=== PATIENT | male | born 1985 | race Caucasian/White ===

== ENCOUNTER 2017-12-21 19:05 | Emergency (ER) | payer OTHER ==
[~2017-12-21] VITALS: Ht 180.3 cm; Wt 136.1 kg
[2017-12-21] MEDS ORDERED: HYDROCODONE/APAP 5MG-325MG TAB PO ONE (23:00)
[2017-12-22 00:22] VITALS: BP 140/96
[2017-12-22] MEDS ORDERED: ROBAXIN-750750 MG PO (00:26)
[2017-12-22] MEDS ORDERED: TYLENOL WITH C1 EAC1 PO (00:26)
== END 2017-12-22 00:35 | disposition home or self-care (01) ==
LOC: ER 19:05
DX: S86.111A Strain of other muscle(s) and tendon(s) of posterior muscle group at lower leg level, right leg, initial encounter (principal); W40.9XXA Explosion of unspecified explosive materials, initial encounter; Y92.69 Other specified industrial and construction area as the place of occurrence of the external cause; Y99.0 Civilian activity done for income or pay
CPT/HCPCS: 93971; 99283

== ENCOUNTER → 2018-03-17 | Day surgery (SDC) | payer OTHER ==
[~2018-03-17] MED LIST: CIPRO500 MG PO; CITALOPRAM HBR20 MG PO; FENTANYL CITRATE/PF 100MCG/2 ML INJ ONE; GLUCAGON FOR INJ 1 MG VIAL ONE; HYOSCYAMINE SULFATE 0.5 MG/ML AMP ONE; LIDOCAINE HCL 2% LOCAL INJ 5 ML SDV VIAL INJ ONE; METOCLOPRAMIDE HCL 10 MG/2ML VIAL ONE; MIDAZOLAM HCL 2 MG/2 ML VIAL ONE; NORCO 10-325 T1 EACH PO; ONDANSETRON HCL INJ 2 MG/ML VIAL ONE; PANTOPRAZOLE 40 MG 10ML VIAL ONE; PANTOPRAZOLE SO40 MG PO; PROPOFOL IV EMULSION 10 MG/ML 50 ML VIAL ONE; ROBAXIN-750750 MG PO; TYLENOL WITH C1 EAC1 PO; XIFAXAN550 MG PO
[2018-03-17 13:08] LABS: C DIFFICILE TOXIN A&B AMP PROB NEGATIVE (NEGATIVE); WBC,FECAL (FECAL LACTOFERRIN) POSITIVE (NEGATIVE)
--- NOTE | 2018-03-17 15:11 | Operative Report ---
DATE OF PROCEDURE: March 17, 2018 REFERRING PHYSICIAN: PROCEDURES PERFORMED 1. Esophagogastroduodenoscopy with biopsies. 2. Colonoscopy with biopsies. INDICATIONS FOR ESOPHAGOGASTRODUODENOSCOPY: Nausea and vomiting. INDICATIONS FOR COLONOSCOPY: Rectal bleeding, change of bowel habits. MEDICATION: Patient was done under MAC. Please see anesthesiologist's note. PROCEDURE: With patient in left lateral decubitus position, a flexible fiberoptic Olympus gastroscope was introduced into the esophagus under direct visualization without any difficulty. There was some patchy erythema noted in distal esophagus. The scope was then advanced with ease into the stomach. Mucosa overlying the antrum and the body revealed some patchy erythema and mild to moderate edema and biopsies were obtained, sent to stain for H. pylori. Several hyperplastic appearing polyps were noted in the body of the stomach and some were partially excised with cold biopsy forceps. Pylorus appeared to be of normal contour and shape, was intubated with ease and the scope was advanced all the way to the 2nd portion of the duodenum. One nodule was biopsied in the proximal 2nd portion and biopsies were obtained from mucosa to rule out sprue. The mucosa overlying the duodenal bulb appeared to be within normal limits. The scope was then withdrawn back into the stomach and retroflexed and mucosa overlying the fundus and cardia appeared to be within normal limits. The scope was then straightened out. The stomach was decompressed. Scope was subsequently withdrawn. Patient tolerated the procedure well. IMPRESSION 1. Distal esophagitis, mild. 2. Gastritis biopsied. Biopsies sent to stain for H. pylori. 3. Gastric polyps, hyperplastic appearing, body, some partially excised with cold biopsy forceps. 4. Rule out sprue. 5. Nodule, minute proximal 2nd portion biopsied. PLAN: Follow up histology. Initiate Protonix 40 mg 1 p.o. q.a.m. a.c. Patient was then turned around and after adequate lubrication of the anal canal, a flexible fiberoptic Olympus colonoscope was inserted into the rectum with ease and advanced all the way to the cecum. The mucosa overlying the cecum appeared to be within normal limits. The ileocecal valve was intubated and the scope was advanced into the terminal ileum which appeared ulcerated and inflamed. Biopsies were obtained. The scope was then withdrawn back into the colon. Mucosa overlying the ascending, transverse, descending, sigmoid and rectum revealed some patchy areas of erythema and low-grade edema with some intervening normal-appearing mucosa. Random biopsies were obtained. The scope was then retroflexed into the distal rectum and small internal hemorrhoids were noted, none of which was actively bleeding. The scope was then straightened out. It was subsequently withdrawn after securing an adequate stool specimen that was sent for the appropriate stool studies. Patient tolerated procedure well. IMPRESSION 1. Colitis, mild, patchy. Random biopsies obtained. 2. Proctitis, mild. Biopsies obtained. 3. Internal hemorrhoids none actively bleeding. PLAN: Follow up histology. Follow up stool studies. Check CRP, sed rate and IBD panel. Will proceed with small bowel series if not done. Will need to initiate biologic therapy with even possible immunologic therapy. Job#: [id number] DG cc:SHARLA MENJIVAR MD
== END | disposition home or self-care (01) ==
LOC: OR 08:51
PROVIDERS: ATTEND Internal Medicine Gastroenterology
DX: K29.50 Unspecified chronic gastritis without bleeding (principal); K31.7 Polyp of stomach and duodenum; K52.9 Noninfective gastroenteritis and colitis, unspecified; K20.9 Esophagitis, unspecified; K31.89 Other diseases of stomach and duodenum; K62.89 Other specified diseases of anus and rectum; K64.8 Other hemorrhoids; F43.10 Post-traumatic stress disorder, unspecified; F41.9 Anxiety disorder, unspecified
CPT/HCPCS: 36415; 43239; 45380; 82308; 82948; 83630; 85651; 86140; 86256; 86671; 87045; 87177; 87328; 87493; J1610; J1980; J2001; J2250; J2405; J2765; 45378

== ENCOUNTER → 2018-04-22 | Outpatient (CLI) | payer OTHER ==
[~2018-04-22] MED LIST changes: -FENTANYL CITRATE/PF 100MCG/2 ML INJ ONE; -GLUCAGON FOR INJ 1 MG VIAL ONE; -HYOSCYAMINE SULFATE 0.5 MG/ML AMP ONE; -LIDOCAINE HCL 2% LOCAL INJ 5 ML SDV VIAL INJ ONE; -METOCLOPRAMIDE HCL 10 MG/2ML VIAL ONE; -MIDAZOLAM HCL 2 MG/2 ML VIAL ONE; -ONDANSETRON HCL INJ 2 MG/ML VIAL ONE; -PANTOPRAZOLE 40 MG 10ML VIAL ONE; -PROPOFOL IV EMULSION 10 MG/ML 50 ML VIAL ONE
--- NOTE | 2018-04-22 11:51 | Diagnostic Imaging Report ---
EXAMINATION: CHEST 2 VIEWS INDICATION: \[id number] \S\[id number] \S\POSSIBLE TUBERCULOSIS COMPARISON: None FINDINGS: PA and lateral views TUBES and LINES: None. LUNGS: Lungs are moderately inflated. Lungs are clear. There is no evidence of pneumonia or pulmonary edema. PLEURA: No pleural effusion or pneumothorax. HEART AND MEDIASTINUM: The cardiomediastinal silhouette is unremarkable. BONES AND SOFT TISSUES: No acute osseous lesion. Soft tissues are unremarkable. UPPER ABDOMEN: No free air under the diaphragm. IMPRESSION: No acute thoracic abnormality. Signed by: DR. Richard Bah MD on 04/22/2018 11:48 AM
== END ==
LOC: RAD 10:45
PROVIDERS: ATTEND Internal Medicine Gastroenterology
DX: Z11.1 Encounter for screening for respiratory tuberculosis (principal)
CPT/HCPCS: 71046

== ENCOUNTER 2019-12-04 07:33 | Inpatient (IN) | payer OTHER ==
[~2019-12-04] VITALS: Ht 180.3 cm; Wt 99.3 kg
[2019-12-04 08:24] LABS: BASOPHILS % 0.3 % (0.0-1.0); EOSINOPHILS # (AUTO) 0.2 (0.0-0.4); EOSINOPHILS % 1.1 % (0.0-6.0); HEMATOCRIT 30.3 % (38.2-49.6); HEMOGLOBIN 8.4 g/dL (14.0-18.0); LYMPHOCYTES # (AUTO) 2.4 (1.0-3.2); LYMPHOCYTES % 15.8 % (18.0-39.1); MEAN CORPUSCULAR HEMOGLOBIN 20.6 pg (28-32); MEAN CORPUSCULAR HGB CONC 27.7 g/dL (31-35); MEAN CORPUSCULAR VOLUME 74.4 fL (81-99); MONOCYTES # (AUTO) 0.8 (0.2-0.8); MONOCYTES % 5.4 % (4.4-11.3); NEUTROPHILS # (AUTO) 11.9 (2.1-6.9); NEUTROPHILS % 76.4 % (38.7-80.0); PLATELET COUNT 773 x10e3/uL (140-360); RED BLOOD COUNT 4.07 x10e6/uL (4.3-5.7); RED CELL DISTRIBUTION WIDTH 17.9 % (11.7-14.4)
[2019-12-04] MEDS ORDERED: DIATRIZOATE MEGL/DIATRIZOA SOD 30 ML BTL PO ONE (08:27)
[2019-12-04 08:43] LABS: ALANINE AMINOTRANSFERASE 19 IU/L (0-55); ALBUMIN 1.7 g/dL (3.5-5.0); ALBUMIN/GLOBULIN RATIO 0.3 (0.8-2.0); ALKALINE PHOSPHATASE 162 IU/L (40-150); ANION GAP 12.6 mmol/L (8-16); BLOOD UREA NITROGEN 8 mg/dL (7-26); BUN/CREATININE RATIO 10 (6-25); CALCIUM 7.9 mg/dL (8.4-10.2); CARBON DIOXIDE 25 mmol/L (22-29); CHLORIDE 105 mmol/L (98-107); CREATININE, SERUM 0.78 mg/dL (0.72-1.25); EST GLOMERULAR FILTRATION RATE > 60 ML/MIN (60-); GLUCOSE 92 mg/dL (74-118); POTASSIUM 3.6 mmol/L (3.5-5.1); SODIUM 139 mmol/L (136-145)
[2019-12-04] MEDS ORDERED: BENTYL10 MG/1 ML PO (08:48)
[2019-12-04] MEDS ORDERED: LEVSIN0.125 MG PO (08:50)
[2019-12-04] MEDS ORDERED: HUMIRA40 MG/0.8 PO (08:51)
--- NOTE | 2019-12-04 10:47 | Diagnostic Imaging Report ---
EXAM: CT Abdomen and Pelvis WITH intravenous contrast INDICATION: Abdominal pain, rectal bleeding, Crohn disease COMPARISON: CT abdomen and pelvis of 02/26/2018 TECHNIQUE: Abdomen and pelvis were scanned utilizing a multidetector helical scanner from the lung base to the pubic symphysis after administration of IV contrast. Coronal and sagittal reformations were obtained. Routine protocol was performed. Scan was performed during portal venous phase. IV CONTRAST: 100mL of Isovue 370 ORAL CONTRAST: Gastrografin RADIATION DOSE: Total DLP: 512 mGy*cm Dose modulation, iterative reconstruction, and/or weight based adjustment of the mA/kV was utilized to reduce the radiation dose to as low as reasonably achievable. FINDINGS: LOWER THORAX: Normal. HEPATOBILIARY: Diffuse hepatic steatosis. No focal liver lesion. No biliary ductal dilation. Unremarkable gallbladder. SPLEEN: No splenomegaly. PANCREAS: No focal masses or ductal dilatation. ADRENALS: No adrenal nodules. KIDNEYS/URETERS: No hydronephrosis, stones, or solid mass lesions. PELVIC ORGANS/BLADDER: Unremarkable. PERITONEUM / RETROPERITONEUM: See GI tract LYMPH NODES: Mesenteric lymphadenopathy. VESSELS: Unremarkable. GI TRACT: In the mid anterior abdomen, there are several loops of small bowel which demonstrate wall thickening and enhancement. Posterior to these loops, there is a 4.1 x 1.5 cm peripherally enhancing fluid collection containing a small amount of air. Small amount of air adjacent to this collection appears extraluminal. Associated adjacent mesenteric adenopathy. BONES AND SOFT TISSUES: No acute osseous injury. No suspicious lytic or blastic lesions. IMPRESSION: Anterior abdominal distal jejunal/proximal ileal wall thickening/enhancement with associated mesenteric fat stranding and a 4.1 x 1.5 cm wall enhancing mesenteric fluid collection with a small amount of adjacent extraluminal air. Associated mesenteric lymphadenopathy. Findings consistent with acute Crohn disease flare with associated small mesenteric abscess. This abscess, based on size and location, is not amenable to percutaneous drainage. Signed by: Malou Amaro MD on 12/04/2019 10:43 AM
[2019-12-04] MEDS: LEVOFLOXACIN 500MG/D5W 100ML 100 ML IV SCH (11:17)
[2019-12-04] MEDS ORDERED: LEVOFLOXACIN 500MG/D5W 100ML IV SCH (11:30)
--- NOTE | 2019-12-04 11:30 | History and Physical ---
CHIEF COMPLAINT: "I have blood in my stool." HISTORY OF PRESENT ILLNESS: This is a 34-year-old white man, who has known history of inflammatory bowel disease (ulcerative colitis and Crohn disease). The patient states that over the last 6 months he has lost approximately 90 pounds unintentionally. The patient also states for the past few days he has had hematochezia. The patient saw his primary care physician, namely myself, Dr. Luevano over the last week and was found to have a hemoglobin 8.5 g/dL. The patient denies any melena, but states at times he does have a blood in his stool. The patient states he has pain in his lower abdominal quadrant area. Denies any fever or chills, but states he does not feel well. In the emergency room, the patient was found to have white blood cell count of 15,400 with 76% segmented neutrophils. Hemoglobin is 8.4 g/dL. MCV 74. RDW 17.9. The patient's chemistries are unremarkable except albumin is 1.7 g/dL. REVIEW OF SYSTEMS: GENERAL: The patient has lost 90 pounds in the last 6 months. No fever or chills, but states he does not feel well. He does complain of weakness. HEENT: No headaches. No visual changes. CARDIOVASCULAR/RESPIRATORY: No chest pain. No shortness of breath. No cough. GI: Complains of blood in his stools for the past couple weeks. It occurs intermittently. Denies any melena. Denies any nausea or vomiting. The patient states he does have abdominal discomfort mainly in the lower abdominal area which has been present for about a week. : No UTI symptoms. Denies any hematuria. NEUROMUSCULAR: No limb weakness or numbness. ALLERGIES: NO KNOWN DRUG ALLERGIES. HOME MEDICATIONS: 1. Humira 40 mg subcutaneous every two weeks. 2. Citalopram 20 mg. 3. Dicyclomine 20 mg daily. 4. Hyoscyamine 0.25 mg once daily as needed for abdominal cramping. 5. Pantoprazole 40 mg daily. PAST MEDICAL HISTORY: 1. Inflammatory bowel disease (Crohn disease/ulcerative colitis). 2. Anemia secondary to chronic disease. 3. GERD. 4. Mild obesity. FAMILY HISTORY: Father with prostate cancer. PAST SURGICAL HISTORY: None. SOCIAL HISTORY: This man is and lives with his . 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 The patient does not smoke. He does dip tobacco. The patient states he drinks alcohol rarely. The patient states that with the current COVID-19 crisis, he has not been working. PHYSICAL EXAMINATION: GENERAL: He is awake, alert, and fully oriented. He is very pleasant and cooperative with exam, did not appear to be any distress. VITAL SIGNS: Height 5 feet 11 inches, weight is 220 pounds. Weight was apparently 310 pounds in May 2019. His current BMI is 30. His blood pressure 120/80, pulse is 90, respiratory rate 18, oxygen saturation 100% on room air, and temperature 98.4. INTEGUMENT: Skin is warm and dry. The patient has obvious pallor. No jaundice or diaphoresis. HEENT: Anicteric sclerae with pale conjunctivae. He does have moist mucous membranes. NECK: Supple. CARDIOVASCULAR: Regular rate and rhythm. LUNGS: No rales. No rhonchi or wheezes. ABDOMEN: Mildly obese. He does have tenderness in the bilateral lower quadrant area, more pronounced on the left. EXTREMITIES: No edema or deformity. NEUROLOGIC: Intact. DIAGNOSES: 1. Acute on chronic anemia likely secondary to gastrointestinal bleeding. 2. Inflammatory bowel disease (ulcerative colitis and Crohn disease). 3. Colitis. 4. Drastic unintentional weight loss. PLAN: 1. Admit to the hospital. 2. Clear liquid diet. 3. N.p.o. after midnight. 4. Start intravenous antibiotics. 5. We will follow. 6. Order CT of abdomen and pelvis. 7. Consult Gastroenterology since the patient most likely will need upper and lower endoscopy. 8. Follow hemoglobin and hematocrit. 9. Hemoccult stool. I spent 40 minutes in care of this patient. MD LIAM Lim/JOHN /[id number] MTDAlana
--- NOTE | 2019-12-04 12:24 | NUR ---
Attempted to reach Dr. Frankel in order to modify patients diet order. Spoke with answering service waiting for a call back.
--- NOTE | 2019-12-04 12:54 | NUR ---
Spoke with Dr. Frankel regarding patients diet order, was told to call Dr. Conti to verify that patient would not be scoped today inorder to modify diet order.
--- NOTE | 2019-12-04 13:00 | NUR ---
Called Dr. Conti's office regarding diet order. Spoke with answering service. Will await for call back.
[2019-12-04] MEDS ORDERED: SODIUM CHLORIDE 0.9% 50ML 50 ML ONE (13:04)
[2019-12-04] MEDS ORDERED: IOPAMIDOL 370 MG/ML 200 ML INFUS..BTL INJ ONE (13:05)
--- NOTE | 2019-12-04 14:17 | NUR ---
Per Dr. Conti patient is to remain on clear liquids.
[2019-12-04] MEDS: METRONIDAZOLE 500MG/NS 100ML 100 ML IV SCH ×2 (14:30→21:30)
--- NOTE | 2019-12-04 15:00 | NUR ---
Patient arrived to the unit @ 1453 via stretcher from ER. Patient in stable condition, No s/s of distress noted. No pain voiced. Telemetry in place and working. bed in lowest position and locked. Call light within reach. All personal items within reach.
[2019-12-04 16:03] VITALS: BP 124/73
[2019-12-04 16:45] VITALS: BP 124/73
[2019-12-04] MEDS ORDERED: BISACODYL 5 MG TAB EC PO ONE ×4 (17:00→23:00)
[2019-12-04] MEDS ORDERED: CITRATE OF MAGNESIA 300ML BOTTLE PO ONE ×2 (19:00→23:00)
--- NOTE | 2019-12-04 19:00 | NUR ---
Bedside shift report given to oncoming nurse. patient in stable condition, no s/s of distress. No complaints of pain. Telemetry in place and working. Bed in lowest position and locked. Call light within reach. All personal items within reach.
--- NOTE | 2019-12-04 19:52 | NUR ---
CALL PLACED OUT TO DR. MENJIVAR FOR PAIN MEDICATION UPON PATIENT'S REQUEST- AWAITING CALLBACK. REINFORCING METAL WORKER NURSE INFORMED.
[2019-12-04 21:30] VITALS: BP 124/73
[2019-12-04] MEDS: HYDROMORPHONE 1MG/1ML INJ IV PRN (21:30)
[2019-12-04] MEDS: ONDANSETRON HCL INJ 2MG/ML 2ML 2 MG/ML VIAL IV PRN (21:30)
--- NOTE | 2019-12-04 21:30 | NUR ---
PATIENT RESTING IN BED AOX4, NO SIGNS OF DISTRESS NOTED. IV ANTIBIOTICS ARE RUNNING AT ORDERED RATE, AND PATIENT VOICES PAIN AT A LEVEL OF 8 AND WAS MEDICATED ORDERED. PATIENT VOICED UNDERSTANDING OF NPO AFTER MIDNIGHT FOR PROCEDURE TOMORROW. BED IS IN LOWEST POSITION, BOTH SIDE RAILS ARE UP, CALL LIGHT IS WITHIN EASY REACH, WILL CONTINUE TO MONITOR.
[2019-12-04] MEDS ORDERED: SODIUM CHLORIDE 0.9% 250ML 250 ML ONE (21:35)
[2019-12-04 21:42] VITALS: BP 131/85
[2019-12-05] VITALS (9 sets, daily range): BP systolic 110–122; BP diastolic 62–79
--- NOTE | 2019-12-05 00:30 | NUR ---
PER DR. JOHNSON, PATIENT INFORMED THAT HE WILL NOT BE DOING COLONOSCOPY AND EGD PROCEDURES SCHEDULED. HE WILL SPEAK WITH SURGEON THAT MORNING TO DISCUSS POSSIBLE SURGERY AND IS TO STAY NPO ORDERED.
[2019-12-05] MEDS: METRONIDAZOLE 500MG/NS 100ML 100 ML IV SCH ×4 (01:06→17:25)
[2019-12-05] MEDS: ONDANSETRON HCL INJ 2MG/ML 2ML 2 MG/ML VIAL IV PRN ×3 (01:48→20:35)
[2019-12-05] MEDS: HYDROMORPHONE 1MG/1ML INJ IV PRN ×6 (01:48→20:35)
[2019-12-05 05:45] LABS: BASOPHILS % 0.1 % (0.0-1.0); EOSINOPHILS # (AUTO) 0.2 (0.0-0.4); HEMATOCRIT 28.9 % (38.2-49.6); LYMPHOCYTES # (AUTO) 1.8 (1.0-3.2); LYMPHOCYTES % 12.3 % (18.0-39.1); MEAN CORPUSCULAR HEMOGLOBIN 20.7 pg (28-32); MEAN CORPUSCULAR HGB CONC 27.7 g/dL (31-35); MEAN CORPUSCULAR VOLUME 74.9 fL (81-99); MONOCYTES # (AUTO) 0.8 (0.2-0.8); MONOCYTES % 5.2 % (4.4-11.3); NEUTROPHILS # (AUTO) 11.7 (2.1-6.9); NEUTROPHILS % 80.4 % (38.7-80.0); PLATELET COUNT 698 x10e3/uL (140-360); RED BLOOD COUNT 3.86 x10e6/uL (4.3-5.7); RED CELL DISTRIBUTION WIDTH 17.7 % (11.7-14.4)
[2019-12-05] MEDS ORDERED: ALBUMIN 25% 12.5GM 0.25 GM/ML BTL IV SCH ×3 (06:00→12:00)
[2019-12-05 06:12] LABS: ALANINE AMINOTRANSFERASE 17 IU/L (0-55); ALBUMIN 1.7 g/dL (3.5-5.0); ALBUMIN/GLOBULIN RATIO 0.3 (0.8-2.0); ALKALINE PHOSPHATASE 172 IU/L (40-150); ANION GAP 9.7 mmol/L (8-16); BLOOD UREA NITROGEN 6 mg/dL (7-26); BUN/CREATININE RATIO 8 (6-25); CALCIUM 7.8 mg/dL (8.4-10.2); CARBON DIOXIDE 23 mmol/L (22-29); CHLORIDE 107 mmol/L (98-107); CREATININE, SERUM 0.73 mg/dL (0.72-1.25); EST GLOMERULAR FILTRATION RATE > 60 ML/MIN (60-); GLUCOSE 84 mg/dL (74-118); POTASSIUM 3.7 mmol/L (3.5-5.1); SODIUM 136 mmol/L (136-145)
[2019-12-05 06:44] LABS: FERRITIN 352.09 ng/mL (21.81-274.66)
--- NOTE | 2019-12-05 07:00 | NUR ---
BEDSIDE SHIFT REPORT RECEIVED FROM THE CONSULTING INTERN RN. CALL LIGHT WITH IN EASY REACH. INSTRUCTED PT TO USE CALL LIGHT FOR ALL THE NEEDS. EDUCATED PT ABOUT FALL PRECAUTIONS. PT VERBALIZED UNDERSTANDING. BED IS LOW AND LOCKED. SIDE RAILS X2. PT IS ON NPO. PT DENIES NEEDS AT THIS TIME.
--- NOTE | 2019-12-05 08:00 | NUR ---
PAGED DR. Rukhsana JOHNSON AND RECONFIRMED ALBUMIN DOSE.
[2019-12-05] MEDS: LEVOFLOXACIN 500MG/D5W 100ML 100 ML IV SCH (08:04)
--- NOTE | 2019-12-05 09:20 | Progress Note ---
DATE: 12/05/2019 CHIEF COMPLAINT/HISTORY OF PRESENT ILLNESS: This is a 34-year-old white man, whose primary treating diagnosis is Crohn disease/ulcerative colitis exacerbation. The patient underwent a CT of the abdomen and pelvis on admission, which revealed a 4.1 x 1.5 cm wall enhancing mesenteric fluid collection consistent with an abscess. This abscess-like lesion was located in the anterior abdominal distal jejunum/proximal ileal wall area. Today, the patient was found to have white blood cell count of 14,500 with 80% segmented neutrophils. Hemoglobin is 8 g/dL. The patient was found to have Hemoccult-positive stools. Today's BUN and creatinine are 6 and 0.7 respectively. The patient's serum iron is 18, TIBC 178, transferrin is 127, and ferritin is 352. REVIEW OF SYSTEMS: As per HPI. PHYSICAL EXAMINATION: GENERAL: He is awake. He is alert. He is fully oriented, in no distress. VITAL SIGNS: Height 5 feet 11 inches, weight is 220 pounds, BMI is 30. Blood pressure is 110/70, pulse is 80, respiratory rate is 18, temperature 97.0, oxygen saturation 96% on room air. INTEGUMENT: Skin is warm and dry. Slight pallor. No jaundice or diaphoresis. HEENT: Anicteric sclerae. Moist mucous membranes. NECK: Supple. CARDIOVASCULAR: Regular rate and rhythm. LUNGS: No rales. No rhonchi or wheezing. ABDOMEN: Soft. He does have tenderness in the left lower quadrant area. No rebound or guarding. EXTREMITIES: No edema or deformity. NEURO: Intact. DIAGNOSES: 1. Mesenteric abscess, likely. 2. Crohn disease/ulcerative colitis exacerbation. 3. Anemia secondary to chronic disease/iron deficiency. 4. Drastic weight loss. PLAN: 1. Intravenous antibiotics for the patient's mesenteric abscess and inflammatory bowel disease exacerbation. 2. Consult General Surgery for the patient's likely mesenteric abscess. 3. We will optimize the patient's nutritional status. 4. We will continue intravenous iron infusion. 5. Pain control. I spent 30 minutes in the care of this patient. MD LIAM Lim/JOHN /[id number] MTDD
[2019-12-05] MEDS: CYANOCOBALAMIN INJ 1,000 MCG/ML VIAL IM SCH (09:26)
[2019-12-05] MEDS: IRON SUCROSE 100 MG in SODIUM CHLORIDE 0.9% 100 ML 100 ML IV SCH (09:40)
[2019-12-05] MEDS: LACTATED RINGER'S 1,000 ML IV SCH ×2 (11:00→18:00)
--- NOTE | 2019-12-05 11:00 | NUR ---
Pt. expressed no spiritual or emotional concerns at this time. Data Operations Leader provided hospitality and information on how to reach center medical specialist, if needed. ILA ROBLEDO Data Operations Leader Spiritual Care Department O: [phone]
--- NOTE | 2019-12-05 19:09 | NUR ---
BEDSIDE SHIFT REPORT GIVEN TO THE CASTING FINISHER RN. PT DENIED FURTHER NEEDS.
[2019-12-05] MEDS ORDERED: ALBUMIN 25% 12.5GM 50ML 200 ML IV ONE (20:00)
--- NOTE | 2019-12-05 20:30 | NUR ---
PATIENT RESTING IN BED AOX4, NO SIGNS OF DISTRESS NOTED. IV ANTIBIOTICS ARE RUNNING AT ORDERED RATE, AND PATIENT VOICES PAIN AT A LEVEL OF 7 AND WAS MEDICATED ORDERED. PATIENT IS STILL NPO, AND VOICES NO SYMPTOMS OF NAUSEA AND VOMITING. BED IS IN LOWEST POSITION, BOTH SIDE RAILS ARE UP, CALL LIGHT IS WITHIN EASY REACH, WILL CONTINUE TO MONITOR.
[2019-12-06] VITALS (8 sets, daily range): BP systolic 111–141; BP diastolic 71–82
[2019-12-06] MEDS: METRONIDAZOLE 500MG/NS 100ML 100 ML IV SCH ×4 (00:21→18:19)
[2019-12-06] MEDS: ONDANSETRON HCL INJ 2MG/ML 2ML 2 MG/ML VIAL IV PRN ×2 (00:35→05:49)
[2019-12-06] MEDS: HYDROMORPHONE 1MG/1ML INJ IV PRN ×6 (00:35→22:30)
[2019-12-06] MEDS: LACTATED RINGER'S 1,000 ML IV SCH (03:06)
[2019-12-06 05:52] LABS: ALANINE AMINOTRANSFERASE 11 IU/L (0-55); ALBUMIN 3.3 g/dL (3.5-5.0); ALBUMIN/GLOBULIN RATIO 0.9 (0.8-2.0); ALKALINE PHOSPHATASE 119 IU/L (40-150); ANION GAP 11.3 mmol/L (8-16); BLOOD UREA NITROGEN 6 mg/dL (7-26); BUN/CREATININE RATIO 8 (6-25); CALCIUM 7.6 mg/dL (8.4-10.2); CARBON DIOXIDE 24 mmol/L (22-29); CHLORIDE 106 mmol/L (98-107); CREATININE, SERUM 0.78 mg/dL (0.72-1.25); EST GLOMERULAR FILTRATION RATE > 60 ML/MIN (60-); GLUCOSE 69 mg/dL (74-118); POTASSIUM 3.3 mmol/L (3.5-5.1); SODIUM 138 mmol/L (136-145)
[2019-12-06 06:39] LABS: BASOPHILS % 0.2 % (0.0-1.0); EOSINOPHILS # (AUTO) 0.2 (0.0-0.4); EOSINOPHILS % 1.7 % (0.0-6.0); HEMATOCRIT 25.8 % (38.2-49.6); HEMOGLOBIN 7.2 g/dL (14.0-18.0); LYMPHOCYTES # (AUTO) 1.4 (1.0-3.2); LYMPHOCYTES % 14.1 % (18.0-39.1); MEAN CORPUSCULAR HEMOGLOBIN 20.7 pg (28-32); MEAN CORPUSCULAR HGB CONC 27.9 g/dL (31-35); MEAN CORPUSCULAR VOLUME 74.4 fL (81-99); MONOCYTES # (AUTO) 0.5 (0.2-0.8); MONOCYTES % 5.1 % (4.4-11.3); NEUTROPHILS # (AUTO) 7.6 (2.1-6.9); NEUTROPHILS % 78.1 % (38.7-80.0); PLATELET COUNT 591 x10e3/uL (140-360); RED BLOOD COUNT 3.47 x10e6/uL (4.3-5.7); RED CELL DISTRIBUTION WIDTH 17.4 % (11.7-14.4)
--- NOTE | 2019-12-06 07:00 | NUR ---
BEDSIDE SHIFT REPORT RECEIVED FROM THE SURVEY ENGINEER RN. EDUCATED PT ABOUT FALL PRECAUTIONS. PT VERBALIZED UNDERSTANDING. CALL LIGHT WITH IN EASY REACH. INSTRUCTED PT TO USE CALL LIGHT FOR ALL THE NEEDS. BED IS LOW AND LOCKED. SIDE RAILS X2. PT DENIES NEEDS AT THIS TIME.
[2019-12-06] MEDS: LEVOFLOXACIN 500MG/D5W 100ML 100 ML IV SCH (08:24)
[2019-12-06] MEDS: IRON SUCROSE 100 MG in SODIUM CHLORIDE 0.9% 100 ML 100 ML IV SCH (09:41)
[2019-12-06] MEDS: CYANOCOBALAMIN INJ 1,000 MCG/ML VIAL IM SCH (09:41)
[2019-12-06 09:42] LABS: ANISOCYTOSIS SLIGHT; HYPOCHROMASIA SLIGHT
[2019-12-06 09:43] LABS: MICROCYTOSIS SLIGHT; PLATELET ESTIMATE MODERATELY INCREASED; PLATELET MORPHOLOGY COMMENT NORMAL; POLYCHROMASIA FEW; RBC MORPHOLOGY COMMENT ABNORMAL
[2019-12-06 09:44] LABS: OVALOCYTES FEW
--- NOTE | 2019-12-06 09:54 | NUR ---
PAGED DR. Rukhsana JOHNSON AND REPORTED PT BLOOD SUGAR, HGB 7.2 AND K 3.3. MONITOR HGB PER THE
[2019-12-06] MEDS: DEXTROSE 5%/LACTATED RINGERS 1,000 ML IV SCH (10:43)
--- NOTE | 2019-12-06 12:15 | NUR ---
DR. Darek JOHNSON AT BEDSIDE. INFORMED PT HGB VALUE 7.2. CONTINUE MONITOR PER THE
[2019-12-06] MEDS ORDERED: POTASSIUM CHLORIDE 20 MEQ TAB CR PO STA (12:19)
--- NOTE | 2019-12-06 12:40 | NUR ---
PAGED DR. Rukhsana JOHNSON REGARDING PO MEDS. OKAY TO ADMINISTER PO MEDS PER THE
--- NOTE | 2019-12-06 12:50 | NUR ---
GIVE 2 UNITS OF BLOOD PER DR. MENJIVAR.
--- NOTE | 2019-12-06 13:00 | NUR ---
PT SIGNED CONSENT FOR BLOOD TRANSFUSION
--- NOTE | 2019-12-06 13:50 | NUR ---
PAGED LAB REGARDING BLOOD TRANSFUSION. TYPE AND SCREEN ALREADY DONE AT ER AND VALID PER THE LAB. INFORMED THE SAME TO EMERGENCY MEDICAL TECHNICIAN.
[2019-12-06] MEDS ORDERED: SODIUM CHLORIDE 0.9% 250ML 250 ML IV ONE (13:55)
--- NOTE | 2019-12-06 14:45 | NUR ---
BLOOD TRANSFUSION STARTED. PT DENIES NEEDS AT THIS TIME.
--- NOTE | 2019-12-06 15:00 | NUR ---
BLOOD TRANSFUSION 15 MINS STAYED IN THE ROOM. NO DISTRESS NOTED. PT TOLERATED WELL. BLOOD TRANSFUSION RUNNING AT 100 ML/HR. PT DENIES NEEDS AT THIS TIME.
--- NOTE | 2019-12-06 15:31 | NUR ---
Nutrition Intervention Note RD Recommendation(s) for Physician: - When feasible, ADAT to goal of GI Soft - MVI with minerals once daily for adequacy Plan of Care: RD following, monitoring for tolerance and adequacy Nutrition reason for involvement: Nutrition risk trigger RD Assessment 12/05: 34 YOM admitted for GIB and UC, assessed today per MST screen. Pt reports good appetite and po intake with progressive wt loss over the past 6 months, pt reports UBW of 325# 6 mo ago- significant wt loss noted. Pt reports he had a Crohn's flare up in August when he was off of Humira 2/2 changes in insurance coverage when he lost most of the wt. Pt denies any recent N/V/C/D. Pt denies supplement intake. Pt with no questions or concerns at this time. Per chart pt with mesenteric fluid collection consistent with abscess to the distal jejunum and proximal ileal wall. Pt NPO at this time. Chart reviewed. Will continue to monitor. Principal Problems/Diagnoses: GIB, UC PMH: IBS, UC, Crohn's disease, GERD, anemia, obesity GI: LBM 12/05 x 3 Skin: intact Labs: 12/05: Na 138, K 3.3, BUN 6, Cr 0.7, Gluc 69 Meds: abx, dilaudid, IV Fe, zofran IV/Drips: LR at 125 ml/hr Ht: 71 in Wt: 220 lb BMI: 30.7 kg/m2 IBW: 172 lb Malnutrition Evaluation 12/06/19 Unable to complete assessment. No reported poor po, does not meet criteria Severe wt loss- >10% wt loss in 60 months Fat loss: LIAM Muscle loss: LIAM Nutrition Prescription (Diet Order): NPO Estimated Nutritional Needs: Calories: 0117-3709 (11-14kcal/kg/d) Weight used: CBW Protein: 117-156 (1.5-2g/kg/d) Weight used: IBW Diet Adequacy: Not meeting calorie needs, Not meeting protein needs Tolerance: tolerance pending Diet Education Needs Assessment: Diet education not indicated. Nutrition Care Level: Moderate Nutrition Diagnosis: Inadequate energy and protein intake related to UC and Crohn's disease as evidenced by significant wt loss in 6 months. Goal: Patient will meet 75-100% of estimated needs by follow up Progress: N/A Interventions: - Fiber modified diet, recommend modifications, vitamin/mineral supplement Monitoring/Evaluation: Total energy intake, Total protein intake, Formula/Solution, Weight change Signed: Guillermina Malhotra RD, TEJ, [facility]
--- NOTE | 2019-12-06 17:45 | NUR ---
BLOOD TRANSFUSION COMPLETED. PT TOLERATED WELL. PT DENIED FURTHER NEEDS.
--- NOTE | 2019-12-06 18:00 | NUR ---
PT BLOOD SUGAR CHECKED. 76 NOTED.
--- NOTE | 2019-12-06 19:10 | NUR ---
BEDSIDE SHIFT REPORT GIVEN TO THE PYTHON DEVELOPER RN. ONE MORE UNIT BLOOD PENDING. FLAGYL IV RUNNING NOW. PT DENIED FURTHER NEEDS.
--- NOTE | 2019-12-06 21:45 | NUR ---
BLOOD TRANSFUSION STARTED. VERIFIED WITH 2ND RN. NO S/S OF REACTION NOTED. VITAL SIGN STABLE AT THIS TIME. CONTINUE TO MONITOR CLOSELY
[2019-12-06] MEDS ORDERED: SODIUM CHLORIDE 0.9% 250ML 250 ML ONE (21:48)
[2019-12-07] VITALS (8 sets, daily range): BP systolic 115–139; BP diastolic 76–87
--- NOTE | 2019-12-07 00:45 | NUR ---
BLOOD TRANSFUSION COMPLETED. PT TOLERATED WELL. VITAL SIGN STABLE AT THIS TIME. CONTINUE TO MONITOR CLOSELY
[2019-12-07] MEDS: METRONIDAZOLE 500MG/NS 100ML 100 ML IV SCH ×4 (00:50→17:13)
[2019-12-07] MEDS: DEXTROSE 5%/LACTATED RINGERS 1,000 ML IV SCH (00:50)
[2019-12-07] MEDS: HYDROMORPHONE 1MG/1ML INJ IV PRN ×6 (02:30→21:50)
[2019-12-07 05:20] LABS: BASOPHILS % 0.3 % (0.0-1.0); EOSINOPHILS # (AUTO) 0.2 (0.0-0.4); EOSINOPHILS % 1.7 % (0.0-6.0); HEMATOCRIT 29.9 % (38.2-49.6); HEMOGLOBIN 8.6 g/dL (14.0-18.0); LYMPHOCYTES # (AUTO) 1.4 (1.0-3.2); LYMPHOCYTES % 14.7 % (18.0-39.1); MEAN CORPUSCULAR HGB CONC 28.8 g/dL (31-35); MEAN CORPUSCULAR VOLUME 76.5 fL (81-99); MONOCYTES # (AUTO) 0.6 (0.2-0.8); MONOCYTES % 5.9 % (4.4-11.3); NEUTROPHILS # (AUTO) 7.4 (2.1-6.9); NEUTROPHILS % 76.6 % (38.7-80.0); PLATELET COUNT 536 x10e3/uL (140-360); RED BLOOD COUNT 3.91 x10e6/uL (4.3-5.7)
[2019-12-07 05:46] LABS: ALANINE AMINOTRANSFERASE 8 IU/L (0-55); ALBUMIN 2.7 g/dL (3.5-5.0); ALBUMIN/GLOBULIN RATIO 0.7 (0.8-2.0); ALKALINE PHOSPHATASE 110 IU/L (40-150); ANION GAP 9.2 mmol/L (8-16); BLOOD UREA NITROGEN < 5 mg/dL (7-26); CALCIUM 8.3 mg/dL (8.4-10.2); CARBON DIOXIDE 27 mmol/L (22-29); CHLORIDE 106 mmol/L (98-107); CREATININE, SERUM 0.77 mg/dL (0.72-1.25); EST GLOMERULAR FILTRATION RATE > 60 ML/MIN (60-); GLUCOSE 92 mg/dL (74-118); POTASSIUM 3.2 mmol/L (3.5-5.1); SODIUM 139 mmol/L (136-145)
[2019-12-07 05:47] LABS: BUN/CREATININE RATIO 6 (6-25)
[2019-12-07] MEDS: LEVOFLOXACIN 500MG/D5W 100ML 100 ML IV SCH (08:22)
[2019-12-07] MEDS: CYANOCOBALAMIN INJ 1,000 MCG/ML VIAL IM SCH (09:19)
[2019-12-07] MEDS: IRON SUCROSE 100 MG in SODIUM CHLORIDE 0.9% 100 ML 100 ML IV SCH (09:20)
[2019-12-07] MEDS ORDERED: POTASSIUM CHLORIDE 10MEQ EA PO ONE ×2 (10:30→12:15)
[2019-12-07 10:37] LABS: ANISOCYTOSIS MODERATE; HYPOCHROMASIA SLIGHT; OVALOCYTES FEW
[2019-12-07 10:42] LABS: POLYCHROMASIA FEW
[2019-12-07 10:43] LABS: MICROCYTOSIS SLIGHT
[2019-12-07 10:54] LABS: PLATELET ESTIMATE MODERATELY INCREASED; RBC MORPHOLOGY COMMENT ABNORMAL
[2019-12-07 10:55] LABS: PLATELET MORPHOLOGY COMMENT FEW EDTA CLUMPING
[2019-12-07] MEDS ORDERED: SODIUM CHLORIDE 0.9% 500ML 500 ML ONE (17:42)
[2019-12-07] MEDS: ONDANSETRON HCL INJ 2MG/ML 2ML 2 MG/ML VIAL IV PRN ×2 (18:39→23:50)
--- NOTE | 2019-12-07 19:28 | NUR ---
BSSR RECEIVED FROM RUTHIE CONNOR, PATIENT AWAKE ALERT, NO DISTRESS NOTED, PER RUTHIE CONNOR IV HYDRATION ORDER CANCELLED, FLUIDS STOPPED, PT REMAIN NPO, MD MENJIVAR PAGED TO VERIFY DIET ORDER
--- NOTE | 2019-12-07 19:36 | NUR ---
MD MENJIVAR RETURN PAGED REGARDING IV FLUIDS FOR PATIENT SINCE REMAINS NPO, HE STATED HE CANCELLED IT BECAUSE HE THOUGHT HE WAS CLEAR LIQUIDS, "CONTACT MD Compa JOHNSON ABOUT DIET ORDER AND IF HE REMAINS NPO RESTART D5 FLUIDS", AWAITING CALLBACK FROM MD JOHNSON
--- NOTE | 2019-12-07 20:56 | NUR ---
MD Compa JOHNSON PAGED X 2 NO CALLBACK TO CLARIFY DIET ORDER, TO START OR STOP IV FLUIDS, PT REFUSING IV FLUIDS AT THIS TIME, STATING "md JOHNSON WILL BE HERE SOON HE COMES AT MIDNIGHT"
[2019-12-08] VITALS (8 sets, daily range): BP systolic 118–147; BP diastolic 67–94
[2019-12-08] MEDS: METRONIDAZOLE 500MG/NS 100ML 100 ML IV SCH ×4 (00:43→16:04)
--- NOTE | 2019-12-08 00:43 | NUR ---
PATIENT AWAKEN DURING ROUTINE HOURLY ROUNDING, IV ABT THERAPY CONTINUED SCHEDULED, PRN PAIN MEDICATION REQUESTED BY PATIENT, RAC IV PATIENT C/D/I, FLUSHES WELL , PT TOLERATED ACTIVITY WELL, VSS, AFEBRILE, REMAIN ON CLEAR LIQUID DIET PER MD Calero
[2019-12-08] MEDS: HYDROMORPHONE 1MG/1ML INJ IV PRN ×6 (00:50→20:13)
[2019-12-08] MEDS: ONDANSETRON HCL INJ 2MG/ML 2ML 2 MG/ML VIAL IV PRN ×4 (04:39→20:13)
[2019-12-08 04:52] LABS: BASOPHILS % 0.3 % (0.0-1.0); EOSINOPHILS # (AUTO) 0.2 (0.0-0.4); HEMATOCRIT 31.7 % (38.2-49.6); HEMOGLOBIN 9.3 g/dL (14.0-18.0); LYMPHOCYTES # (AUTO) 1.5 (1.0-3.2); LYMPHOCYTES % 16.1 % (18.0-39.1); MEAN CORPUSCULAR HEMOGLOBIN 22.4 pg (28-32); MEAN CORPUSCULAR HGB CONC 29.3 g/dL (31-35); MEAN CORPUSCULAR VOLUME 76.2 fL (81-99); MONOCYTES # (AUTO) 0.6 (0.2-0.8); MONOCYTES % 6.8 % (4.4-11.3); NEUTROPHILS # (AUTO) 6.9 (2.1-6.9); NEUTROPHILS % 74.1 % (38.7-80.0); PLATELET COUNT 535 x10e3/uL (140-360); RED BLOOD COUNT 4.16 x10e6/uL (4.3-5.7); RED CELL DISTRIBUTION WIDTH 18.3 % (11.7-14.4)
[2019-12-08 05:11] LABS: ALANINE AMINOTRANSFERASE 8 IU/L (0-55); ALBUMIN 2.6 g/dL (3.5-5.0); ALBUMIN/GLOBULIN RATIO 0.6 (0.8-2.0); ALKALINE PHOSPHATASE 106 IU/L (40-150); ANION GAP 11.6 mmol/L (8-16); BLOOD UREA NITROGEN < 5 mg/dL (7-26); CALCIUM 8.5 mg/dL (8.4-10.2); CARBON DIOXIDE 25 mmol/L (22-29); CHLORIDE 105 mmol/L (98-107); CREATININE, SERUM 0.76 mg/dL (0.72-1.25); EST GLOMERULAR FILTRATION RATE > 60 ML/MIN (60-); GLUCOSE 73 mg/dL (74-118); POTASSIUM 3.6 mmol/L (3.5-5.1); SODIUM 138 mmol/L (136-145)
[2019-12-08 05:18] LABS: BUN/CREATININE RATIO 7 (6-25)
[2019-12-08] MEDS: CYANOCOBALAMIN INJ 1,000 MCG/ML VIAL IM SCH (08:53)
[2019-12-08] MEDS: LEVOFLOXACIN 500MG/D5W 100ML 100 ML IV SCH (08:54)
--- NOTE | 2019-12-08 08:56 | Progress Note ---
DATE: 12/08/2019 CHIEF COMPLAINT/HISTORY OF PRESENT ILLNESS: This is a 34-year-old white man, whose primary treating diagnosis is Crohn disease/ulcerative colitis exacerbation. On admission, the patient underwent a CT of abdomen and pelvis that revealed a 4.1 x 1.5 cm wall-enhancing mesenteric fluid collection, consistent with an abscess. Also, on admission, the patient was found to have profound anemia. The patient's iron studies revealed findings consistent with anemia secondary to iron deficiency and chronic disease. The patient was transfused 2 units of packed red blood cells two nights ago and has received intravenous iron infusions. Today's hemoglobin is 9.3 g/dL. The patient's white blood cell count today is 9300 with 74% segmenters. The patient's TSH 3.6. The patient's BUN and creatinine are 5 and 0.76 respectively. During this hospitalization, the patient's Clostridium difficile toxin A and B antigens were negative; however, he was found to have Hemoccult-positive stool and his stool calprotectin was elevated at 189. REVIEW OF SYSTEMS: As per HPI. PHYSICAL EXAMINATION: GENERAL: He is awake, alert, fully oriented, in no distress, very pleasant. VITAL SIGNS: Blood pressure is 118/68, pulse 72, respiratory rate 18, temp 96.0, oxygen saturation is 99% on room air. BMI is 30. INTEGUMENT: Skin is warm and dry. He is less pale. No jaundice or diaphoresis. HEENT: Anterior sclerae with moist mucous membranes. NECK: Supple. CARDIOVASCULAR: Regular rate and rhythm. LUNGS: No rales. No rhonchi or wheezes. ABDOMEN: The patient has minimal tenderness just superior to his umbilicus. EXTREMITIES: No edema or deformity. NEUROLOGIC: Intact. DIAGNOSES: 1. Mesenteric abscess, likely. 2. Crohn disease/ulcerative colitis exacerbation. 3. Anemia secondary to chronic disease/iron deficiency. 4. Drastic weight loss. PLAN: 1. Continue intravenous antibiotics. 2. Appreciate General Surgery's input. 3. Optimize patient's nutritional status. 4. Follow hemoglobin and hematocrit. 5. Tentative surgery on Wednesday, December 11, 2019, which will likely consist of partial small-bowel resection. I spent 30 minutes in the care of this patient. MD LIAM Lim/JOHN /[id number] MTDAlana
[2019-12-08] MEDS: IRON SUCROSE 100 MG in SODIUM CHLORIDE 0.9% 100 ML 100 ML IV SCH (10:43)
--- NOTE | 2019-12-08 19:39 | NUR ---
patient s/p PICC line placement, CXR completedd to verify placement, result pending
--- NOTE | 2019-12-08 20:03 | Diagnostic Imaging Report ---
EXAMINATION: CHEST XRAY LINE PLACEMENT INDICATION: ^verify placement of PICC ^[id number] ^1900 COMPARISON: 04/22/2018 FINDINGS: TUBES and LINES: Right peripherally inserted central venous catheter with distal tip at the right atrial/superior vena cava junction. LUNGS: Lungs are well inflated. Lungs are clear. There is no evidence of pneumonia or pulmonary edema. PLEURA: No pleural effusion or pneumothorax. HEART AND MEDIASTINUM: The cardiomediastinal silhouette is unremarkable. BONES AND SOFT TISSUES: No acute osseous lesion. Soft tissues are unremarkable. UPPER ABDOMEN: No free air under the diaphragm. IMPRESSION: Right peripherally inserted central venous catheter with distal tip at the right atrial/superior vena cava junction. Signed by: Dr. Wong Rasheed M.D. on 12/08/2019 7:59 PM
[2019-12-09] VITALS (12 sets, daily range): BP systolic 102–155; BP diastolic 63–100
[2019-12-09] MEDS: ONDANSETRON HCL INJ 2MG/ML 2ML 2 MG/ML VIAL IV PRN ×5 (00:10→22:45)
[2019-12-09] MEDS: HYDROMORPHONE 1MG/1ML INJ IV PRN ×7 (00:10→22:45)
[2019-12-09 04:26] LABS: BASOPHILS % 0.2 % (0.0-1.0); EOSINOPHILS # (AUTO) 0.2 (0.0-0.4); HEMATOCRIT 31.8 % (38.2-49.6); HEMOGLOBIN 9.4 g/dL (14.0-18.0); LYMPHOCYTES # (AUTO) 1.4 (1.0-3.2); LYMPHOCYTES % 13.9 % (18.0-39.1); MEAN CORPUSCULAR HEMOGLOBIN 22.5 pg (28-32); MEAN CORPUSCULAR HGB CONC 29.6 g/dL (31-35); MEAN CORPUSCULAR VOLUME 76.1 fL (81-99); MONOCYTES # (AUTO) 0.7 (0.2-0.8); MONOCYTES % 6.3 % (4.4-11.3); NEUTROPHILS # (AUTO) 7.9 (2.1-6.9); NEUTROPHILS % 77.2 % (38.7-80.0); PLATELET COUNT 497 x10e3/uL (140-360); RED BLOOD COUNT 4.18 x10e6/uL (4.3-5.7); RED CELL DISTRIBUTION WIDTH 19.1 % (11.7-14.4)
[2019-12-09 04:50] LABS: ALANINE AMINOTRANSFERASE 7 IU/L (0-55); ALBUMIN 2.6 g/dL (3.5-5.0); ALBUMIN/GLOBULIN RATIO 0.6 (0.8-2.0); ALKALINE PHOSPHATASE 103 IU/L (40-150); ANION GAP 10.4 mmol/L (8-16); BLOOD UREA NITROGEN < 5 mg/dL (7-26); CALCIUM 8.8 mg/dL (8.4-10.2); CARBON DIOXIDE 28 mmol/L (22-29); CHLORIDE 102 mmol/L (98-107); CREATININE, SERUM 0.77 mg/dL (0.72-1.25); EST GLOMERULAR FILTRATION RATE > 60 ML/MIN (60-); GLUCOSE 81 mg/dL (74-118); POTASSIUM 3.4 mmol/L (3.5-5.1); SODIUM 137 mmol/L (136-145)
[2019-12-09 04:59] LABS: BUN/CREATININE RATIO 6 (6-25)
--- NOTE | 2019-12-09 07:35 | NUR ---
PATIENT IN BED RESTING WITH NO S/S OF DISTRESS. C/O PAIN AND WAS MEDICATED ORDERED. BED IN LOWER POSITION, CALL LIGHT AT REACH.
[2019-12-09] MEDS: CYANOCOBALAMIN INJ 1,000 MCG/ML VIAL IM SCH (09:17)
[2019-12-09] MEDS: LEVOFLOXACIN 500MG/D5W 100ML 100 ML IV SCH (09:17)
[2019-12-09] MEDS: IRON SUCROSE 100 MG in SODIUM CHLORIDE 0.9% 100 ML 100 ML IV SCH (10:15)
[2019-12-09] MEDS ORDERED: POTASSIUM CHLORIDE 20 MEQ TAB CR PO NR (10:30)
[2019-12-09] MEDS ORDERED: POTASSIUM CHLORIDE 10MEQ EA PO NR (11:15)
--- NOTE | 2019-12-09 11:20 | NUR ---
NOTIFIED OF ABNORMAL LAB RESULT, NEW ORDER RECEIVED.
--- NOTE | 2019-12-09 11:30 | Progress Note ---
DATE: CHIEF COMPLAINT/HISTORY OF PRESENT ILLNESS: This is a 34-year-old white man, whose primary treating diagnosis is Crohn disease/ulcerative colitis exacerbation. The patient was also recently diagnosed with a perforated small bowel and likely abscess formation. The patient will undergo tentative small bowel resection with abscess drainage on Wednesday, December 11, 2019. The patient voiced no complaints at this time. The patient had blood work done today and was found to have hemoglobin 9.4 g/dL. White blood cell count was 10,200 with 77% segmented neutrophils. The patient's potassium today is 3.4. REVIEW OF SYSTEMS: As per HPI. PHYSICAL EXAMINATION: GENERAL: He is awake, alert, fluent, in no distress, very pleasant. VITAL SIGNS: Blood pressure is 130/90, pulse 58, respiratory rate 18, temperature 97.2, and oxygen 95% room air. INTEGUMENT: Skin is warm and dry. His pallor has resolved. No jaundice or diaphoresis appreciated. HEENT: Anicteric sclerae. Moist mucous membranes. NECK: Supple CARDIOVASCULAR: Regular rhythm. LUNGS: No rales. No rhonchi or wheezes. ABDOMEN: Obese. Benign. EXTREMITIES: No edema or deformity. NEUROLOGIC: Intact. DIAGNOSES: 1. Mesenteric abscess, likely. 2. Crohn disease/ulcerative colitis exacerbation. 3. Small bowel perforation, likely. 4. Anemia, secondary to chronic disease/iron deficiency. 5. Drastic weight loss. PLAN: 1. Continue daily intravenous iron infusion. 2. Continue intravenous antibiotics. 3. Tentative surgery on Wednesday, December 11, 2019, which likely consist of partial small-bowel obstruction and abscess drainage. 4. Follow hemoglobin and hematocrit. 5. Optimize the patient nutritional status. 6. Replete potassium level. I spent 30 minutes in the care of this patient. MD LIAM Lim/JOHN /[id number] MTDAlana
[2019-12-09] MEDS: METRONIDAZOLE 500MG/NS 100ML 100 ML IV SCH ×3 (13:00→18:20)
--- NOTE | 2019-12-09 15:34 | NUR ---
PATIENT AMBULATED TO THE RESTROOM AND BACK TO BED. CALL LIGHT AT REACH.
[2019-12-10] VITALS (8 sets, daily range): BP systolic 129–161; BP diastolic 48–97
[2019-12-10] MEDS: METRONIDAZOLE 500MG/NS 100ML 100 ML IV SCH ×4 (00:05→18:30)
[2019-12-10] MEDS: HYDROMORPHONE 1MG/1ML INJ IV PRN ×7 (03:00→21:20)
[2019-12-10] MEDS: ONDANSETRON HCL INJ 2MG/ML 2ML 2 MG/ML VIAL IV PRN ×4 (03:00→18:20)
[2019-12-10 06:14] LABS: BASOPHILS % 0.2 % (0.0-1.0); EOSINOPHILS # (AUTO) 0.2 (0.0-0.4); EOSINOPHILS % 1.9 % (0.0-6.0); HEMATOCRIT 31.6 % (38.2-49.6); HEMOGLOBIN 9.3 g/dL (14.0-18.0); LYMPHOCYTES # (AUTO) 1.3 (1.0-3.2); LYMPHOCYTES % 13.5 % (18.0-39.1); MEAN CORPUSCULAR HEMOGLOBIN 22.5 pg (28-32); MEAN CORPUSCULAR HGB CONC 29.4 g/dL (31-35); MEAN CORPUSCULAR VOLUME 76.5 fL (81-99); MONOCYTES # (AUTO) 0.7 (0.2-0.8); MONOCYTES % 7.3 % (4.4-11.3); NEUTROPHILS # (AUTO) 7.3 (2.1-6.9); NEUTROPHILS % 76.5 % (38.7-80.0); PLATELET COUNT 457 x10e3/uL (140-360); RED BLOOD COUNT 4.13 x10e6/uL (4.3-5.7); RED CELL DISTRIBUTION WIDTH 19.5 % (11.7-14.4)
[2019-12-10 06:45] LABS: ALBUMIN 2.6 g/dL (3.5-5.0); ALBUMIN/GLOBULIN RATIO 0.6 (0.8-2.0); ALKALINE PHOSPHATASE 107 IU/L (40-150); ANION GAP 11.9 mmol/L (8-16); BLOOD UREA NITROGEN < 5 mg/dL (7-26); CALCIUM 8.4 mg/dL (8.4-10.2); CARBON DIOXIDE 26 mmol/L (22-29); CHLORIDE 103 mmol/L (98-107); CREATININE, SERUM 0.76 mg/dL (0.72-1.25); EST GLOMERULAR FILTRATION RATE > 60 ML/MIN (60-); GLUCOSE 88 mg/dL (74-118); POTASSIUM 3.9 mmol/L (3.5-5.1); SODIUM 137 mmol/L (136-145)
[2019-12-10 06:47] LABS: BUN/CREATININE RATIO 7 (6-25)
[2019-12-10 06:48] LABS: ALANINE AMINOTRANSFERASE < 6 IU/L (0-55)
--- NOTE | 2019-12-10 07:41 | NUR ---
ASSUMED CARE. PATIENT AAOX3. ACYANOTIC. RESTING IN BED. NO DISTRESS NOTED. CALL LIGHT IN REACH. BED LOW. SIDE RAILS UP X2.
[2019-12-10] MEDS: LEVOFLOXACIN 500MG/D5W 100ML 100 ML IV SCH (08:30)
[2019-12-10] MEDS: CYANOCOBALAMIN INJ 1,000 MCG/ML VIAL IM SCH (09:00)
[2019-12-10] MEDS: IRON SUCROSE 100 MG in SODIUM CHLORIDE 0.9% 100 ML 100 ML IV SCH (09:41)
[2019-12-10 11:18] LABS: INR 1.56; PROTHROMBIN TIME 19.8 seconds (11.9-14.5)
[2019-12-10 11:19] LABS: PARTIAL THROMBOPLASTIN TIME 50.5 seconds (23.8-35.5)
[2019-12-10] MEDS ORDERED: PHYTONADIONE 10 MG/ML AMP SQ NR (13:15)
[2019-12-10] MEDS ORDERED: SODIUM CHLORIDE 0.9% 500ML 500 ML ONE (14:32)
[2019-12-10 16:31] LABS: INR 1.39
[2019-12-10 16:32] LABS: PARTIAL THROMBOPLASTIN TIME 45.2 seconds (23.8-35.5)
--- NOTE | 2019-12-10 18:07 | NUR ---
REPORT RECEIVED FROM CUSTOMER CARE ASSISTANT REGARDING CHANGE IN HEART RATE AND RHYTHM. PATIENT'S HEART RHYTHM ELEVATED TO 160s (SVT). WHEN ARRIVED TO PATIENT'S ROOM, PATIENT WAS FOUND VOMITING. AFTER A FEW MOMENTS, PATIENT'S HEART RHYTHM AND RATE RETURNED TO SR 81. NO DISTRESS NOTED.
--- NOTE | 2019-12-10 18:13 | NUR ---
DR. MENJIVAR NOTIFIED OF CHANGE IN PATIENT'S HEART RATE AND RHYTHM. NO NEW ORDERS AT THIS TIME.
--- NOTE | 2019-12-10 18:15 | NUR ---
CALLED LABORATORY TO RETRIEVE FRESH FROZEN PLASMA. SALES AND MARKETING AGENT, KEKE, INFORMED ME THAT IT WAS NOT READY YET AND THAT HE WOULD GIVE ME A CALL WHEN IT IS TIME TO PICK IT UP.
--- NOTE | 2019-12-10 19:20 | NUR ---
KEKE FROM LAB CALLED AT 1855 TO CONFIRM THAT THE FFP IS READY. OFFERED TO PICK IT UP AND VERIFY AT BEDSIDE WITH WASHER OPERATOR NURSE. ONCOMING NURSE SAID, "NO. I GOT IT." REPORT RECEIVED BY ONCOMING NURSE.
[2019-12-10] MEDS ORDERED: SODIUM CHLORIDE 0.9% 250ML 250 ML ONE (20:09)
[2019-12-10 21:55] LABS: INR 1.31; PARTIAL THROMBOPLASTIN TIME 39.8 seconds (23.8-35.5); PROTHROMBIN TIME 17.2 seconds (11.9-14.5)
[2019-12-11] VITALS (7 sets, daily range): BP systolic 122–155; BP diastolic 72–92
[2019-12-11] MEDS: HYDROMORPHONE 1MG/1ML INJ IV PRN ×3 (00:20→06:22)
[2019-12-11] MEDS: ONDANSETRON HCL INJ 2MG/ML 2ML 2 MG/ML VIAL IV PRN ×2 (00:20→06:22)
[2019-12-11] MEDS: METRONIDAZOLE 500MG/NS 100ML 100 ML IV SCH ×5 (00:20→23:48)
[2019-12-11 05:44] LABS: BASOPHILS % 0.2 % (0.0-1.0); EOSINOPHILS # (AUTO) 0.2 (0.0-0.4); EOSINOPHILS % 2.5 % (0.0-6.0); HEMATOCRIT 30.5 % (38.2-49.6); HEMOGLOBIN 9.1 g/dL (14.0-18.0); LYMPHOCYTES # (AUTO) 1.5 (1.0-3.2); LYMPHOCYTES % 22.6 % (18.0-39.1); MEAN CORPUSCULAR HGB CONC 29.8 g/dL (31-35); MONOCYTES # (AUTO) 0.6 (0.2-0.8); MONOCYTES % 8.8 % (4.4-11.3); NEUTROPHILS # (AUTO) 4.2 (2.1-6.9); NEUTROPHILS % 65.4 % (38.7-80.0); PLATELET COUNT 424 x10e3/uL (140-360); RED BLOOD COUNT 3.96 x10e6/uL (4.3-5.7); RED CELL DISTRIBUTION WIDTH 19.7 % (11.7-14.4)
[2019-12-11 05:51] LABS: INR 1.33; PROTHROMBIN TIME 17.4 seconds (11.9-14.5)
[2019-12-11 05:52] LABS: PARTIAL THROMBOPLASTIN TIME 40.9 seconds (23.8-35.5)
[2019-12-11 05:58] LABS: ALANINE AMINOTRANSFERASE 8 IU/L (0-55); ALBUMIN 2.8 g/dL (3.5-5.0); ALBUMIN/GLOBULIN RATIO 0.7 (0.8-2.0); ALKALINE PHOSPHATASE 88 IU/L (40-150); ANION GAP 9.7 mmol/L (8-16); CALCIUM 8.8 mg/dL (8.4-10.2); CARBON DIOXIDE 31 mmol/L (22-29); CHLORIDE 103 mmol/L (98-107); CREATININE, SERUM 0.78 mg/dL (0.72-1.25); EST GLOMERULAR FILTRATION RATE > 60 ML/MIN (60-); GLUCOSE 90 mg/dL (74-118); POTASSIUM 3.7 mmol/L (3.5-5.1); SODIUM 140 mmol/L (136-145)
[2019-12-11 06:18] LABS: BLOOD UREA NITROGEN < 5 mg/dL (7-26); BUN/CREATININE RATIO 6 (6-25)
[2019-12-11] MEDS: LEVOFLOXACIN 500MG/D5W 100ML 100 ML IV SCH (07:54)
--- NOTE | 2019-12-11 08:35 | NUR ---
Patient left the floor to go to the OR
--- NOTE | 2019-12-11 12:02 | Progress Note ---
DATE: 12/10/2019 CHIEF COMPLAINT/HISTORY OF PRESENT ILLNESS: This is a 34-year-old white man, whose main treating diagnosis is Crohn's disease exacerbation and mesenteric abscess with extraluminal air, likely representing perforation. The patient is scheduled for tentative surgery on Wednesday, December 11, 2019. The patient is also being treated for acute on chronic anemia with hemoccult-positive stools. The patient was transfused 2 units packed red blood cells and is receiving daily intravenous iron infusions, which he has tolerated quite well. The patient states that he is no longer having abdominal pain. The patient denies any fever or chills. Blood work today revealed a hemoglobin of 9.3 g/dL. White blood cell count 9500 with 76% segmented neutrophils. The patient's potassium 3.9. His BUN and creatinine are 5 and 0.76 respectively. The patient's albumin is 2.6 g/dL. REVIEW OF SYSTEMS: As per HPI. PHYSICAL EXAMINATION: GENERAL: He is awake, alert, and fully oriented. No distress, very pleasant. VITAL SIGNS: Blood pressure is 160/88, pulse 72, respiratory rate 18, temperature 97.3, oxygen is 100% on room air. Height 5 feet 11 inches, weight 220 pounds, BMI 30. INTEGUMENT: Skin is warm and dry. His pallor has resolved. No jaundice or diaphoresis. HEENT: Anicteric sclerae. Moist mucous membranes. NECK: Supple. CARDIOVASCULAR: Regular rate and rhythm. LUNGS: No rales. No rhonchi or wheezes. ABDOMEN: Mildly obese. Benign. EXTREMITIES: No edema or deformity. NEUROLOGIC: Intact. DIAGNOSES: 1. Crohn's disease exacerbation. 2. Mesenteric abscess with extraluminal air likely representing perforation. 3. Anemia secondary to chronic disease/iron deficiency. 4. Drastic weight loss. PLAN: 1. Tentative surgery tomorrow on December 11, 2019. 2. Continue intravenous antibiotics. 3. Pain control. 4. Follow hemoglobin and hematocrit. I spent 25 minutes in the care of this patient. MD LIAM Lim/JOHN /[id number] [place]O
--- NOTE | 2019-12-11 12:02 | Progress Note ---
DATE: 12/11/2019 CHIEF COMPLAINT/HISTORY OF PRESENT ILLNESS: This is a 34-year-old white man, whose primary treating diagnosis is Crohn's disease and exacerbation. The patient also recently was diagnosed with a perforated small bowel with likely abscess formation. The patient will be taken to the OR today. Yesterday, the patient was found to have a prothrombin time. The prothrombin time and INR level are 19.8 and 1.56 respectively. The patient was transfused two jumbo packs of fresh frozen plasma. Today's, prothrombin time and INR 17.4 and 1.33, respectively. The patient's partial thromboplastin time is 40.9. Today's potassium 3.7, BUN and creatinine are 5 and 0.78 respectively. The patient's hemoglobin is 9.1 g/dL. White blood cell count today is 6400 with 65% segmented neutrophils. REVIEW OF SYSTEMS: As per HPI. PHYSICAL EXAMINATION: GENERAL: He is awake, alert, and fully oriented. No distress, very pleasant on exam. VITAL SIGNS: BMI is 30. Blood pressure is 155/83, pulse 68, respiratory rate is 16, temperature 97.6, and oxygen saturation 99% on room air. INTEGUMENT: Skin is warm and dry. His pallor has resolved. No jaundice or diaphoresis. HEENT: Anicteric sclerae. Moist mucous membranes. NECK: Supple. CARDIOVASCULAR: Regular rate and rhythm. LUNGS: No rales. No rhonchi. No wheezes. ABDOMEN: Benign. EXTREMITIES: No edema or deformity. NEUROLOGIC: Intact. DIAGNOSES: 1. Mesenteric abscess, likely. 2. Crohn's disease/ulcerative colitis exacerbation. 3. Small bowel perforation, likely. 4. Anemia secondary to chronic disease/iron deficiency. 5. Drastic weight loss. PLAN: 1. The patient be taken to the operating room today. 2. Continue intravenous antibiotics. 3. Follow electrolytes and renal function. 4. Follow hemoglobin and hematocrit. Monitor for postoperative bleeding since the patient has a prolonged prothrombin time and INR level. 5. Optimize the patient's nutritional status. I spent 25 minutes in the care of this patient. MD LIAM Lim/JOHN /[id number] MTDD
[2019-12-11] MEDS ORDERED: METRONIDAZOLE 500MG/NS 100ML 100 ML IV ONE (13:12)
[2019-12-11] MEDS ORDERED: NALOXONE HCL INJ 0.4 MG/ML AMP IV PRN (13:15)
[2019-12-11] MEDS ORDERED: ACETAMINOPHEN 1000 MG/100 ML IV PRN (13:15)
[2019-12-11] MEDS ORDERED: HYDROMORPHONE 1MG/1ML INJ ONE (13:35)
[2019-12-11] MEDS: HYDROMORPHONE 0.2MG/ML-SOD CHL 30ML PCA SYRINGE IV PRN (13:40)
--- NOTE | 2019-12-11 15:18 | NUR ---
Nutrition Intervention Note RD Recommendation(s) for Physician: - When feasible, ADAT to goal of GI Soft - If unable to advance diet soon, recommend standard TPN (D30W 500 ml/L, AA 10% 500 ml/L) with 25 gm Lipids/day, standard lytes, MVI, trace, thiamine, folic acid at 40 ml/hr. (To provide 932 kcal, 48 gm protein, and 144 gm dextrose per day). - Please check Phos and Mg with BMP daily - MVI with minerals once daily for adequacy Plan of Care: RD following, monitoring for tolerance and adequacy. Diet and TPN rec's. Nutrition reason for involvement: follow up RD Assessment 12/10: Follow up. Pt s/p surgery today, transferred to [facility]. Pt sleeping at time of visit, appears well nourished. Pt on NPO/CL diet x 7 days, pt NPO today for surgery- previously tolerating CL diet with 100% intake. Diet and TPN recommendations provided pending plan of care. Recommendations placed in pt chart for MD. Chart. reviewed. Will continue to monitor. 12/05: 34 YOM admitted for GIB and UC, assessed today per MST screen. Pt reports good appetite and po intake with progressive wt loss over the past 6 months, pt reports UBW of 325# 6 mo ago- significant wt loss noted. Pt reports he had a Crohn's flare up in August when he was off of Humira 2/2 changes in insurance coverage when he lost most of the wt. Pt denies any recent N/V/C/D. Pt denies supplement intake. Pt with no questions or concerns at this time. Per chart pt with mesenteric fluid collection consistent with abscess to the distal jejunum and proximal ileal wall. Pt NPO at this time. Chart reviewed. Will continue to monitor. Principal Problems/Diagnoses: GIB, UC PMH: IBS, UC, Crohn's disease, GERD, anemia, obesity GI: LBM 12/09 Skin: intact Labs: 12/10: Na 140, K 3.7, BUN <5, Cr 0.78, Gluc 90 Meds: abx, dilaudid, IV Fe, zofran Ht: 71 in Wt: 220 lb BMI: 30.7 kg/m2 IBW: 172 lb Malnutrition Evaluation 12/11/19 Pt does not meet criteria for malnutrition at this time. No reported poor po, does not meet criteria Severe wt loss- >10% wt loss in 60 months Fat loss: none Muscle loss: none Nutrition Prescription (Diet Order): NPO Estimated Nutritional Needs: Calories: 4790-7794 (11-14kcal/kg/d) Weight used: CBW Protein: 117-156 (1.5-2g/kg/d) Weight used: IBW Diet Adequacy: Not meeting calorie needs, Not meeting protein needs Tolerance: tolerance pending Diet Education Needs Assessment: Diet education not indicated. Nutrition Care Level: High- NPO/CL x 7 days Nutrition Diagnosis: Inadequate energy and protein intake related to UC and Crohn's disease as evidenced by significant wt loss in 6 months. Goal: Patient will meet 75-100% of estimated needs by follow up Progress: Not progressing Interventions: - Fiber modified diet, recommend modifications, vitamin/mineral supplement, composition, rate, route Monitoring/Evaluation: Total energy intake, Total protein intake, Formula/Solution, Weight change Signed: Guillermina Malhotra RD, LD, CNSC
[2019-12-11] MEDS: IRON SUCROSE 100 MG in SODIUM CHLORIDE 0.9% 100 ML 100 ML IV SCH (15:33)
[2019-12-11] MEDS: DEXTROSE 5%/LACTATED RINGERS 1,000 ML IV SCH ×2 (15:33→22:07)
[2019-12-11] MEDS: PANTOPRAZOLE 40 MG 10ML VIAL IV SCH (16:59)
--- NOTE | 2019-12-11 16:59 | NUR ---
Dr. Vincent Arreaga at the bedside. no new orders
[2019-12-11] MEDS: SODIUM CHLORIDE 0.9% 250ML IRRIG IR SCH ×2 (17:11→22:07)
[2019-12-11] MEDS ORDERED: ACETAMINOPHEN 1000 MG/100 ML IV ONE (18:50)
[2019-12-11] MEDS ORDERED: PROPOFOL IV EMULSION 10 MG/ML 20 ML VIAL ONE (18:50)
[2019-12-11] MEDS ORDERED: ONDANSETRON HCL INJ 2MG/ML 2ML 2 MG/ML VIAL ONE (18:50)
[2019-12-11] MEDS ORDERED: DEXAMETHASONE SOD PHOS INJ 4 MG/ML VIAL ONE (18:50)
[2019-12-11] MEDS ORDERED: KETOROLAC TROMETHAMINE 30 MG/ML VIAL ONE (18:50)
[2019-12-11] MEDS ORDERED: ROCURONIUM BROMIDE 10 MG/ML 5ML VIAL IV ONE (18:50)
[2019-12-11] MEDS ORDERED: SEVOFLURANE INHAL SOLN 250 ML PEN BTL ONE (18:50)
[2019-12-11] MEDS ORDERED: LIDOCAINE HCL 2% LOCAL INJ 5 ML SDV VIAL INJ ONE (18:50)
[2019-12-11] MEDS ORDERED: MIDAZOLAM HCL 2 MG/2 ML VIAL ONE (19:56)
[2019-12-11] MEDS ORDERED: FENTANYL CITRATE/PF 100MCG/2 ML INJ ONE (19:56)
--- NOTE | 2019-12-11 19:59 | Operative Report ---
DATE OF PROCEDURE: 12/11/2019 SURGEON: Gunner Arreaga MD PREOPERATIVE DIAGNOSES: Crohn disease with perforation and fistula and mesenteric abscess. POSTOPERATIVE DIAGNOSES: Crohn disease with perforation and fistula and mesenteric abscess. OPERATION PERFORMED: Exploratory laparotomy, right ileocolectomy, extensive lysis of intraabdominal adhesions, and drainage of mesenteric abscess. OPTICAL GLASS INSPECTOR: Dr. Nadir Arreaga ANESTHESIA: General endotracheal. COMPLICATIONS: None. ESTIMATED BLOOD LOSS: 400 mL. DESCRIPTION OF PROCEDURE: With the patient lying in bed in the supine position under good general endotracheal anesthesia, the abdomen was prepped with Betadine solution and draped in the usual manner. A midline incision was made, was carried down through the subcutaneous tissue and the midline fascia was opened. The peritoneum was opened and the abdomen was entered. Upon entering the abdominal cavity, immediately a large mass was encountered in the upper and right side of the abdomen, which involved multiple loops of small bowel. The mass was also stuck to the sigmoid colon with some loops of small bowel tightly adherent to the sigmoid colon. There was an obvious mass in the mesentery consistent with the known abscess that the patient had in the mesentery. The proximal bowel from the ligament of Treitz to the proximal terminal ileum appeared to be normal. However, there was some inflammatory changes of the bowel which were consistent with the abscess that was in the abdomen, although obviously this could also be an early manifestation of the Crohn disease. At this point, we slowly and carefully then mobilized the bowel from the sigmoid colon. In order to do so, we actually had to cut through some of the small bowel that was tightly adherent because we did not want to make a hole in the sigmoid colon, so some of the serosal surface of the small bowel that was tightly stuck to the sigmoid colon was left in place attached to the sigmoid colon. After this was done, some further lysis of adhesions of the proximal bowel was done. We finally got to a point where the small bowel which was totally plastered into a bowel which made it virtually impossible to identify the loops of bowel that went into the inflammatory mass. The right colon was then mobilized at this point all the way up to the hepatic flexure and it was then brought down so that we could actually exteriorize all of the inflammatory mass. It became evident at this point that the bowel that was involved in the inflammatory mass was all involved with severe advanced Crohn disease and we decided that the only thing that we could do was to go ahead and do a resection of this area. The area that had been stuck to the sigmoid colon was resected first with an application proximally and distally of the CLARY-75 stapler. The mesentery was divided then with the EnSeal and the specimen that had a couple of openings in it was sent as a separate specimen. After this was done, we went ahead then distally and as much to the bowel as we could to the point where the bowel looked to be reasonably viable and not involved with overt Crohn disease, so that it would be suitable for an anastomosis. The ileum was then divided at this point with an application of CLARY-75 stapler. The ascending colon was similarly divided with an application of the CLARY-75 stapler and the mesentery was then slowly and carefully divided using the EnSeal device. The larger blood vessels were all individually ligated with 0 silk tie. The mesentery was slowly and carefully divided and the abscess that was contained was resected as well and the specimen was sent for pathological examination. After this was done, the two anastomosis were done. The small bowel anastomosis was done first bringing one loop of the small bowel to the other and the anastomosis was performed with another application of CLARY-75 stapler with the remaining opening closed with a TA-60 stapler. The proximal ileum to the ascending colon anastomosis was then performed with another application of CLARY-75 stapler and the remaining opening was closed with a TA-60 stapler. Gloves and instruments were then changed. The anastomosis of both areas was then reinforced with 3-0 silk sutures and the mesenteric rent was closed with a running suture of 2-0 Vicryl. The abdomen was then copiously irrigated with many liters of saline solution until the fluid came back perfectly clear. The whole area was inspected for bleeding and there was none, and the abdomen was then closed in layers. The peritoneum was closed with a running suture of #1 Vicryl. The midline fascia was closed with a running suture of #1 PDS and the skin was closed with clips. A quarter-inch [place] drain was placed in the subcutaneous tissue and brought out through the lower part of the incision. Dressings were applied. The sponge, lap, and needle count was correct. The patient tolerated the procedure well and returned to the recovery room in stable condition. MD ONEL Hammonds/JOHN /[id number]
[2019-12-12] VITALS: BP 116/85
[2019-12-12] MEDS: SODIUM CHLORIDE 0.9% 250ML IRRIG IR SCH ×6 (02:11→22:17)
[2019-12-12] MEDS: HYDROMORPHONE 0.2MG/ML-SOD CHL 30ML PCA SYRINGE IV PRN ×3 (02:14→18:25)
[2019-12-12] MEDS: DEXTROSE 5%/LACTATED RINGERS 1,000 ML IV SCH ×5 (02:20→18:44)
[2019-12-12 04:00] VITALS: BP 130/89
[2019-12-12 05:24] LABS: BASOPHILS % 0.1 % (0.0-1.0); EOSINOPHILS % 0.3 % (0.0-6.0); HEMATOCRIT 28.3 % (38.2-49.6); HEMOGLOBIN 8.6 g/dL (14.0-18.0); LYMPHOCYTES # (AUTO) 1.3 (1.0-3.2); LYMPHOCYTES % 11.5 % (18.0-39.1); MEAN CORPUSCULAR HEMOGLOBIN 23.8 pg (28-32); MEAN CORPUSCULAR HGB CONC 30.4 g/dL (31-35); MEAN CORPUSCULAR VOLUME 78.2 fL (81-99); MONOCYTES # (AUTO) 0.9 (0.2-0.8); MONOCYTES % 7.7 % (4.4-11.3); NEUTROPHILS # (AUTO) 9.3 (2.1-6.9); NEUTROPHILS % 79.9 % (38.7-80.0); PLATELET COUNT 445 x10e3/uL (140-360); RED BLOOD COUNT 3.62 x10e6/uL (4.3-5.7); RED CELL DISTRIBUTION WIDTH 19.3 % (11.7-14.4)
[2019-12-12] MEDS: METRONIDAZOLE 500MG/NS 100ML 100 ML IV SCH ×3 (05:44→17:45)
[2019-12-12 05:49] LABS: ALANINE AMINOTRANSFERASE 7 IU/L (0-55); ALBUMIN 2.3 g/dL (3.5-5.0); ALBUMIN/GLOBULIN RATIO 0.7 (0.8-2.0); ALKALINE PHOSPHATASE 72 IU/L (40-150); ANION GAP 6.3 mmol/L (8-16); BLOOD UREA NITROGEN < 5 mg/dL (7-26); CALCIUM 8.3 mg/dL (8.4-10.2); CARBON DIOXIDE 31 mmol/L (22-29); CHLORIDE 105 mmol/L (98-107); CREATININE, SERUM 0.82 mg/dL (0.72-1.25); EST GLOMERULAR FILTRATION RATE > 60 ML/MIN (60-); GLUCOSE 174 mg/dL (74-118); POTASSIUM 4.3 mmol/L (3.5-5.1); SODIUM 138 mmol/L (136-145)
[2019-12-12 05:51] LABS: BUN/CREATININE RATIO 6 (6-25)
--- NOTE | 2019-12-12 07:30 | NUR ---
PATIENT IS IN STABLE CONDITION WITH NO S/S OF RESPIRATORY DISTRESS. PATIENT C/O ABD INCISION SITE PAIN 03/01- GRID MOLDER PUMP AVAILABLE. ACOSTA INTACT AND DRAINING URINE. NG TUBE INTACT TO RIGHT NARE- NO DRAINAGE NOTED AT THIS TIME. SCD'S APPLIED TO BILATERAL LOWER EXTREMITIES.. CALL LIGHT IS WITHIN REACH, PATIENT INSTRUCTED TO CALL FOR ASSISTANCE NEEDED.
[2019-12-12] MEDS: LEVOFLOXACIN 500MG/D5W 100ML 100 ML IV SCH (08:02)
[2019-12-12 08:34] VITALS: BP 130/84
--- NOTE | 2019-12-12 08:41 | Progress Note ---
DATE: 12/12/2019 CHIEF COMPLAINT/HISTORY OF PRESENT ILLNESS: This is a 34-year-old white man, whose primary treating diagnosis was Crohn disease exacerbation with bowel perforation and mesenteric abscess formation. Yesterday, the patient underwent successful exploratory laparotomy with right ileocolectomy and drainage of mesenteric abscess. The patient tolerated the procedure quite well. The patient states his pain is well controlled this time. White blood cell count is 11,600 with 80% segmented neutrophils. Hemoglobin is 8.6 g/dL. REVIEW OF SYSTEMS: As per HPI. PHYSICAL EXAMINATION: GENERAL: He is awake. He is alert. He is oriented, does not appear to be any obvious distress. VITAL SIGNS: Blood pressure is 130/88, pulse 94, respiratory rate 16, temperature 98.0, oxygen saturation 99% on room air. BMI 30. INTEGUMENT: Skin is warm and dry. No pallor, jaundice, or diaphoresis. HEENT: Clear moist mucous membranes. NECK: Supple. CARDIOVASCULAR: Tachycardic rate and rhythm. LUNGS: No rales. No rhonchi. No wheezes. ABDOMEN: Soft. No bowel sounds are auscultated. His surgical incisions are dressed. EXTREMITIES: No edema or deformity. NEUROLOGIC: Intact. DIAGNOSES: 1. Status post exploratory laparotomy with right ileocolectomy and mesenteric abscess drainage. 2. Crohn disease with perforation/fistula and mesenteric abscess formation. 3. Anemia secondary to chronic disease/iron deficiency. PLAN: 1. Pain control. 2. Intravenous antibiotics. 3. Nothing by mouth. 4. Recommend the patient use incentive spirometer every hour to prevent atelectasis. 5. Follow hemoglobin and hematocrit. I spent 20 minutes in the care of this patient. MD LIAM Lim/JOHN /[id number] CHAGO
[2019-12-12 08:42] VITALS: BP 130/84
[2019-12-12 13:21] VITALS: BP 127/90
[2019-12-12] MEDS: PANTOPRAZOLE 40 MG 10ML VIAL IV SCH (15:17)
[2019-12-12] MEDS: IRON SUCROSE 100 MG in SODIUM CHLORIDE 0.9% 100 ML 100 ML IV SCH (15:39)
--- NOTE | 2019-12-12 16:27 | NUR ---
RN AND PCT ATTEMPTED TO HAVE THE PATIENT SIT IN THE CHAIR BUT THE PATIENT REFUSED AND STATED " I CAN'T". UPON FURTHER ASSESSMENT THE PATIENT STATED HE IS HAVING TOO MUCH PAIN AT THE MOMENT AND WILL TRY MAYBE THIS EVENING. EDDY CURRENT INSPECTOR PUMP APPLIED. TEMP 98.0; EDDY CURRENT INSPECTOR TAKING VITALS.
--- NOTE | 2019-12-12 19:00 | NUR ---
RECEIVED REPORT FROM [facility] N[facility]. AAOX3. RESTING IN BED. R UA PICC WITH NO SIGNS OF INFILTRATION. INFUSING D5LR AT 150 ML/HR. ACOSTA DRAINING TO GRAVITY. NO ADVERSE SIGNS. CDI ABDOMEN DRESSING WITH ABDOMEN BINDER PRESENT. TYPING OFFICE WORKER PRESENT FOR PAIN MANAGEMENT, TYPING OFFICE WORKER BUTTON WITHIN REACH. NGT TO R NARES SET AT LCS. SR UPX2. BED LOCKED AND IN LOW POSITION. CALL LIGHT WITHIN REACH.
--- NOTE | 2019-12-12 19:13 | NUR ---
PATIENT IS IN STABLE CONDITION WITH NO S/S OF RESPIRATORY DISTRESS. NO PAIN VOICED. TELEMETRY APPLIED. IV FLUIDS INFUSING. NG TUBE CONNECTED TO SUCTION. ACOSTA INTACT AND DRAINING. SCD'S APPLIED. CALL LIGHT IS WITHIN REACH, PATIENT INSTRUCTED TO CALL FOR ASSISTANCE NEEDED. BEDSIDE SHIFT REPORT GIVEN TO ONCOMING NURSES.
[2019-12-12 20:00] VITALS: BP 137/91
[2019-12-12] MEDS: ACETAMINOPHEN 1000 MG/100 ML IV SCH (20:20)
--- NOTE | 2019-12-12 20:20 | NUR ---
REPLACED CANISTER. CONNECTED NEW CANISTER TO [facility]. NO ADVERSE SIGNS. DISPOSED OF OLD CANISTER IN BIOHAZARD RECEPTACLE.
[2019-12-13] VITALS (7 sets, daily range): BP systolic 136–149; BP diastolic 84–96
[2019-12-13] MEDS: METRONIDAZOLE 500MG/NS 100ML 100 ML IV SCH ×5 (00:09→23:54)
[2019-12-13] MEDS: ACETAMINOPHEN 1000 MG/100 ML IV SCH ×3 (01:55→14:30)
[2019-12-13] MEDS: DEXTROSE 5%/LACTATED RINGERS 1,000 ML IV SCH ×4 (02:20→21:07)
[2019-12-13] MEDS: SODIUM CHLORIDE 0.9% 250ML IRRIG IR SCH ×6 (02:20→21:07)
[2019-12-13] MEDS: HYDROMORPHONE 0.2MG/ML-SOD CHL 30ML PCA SYRINGE IV PRN (04:28)
--- NOTE | 2019-12-13 05:15 | NUR ---
ASSISTED PATIENT TO SIDE OF BED. DANGLING FEET. CALL LIGHT WITHIN REACH. MEDICAL RECORD ADMINISTRATOR BUTTON WITHIN REACH. INSTRUCTED TO NOTIFY FOR CHANGE OF POSITION.
[2019-12-13 05:37] LABS: BASOPHILS % 0.2 % (0.0-1.0); EOSINOPHILS # (AUTO) 0.2 (0.0-0.4); EOSINOPHILS % 1.7 % (0.0-6.0); HEMATOCRIT 25.5 % (38.2-49.6); HEMOGLOBIN 7.8 g/dL (14.0-18.0); LYMPHOCYTES # (AUTO) 1.4 (1.0-3.2); LYMPHOCYTES % 12.7 % (18.0-39.1); MEAN CORPUSCULAR HEMOGLOBIN 24.8 pg (28-32); MEAN CORPUSCULAR HGB CONC 30.6 g/dL (31-35); MONOCYTES # (AUTO) 0.8 (0.2-0.8); NEUTROPHILS # (AUTO) 8.3 (2.1-6.9); PLATELET COUNT 381 x10e3/uL (140-360); RED BLOOD COUNT 3.15 x10e6/uL (4.3-5.7); RED CELL DISTRIBUTION WIDTH 19.4 % (11.7-14.4)
[2019-12-13 06:07] LABS: ALBUMIN 2.1 g/dL (3.5-5.0); ALBUMIN/GLOBULIN RATIO 0.6 (0.8-2.0); ALKALINE PHOSPHATASE 67 IU/L (40-150); ANION GAP 6.7 mmol/L (8-16); BLOOD UREA NITROGEN < 5 mg/dL (7-26); CARBON DIOXIDE 34 mmol/L (22-29); CHLORIDE 103 mmol/L (98-107); CREATININE, SERUM 0.78 mg/dL (0.72-1.25); EST GLOMERULAR FILTRATION RATE > 60 ML/MIN (60-); GLUCOSE 116 mg/dL (74-118); POTASSIUM 3.7 mmol/L (3.5-5.1); SODIUM 140 mmol/L (136-145)
[2019-12-13 06:08] LABS: ALANINE AMINOTRANSFERASE < 6 IU/L (0-55); BUN/CREATININE RATIO 6 (6-25)
--- NOTE | 2019-12-13 06:15 | NUR ---
DISCONTINUED ACOSTA. CATHETER INTACT. NO ADVERSE SIGNS. TOLERATED WELL.
--- NOTE | 2019-12-13 07:00 | NUR ---
BEDSIDE REPORT GIVEN TO DAYSKYFT NURSE. RESTING IN BED. AAOX3. R UA PICC INFUSING D5LR AT 150ML/HR. NO SIGNS OF INFILTRATION. NGT CONNECTED TO LCS. CRAFT WORKER PUMP PRESENT FOR PAIN MANAGEMENT. CRAFT WORKER BUTTON WITHIN REACH. CALL LIGHT WITHIN REACH. SR UPX2. BED LOCKED AND IN LOW POSITION.
--- NOTE | 2019-12-13 07:20 | NUR ---
PATIENT IS AWAKE AND IN STABLE CONDITION WITH NO S/S OF RESPIRATORY DISTRESS. PATIENT CURRENTLY C/O ABD INCISION SITE PAIN 03/01. ACOSTA REMOVED- PATIENT IS DUE TO VOID. NG TUBE INTACT TO RIGHT NARE- MINIMUM DRAINAGE NOTED. SCD'S APPLIED TO BILATERAL LOWER EXTREMITIES. CALL LIGHT IS WITHIN REACH-PATIENT INSTRUCTED TO CALL FOR ASSISTANCE NEEDED.
[2019-12-13] MEDS: LEVOFLOXACIN 500MG/D5W 100ML 100 ML IV SCH (09:38)
--- NOTE | 2019-12-13 10:25 | NUR ---
PATIENT VOIDED POST ACOSTA CATH REMOVAL
[2019-12-13] MEDS: IRON SUCROSE 100 MG in SODIUM CHLORIDE 0.9% 100 ML 100 ML IV SCH (10:38)
--- NOTE | 2019-12-13 14:38 | NUR ---
2 RN'S CHANGED DILAUDID SYRINGE IN THE ORNAMENTAL METAL FABRICATOR APPRENTICE PUMP AT 1435- ORNAMENTAL METAL FABRICATOR APPRENTICE SHEET SIGNED.
[2019-12-13] MEDS ORDERED: HYDROMORPHONE 0.2MG/ML-SOD CHL 30ML PCA SYRINGE IV PRN (14:45)
[2019-12-13] MEDS: PANTOPRAZOLE 40 MG 10ML VIAL IV SCH (16:05)
--- NOTE | 2019-12-13 17:11 | Progress Note ---
DATE: CHIEF COMPLAINT/HISTORY OF PRESENT ILLNESS: This is a 34-year-old white man, whose primary treating diagnosis was Crohn's disease with small bowel perforation and mesenteric abscess formation. Two days ago. On December 12, 2019, the patient underwent successful exploratory laparotomy with right ileocolectomy and drainage of mesenteric abscess. Yesterday, the patient was started on MARKETING GRAPHICS SPECIALIST pump because his pain was not controlled. Currently, he rates his pain 7/10 in severity. Today's [place] [address] with 78% segmented neutrophils. The patient's BUN today is less than 5, and creatinine is 0.78. Potassium is 3.7. The patient's AST is 9, ALT is less than 6. It is felt that the patient's low BUN and low ALT are secondary to severe protein-calorie malnutrition. The patient denies any nausea or vomiting. He also denies any fever or chills. REVIEW OF SYSTEMS: As per HPI. PHYSICAL EXAMINATION: GENERAL: He is awake, alert. He is oriented. He does appear to be in mild pain. He is pleasant cooperative to exam. VITAL SIGNS: BMI is 30. Blood pressure is 140/90, pulse 86, respiratory rate 16, oxygen saturation 100% on room air, and temperature 98.2. INTEGUMENT: Skin is warm and dry. Slight pallor. No jaundice, diaphoresis. HEENT: Anicteric sclerae. The patient has a nasogastric tube in place. NECK: Supple. CARDIOVASCULAR: Tachycardic rate, regular rhythm. LUNGS: Clear bilaterally. ABDOMEN: No bowel sounds appreciated and the surgical incisions are dressed. EXTREMITIES: No edema legs in his legs. He is wearing sequential compression devices. NEUROLOGIC: No focal deficits appreciated. DIAGNOSES: 1. Status post exploratory laparotomy with right ileocolectomy and mesenteric abscess drainage. 2. Crohn's disease with perforation/fistula and mesenteric abscess formation. 3. Anemia secondary to chronic disease/iron deficiency. PLAN: 1. Pain control. 2. Intravenous antibiotics. 3. Nothing by mouth. 4. Keep nasogastric tube in place. 5. Once again recommend the patient that he use incentive spirometer every hour to prevent atelectasis. 6. Follow hemoglobin, hematocrit. I spent 25 minutes in the care of this patient. Bassem E Orahood, MD MEO/JOHN /[id number] [place]O
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
[2019-12-13] MEDS: BISACODYL 10 MG SUPP PR SCH (21:07)
[2019-12-14] VITALS (7 sets, daily range): BP systolic 139–146; BP diastolic 83–97
[2019-12-14] MEDS: SODIUM CHLORIDE 0.9% 250ML IRRIG IR SCH ×6 (02:30→22:22)
[2019-12-14] MEDS: DEXTROSE 5%/LACTATED RINGERS 1,000 ML IV SCH ×5 (03:11→22:33)
[2019-12-14] MEDS: METRONIDAZOLE 500MG/NS 100ML 100 ML IV SCH ×3 (05:41→17:19)
[2019-12-14 06:22] LABS: BASOPHILS % 0.2 % (0.0-1.0); EOSINOPHILS # (AUTO) 0.1 (0.0-0.4); EOSINOPHILS % 0.9 % (0.0-6.0); HEMOGLOBIN 7.8 g/dL (14.0-18.0); LYMPHOCYTES % 8.2 % (18.0-39.1); MEAN CORPUSCULAR HEMOGLOBIN 25.2 pg (28-32); MEAN CORPUSCULAR HGB CONC 31.2 g/dL (31-35); MEAN CORPUSCULAR VOLUME 80.6 fL (81-99); MONOCYTES # (AUTO) 0.6 (0.2-0.8); MONOCYTES % 5.4 % (4.4-11.3); NEUTROPHILS % 84.6 % (38.7-80.0); PLATELET COUNT 360 x10e3/uL (140-360); RED CELL DISTRIBUTION WIDTH 19.6 % (11.7-14.4)
[2019-12-14 06:41] LABS: ALANINE AMINOTRANSFERASE 6 IU/L (0-55); ALBUMIN/GLOBULIN RATIO 0.6 (0.8-2.0); ALKALINE PHOSPHATASE 70 IU/L (40-150); ANION GAP 6.5 mmol/L (8-16); BLOOD UREA NITROGEN < 5 mg/dL (7-26); BUN/CREATININE RATIO 7 (6-25); CALCIUM 8.2 mg/dL (8.4-10.2); CARBON DIOXIDE 33 mmol/L (22-29); CHLORIDE 102 mmol/L (98-107); CREATININE, SERUM 0.72 mg/dL (0.72-1.25); EST GLOMERULAR FILTRATION RATE > 60 ML/MIN (60-); GLUCOSE 117 mg/dL (74-118); POTASSIUM 3.5 mmol/L (3.5-5.1); SODIUM 138 mmol/L (136-145)
--- NOTE | 2019-12-14 07:15 | NUR ---
PATIENT IS IN STABLE CONDITION WITH NO S/S OF RESPIRATORY DISTRESS. PATIENT STATES ABD PAIN 6/10- ANTISQUEAK WORKER PUMP APPLIED. TELEMETRY APPLIED. NG TUBE CONNECTED TO SUCTION. DRESSING TO ABD IS C/D/I AND ABD BINDER APPLIED. SCD'S APPLIED. CALL LIGHT IS WITHIN REACH, PATIENT INSTRUCTED TO CALL FOR ASSISTANCE NEEDED.
[2019-12-14] MEDS: BISACODYL 10 MG SUPP PR SCH ×2 (08:32→19:59)
[2019-12-14] MEDS: LEVOFLOXACIN 500MG/D5W 100ML 100 ML IV SCH (08:32)
--- NOTE | 2019-12-14 10:24 | Progress Note ---
DATE: 12/14/2019 CHIEF COMPLAINT/HISTORY OF PRESENT ILLNESS: This is a 34-year-old white man. His primary diagnosis was Crohn disease with complications including small-bowel perforation and mesenteric abscess formation. Three days ago on December 11, 2019, the patient underwent successful exploratory laparotomy, right ileocolectomy and drainage of mesenteric abscess. The patient states his pain is better controlled. He is no longer on the ANALYSIS CONSULTANT pump. The patient states his main issue is that he misses his and two young children. The patient states he has not had any belching nor flatus. Blood work today revealed white blood cell count of 11,800 with 84% segmented neutrophils. The patient's hemoglobin is 7.8 g/dL. The patient is still receiving daily iron infusions. The patient's BUN and creatinine today is less than 5 and 0.72 respectively. The patient's AST and ALT are 9 and 6 respectively. Potassium 3.5, albumin is 2.0. REVIEW OF SYSTEMS: As per HPI. PHYSICAL EXAMINATION: GENERAL: He is awake, alert and fully oriented. He is very pleasant on exam. VITAL SIGNS: BMI is 30. Blood pressure is 142/98, pulse 88, respiratory rate 18, temperature 97.6, and oxygen saturation 95% on room air. INTEGUMENT: Skin is warm and dry. He has slight pallor. No jaundice, diaphoresis. HEENT: Anicteric sclerae. Nasogastric tube in place. He has dry mucous membranes. NECK: Supple. CARDIOVASCULAR: Tachycardic rate, regular rhythm. LUNGS: No rales. No rhonchi or wheezes. ABDOMEN: He has an abdominal binder in place. He seems to have slight hypoactive bowel sounds in the upper and lower quadrants. EXTREMITIES: No edema or deformity. He is wearing sequential compression devices. NEUROLOGIC: Intact. No deficits appreciated. DIAGNOSES: 1. Status post exploratory laparotomy with right ileocolectomy and mesenteric abscess drainage. 2. Crohn disease complication with perforation/fistula and mesenteric abscess formation, resolved. 3. Anemia secondary to chronic disease/iron deficiency. 4. Drastic weight loss. PLAN: 1. Continue intravenous antibiotics. 2. Nothing by mouth. 3. Keep nasogastric tube in place. 4. Once again, I recommend the patient use incentive spirometer every hour to prevent atelectasis. 5. Follow hemoglobin and hematocrit. 6. Pain control. 7. Mobilize with physical therapy. I spent 30 minutes in care of this patient. MD LIAM Lim/JOHN /[id number] MTDD
--- NOTE | 2019-12-14 11:05 | NUR ---
Nutrition Intervention Note RD Recommendation(s) for Physician: The patient meets criteria for unspecified SEVERE protein-calorie malnutrition. - If unable to advance diet within 24hr, recommend standard TPN (D30W 500 ml/L, AA 10% 500 ml/L) with 25 gm Lipids/day, standard lytes, MVI, trace, thiamine, folic acid at 45 ml/hr. (To provide 992 kcal, 54 gm protein, and 162 gm dextrose per day). - When feasible, ADAT to goal of GI Soft - Please check Phos and Mg with BMP daily; TG weekly Plan of Care: RD following, monitoring for tolerance and adequacy, TPN rec's Nutrition reason for involvement: follow up RD Assessment 12/13: POD 3. NPO/ clear liquid x 10 days. Pt has yet to start on PO diet. No flatus or BM since surgery. Suppository is last given today. PT has been consulted to walk pt. Communicated TPN rec with RUTHIE Kidd; MD does not want to start TPN yet. TPN rec was placed on chart. Will continue to monitor and follow. 12/10: Follow up. Pt s/p surgery today, transferred to [facility]. Pt sleeping at time of visit, appears well nourished. Pt on NPO/CL diet x 7 days, pt NPO today for surgery- previously tolerating CL diet with 100% intake. Diet and TPN recommendations provided pending plan of care. Recommendations placed in pt chart for MD. Chart. reviewed. Will continue to monitor. 12/05: 34 YOM admitted for GIB and UC, assessed today per MST screen. Pt reports good appetite and po intake with progressive wt loss over the past 6 months, pt reports UBW of 325# 6 mo ago- significant wt loss noted. Pt reports he had a Crohn's flare up in August when he was off of Humira 2/2 changes in insurance coverage when he lost most of the wt. Pt denies any recent N/V/C/D. Pt denies supplement intake. Pt with no questions or concerns at this time. Per chart pt with mesenteric fluid collection consistent with abscess to the distal jejunum and proximal ileal wall. Pt NPO at this time. Chart reviewed. Will continue to monitor. Principal Problems/Diagnoses: GIB, UC PMH: IBS, UC, Crohn's disease, GERD, anemia, obesity GI: LBM 12/09 Skin: intact Labs: 12/13: CO2 33 H, BUN <5 L, Ca 8.2 L Meds: NaCl, Dextrose/ lactated ringer, protonix Ht: 71 in Wt: 220 lb BMI: 30.7 kg/m2 IBW: 172 lb Malnutrition Evaluation (12/14/2019) The patient meets criteria for unspecified SEVERE protein-calorie malnutrition. Energy intake: <50% of estimated energy requirements for >5 days Weight loss: >10% in 6 months (Chronic) Fat loss: Mild Muscle loss: Mild Supporting Evidence: Fluid accumulation: unable to evaluate Functional Status: measurably reduced - PT was consulted Nutrition Prescription (Diet Order): NPO Estimated Nutritional Needs: Calories: 0105-2507 (11-14kcal/kg/d) Weight used: CBW Protein: 117-156 (1.5-2g/kg/d) Weight used: IBW Diet Adequacy: Not meeting calorie needs, Not meeting protein needs Tolerance: tolerance pending Diet Education Needs Assessment: Diet education not indicated. Nutrition Care Level: High- NPO/CL x 10 days Nutrition Diagnosis: Inadequate energy and protein intake related to UC and Crohn's disease as evidenced by NPO/ clear liquid x 10 days. Goal: Patient will meet 75-100% of estimated needs by follow up Progress: Not progressing Interventions: Composition, rate, route Monitoring/Evaluation: Total energy intake, Total protein intake, Formula/Solution, Weight change Signed: Leslie Coats MS, RD, LD
--- NOTE | 2019-12-14 13:10 | NUR ---
PATIENT WORKED WITH PHYSICAL THERAPY AND WALKED DOWN THE HALLWAY. PATIENT IS CURRENTLY SITTING IN THE RECLINER. PATIENT IS IN STABLE CONDITION WITH NO S/S OF RESPIRATORY DISTRESS. CALL LIGHT IS WITHIN REACH, PATIENT INSTRUCTED TO CALL FOR ASSISTANCE NEEDED.
[2019-12-14] MEDS: PANTOPRAZOLE 40 MG 10ML VIAL IV SCH (16:24)
--- NOTE | 2019-12-14 16:41 | NUR ---
RECEIVED PATIENT FROM [facility] IN STABLE CONDITION. NO S/S OF DISTRESS. ORIENTED PATIENT TO ROOM AND CALL LIGHT. WILL CONTINUE TO MONITOR PATIENT AND RESUME CARE.
--- NOTE | 2019-12-14 16:45 | NUR ---
TRANSFER REPORT GIVEN TO [place] [address] NURSE- PATIENT TRANSFERRED TO ROOM 108 PER WHEELCHAIR BY RN. PATIENT IS IN STABLE CONDITION WITH NO S/S OF RESPIRATORY DISTRESS. TELEMETRY APPLIED.
[2019-12-14] MEDS: METOCLOPRAMIDE HCL 10 MG/2ML VIAL IV SCH (17:59)
[2019-12-14] MEDS: IRON SUCROSE 100 MG in SODIUM CHLORIDE 0.9% 100 ML 100 ML IV SCH (18:07)
[2019-12-14] MEDS: HYDROMORPHONE 1MG/1ML INJ IV PRN ×2 (19:37→23:04)
[2019-12-15] VITALS (8 sets, daily range): BP systolic 139–165; BP diastolic 75–86
[2019-12-15] MEDS: METOCLOPRAMIDE HCL 10 MG/2ML VIAL IV SCH ×5 (01:27→23:30)
[2019-12-15] MEDS: METRONIDAZOLE 500MG/NS 100ML 100 ML IV SCH ×3 (01:27→06:30)
[2019-12-15] MEDS: SODIUM CHLORIDE 0.9% 250ML IRRIG IR SCH ×3 (01:41→10:00)
[2019-12-15] MEDS: DEXTROSE 5%/LACTATED RINGERS 1,000 ML IV SCH ×3 (01:42→18:51)
[2019-12-15] MEDS: HYDROMORPHONE 1MG/1ML INJ IV PRN ×7 (02:12→22:05)
[2019-12-15 05:33] LABS: BASOPHILS % 0.2 % (0.0-1.0); EOSINOPHILS # (AUTO) 0.1 (0.0-0.4); EOSINOPHILS % 0.7 % (0.0-6.0); HEMATOCRIT 22.5 % (38.2-49.6); HEMOGLOBIN 7.1 g/dL (14.0-18.0); LYMPHOCYTES # (AUTO) 1.2 (1.0-3.2); LYMPHOCYTES % 12.4 % (18.0-39.1); MEAN CORPUSCULAR HEMOGLOBIN 25.4 pg (28-32); MEAN CORPUSCULAR HGB CONC 31.6 g/dL (31-35); MEAN CORPUSCULAR VOLUME 80.6 fL (81-99); MONOCYTES # (AUTO) 0.7 (0.2-0.8); MONOCYTES % 6.9 % (4.4-11.3); NEUTROPHILS # (AUTO) 7.5 (2.1-6.9); NEUTROPHILS % 79.4 % (38.7-80.0); PLATELET COUNT 366 x10e3/uL (140-360); RED BLOOD COUNT 2.79 x10e6/uL (4.3-5.7); RED CELL DISTRIBUTION WIDTH 19.9 % (11.7-14.4)
--- NOTE | 2019-12-15 07:00 | NUR ---
BEDSIDE SHIFT REPORT RECEIVED PT IN STABLE CONDITION, DENIES PAIN AT THIS TIME, UPDATED ON POC VOCIED UNDERSTANDING, RUE PICC WITH IVF INFUSING, DSG TO ABDOMEN C/D/I, NO OTHER CO VOCIED CALL LIGHT IN REACH WILL CONTINUE TO MONITOR
[2019-12-15] MEDS: IRON SUCROSE 100 MG in SODIUM CHLORIDE 0.9% 100 ML 100 ML IV SCH (08:23)
[2019-12-15] MEDS: BISACODYL 10 MG SUPP PR SCH ×2 (08:45→21:33)
--- NOTE | 2019-12-15 09:50 | NUR ---
Visit made by Yin Weaver. Materials Tech provided pastoral presence, hospitality, and supportive listening. Materials Tech informed pt/family of the scope of [employer] and availability. [facility] O: [phone]
--- NOTE | 2019-12-15 10:57 | NUR ---
NG REMOVED PER ORDERED, PT TOLERATED WELL, INSTRUCTED PT ON NPO STATUS VOICED UNDERSTANDING,
[2019-12-15] MEDS: PANTOPRAZOLE 40 MG 10ML VIAL IV SCH (15:50)
[2019-12-15] MEDS: HYDROCODONE/APAP 7.5MG-325MG 1 EA TAB PO PRN ×2 (18:04→23:30)
--- NOTE | 2019-12-15 19:00 | NUR ---
RECEIVED REPORT FROM [facility] NURSE. AAOX3. RESTING IN BED. SR UPX2. R UA PICC INFUSING D5LR AT 150ML/HR. NO SIGNS OF INFILTRATION. BED LOCKED AND IN LOW POSITION. CALL LIGHT WITHIN REACH.
[2019-12-16] VITALS (8 sets, daily range): BP systolic 141–159; BP diastolic 74–94
[2019-12-16] MEDS: DEXTROSE 5%/LACTATED RINGERS 1,000 ML IV SCH ×2 (01:15→08:26)
[2019-12-16] MEDS: HYDROMORPHONE 1MG/1ML INJ IV PRN ×7 (02:36→23:22)
[2019-12-16] MEDS: METOCLOPRAMIDE HCL 10 MG/2ML VIAL IV SCH ×4 (05:30→23:09)
--- NOTE | 2019-12-16 05:45 | NUR ---
APPLIED ALLEVYN TO SACRUM. NO ADVERSE SIGNS.
[2019-12-16 06:13] LABS: BASOPHILS % 0.2 % (0.0-1.0); EOSINOPHILS # (AUTO) 0.2 (0.0-0.4); EOSINOPHILS % 1.9 % (0.0-6.0); HEMATOCRIT 24.3 % (38.2-49.6); HEMOGLOBIN 7.7 g/dL (14.0-18.0); LYMPHOCYTES # (AUTO) 1.5 (1.0-3.2); LYMPHOCYTES % 13.9 % (18.0-39.1); MEAN CORPUSCULAR HEMOGLOBIN 25.2 pg (28-32); MEAN CORPUSCULAR HGB CONC 31.7 g/dL (31-35); MEAN CORPUSCULAR VOLUME 79.7 fL (81-99); MONOCYTES # (AUTO) 0.9 (0.2-0.8); MONOCYTES % 8.6 % (4.4-11.3); NEUTROPHILS # (AUTO) 8.2 (2.1-6.9); PLATELET COUNT 348 x10e3/uL (140-360); RED BLOOD COUNT 3.05 x10e6/uL (4.3-5.7); RED CELL DISTRIBUTION WIDTH 20.4 % (11.7-14.4)
--- NOTE | 2019-12-16 06:32 | NUR ---
ALTERNATING PRESSURE MACHINE APPLIED TO BED.
[2019-12-16 06:36] LABS: ALBUMIN 2.1 g/dL (3.5-5.0); ALBUMIN/GLOBULIN RATIO 0.6 (0.8-2.0); ALKALINE PHOSPHATASE 73 IU/L (40-150); ANION GAP 10.3 mmol/L (8-16); BLOOD UREA NITROGEN < 5 mg/dL (7-26); CALCIUM 7.9 mg/dL (8.4-10.2); CARBON DIOXIDE 28 mmol/L (22-29); CHLORIDE 103 mmol/L (98-107); CREATININE, SERUM 0.73 mg/dL (0.72-1.25); EST GLOMERULAR FILTRATION RATE > 60 ML/MIN (60-); GLUCOSE 91 mg/dL (74-118); POTASSIUM 3.3 mmol/L (3.5-5.1); SODIUM 138 mmol/L (136-145)
[2019-12-16 06:37] LABS: ALANINE AMINOTRANSFERASE < 6 IU/L (0-55); BUN/CREATININE RATIO 7 (6-25)
--- NOTE | 2019-12-16 07:24 | NUR ---
bedside shift report received from PM nurse. pt in stable condition.
--- NOTE | 2019-12-16 07:24 | NUR ---
REPORT GIVEN TO [facility] NURSE. RESTING IN BED. AAOX3. SR UPX2. BED LOCKED AND IN LOW POSITION. R UA PICC INFUSING D5LR AT 150ML/HR. NO SIGNS OF INFILTRATION.
--- NOTE | 2019-12-16 07:58 | NUR ---
pt's Hgb 7.7, potassium noted to be 3.3; paging Dr. Frankel for orders.
[2019-12-16] MEDS: BISACODYL 10 MG SUPP PR SCH (08:00)
[2019-12-16] MEDS: HYDROCODONE/APAP 7.5MG-325MG 1 EA TAB PO PRN ×2 (08:26→18:18)
[2019-12-16] MEDS ORDERED: POTASSIUM CHLORIDE 20 MEQ TAB CR PO ONE (08:30)
[2019-12-16] MEDS ORDERED: POTASSIUM CHLORIDE 10MEQ EA PO ONE (08:45)
--- NOTE | 2019-12-16 08:45 | NUR ---
spoke with Dr. Frankel who states can cancel 2nd order of PO potassium that was entered in error.
[2019-12-16] MEDS ORDERED: POTASSIUM CHLORIDE 20 MEQ TAB CR PO STA (10:33)
--- NOTE | 2019-12-16 10:42 | NUR ---
spoke with Dr. Thomas at bedside who states order for Potassium and Magnesium was duplicate. orders adjusted accordingly.
[2019-12-16] MEDS ORDERED: HYDRALAZINE HCL 20 MG/ML VIAL IV PRN (10:45)
[2019-12-16] MEDS ORDERED: CLONIDINE HCL 0.3MG/24 HR PATCH TOP SCH (11:00)
--- NOTE | 2019-12-16 12:36 | Progress Note ---
DATE: Internal Medicine Progress Note SUBJECTIVE: The patient is doing well. No significant abdominal pain. PHYSICAL EXAMINATION: HEART: Showed regular rhythm. Normal S1, S2 sound. LUNGS: Clear bilaterally. ABDOMEN: Soft. Minimal tenderness in the abdomen. VITAL SIGNS: We have blood pressure 156/74, temperature 97.3, heart rate 95 per minute, respiratory rate 18 per minute, and oxygen saturation 98%. LABORATORY DATA: On the blood work, we have CBC with a white blood count 10.90, hemoglobin 7.7, hematocrit 24.3, platelet count 348,000. On the BMP; sodium 138, potassium 3.3, chloride 103, CO2 28, BUN 5, creatinine 0.73, glucose 191, calcium 7.9, total bilirubin 0.4, AST 7, ALT 6, alkaline phosphatase 73, total protein 5.7, albumin 2.1, globulin 3.6. Clostridium difficile came back negative. Abdomen and pelvis CT was done before, which showed anterior abdominal distal jejunum and proximal ileal wall thickening enhancement with associated mesenteric fat stranding, and 4.1 x 1.5 cm wall-enhancing mesenteric fluid collection with a small amount of adjacent extraluminal air. Associated mesenteric lymphadenopathy, findings consistent with acute Crohn disease flare with associated small mesenteric abscess. There is also rise in size and location, is not amenable to percutaneous drainage. FINAL IMPRESSION: 1. Crohn disease exacerbation. 2. Intraabdominal abscess. 3. Acute anemia. 4. Ileus. 5. Hypertension. PLAN OF TREATMENT: 1. Continue follow up with Gastroenterology, of course Dr. Boston Conti. 2. Continue ferric gluconate 125 mg IV once a day. 3. Clonidine patch 0.3 mg once a week. 4. Hydralazine 10 mg IV q.4 hours as needed for hypertension. 5. [place] 7.5/325 q.4 hours as needed for ivoescht-uw-bgoyai pain. 6. Dilaudid 0.5 mg IV every 3 hours as needed for severe pain. 7. Metoclopramide 10 mg IV q.6 hours. 8. Naloxone 0.4 mg IV as needed for excessive sedation. 9. Zofran 4 mg IV q.4 hours as needed for nausea and vomiting. 10. Protonix 40 mg daily. 11. Potassium has been given one time because of low potassium. We are going to recheck potassium, BMP, CBC and magnesium level tomorrow. MD MALIK Samayoa/JOHN /[id number]
[2019-12-16] MEDS: SODIUM FERRIC GLUCONATE COMPLX 125 MG in SODIUM CHLORIDE 0.9% 100 ML 100 ML IV SCH (13:14)
--- NOTE | 2019-12-16 16:51 | NUR ---
Patient has access to a RW per his . Addendum: 12/16/19 at 1652 by Albino Villarreal PT Amended: Links added.
[2019-12-16 17:48] LABS: MAGNESIUM 1.5 MG/DL (1.3-2.1); POTASSIUM 3.5 mmol/L (3.5-5.1)
--- NOTE | 2019-12-16 19:02 | NUR ---
RECEIVED REPORT FROM [facility] NURSE. AAOX3. RESTING IN BED. R UA PICC SALINE LOCK. NO SIGNS OF INFILTRATION. SR UPX2. BED LOCKED AND IN LOW POSITION. HELIO LIGHT WITHIN REACH.
[2019-12-17] MEDS: HYDROMORPHONE 1MG/1ML INJ IV PRN ×4 (02:26→14:29)
[2019-12-17 03:45] VITALS: BP 140/66
[2019-12-17] MEDS: HYDROCODONE/APAP 7.5MG-325MG 1 EA TAB PO PRN ×2 (04:20→08:01)
[2019-12-17] MEDS: METOCLOPRAMIDE HCL 10 MG/2ML VIAL IV SCH ×2 (05:45→13:12)
[2019-12-17 06:00] LABS: BASOPHILS % 0.2 % (0.0-1.0); EOSINOPHILS # (AUTO) 0.3 (0.0-0.4); HEMATOCRIT 25.4 % (38.2-49.6); HEMOGLOBIN 7.9 g/dL (14.0-18.0); LYMPHOCYTES # (AUTO) 1.2 (1.0-3.2); MEAN CORPUSCULAR HEMOGLOBIN 24.8 pg (28-32); MEAN CORPUSCULAR HGB CONC 31.1 g/dL (31-35); MEAN CORPUSCULAR VOLUME 79.9 fL (81-99); MONOCYTES % 7.8 % (4.4-11.3); NEUTROPHILS # (AUTO) 9.8 (2.1-6.9); NEUTROPHILS % 79.5 % (38.7-80.0); PLATELET COUNT 304 x10e3/uL (140-360); RED BLOOD COUNT 3.18 x10e6/uL (4.3-5.7)
[2019-12-17 06:21] LABS: ANION GAP 10.6 mmol/L (8-16); BLOOD UREA NITROGEN < 5 mg/dL (7-26); CALCIUM 8.1 mg/dL (8.4-10.2); CARBON DIOXIDE 28 mmol/L (22-29); CHLORIDE 101 mmol/L (98-107); CREATININE, SERUM 0.73 mg/dL (0.72-1.25); EST GLOMERULAR FILTRATION RATE > 60 ML/MIN (60-); GLUCOSE 86 mg/dL (74-118); POTASSIUM 3.6 mmol/L (3.5-5.1); SODIUM 136 mmol/L (136-145)
[2019-12-17 06:23] LABS: BUN/CREATININE RATIO 7 (6-25)
--- NOTE | 2019-12-17 07:13 | NUR ---
BEDSIDE SHIFT REPORT RECEIVED FROM PM NURSE. PT IN STABLE CONDITION. WILL CONTINUE TO ASSESS.
--- NOTE | 2019-12-17 07:29 | NUR ---
REPORT GIVEN TO [facility]. RESTING IN BED. AAOX3. R UA PICC SALINE LOCK. NO SIGNS OF INFILTRATION. SR UPX2. BED LOCKED AND IN LOW POSITION. SR UPX2. CALL LIGHT WITHIN REACH.
[2019-12-17] MEDS ORDERED: PANTOPRAZOLE SOD 40 MG TABEC PO SCH (07:30)
[2019-12-17 07:45] VITALS: BP 140/66
[2019-12-17 08:30] VITALS: BP 146/95
[2019-12-17] MEDS: SODIUM FERRIC GLUCONATE COMPLX 125 MG in SODIUM CHLORIDE 0.9% 100 ML 100 ML IV SCH (11:18)
--- NOTE | 2019-12-17 12:39 | Progress Note ---
DATE: Internal Medicine Progress Note SUBJECTIVE: The patient is feeling better. PHYSICAL EXAMINATION: VITAL SIGNS: Blood pressure is 146/95, temperature 97.2, heart rate 91 per minute, respiratory rate 18 per minute, O2 saturation 99%. HEART: Showed regular rhythm. Normal S1, S2 sound. LUNGS: Clear bilaterally. ABDOMEN: Soft. LABORATORY DATA: On the CBC; white blood count is higher than yesterday at 12.36, hemoglobin 7.9, hematocrit 25.4, platelet count 304,000. On the BMP; sodium 133, potassium 3.6, chloride 101, CO2 28, BUN 5, creatinine 0.73, glucose 86, calcium 8.1, magnesium 1.5, total protein 5.7, albumin 2.1, globin 3.6, albumin globin ratio 0.6, vitamin B12 is 381. Serologies; C difficile toxin negative. FINAL IMPRESSION: 1. Crohn disease exacerbation. 2. Intraabdominal abscess. 3. Acute anemia. 4. Ileus. 5. Hypertension. PLAN OF TREATMENT: Continue serum ferric gluconate complex 125 mg IV once a day, clonidine patch 0.3 mg once a week, hydralazine 10 mg IV q.4 hours as needed hypertension, [place] 7.5/325 q.4 hours as needed for ogxrnapo-uf-[id number] pain, Dilaudid 0.5 mg IV q.3 hours as needed for severe pain, metoclopramide 10 mg IV q.6 hours, naloxone 0.4 mg IV as needed for sedation, Zofran 4 mg IV q.4 hours as needed for nausea and vomiting, Protonix 40 mg daily. I ordered another CBC for tomorrow due to the elevated white blood count. MD MALIK Samayoa/JOHN /[id number]
[2019-12-17 13:37] VITALS: BP 129/84
--- NOTE | 2019-12-17 15:15 | NUR ---
DR. IGNACIO LEE CAME TO PT'S BEDSIDE, REMOVED DIANA DRAIN; STATES PT IS CLEAR TO BE DISCHARGED.
--- NOTE | 2019-12-17 16:08 | NUR ---
DISCONTINUED PT'S PICC LINE, TIP INTACT, 36 MM IN LENGTH, NO ADVERSE EFFECTS, DRESSING APPLIED AND PRESSURE HELD FOR 10 MINUTES. BLEEDING CONTROLLED, DRESSING C/D/I. Addendum: 12/17/19 at 1610 by Franklin Covington RN TIP INTACT.
--- NOTE | 2019-12-19 08:50 | Progress Note ---
DATE: 12/15/2019 CHIEF COMPLAINT/HISTORY OF PRESENT ILLNESS: This is a 34-year-old white man, whose primary treating diagnosis was Crohn's disease with complications including small-bowel perforation, mesenteric abscess formation. Four days ago on December 11, 2019, the patient underwent successful exploratory laparotomy, right ileocolectomy and drainage of mesenteric abscess. The patient states his pain is controlled. The patient is still receiving intravenous daily iron infusions, but his hemoglobin is still dropping. Today's hemoglobin 7.1 g/dL. White blood cell count 9300 with 79% segmented neutrophils. Platelet count 366,000. Today's potassium 3.5, BUN and creatinine is 5 and 0.72 respectively. Previously, he was found to be hemoccult positive, this was on December 04, 2019. REVIEW OF SYSTEMS: The patient states he did have a bowel movement yesterday. Review of systems as per HPI. PHYSICAL EXAMINATION: GENERAL: He is awake, alert, and fully oriented. No distress, very pleasant on exam. VITAL SIGNS: Blood pressure 146/84, pulse 80, respiratory rate 18, temperature 97.3, and oxygen saturation 97% on room air. BMI is 30. INTEGUMENT: Skin is warm and dry. The patient has obvious pallor. No jaundice or diaphoresis. HEENT: Anicteric sclerae. Moist mucous membranes. The patient has a nasogastric tube in place. NECK: Supple. CARDIOVASCULAR: Regular rate and rhythm. LUNGS: No rales. No rhonchi or wheezes. ABDOMEN: Soft. He has abdominal binder in place. He does have bowel sounds. EXTREMITIES: No edema or deformity. NEUROLOGIC: Intact. DIAGNOSES: 1. Status post exploratory laparotomy with right ileocolectomy and mesenteric abscess drainage. 2. Crohn's disease complication with perforation/fistula and mesenteric abscess formation, corrected. 3. Anemia secondary to chronic disease/iron deficiency. 4. Drastic weight loss. PLAN: 1. We will stop daily intravenous iron. 2. Follow hemoglobin and hematocrit. 3. Nasogastric tube may come out today since the patient has bowel sounds and had bowel movement. 4. If hemoglobin is 7 g/dL or lower tomorrow, he will be transfused 2 units of packed red cells. 5. Continued hourly incentive spirometer usage to prevent atelectasis. 6. Pain control. 7. Mobilize physical therapy. I spent 30 minutes in the care of this patient. MD LIAM Lim/JOHN /[id number] MTDAlana
--- NOTE | 2019-12-21 08:16 | NUR ---
Dictated DC summary: [id number]
--- NOTE | 2019-12-21 09:34 | Discharge Summary ---
ADMIT DIAGNOSES: 1. Ylxmf-vq-uzziyim anemia, likely secondary to gastrointestinal bleeding. 2. Inflammatory bowel disease (ulcerative colitis and Crohn disease) exacerbation. 3. Colitis. 4. Drastic unintentional weight loss. 5. Sepsis secondary to Crohn disease exacerbation with complications namely small-bowel perforation/fistula and mesenteric abscess formation (present on admission). DISCHARGE DIAGNOSES: 1. Sepsis secondary to Crohn disease exacerbation with complications namely small-bowel perforation/fistula and mesenteric abscess formation, resolved. 2. Status post exploratory laparotomy with right ileocolectomy and mesenteric abscess drainage. 3. Crohn disease complication with perforation/fistula and mesenteric abscess formation, corrected. 4. Anemia secondary to chronic disease/iron deficiency. 5. Drastic weight loss. HOSPITAL COURSE: This is a 34-year-old white man, who was initially admitted to [facility] with diagnosis of acute on chronic anemia as well as inflammatory bowel disease exacerbation. On admission, the patient is also diagnosed as sepsis secondary to Crohn disease exacerbation/complication with perforation/fistula and mesenteric abscess formation. The patient was treated for intravenous antibiotics for approximately one week and then was taken to the operating room. Dr. Gunner Arreaag, performed successful exploratory laparotomy with right ileocolectomy and mesenteric abscess drainage. The patient tolerated surgery quite well. During this hospitalization, he was transfused a total of 4 units packed red cells because of acute on chronic anemia secondary to gastrointestinal losses and his chronic disease. He also received at least 10 days intravenous iron infusion during this hospitalization because of iron deficiency anemia. The patient's hospitalization was unremarkable. On discharge, he was tolerating a regular diet. His pain was also controlled on discharge. DISCHARGE MEDICATIONS: 1. Pantoprazole 40 mg daily. 2. Humira injection every Wednesday. 3. The patient was told to stop dicyclomine and hyoscyamine. FOLLOWUP INSTRUCTIONS: The patient was instructed to use soft diet. Follow up with his general surgeon, namely Dr. Gunner Arreaga within 1 week. He is also instructed to follow up with his primary care physician namely myself, Dr. Bassem Frankel within 2 weeks. MD LIAM Lim/JOHN /[id number] cc: Gunner Arreaga MD MTDD
== END 2019-12-17 16:46 | disposition home or self-care (01) | DRG 853 ==
LOC: ER 07:33 → ERHOLD 10:25 → MED/SURG2 14:54 → IMCU 12-11 13:39 → MED/SURG3 12-13 17:48 → MED/SURG 12-14 16:40
PROVIDERS: ADMIT Internal Medicine; ATTEND Internal Medicine
PROC: 30233N1 Transfusion of Nonautologous Red Blood Cells into Peripheral Vein, Percutaneous Approach (ICD-10-PCS; 2019-12-06)
PROC: 02HV33Z Insertion of Infusion Device into Superior Vena Cava, Percutaneous Approach (ICD-10-PCS; 2019-12-08)
PROC: B548ZZA Ultrasonography of Superior Vena Cava, Guidance (ICD-10-PCS; 2019-12-08)
PROC: 30233L1 Transfusion of Nonautologous Fresh Plasma into Peripheral Vein, Percutaneous Approach (ICD-10-PCS; 2019-12-10)
PROC: 30233K1 Transfusion of Nonautologous Frozen Plasma into Peripheral Vein, Percutaneous Approach (ICD-10-PCS; 2019-12-10)
PROC: 0DBV0ZZ Excision of Mesentery, Open Approach (ICD-10-PCS; 2019-12-11)
PROC: 0DNK0ZZ Release Ascending Colon, Open Approach (ICD-10-PCS; 2019-12-11)
PROC: 0DNL0ZZ Release Transverse Colon, Open Approach (ICD-10-PCS; 2019-12-11)
PROC: 0DNH0ZZ Release Cecum, Open Approach (ICD-10-PCS; 2019-12-11)
PROC: 0DB80ZZ Excision of Small Intestine, Open Approach (ICD-10-PCS; 2019-12-11)
PROC: 0DTF0ZZ Resection of Right Large Intestine, Open Approach (ICD-10-PCS; principal; 2019-12-11 09:33)
DX: A41.9 Sepsis, unspecified organism (principal); E43 Unspecified severe protein-calorie malnutrition; K50.014 Crohn's disease of small intestine with abscess; D62 Acute posthemorrhagic anemia; K56.7 Ileus, unspecified; K50.013 Crohn's disease of small intestine with fistula; K50.018 Crohn's disease of small intestine with other complication; K50.012 Crohn's disease of small intestine with intestinal obstruction; K50.011 Crohn's disease of small intestine with rectal bleeding; D50.0 Iron deficiency anemia secondary to blood loss (chronic); K21.9 Gastro-esophageal reflux disease without esophagitis; E66.9 Obesity, unspecified; Z80.42 Family history of malignant neoplasm of prostate; Z72.0 Tobacco use; R63.4 Abnormal weight loss; Z68.30 Body mass index [BMI] 30.0-30.9, adult; D63.8 Anemia in other chronic diseases classified elsewhere; I10 Essential (primary) hypertension; F32.9 Major depressive disorder, single episode, unspecified
CPT/HCPCS: 36415; 36569; 74177; 80048; 80053; 82270; 82607; 82728; 82746; 83540; 83690; 83735; 83993; 84132; 84466; 85025; 85045; 85610; 85730; 86140; 86850; 86900; 86920; 87045; 87493; 88307; 96361; 97139; 99284; J1100; J1170; J1756; J1885; J1956; J2001; J2250; J2405; J2765; J2916; J3010; J3420; J3430; J7040; J7050; J7121; P9016; P9017; Q9967

== ENCOUNTER 2019-12-31 17:07 | Inpatient (IN) | payer OTHER ==
[~2019-12-31] VITALS: Ht 185.4 cm; Wt 100.7 kg
[~2019-12-31 17:07] MED LIST changes: +BENTYL10 MG/1 ML PO; +HUMIRA40 MG/0.8 PO; +LEVSIN0.125 MG PO
[2019-12-31] MEDS ORDERED: ONDANSETRON HCL INJ 2MG/ML 2ML 2 MG/ML VIAL IV STA ×2 (17:09→17:38)
[2019-12-31] MEDS ORDERED: SODIUM CHLORIDE 0.9% 1000ML 1,000 ML IV STA ×2 (17:09→17:38)
[2019-12-31] MEDS ORDERED: ACETAMINOPHEN 325 MG TAB PO ONE (17:15)
[2019-12-31] MEDS ORDERED: PANTOPRAZOLE 40 MG 10ML VIAL IV STA (17:38)
[2019-12-31] MEDS ORDERED: MORPHINE SULFATE INJ 4 MG/ML INJ 1ML IV STA (17:44)
[2019-12-31 17:50] LABS: BASOPHILS # (AUTO) 0.1 (0.0-0.1); BASOPHILS % 0.2 % (0.0-1.0); EOSINOPHILS % 0.1 % (0.0-6.0); HEMATOCRIT 32.2 % (38.2-49.6); HEMOGLOBIN 9.9 g/dL (14.0-18.0); LYMPHOCYTES # (AUTO) 1.7 (1.0-3.2); LYMPHOCYTES % 5.9 % (18.0-39.1); MEAN CORPUSCULAR HGB CONC 30.7 g/dL (31-35); MEAN CORPUSCULAR VOLUME 78.2 fL (81-99); MONOCYTES # (AUTO) 1.9 (0.2-0.8); MONOCYTES % 6.5 % (4.4-11.3); NEUTROPHILS # (AUTO) 24.8 (2.1-6.9); NEUTROPHILS % 86.7 % (38.7-80.0); PLATELET COUNT 619 x10e3/uL (140-360); RED BLOOD COUNT 4.12 x10e6/uL (4.3-5.7); RED CELL DISTRIBUTION WIDTH 18.2 % (11.7-14.4)
[2019-12-31] MEDS ORDERED: PIPER-TAZ 3.375 GM 50 ML IV ONE (18:00)
[2019-12-31 18:04] LABS: BILIRUBIN,URINE SMALL (NEGATIVE); CLARITY,URINE HAZY (CLEAR); COLOR,URINE AMBER (YELLOW); KETONES,URINE TRACE (NEGATIVE); LEUKOCYTE ESTERASE ,URINE NEGATIVE (NEGATIVE); NITRITE,URINE POSITIVE (NEGATIVE); PROTEIN,URINE DIPSTICK 1+ (NEGATIVE); URINE UROBILINOGEN 0.2 mg/dL (0.2 - 1)
[2019-12-31 18:05] LABS: BACTERIA,URINE FEW /HPF; EPITHELIAL CELLS,URINE FEW /LPF; RBC,URINE 0-5 /HPF (0-5)
[2019-12-31 18:06] LABS: AMORPHOUS SEDIMENT,URINE FEW (FEW); HYALINE CASTS 0-1 (0-1)
[2019-12-31 18:10] LABS: ALANINE AMINOTRANSFERASE 25 IU/L (0-55); ALBUMIN 2.3 g/dL (3.5-5.0); ALBUMIN/GLOBULIN RATIO 0.4 (0.8-2.0); ALKALINE PHOSPHATASE 256 IU/L (40-150); BLOOD UREA NITROGEN 10 mg/dL (7-26); BUN/CREATININE RATIO 14 (6-25); CALCIUM 8.8 mg/dL (8.4-10.2); CARBON DIOXIDE 22 mmol/L (22-29); CHLORIDE 98 mmol/L (98-107); CREATININE, SERUM 0.74 mg/dL (0.72-1.25); EST GLOMERULAR FILTRATION RATE > 60 ML/MIN (60-); GLUCOSE 114 mg/dL (74-118); SODIUM 133 mmol/L (136-145)
[2019-12-31] MEDS ORDERED: HYDROMORPHONE 1MG/1ML INJ IV PRN (18:15)
[2019-12-31] MEDS ORDERED: SODIUM CHLORIDE 0.9% 500ML 500 ML IV ONE (18:15)
[2019-12-31 18:27] LABS: ANISOCYTOSIS SLIGHT; BAND NEUTROPHILS % (MANUAL) 1 %; LYMPHOCYTES % (MANUAL) 16 % (19-48); MICROCYTOSIS SLIGHT; MONOCYTES % (MANUAL) 6 % (3.4-9.0); MYELOCYTES % (MANUAL) 1 % (0-0); NEUTROPHILS % (MANUAL) 76 % (40-74); PLATELET ESTIMATE ADEQUATE; PLATELET MORPHOLOGY COMMENT NORMAL; RBC MORPHOLOGY COMMENT NORMAL
[2019-12-31] MEDS ORDERED: SODIUM CHLORIDE 0.9% 50ML 50 ML ONE (18:33)
[2019-12-31] MEDS ORDERED: IOPAMIDOL 370 MG/ML 200 ML INFUS..BTL INJ ONE (18:33)
[2019-12-31] MEDS: METRONIDAZOLE 500MG/NS 100ML 100 ML IV SCH ×2 (18:51→23:28)
--- NOTE | 2019-12-31 19:00 | Diagnostic Imaging Report ---
EXAMINATION: CT of the abdomen and pelvis with contrast. TECHNIQUE: Helical CT images of the abdomen and pelvis were performed from the lung bases to the lesser trochanters after the intravenous administration of 100 cc of Isovue 300 and the oral administration of none. Coronal and sagittal reformatted images were obtained. Dose modulation, iterative reconstruction, and/or weight based adjustment of the mA/kV was utilized to reduce the radiation dose to as low as reasonably achievable. COMPARISON: None. CLINICAL HISTORY:Fever, stomach pain DISCUSSION: ABDOMEN/PELVIS: LOWER THORAX:Unremarkable. HEPATOBILIARY: No focal hepatic lesions. No intra-or extrahepatic biliary ductal dilation. The gallbladder is normal. SPLEEN: No splenomegaly. PANCREAS: No focal masses or ductal dilatation. ADRENALS: No adrenal nodules. KIDNEYS/URETERS: No hydronephrosis, stones, or solid mass lesions. PELVIC ORGANS/BLADDER: The bladder is normal. PERITONEUM/RETROPERITONEUM: Well-defined abscess in the right upper quadrant measuring up to 3.2 cm on axial image 52. Superiorly, ill-defined phlegmon on axial image 44. Anteriorly ill-defined air-containing collection measuring 3.3 cm axial image 72 located in the left of midline abdomen.. LYMPH NODES: Reactive right upper quadrant lymph nodes. VESSELS: The celiac trunk,superior and inferior mesenteric and bilateral renal arteries are patent The portal, superior mesenteric and splenic veins are patent. GI TRACT: Partial bowel resection involving the ascending colon/cecum and distal ileum. Reactive thickening of the proximal transverse colon BONES AND SOFT TISSUE: No bony destructive lesions. No soft tissue abnormalities. IMPRESSION: Partial ileocolectomy with right upper quadrant 3.2 cm abscess and additional ill-defined phlegmon superiorly and left midline abdomen inferiorly. Reactive change in the proximal transverse colon and right upper quadrant lymphadenopathy. Signed by: Dr. Gaetano Stanton M.D. on 12/31/2019 6:56 PM
--- NOTE | 2019-12-31 20:16 | NUR ---
DR. IGNACIO LEE AT BEDSIDE FOR PT EVAL AT THIS TIME.
[2019-12-31 20:45] VITALS: BP 117/90
[2019-12-31] MEDS: SODIUM CHLORIDE 0.9% 1000ML 1,000 ML IV SCH (20:45)
[2019-12-31 21:23] VITALS: BP 117/90
[2019-12-31] MEDS ORDERED: FERROUS SULFAT325 MG PO (21:30)
[2019-12-31] MEDS ORDERED: NORCO 5-325 TA1 EACH PO (21:31)
[2019-12-31] MEDS: HYDROMORPHONE 1MG/1ML INJ IV PRN (23:20)
[2020-01-01] VITALS (7 sets, daily range): BP systolic 112–129; BP diastolic 63–85
[2020-01-01] MEDS: PIPER-TAZ 3.375 GM 50 ML IV SCH ×5 (00:04→23:55)
[2020-01-01] MEDS: SODIUM CHLORIDE 0.9% 1000ML 1,000 ML IV SCH ×4 (01:48→21:37)
[2020-01-01] MEDS: ACETAMINOPHEN 325 MG TAB PO PRN ×2 (01:49→16:49)
--- NOTE | 2020-01-01 01:49 | NUR ---
PATIENT NOTED TO BE INCREASINGLY TACHYCARDIC IN THE 130S, TEMP 103.2 AXILLARY, MEDICATED WITH TYLENOL AT THIS TIME.
[2020-01-01] MEDS: HYDROMORPHONE 1MG/1ML INJ IV PRN ×7 (02:19→23:55)
--- NOTE | 2020-01-01 03:01 | NUR ---
ABDOMINAL INCISION FROM PREVIOUS SURGERY ON 12/10 WITH A SMALL OPEN AREA ON LOWER SIDE NOTED WITH THICK YELLOW TO ROLLINS DRAINAGE, SITE CLEANSED WITH NS AND WOUND CULTURE OBTAINED, ABD PAD APPLIED DUE TO DRAINAGE FROM SITE, PATIENT STATES HE WAS SEEN IN DR LEE OFFICE EARLIER THIS WEEK AND WAS TOLD THE DRAINAGE WAS NORMAL BUT STATES THE COLOR HAS CHANGED SINCE THEN. SLIGHT REDNESS NOTED TO SITE.
[2020-01-01 05:07] LABS: BASOPHILS # (AUTO) 0.1 (0.0-0.1); BASOPHILS % 0.2 % (0.0-1.0); EOSINOPHILS % 0.1 % (0.0-6.0); HEMATOCRIT 28.5 % (38.2-49.6); HEMOGLOBIN 8.4 g/dL (14.0-18.0); LYMPHOCYTES # (AUTO) 1.2 (1.0-3.2); LYMPHOCYTES % 4.4 % (18.0-39.1); MEAN CORPUSCULAR HEMOGLOBIN 24.1 pg (28-32); MEAN CORPUSCULAR HGB CONC 29.5 g/dL (31-35); MONOCYTES # (AUTO) 1.9 (0.2-0.8); MONOCYTES % 6.8 % (4.4-11.3); NEUTROPHILS # (AUTO) 24.4 (2.1-6.9); NEUTROPHILS % 87.4 % (38.7-80.0); PLATELET COUNT 446 x10e3/uL (140-360); RED BLOOD COUNT 3.49 x10e6/uL (4.3-5.7); RED CELL DISTRIBUTION WIDTH 18.1 % (11.7-14.4)
[2020-01-01 05:33] LABS: MEAN CORPUSCULAR VOLUME 81.7 fL (81-99)
[2020-01-01 05:36] LABS: ALANINE AMINOTRANSFERASE 20 IU/L (0-55); ALBUMIN/GLOBULIN RATIO 0.5 (0.8-2.0); ALKALINE PHOSPHATASE 211 IU/L (40-150); ANION GAP 13.1 mmol/L (8-16); BLOOD UREA NITROGEN 7 mg/dL (7-26); BUN/CREATININE RATIO 9 (6-25); CALCIUM 8.3 mg/dL (8.4-10.2); CARBON DIOXIDE 23 mmol/L (22-29); CHLORIDE 102 mmol/L (98-107); CREATININE, SERUM 0.78 mg/dL (0.72-1.25); EST GLOMERULAR FILTRATION RATE > 60 ML/MIN (60-); GLUCOSE 91 mg/dL (74-118); POTASSIUM 4.1 mmol/L (3.5-5.1); SODIUM 134 mmol/L (136-145)
[2020-01-01] MEDS: METRONIDAZOLE 500MG/NS 100ML 100 ML IV SCH ×3 (05:55→18:20)
[2020-01-01 08:45] LABS: BAND NEUTROPHILS % (MANUAL) 1 %; LYMPHOCYTES % (MANUAL) 5 % (19-48); MONOCYTES % (MANUAL) 2 % (3.4-9.0); NEUTROPHILS % (MANUAL) 92 % (40-74); PLATELET ESTIMATE SLIGHTLY INCREASED; PLATELET MORPHOLOGY COMMENT NORMAL; RBC MORPHOLOGY COMMENT NORMAL
[2020-01-01] MEDS: ONDANSETRON HCL INJ 2MG/ML 2ML 2 MG/ML VIAL IV PRN ×4 (08:46→23:55)
[2020-01-01 11:15] LABS: INR 1.46; PROTHROMBIN TIME 18.7 seconds (11.9-14.5)
[2020-01-01 11:16] LABS: PARTIAL THROMBOPLASTIN TIME 52.2 seconds (23.8-35.5)
--- NOTE | 2020-01-01 12:29 | History and Physical ---
CHIEF COMPLAINT: Abdominal pain. HISTORY OF PRESENT ILLNESS: This is a 34-year-old white man, who presents to [facility] with a 2-day history of worsening right upper quadrant pain and fever. The patient also complains of shaking chills. The patient denies any nausea, vomiting, or diarrhea. He denies any melena or hematochezia. The patient was just discharged less than two weeks ago from [facility]. During his previous admission, he was found to have Crohn's disease exacerbation with complication, specifically small-bowel perforation/fistula and mesenteric abscess formation. During the hospitalization, he underwent exploratory laparotomy with right ileocolectomy and mesenteric abscess drainage. The patient states that five days ago he saw his general surgeon, namely Dr. Arreaga and the remaining tho were removed. The patient states he was doing well until two days prior to admission. In the emergency room on this admission, the patient was found to have white blood cell count of 28,500 with 76% segmented neutrophils and 1% bands. The patient's blood chemistries were unremarkable except his albumin was 2.3 g/dL. In the emergency room, the patient underwent a CT of the abdomen and pelvis with intravenous contrast, which revealed a well-defined abscess in the right upper quadrant measuring 3.2 cm and an ill- defined air containing collection measuring 3.3 cm in just to the left of the midline abdomen. The patient was also found reactive right upper quadrant lymph nodes. The patient was admitted for further evaluation and treatment. On this admission, the patient's hemoglobin was 9.9 g/dL. REVIEW OF SYSTEMS: GENERAL: The patient states he has lost at least 90 pounds since May of 2019. He complained of fever and chills over the last couple of days. HEENT: No headaches. No vision changes. CARDIOVASCULAR/RESPIRATORY: No chest pain. No short of breath or cough. GI: Complains of right upper quadrant pain for the past couple of days. No nausea, vomiting, diarrhea, or constipation. No melena or hematochezia. : Denies any UTI symptoms. NEUROMUSCULAR: Denies any limb weakness or numbness. ALLERGIES: NO KNOWN DRUG ALLERGIES. HOME MEDICATIONS: 1. Humira 40 mg injection weekly. 2. Iron sulfate 325 mg b.i.d. 3. Sunburst 5/325 one every 4 hours p.r.n. pain. 4. Pantoprazole 40 mg daily. PAST SURGICAL HISTORY: Exploratory laparotomy with right ileocolectomy and mesenteric abscess drainage in November of 2019. FAMILY HISTORY: Father with prostate cancer. PAST MEDICAL HISTORY: 1. Crohn's disease. 2. Anemia secondary to chronic disease/iron deficiency. 3. GERD. SOCIAL HISTORY: He is and he lives with his . He works at a [employer]. The patient does not smoke. He does dip tobacco. The patient states he drinks alcohol rarely. PHYSICAL EXAMINATION: GENERAL: He is awake, alert, and fully oriented. He has no distress, very pleasant and cooperative with exam. VITAL SIGNS: Height is 5 feet 11 inches, weight is 208 pounds, BMI 28. Temperature was 102 degrees Fahrenheit when he arrived in the emergency room, it is currently 98.3. Blood pressure currently is 110/68, pulse 96, respiratory rate 14, oxygen saturation is 100% on room air. INTEGUMENT: Skin is warm and dry. Slight pallor. No jaundice or diaphoresis. HEENT: Anterior sclerae moist mucous membranes. NECK: Supple. CARDIOVASCULAR: Tachycardic rate with regular rhythm. LUNGS: No rales. No rhonchi or wheezes. ABDOMEN: Soft, the exploratory laparotomy surgical incision is well healed. It is clean, dry, and intact. There is minimal serous drainage at the inferior aspect of the exploratory laparotomy incision, it does not appear to be infected. He does have tenderness when palpating the right upper quadrant, but he does have normal bowel sounds. EXTREMITIES: No edema or deformity. NEUROLOGIC: Intact. DIAGNOSES: 1. Sepsis secondary to right upper quadrant abscess (likely small bowel). 2. Crohn's disease. 3. Anemia secondary to chronic disease/iron deficiency. PLAN: 1. Intravenous antibiotics. 2. Intravenous fluids. 3. Consult General surgery. 4. We will likely ask Interventional Radiology to drain this right upper quadrant abscess. I spent 40 minutes in the care of this patient. MD LIAM Lim/JOHN /[id number] [place]
[2020-01-01] MEDS ORDERED: FENTANYL CITRATE/PF 100MCG/2 ML INJ ONE (13:06)
[2020-01-01] MEDS ORDERED: MIDAZOLAM HCL 2 MG/2 ML VIAL ONE (13:06)
--- NOTE | 2020-01-01 14:12 | Diagnostic Imaging Report ---
CT-guided abdominal fluid collection aspiration. History: Right upper quadrant fluid collection. Modality: CT RADIATION DOSE: Total DLP: 1278.44 mGy*cm Dose modulation, iterative reconstruction, and/or weight based adjustment of the mA/kV was utilized to reduce the radiation dose to as low as reasonably achievable. Sedation: Versed 2 mg and fentanyl 100 mcg was given intravenously for conscious sedation. Vital signs were monitored throughout the procedure by a nurse, and remained stable. Physician intra-service time was 20. Approach: Right upper quadrant, percutaneous Estimated blood loss: < 5 cc. Specimen: 12 cc of grossly purulent appearing fluid, sent for microbiology. mangle operator garments: Brandon Brand MD. Technique: Informed written consent was obtained. Discussion of risks, benefits, and alternatives were made with the patient. The patient expressed understanding and agreed to proceed. A universal timeout was performed prior to starting the procedure. All elements maximal sterile barrier technique was utilized for this procedure, including utilization of sterile scrub solution for skin prep, a large sterile sheet to cover the areas of the patient that were not prepped, and hand hygiene, mask, head covering, and sterile gown for performing radiologist and scrub technologist. The patient was placed supine within the CT gantry. Initial CT images were obtained demonstrating ill-defined phlegmon and probably on organized fluid/stranding. The small, more organized collection noted on prior CT examination of the right upper quadrant was targeted for aspiration. The right upper quadrant was prepped and draped in a sterile fashion. 1% lidocaine was used for local anesthesia. Using CT guidance, a 18-gauge x 9 cm needle was advanced into the fluid collection from an anterior approach. The collection was too small for wire/drain placement. Subsequent, a total of 12 cc of grossly purulent appearing fluid was aspirated, near completely evacuating the collection. The needle was removed and hemostasis achieved with manual compression. The patient told the procedure without immediate consultation. Impression: Successful CT-guided aspiration of right upper quadrant fluid collection yielding 12 cc of grossly purulent appearing fluid which was sent for microbiology. Signed by: Dr. Brandon Brand MD on 01/01/2020 2:08 PM
[2020-01-02] VITALS (9 sets, daily range): BP systolic 127–145; BP diastolic 73–82
[2020-01-02] MEDS: METRONIDAZOLE 500MG/NS 100ML 100 ML IV SCH ×4 (00:55→16:59)
[2020-01-02] MEDS: HYDROMORPHONE 1MG/1ML INJ IV PRN ×7 (03:05→21:40)
[2020-01-02] MEDS: SODIUM CHLORIDE 0.9% 1000ML 1,000 ML IV SCH ×3 (03:23→16:59)
[2020-01-02] MEDS: PIPER-TAZ 3.375 GM 50 ML IV SCH ×3 (05:30→16:59)
[2020-01-02] MEDS: ONDANSETRON HCL INJ 2MG/ML 2ML 2 MG/ML VIAL IV PRN ×3 (06:15→18:20)
[2020-01-02 06:36] LABS: BASOPHILS % 0.2 % (0.0-1.0); EOSINOPHILS # (AUTO) 0.1 (0.0-0.4); EOSINOPHILS % 1.1 % (0.0-6.0); HEMATOCRIT 24.4 % (38.2-49.6); HEMOGLOBIN 7.3 g/dL (14.0-18.0); LYMPHOCYTES # (AUTO) 1.1 (1.0-3.2); LYMPHOCYTES % 8.8 % (18.0-39.1); MEAN CORPUSCULAR HEMOGLOBIN 23.7 pg (28-32); MEAN CORPUSCULAR HGB CONC 29.9 g/dL (31-35); MEAN CORPUSCULAR VOLUME 79.2 fL (81-99); MONOCYTES % 7.5 % (4.4-11.3); NEUTROPHILS # (AUTO) 10.4 (2.1-6.9); NEUTROPHILS % 81.9 % (38.7-80.0); PLATELET COUNT 441 x10e3/uL (140-360); RED BLOOD COUNT 3.08 x10e6/uL (4.3-5.7); RED CELL DISTRIBUTION WIDTH 17.8 % (11.7-14.4)
--- NOTE | 2020-01-02 07:00 | NUR ---
BEDSIDE SHIFT REPORT RECEIVED FROM RUTHIE MA. PT DENIES NEEDS AT THIS TIME.
--- NOTE | 2020-01-02 07:00 | NUR ---
Bedside report and walking rounds completed with on coming nurse. Patient in bed with call light within reach. No issues or concerns noted.
[2020-01-02 07:11] LABS: ALANINE AMINOTRANSFERASE 14 IU/L (0-55); ALBUMIN 1.7 g/dL (3.5-5.0); ALBUMIN/GLOBULIN RATIO 0.4 (0.8-2.0); ALKALINE PHOSPHATASE 161 IU/L (40-150); ANION GAP 10.4 mmol/L (8-16); BLOOD UREA NITROGEN 7 mg/dL (7-26); BUN/CREATININE RATIO 9 (6-25); CALCIUM 7.8 mg/dL (8.4-10.2); CARBON DIOXIDE 23 mmol/L (22-29); CHLORIDE 104 mmol/L (98-107); CREATININE, SERUM 0.74 mg/dL (0.72-1.25); EST GLOMERULAR FILTRATION RATE > 60 ML/MIN (60-); GLUCOSE 100 mg/dL (74-118); POTASSIUM 3.4 mmol/L (3.5-5.1); SODIUM 134 mmol/L (136-145)
[2020-01-02 11:01] LABS: HYPOCHROMASIA MODERATE; RBC MORPHOLOGY COMMENT ABNORMAL
--- NOTE | 2020-01-02 19:55 | NUR ---
REPORT RECIEVED FROM RUTHIE CHAPPELL ON PT. PT SET TO BE TRANSFERRED TO MED SURG, CALLED REPORT TO RUTHIE MA AND COMPLETED PT MOVE. PT IS STABLE AND HAS NO C/O PAIN OR DISCOMFORT AT THIS TIME.
--- NOTE | 2020-01-02 20:00 | NUR ---
Patient transferred to room 288 via bed from [facility]. Patient A&O. Call light placed within reach. Oriented to room and environment. Bed locked and in lowest position. No issues or concerns noted. Will continue to monitor/
[2020-01-03] VITALS (8 sets, daily range): BP systolic 124–143; BP diastolic 72–90
[2020-01-03] MEDS: PIPER-TAZ 3.375 GM 50 ML IV SCH ×4 (00:30→17:59)
[2020-01-03] MEDS: HYDROMORPHONE 1MG/1ML INJ IV PRN ×7 (00:40→21:10)
[2020-01-03] MEDS: METRONIDAZOLE 500MG/NS 100ML 100 ML IV SCH ×4 (01:00→18:51)
[2020-01-03] MEDS: SODIUM CHLORIDE 0.9% 1000ML 1,000 ML IV SCH (03:09)
--- NOTE | 2020-01-03 07:09 | NUR ---
Bedside report and walking rounds completed with on coming nurse. Patient in bed with call light within reach. No issues or concerns noted.
[2020-01-03] MEDS ORDERED: POTASSIUM CHLORIDE 10MEQ EA PO ONE (08:55)
[2020-01-03 09:17] LABS: BASOPHILS % 0.3 % (0.0-1.0); EOSINOPHILS # (AUTO) 0.1 (0.0-0.4); EOSINOPHILS % 1.4 % (0.0-6.0); HEMATOCRIT 28.7 % (38.2-49.6); HEMOGLOBIN 8.3 g/dL (14.0-18.0); LYMPHOCYTES % 10.6 % (18.0-39.1); MEAN CORPUSCULAR HEMOGLOBIN 23.4 pg (28-32); MEAN CORPUSCULAR HGB CONC 28.9 g/dL (31-35); MEAN CORPUSCULAR VOLUME 81.1 fL (81-99); MONOCYTES # (AUTO) 0.5 (0.2-0.8); MONOCYTES % 5.5 % (4.4-11.3); NEUTROPHILS % 81.7 % (38.7-80.0); PLATELET COUNT 420 x10e3/uL (140-360); RED BLOOD COUNT 3.54 x10e6/uL (4.3-5.7); RED CELL DISTRIBUTION WIDTH 17.7 % (11.7-14.4)
[2020-01-03 09:46] LABS: ANION GAP 12.2 mmol/L (8-16); ANISOCYTOSIS SLIGHT; BLOOD UREA NITROGEN < 5 mg/dL (7-26); CALCIUM 7.9 mg/dL (8.4-10.2); CARBON DIOXIDE 23 mmol/L (22-29); CHLORIDE 104 mmol/L (98-107); CREATININE, SERUM 0.65 mg/dL (0.72-1.25); EST GLOMERULAR FILTRATION RATE > 60 ML/MIN (60-); GLUCOSE 103 mg/dL (74-118); HYPOCHROMASIA SLIGHT; PLATELET ESTIMATE SLIGHTLY INCREASED; POTASSIUM 3.2 mmol/L (3.5-5.1); SODIUM 136 mmol/L (136-145)
[2020-01-03 09:47] LABS: BUN/CREATININE RATIO 8 (6-25); RBC MORPHOLOGY COMMENT NORMAL
[2020-01-03 09:48] LABS: PLATELET MORPHOLOGY COMMENT FEW EDTA CLUMPING
--- NOTE | 2020-01-03 13:36 | NUR ---
CALL RECEIVED FROM [facility] DC SUPERVISOR CHEMICAL, RORO @ [phone], TO ASSIST W DC PLANNING IF NEEDED. NO NEEDS AT THIS TIME.
--- NOTE | 2020-01-03 18:37 | NUR ---
patient resting in bed, no distress noted
[2020-01-03] MEDS ORDERED: HYDROCODONE/APAP 7.5MG-325MG 1 EA TAB PO PRN (19:00)
--- NOTE | 2020-01-03 19:47 | NUR ---
Received bedside report from day nurse. Patient awake and sitting up in bed, no s/s of distress. Patient made aware that Dr. Aram Arreaga changed pain medication from Dilaudid to Center. Per patient, Center does not work for him and his doctors know that. Per Dr. Arreaga, cannot send patient home on Dilaudid. Patient made aware of his decision and rationale behind weaning off pain medication. Patient states that he understands that he cannot go home with Dilaudid, but if he's going to be at the hospital then he may as well just take it and be comfortable. States that he does not want the Center at this time and he will "just suffer through the pain." Patient currently sitting up in bed and eating dinner. Vital signs stable, no s/s of distress at this time. Will continue to monitor.
--- NOTE | 2020-01-03 20:11 | NUR ---
Patient stating that he if he can't have Dilaudid then he would like to be discharged home. Paged Dr. Aram Arreaga to inform him of situation. Received orders for Dilaudid 0.5 mg Q3H PRN, and to encourage patient to take [place].
[2020-01-03] MEDS: ONDANSETRON HCL INJ 2MG/ML 2ML 2 MG/ML VIAL IV PRN (21:10)
--- NOTE | 2020-01-03 23:52 | NUR ---
Report given to oncoming nurse. Patient in stable condition, no s/s of distress at this time.
[2020-01-04] VITALS (7 sets, daily range): BP systolic 132–146; BP diastolic 71–94
--- NOTE | 2020-01-04 | NUR ---
pt received. no ss of distress note. pt co pain to lower abd. discussed pain mngt poc. verbalized understanding. call ruano within reach.
[2020-01-04] MEDS: PIPER-TAZ 3.375 GM 50 ML IV SCH ×4 (00:19→18:00)
[2020-01-04] MEDS: HYDROMORPHONE 1MG/1ML INJ IV PRN ×8 (00:33→22:35)
[2020-01-04] MEDS: METRONIDAZOLE 500MG/NS 100ML 100 ML IV SCH ×5 (01:00→23:34)
--- NOTE | 2020-01-04 05:29 | NUR ---
no distress noted. call ruano within reach.
[2020-01-04 06:56] LABS: BASOPHILS % 0.3 % (0.0-1.0); EOSINOPHILS # (AUTO) 0.1 (0.0-0.4); EOSINOPHILS % 1.6 % (0.0-6.0); HEMATOCRIT 27.5 % (38.2-49.6); HEMOGLOBIN 8.1 g/dL (14.0-18.0); LYMPHOCYTES % 11.8 % (18.0-39.1); MEAN CORPUSCULAR HGB CONC 29.5 g/dL (31-35); MEAN CORPUSCULAR VOLUME 81.6 fL (81-99); MONOCYTES # (AUTO) 0.6 (0.2-0.8); MONOCYTES % 6.4 % (4.4-11.3); NEUTROPHILS # (AUTO) 6.9 (2.1-6.9); NEUTROPHILS % 79.6 % (38.7-80.0); PLATELET COUNT 443 x10e3/uL (140-360); RED BLOOD COUNT 3.37 x10e6/uL (4.3-5.7); RED CELL DISTRIBUTION WIDTH 17.7 % (11.7-14.4)
[2020-01-04 07:09] LABS: CARBON DIOXIDE 25 mmol/L (22-29); CHLORIDE 106 mmol/L (98-107); POTASSIUM 3.7 mmol/L (3.5-5.1); SODIUM 138 mmol/L (136-145)
[2020-01-04 07:10] LABS: ALANINE AMINOTRANSFERASE 11 IU/L (0-55); ALBUMIN 1.9 g/dL (3.5-5.0); ALBUMIN/GLOBULIN RATIO 0.4 (0.8-2.0); ALKALINE PHOSPHATASE 150 IU/L (40-150); ANION GAP 10.7 mmol/L (8-16); BLOOD UREA NITROGEN < 5 mg/dL (7-26); CALCIUM 8.5 mg/dL (8.4-10.2); CREATININE, SERUM 0.68 mg/dL (0.72-1.25); EST GLOMERULAR FILTRATION RATE > 60 ML/MIN (60-); GLUCOSE 103 mg/dL (74-118)
[2020-01-04 07:11] LABS: BUN/CREATININE RATIO 7 (6-25)
[2020-01-04 11:11] LABS: EOSINOPHILS % (MANUAL) 3 % (0-7); LYMPHOCYTES % (MANUAL) 12 % (19-48); MONOCYTES % (MANUAL) 8 % (3.4-9.0); NEUTROPHILS % (MANUAL) 77 % (40-74)
[2020-01-04 11:12] LABS: ANISOCYTOSIS SLIGHT; HYPOCHROMASIA SLIGHT; PLATELET ESTIMATE SLIGHTLY INCREASED; PLATELET MORPHOLOGY COMMENT NORMAL; RBC MORPHOLOGY COMMENT NORMAL
--- NOTE | 2020-01-04 18:04 | NUR ---
Patient resting in bed, alert with no distress
--- NOTE | 2020-01-04 18:59 | NUR ---
Received change of shift report from AM nurse. Walking rounds completed. Patient in bed requesting pain meds will f/u.
--- NOTE | 2020-01-04 21:00 | NUR ---
Dr Aguila to see patient. Rx left on front of chart. OK to d/c from Ayla standpoint.
[2020-01-05] VITALS: BP 127/74
[2020-01-05 04:00] VITALS: BP 144/94
[2020-01-05] MEDS: HYDROMORPHONE 1MG/1ML INJ IV PRN ×2 (04:45→08:05)
[2020-01-05] MEDS: PIPER-TAZ 3.375 GM 50 ML IV SCH ×2 (05:35)
[2020-01-05] MEDS: METRONIDAZOLE 500MG/NS 100ML 100 ML IV SCH (05:35)
[2020-01-05 06:07] LABS: BASOPHILS % 0.5 % (0.0-1.0); EOSINOPHILS # (AUTO) 0.2 (0.0-0.4); EOSINOPHILS % 2.6 % (0.0-6.0); HEMATOCRIT 28.9 % (38.2-49.6); HEMOGLOBIN 8.5 g/dL (14.0-18.0); LYMPHOCYTES # (AUTO) 1.3 (1.0-3.2); LYMPHOCYTES % 14.9 % (18.0-39.1); MEAN CORPUSCULAR HEMOGLOBIN 23.8 pg (28-32); MEAN CORPUSCULAR HGB CONC 29.4 g/dL (31-35); MONOCYTES # (AUTO) 0.7 (0.2-0.8); MONOCYTES % 7.8 % (4.4-11.3); NEUTROPHILS # (AUTO) 6.5 (2.1-6.9); NEUTROPHILS % 73.7 % (38.7-80.0); PLATELET COUNT 492 x10e3/uL (140-360); RED BLOOD COUNT 3.57 x10e6/uL (4.3-5.7); RED CELL DISTRIBUTION WIDTH 17.5 % (11.7-14.4)
--- NOTE | 2020-01-05 06:20 | NUR ---
Patient requiring pain meds q 3-4 hours for pain 6 and above. Continue monitor.
[2020-01-05 06:23] LABS: ANION GAP 12.6 mmol/L (8-16); BLOOD UREA NITROGEN 5 mg/dL (7-26); BUN/CREATININE RATIO 8 (6-25); CALCIUM 8.4 mg/dL (8.4-10.2); CARBON DIOXIDE 25 mmol/L (22-29); CHLORIDE 107 mmol/L (98-107); CREATININE, SERUM 0.63 mg/dL (0.72-1.25); EST GLOMERULAR FILTRATION RATE > 60 ML/MIN (60-); GLUCOSE 83 mg/dL (74-118); POTASSIUM 3.6 mmol/L (3.5-5.1); SODIUM 141 mmol/L (136-145)
[2020-01-05 07:25] LABS: ANISOCYTOSIS SLIGHT; HYPOCHROMASIA SLIGHT; PLATELET ESTIMATE SLIGHTLY INCREASED; POLYCHROMASIA FEW
[2020-01-05 07:26] VITALS: BP 146/92
[2020-01-05 07:26] LABS: PLATELET MORPHOLOGY COMMENT RARE EDTA CLUMPING; RBC MORPHOLOGY COMMENT NORMAL
[2020-01-05 08:10] VITALS: BP 146/92
--- NOTE | 2020-01-05 10:25 | NUR ---
Patient discharged home, Dr Mayo Conti had rounds and discharge order recvd, prescription given, no drainage from incision site, IV canula removed with tip intact, no ss of infiltration. his mom here to pick him, not in any distress
[2020-01-05] MEDS ORDERED: AUGMENTIN 500-1 EACH PO (10:32)
[2020-01-05] MEDS ORDERED: CLINDAMYCIN HC150 MG PO (10:33)
== END 2020-01-05 10:49 | disposition home or self-care (01) | DRG 872 ==
LOC: ER 17:07 → ERHOLD 18:02 → IMCU 20:27 → MED/SURG3 01-02 19:49
PROVIDERS: ADMIT Internal Medicine; ATTEND Internal Medicine
DX: A41.9 Sepsis, unspecified organism (principal); K63.0 Abscess of intestine; K50.90 Crohn's disease, unspecified, without complications; D50.9 Iron deficiency anemia, unspecified; D63.8 Anemia in other chronic diseases classified elsewhere
CPT/HCPCS: 36415; 49406; 74177; 74470; 80048; 80053; 81001; 82948; 83605; 83690; 85025; 85610; 85730; 86850; 86900; 87040; 87070; 87071; 87086; 87205; 87635; 93005; 96361; 96367; 96376; 99285; J1170; J2250; J2270; J2405; J2543; J3010; J7030; Q9967

== ENCOUNTER → 2020-02-13 | Outpatient (CLI) | payer OTHER ==
[~2020-02-13] MED LIST changes: +AUGMENTIN 500-1 EACH PO; +CLINDAMYCIN HC150 MG PO; +FERROUS SULFAT325 MG PO; +NORCO 5-325 TA1 EACH PO
--- NOTE | 2020-02-13 11:39 | Diagnostic Imaging Report ---
SMALL BOWEL SERIES COATING MANAGER(S): Malou Amaro MD Indication: Crohn Disease Comparison: CT abdomen/pelvis 12/31/2019 Procedure: Small bowel follow through exam was performed using oral barium. Preliminary image was obtained before administration of contrast and serial overhead images were obtained after administration of oral barium. DISCUSSION: FRAMING MECHANIC: The bowel gas pattern is non-obstructive. No acute bony abnormality. Surgical sutures in the right abdomen. STOMACH: Unremarkable mucosal pattern. SMALL BOWEL: Bulb and sweep are normal. Duodenal-jejunal junction is in the normal expected position. Small bowel loops are normal in caliber and distribution. There is no evidence of fistula, mucosal changes, stricture or dilation. The transit time was within normal limits. COLON: Status post right hemicolectomy. IMPRESSION: No radiographic evidence of bowel obstruction, stricture, or fistula. Status post right hemicolectomy. Signed by: Malou Amaro MD on 02/13/2020 11:36 AM
== END ==
LOC: DX 09:49
PROVIDERS: ATTEND Internal Medicine Gastroenterology
DX: K50.90 Crohn's disease, unspecified, without complications (principal); Z11.59 Encounter for screening for other viral diseases
CPT/HCPCS: 74250; 87635

== ENCOUNTER 2020-02-17 19:30 | Emergency (ER) | payer OTHER | END 2020-02-17 20:36 | disposition short-term general hospital (02) | LOC: ER 19:30 | DX: M54.9 Dorsalgia, unspecified (principal) ==

== ENCOUNTER 2020-02-24 00:56 | Emergency (ER) | payer OTHER | END 2020-02-24 01:25 | disposition left against medical advice (07) | LOC: ER 01:25 | DX: R10.9 Unspecified abdominal pain (principal) ==

== ENCOUNTER 2020-02-24 10:17 | Inpatient (IN) | payer OTHER ==
[~2020-02-24] VITALS: Ht 180.3 cm; Wt 97.1 kg
[2020-02-24] MEDS ORDERED: ONDANSETRON HCL INJ 2MG/ML 2ML 2 MG/ML VIAL IV STA (10:30)
[2020-02-24] MEDS ORDERED: MORPHINE SULFATE INJ 4 MG/ML INJ 1ML IV STA ×2 (10:38→12:15)
--- NOTE | 2020-02-24 10:38 | Emergency Department Note ---
History of Present Illnes History of Present Illness Chief Complaint: Abdominal Complaints History of Present Illness This is a 34 year old male . Arrival Mode: Car Onset (how long ago): day(s) (2) Location: right upper quadrant Quality: sharp Radiation: Reports non-radiation Severity: moderate Onset quality: gradual Duration (how long): day(s) (2) Timing of current episode: constant Progression: worsening Relieving factors: none Exacerbating factors: none Treatments prior to arrival: none Risk factors: crohn's disease for 2 years currently not being treated Past Medical/Family History Physician Review I have reviewed the patient's past medical and family history. Any updates have been documented here. Past Medical History Recent Fever: No Clinical Suspicion of Infectio: No New/Unexplained Change in Ment: No Past Medical History: GERD Other Medical History: CROHNS, Past Surgical History: Colon Resection Other Surgery: SEVERAL BOWEL/COLON RESECTIONS, MOST RECENTLY 12/11/19 Social History Smoking Cessation: Current every day smoker Counseling Performed: Yes Alcohol Use: None Any Illegal Drug Use: No TB Exposure/Symptoms: No Physically hurt or threatened: No Family History Family history of heart diseas: No Other Last Tetanus: UNK Any Pre-Existing Lines (PICC,: No Is patient up to date on immun: Yes Review of Systems Review of Systems Constitutional: Reports no symptoms EENTM: Reports no symptoms Cardiovascular: Reports no symptoms Respiratory: Reports no symptoms Gastrointestinal: Reports as per HPI (loose stools which are normal for patient denies any blood or mucous in stools) Genitourinary: Reports no symptoms Musculoskeletal: Reports no symptoms Integumentary: Reports no symptoms Neurological: Reports no symptoms Endocrine: Reports no symptoms Hematological/Lymphatic: Reports no symptoms Physical Exam Related Data Allergies: Coded Allergies: adalimumab (Verified Allergy, Unknown, 02/24/20) Triage Vital Signs reviewed Physical Exam CONSTITUTIONAL Constitutional: Present well-developed, Present well-nourished HENT HENT: Present normocephalic, Present atraumatic EYES Eyes: Reports PERRL, Reports conjunctivae normal, Reports EOM normal, Reports lids normal NECK Neck: Present ROM normal, Present supple PULMONARY Pulmonary: Present effort normal, Present breath sounds normal CARDIOVASCULAR Cardiovascular: Present regular rhythm, Present heart sounds normal, Present intact distal pulses, Present capillary refill normal, Present normal rate GASTROINTESTINAL Abdominal: Present soft, Present bowel sounds normal, Present tender (ruq area no guarding or rebound) GENITOURINARY Genitourinary: Present exam deferred SKIN Skin: Present warm, Present dry MUSCULOSKELETAL Musculoskeletal: Present ROM normal NEUROLOGICAL Neurological: Present alert, Present oriented x 3, Present DTRs normal, Present no gross motor or sensory deficits PSYCHOLOGICAL Psychological: Present mood/affect normal, Present behavior normal, Present thought content normal, Present judgement normal Results Laboratory Laboratory cbc wbc 14.2 high 85 % segs mild anemia h/h at 11.7/36. Elect k 3.2 mildly decreased , elevated LFT UA sig for small bili trace blood and 30 mg protein Lab results reviewed: Yes Laboratory comments lactic aid 1.83 wnl Diagnostics Tests Diagnostic test(s) reviewed: Yes Diagnostic comments near resolution of the abcess ruq worsening wall thickening and surrounding inflammatory changed of a loop of bowel in the right upper quadrant Assessment & Plan Medical Decision Making MDM new inflammation on CT scan c/w exacerbation of crohn's disease will admit to [facility] covering case discussed in ndetail . Call placed to [place] [facility] Assessment & Plan Final Impression: (1) Exacerbation of Crohn's disease Depart Disposition: ADMITTED Home Meds Reported Medications Clindamycin Hcl (CLINDAMYCIN HCL) 150 Mg Capsule, 300 PO TID, #21 01/05/20 Amoxicillin/Potassium Clav (AUGMENTIN 500-125 TABLET) 1 Each Tablet, 500 MG PO TID, #60 TAB 01/05/20 Hydrocodone Bit/Acetaminophen (NORCO 5-325 TABLET) 1 Each Tablet, 1 TAB PO Q4H PRN for MODERATE PAIN (4-6), TAB 12/31/19 Ferrous Sulfate (FERROUS SULFATE) 325 Mg Tablet, 325 MG PO BID 12/31/19 Adalimumab (HUMIRA) 40 Mg/0.8 Ml Kit, 40 MG PO every Wednesday12/04/19 Pantoprazole Sodium* (PROTONIX) 40 Mg Tablet.dr, 40 MG PO DAILY, TAB 02/28/18 Medications in the ED Morphine Sulfate 4 mg NOW STAT IV ; Start 02/24/20 at 10:30; Stop 02/24/20 at 10:31; Status UNV Ondansetron HCl 4 mg NOW STAT IV ; Start 02/24/20 at 10:30; Stop 02/24/20 at 10:31; Status UNV Sodium Chloride 1,000 ml @ 250 mls/hr Q4H IV ; Start 02/24/20 at 10:30; Stop 03/25/20 at 10:29; Status UNV MARY SMALL MD Feb 24, 2020 10:38
[2020-02-24] MEDS: SODIUM CHLORIDE 0.9% 1000ML 1,000 ML IV SCH ×2 (10:55→16:06)
[2020-02-24] MEDS ORDERED: MORPHINE SULFATE INJ 4 MG/ML INJ 1ML ONE ×3 (10:56→12:44)
[2020-02-24] MEDS ORDERED: ONDANSETRON HCL INJ 2MG/ML 2ML 2 MG/ML VIAL ONE ×2 (10:56→12:27)
[2020-02-24] MEDS ORDERED: SODIUM CHLORIDE 0.9% 1000ML 1,000 ML ONE ×2 (10:57→12:28)
[2020-02-24] MEDS ORDERED: SODIUM CHLORIDE 0.9% 50ML 50 ML ONE (11:59)
[2020-02-24] MEDS ORDERED: IOPAMIDOL 370 MG/ML 200 ML INFUS..BTL INJ ONE (11:59)
--- NOTE | 2020-02-24 12:02 | Diagnostic Imaging Report ---
EXAM: CT Abdomen and Pelvis WITH contrast INDICATION: ^chron's exacerbation ^[id number] ^1105 ^N COMPARISON: CT abdomen and pelvis 12/31/2019, CT for abscess drainage 01/01/2020 TECHNIQUE: Abdomen and pelvis were scanned utilizing a multidetector helical scanner from the lung base to the pubic symphysis after administration of IV contrast. Coronal and sagittal reformations were obtained. Routine protocol was performed. Scan was performed when during portal venous phase. IV CONTRAST: 100 mL of Isovue-370 ORAL CONTRAST: None RADIATION DOSE: Total DLP: 829.4 mGy*cm Estimated effective dose: (DLP x 0.015 x size factor) mSv COMPLICATIONS: None FINDINGS: LINES and TUBES: Interval removal of the anterior abdominal drainage catheter. LOWER THORAX: Unremarkable HEPATOBILIARY: No focal hepatic lesions. No biliary ductal dilation. GALLBLADDER: No radio-opaque stones or sludge. No wall thickening. SPLEEN: No splenomegaly. PANCREAS: No focal masses or ductal dilatation. ADRENALS: No adrenal nodules KIDNEYS/URETERS: Kidneys enhance symmetrically. No hydronephrosis. No cystic or solid mass lesions. No stones. GI TRACT: Near resolution of the anterior abdominal large abscess with a residual pocket measuring 3.7 x 2.2 cm in the right upper quadrant underneath the abdominal wall on series 2, image 46. Partial bowel resection involving the ascending colon/cecum and distal ileum with worsening wall thickening at the anastomotic site when compared to 01/03/2020 (series 2, image 38). Near resolution of the inflammatory changes noted in the distal transverse colon. The remaining bowel is decompressed without wall thickening or significant inflammatory changes. Mild focal narrowing of the distal sigmoid on axial series 2, image 85, unchanged and likely related to chronic inflammation. No bowel obstruction. PELVIC ORGANS/BLADDER: Unremarkable. LYMPH NODES: No lymphadenopathy. VESSELS: Unremarkable. PERITONEUM / RETROPERITONEUM: No free air or fluid. BONES: Unremarkable. SOFT TISSUES: Unremarkable. IMPRESSION: 1. Near resolution of the multifocal abscesses in the right upper quadrant with a residual pocket underneath the abdominal wall, measuring 3.7 x 2.2 cm. 2. Resolving inflammatory changes of the distal ascending/transverse colon. However, there has been worsening wall thickening and surrounding inflammatory changes of a loop of bowel in the right upper quadrant at the level of the surgical changes. 3. No free air or free fluid in the abdomen and pelvis to suggest bowel perforation. Signed by: Dr. Alise Jaime M.D. on 02/24/2020 11:59 AM
[2020-02-24] MEDS ORDERED: LEVOFLOXACIN 750MG/D5W 150ML 150 ML IV ONE (12:28)
[2020-02-24] MEDS ORDERED: MORPHINE SULFATE 2 MG/ML SYR 1ML IV PRN (12:30)
[2020-02-24] MEDS: D5.45%NS/KCL 20MEQ 1,000 ML IV SCH ×3 (12:30→19:15)
--- NOTE | 2020-02-24 13:45 | NUR ---
[facility] NOTIFIED OF TRANSFER, ETA 30 MINUTES
--- NOTE | 2020-02-24 13:59 | NUR ---
received report from RUTHIE Melgar at [facility]. awaiting pt's arrival to [facility].
--- NOTE | 2020-02-24 14:34 | NUR ---
PT ARRIVED TO [facility], TAKEN TO ROOM 110. PT AWAKE, ALERT, ORIENTED X4, NO SIGNS OF DISTRESS. ABLE TO AMBULATE TRANSFER FROM STRETCHER TO BED INDEPENDENTLY. AMBULATES WITHOUT DIFFICULTY. IV TO LEFT AC PATENT. ALL SAFETY MEASURES IN PLACE. WILL CONTINUE TO MONITOR.
[2020-02-24] MEDS: HYDROMORPHONE 1MG/1ML INJ IV PRN ×3 (16:06→22:25)
[2020-02-24 16:14] VITALS: BP 136/92
[2020-02-24 16:20] VITALS: BP 136/92
[2020-02-24] MEDS ORDERED: HYDROCODONE/APAP 5MG-325MG TAB PO PRN (17:15)
--- NOTE | 2020-02-24 18:24 | NUR ---
CALLED [facility] TO CLARIFY ORDER FOR IV FLUIDS. WILL D/C NS @250CC/HR PER MD.
--- NOTE | 2020-02-24 19:54 | NUR ---
Received change of shift report from AM nurse. Walking rounds completed.
[2020-02-24 20:00] VITALS: BP 130/85
[2020-02-24] MEDS ORDERED: METRONIDAZOLE 500MG/NS 100ML 100 ML IV STA (20:47)
[2020-02-24] MEDS ORDERED: PANTOPRAZOLE 40 MG 10ML VIAL IV STA (20:54)
[2020-02-24] MEDS: ONDANSETRON HCL INJ 2MG/ML 2ML 2 MG/ML VIAL IV PRN (22:29)
[2020-02-25] VITALS (8 sets, daily range): BP systolic 119–133; BP diastolic 69–88
[2020-02-25] MEDS: D5.45%NS/KCL 20MEQ 1,000 ML IV SCH ×4 (00:30→20:23)
--- NOTE | 2020-02-25 00:43 | NUR ---
Blood cultures x2 and lab drawn, sent to lab.
[2020-02-25 00:58] LABS: RETICULOCYTE % 0.7 % (0.8-2.2)
[2020-02-25 03:12] LABS: FERRITIN 476.65 ng/mL (21.81-274.66)
[2020-02-25] MEDS: ONDANSETRON HCL INJ 2MG/ML 2ML 2 MG/ML VIAL IV PRN ×3 (04:40→20:20)
[2020-02-25] MEDS: HYDROMORPHONE 1MG/1ML INJ IV PRN ×7 (04:45→23:20)
[2020-02-25] MEDS: METRONIDAZOLE 500MG/NS 100ML 100 ML IV SCH ×5 (05:11→23:22)
[2020-02-25 05:43] LABS: BASOPHILS % 0.3 % (0.0-1.0); EOSINOPHILS # (AUTO) 0.5 (0.0-0.4); EOSINOPHILS % 4.1 % (0.0-6.0); HEMOGLOBIN 9.5 g/dL (14.0-18.0); LYMPHOCYTES # (AUTO) 1.3 (1.0-3.2); LYMPHOCYTES % 10.9 % (18.0-39.1); MEAN CORPUSCULAR HEMOGLOBIN 23.3 pg (28-32); MEAN CORPUSCULAR HGB CONC 29.7 g/dL (31-35); MEAN CORPUSCULAR VOLUME 78.6 fL (81-99); MONOCYTES # (AUTO) 0.8 (0.2-0.8); MONOCYTES % 6.4 % (4.4-11.3); NEUTROPHILS # (AUTO) 9.3 (2.1-6.9); PLATELET COUNT 356 x10e3/uL (140-360); RED BLOOD COUNT 4.07 x10e6/uL (4.3-5.7); RED CELL DISTRIBUTION WIDTH 14.2 % (11.7-14.4)
[2020-02-25 06:19] LABS: ALANINE AMINOTRANSFERASE 25 IU/L (0-55); ALBUMIN 2.2 g/dL (3.5-5.0); ALBUMIN/GLOBULIN RATIO 0.5 (0.8-2.0); ALKALINE PHOSPHATASE 151 IU/L (40-150); ANION GAP 9.7 mmol/L (8-16); BILIRUBIN,DIRECT 0.3 mg/dL (0.0-0.5); BLOOD UREA NITROGEN 5 mg/dL (7-26); BUN/CREATININE RATIO 7 (6-25); CALCIUM 8.1 mg/dL (8.4-10.2); CARBON DIOXIDE 26 mmol/L (22-29); CHLORIDE 105 mmol/L (98-107); CREATININE, SERUM 0.73 mg/dL (0.72-1.25); EST GLOMERULAR FILTRATION RATE > 60 ML/MIN (60-); GLUCOSE 114 mg/dL (74-118); POTASSIUM 3.7 mmol/L (3.5-5.1); SODIUM 137 mmol/L (136-145)
--- NOTE | 2020-02-25 07:03 | NUR ---
RECEIVED CHANGE OF SHIFT REPORT FROM PM NURSE. PT RESTING COMFORTABLY, NO SIGNS OF DISTRESS.
[2020-02-25] MEDS: FERROUS SULFATE 325 MG TAB PO SCH ×2 (08:20→17:21)
[2020-02-25] MEDS: PANTOPRAZOLE 40 MG 10ML VIAL IV SCH ×2 (08:22→20:23)
--- NOTE | 2020-02-25 19:01 | NUR ---
WALKING ROUNDS PERFORMED, RECEIVED PT LAYING SEMI FOWLERS IN BED, AAOX3, RR EVEN AND NON-LABORED, ON ROOM AIR. PT REPORTS ABDOMINAL PAIN AT THIS TIME. LEFT PT LAYING SEMI FOWLERS IN BED, BED IN LOW LOCKED POSITION, SIDE RAILS UPX2, CALL LIGHT AND PHONE WITHIN REACH.
[2020-02-25] MEDS ORDERED: CYANOCOBALAMIN INJ 1,000 MCG/ML VIAL IM STA (20:50)
[2020-02-25] MEDS ORDERED: IRON SUCROSE 100 MG in SODIUM CHLORIDE 0.9% 100 ML 100 ML IV SCH (21:00)
[2020-02-25] MEDS: ALBUMIN 25% 12.5GM 0.25 GM/ML BTL IV SCH (21:41)
[2020-02-26] VITALS: BP 136/83
[2020-02-26] MEDS ORDERED: ALBUMIN 25% 25GM 100ML 0.25 GM/ML BTL IV SCH
[2020-02-26] MEDS: ONDANSETRON HCL INJ 2MG/ML 2ML 2 MG/ML VIAL IV PRN (02:20)
[2020-02-26] MEDS: HYDROMORPHONE 1MG/1ML INJ IV PRN ×3 (02:20→08:38)
[2020-02-26] MEDS: D5.45%NS/KCL 20MEQ 1,000 ML IV SCH (03:24)
[2020-02-26 04:00] VITALS: BP 134/77
[2020-02-26] MEDS: ALBUMIN 25% 12.5GM 0.25 GM/ML BTL IV SCH (04:17)
[2020-02-26 05:31] LABS: BASOPHILS % 0.3 % (0.0-1.0); EOSINOPHILS # (AUTO) 0.5 (0.0-0.4); EOSINOPHILS % 3.9 % (0.0-6.0); HEMATOCRIT 32.3 % (38.2-49.6); HEMOGLOBIN 9.7 g/dL (14.0-18.0); LYMPHOCYTES % 8.8 % (18.0-39.1); MEAN CORPUSCULAR HEMOGLOBIN 22.9 pg (28-32); MEAN CORPUSCULAR VOLUME 76.2 fL (81-99); MONOCYTES # (AUTO) 0.7 (0.2-0.8); MONOCYTES % 5.9 % (4.4-11.3); NEUTROPHILS # (AUTO) 9.5 (2.1-6.9); NEUTROPHILS % 80.7 % (38.7-80.0); PLATELET COUNT 417 x10e3/uL (140-360); RED BLOOD COUNT 4.24 x10e6/uL (4.3-5.7); RED CELL DISTRIBUTION WIDTH 14.2 % (11.7-14.4)
[2020-02-26 05:55] LABS: ALANINE AMINOTRANSFERASE 19 IU/L (0-55); ALBUMIN 2.7 g/dL (3.5-5.0); ALBUMIN/GLOBULIN RATIO 0.6 (0.8-2.0); ALKALINE PHOSPHATASE 136 IU/L (40-150); ANION GAP 11.6 mmol/L (8-16); BLOOD UREA NITROGEN < 5 mg/dL (7-26); CALCIUM 8.5 mg/dL (8.4-10.2); CARBON DIOXIDE 25 mmol/L (22-29); CHLORIDE 102 mmol/L (98-107); CREATININE, SERUM 0.79 mg/dL (0.72-1.25); EST GLOMERULAR FILTRATION RATE > 60 ML/MIN (60-); GLUCOSE 95 mg/dL (74-118); POTASSIUM 3.6 mmol/L (3.5-5.1); SODIUM 135 mmol/L (136-145)
[2020-02-26 05:56] LABS: BUN/CREATININE RATIO 6 (6-25)
[2020-02-26] MEDS: METRONIDAZOLE 500MG/NS 100ML 100 ML IV SCH (06:26)
--- NOTE | 2020-02-26 06:27 | NUR ---
STOOL SAMPLE COLLECTED AND DELIVERED TO LAB.
[2020-02-26 08:23] VITALS: BP 135/85
[2020-02-26] MEDS: FERROUS SULFATE 325 MG TAB PO SCH (08:30)
[2020-02-26] MEDS: PANTOPRAZOLE 40 MG 10ML VIAL IV SCH (08:39)
[2020-02-26 08:49] VITALS: BP 135/85
[2020-02-26] MEDS ORDERED: IRON SUCROSE 100 MG in SODIUM CHLORIDE 0.9% 100 ML 100 ML IV SCH (09:00)
[2020-02-26] MEDS ORDERED: CYANOCOBALAMIN INJ 1,000 MCG/ML VIAL IM SCH (09:00)
--- NOTE | 2020-02-26 09:12 | NUR ---
Dictated DC summary: [id number]
[2020-02-26] MEDS ORDERED: TYLENOL WITH C1 EACH PO (09:30)
[2020-02-26] MEDS ORDERED: FLAGYL250 MG (09:31)
[2020-02-26] MEDS ORDERED: PREDNISONE5 MG PO (09:32)
[2020-02-26] MEDS ORDERED: PREDNISONE20 MG PO (09:32)
[2020-02-26] MEDS ORDERED: PREDNISONE10 MG PO (09:32)
--- NOTE | 2020-02-26 09:50 | Discharge Summary ---
ADMITTING DIAGNOSES: 1. Crohn disease exacerbation. 2. Anemia secondary to chronic disease/iron deficiency. DISCHARGE DIAGNOSES: 1. Crohn disease exacerbation, resolving. 2. Colitis. 3. Anemia secondary to chronic disease/iron deficiency. HOSPITAL COURSE: This is a 34-year-old white man, who was initially admitted to [facility] with diagnosis of a colitis/Crohn disease exacerbation. The patient improved clinically with intravenous antibiotics, namely metronidazole. The patient was also started on daily intravenous iron infusion because of the iron deficiency. On admission, hemoglobin was 9.5 g/dL. On discharge, hemoglobin is 9.7 g/dL. The patient's white blood cell count on February 25, 2020, was 11,900 with 78% neutrophils. On day of discharge, hemoglobin was 11,700 with 80% neutrophils. Hemoccult stool was ordered in this hospitalization, but the results were still pending. Stool lactoferrin and stool calprotectin were also ordered, but were also pending on discharge. The patient's stool was tested for Clostridium difficile toxin, but the results are also pending on discharge. The patient's comprehensive metabolic profile was unremarkable on discharge, except his albumin was 2.7 g/dL. His brief hospitalization was unremarkable. The patient is currently in the process of obtaining another biologic agent for his Crohn disease because he was no longer responding acute to Humira infusions. CONDITION ON DISCHARGE: Stable. DIET: He was tolerating a full liquid diet on discharge. DISCHARGE MEDICATIONS: 1. Tylenol No. 3 one pill 3 times daily as needed for pain, 30 prescribed one refill. 2. Metronidazole 5 mg t.i.d. for 10 days. 3. Ferrous sulfate 325 mg b.i.d. 4. Prednisone taper over 3 weeks (40 mg daily for 7 days, 30 mg daily for 7 days and 20 mg daily for 7 days). FOLLOWUP INSTRUCTIONS: The patient instructed to follow up with his primary care physician, myself, Dr. Bassem Frankel within [address] [place] Conti also within 2 weeks. Once again, another biologic agent is currently being arranged by Dr. [place] Conti's office. The patient was told not to start prednisone at home until we obtain confirmation that his Clostridium difficile toxin stool test is negative. MD LIAM Lim/EDWINAL /[id number] cc: [place] Conti MD MTDD
== END 2020-02-26 09:30 | disposition home or self-care (01) | DRG 387 ==
LOC: FSED 10:26 → ERHOLD 12:29 → MED/SURG 14:36
PROVIDERS: ADMIT Internal Medicine; ATTEND Internal Medicine
DX: K50.90 Crohn's disease, unspecified, without complications (principal); D63.8 Anemia in other chronic diseases classified elsewhere; D50.9 Iron deficiency anemia, unspecified; K52.9 Noninfective gastroenteritis and colitis, unspecified; Z11.59 Encounter for screening for other viral diseases
CPT/HCPCS: 36415; 74177; 80048; 80053; 80076; 81003; 82270; 82607; 82728; 82746; 82948; 83540; 83630; 83993; 84466; 85025; 85045; 85651; 86140; 87040; 87045; 87177; 87493; 87635; 96374; 96375; 96376; 99284; J1170; J1756; J2270; J2405; J3420; J7030; P9047; Q9967

== ENCOUNTER → 2020-03-15 | Outpatient (CLI) | payer OTHER ==
[~2020-03-15] MED LIST changes: +FLAGYL250 MG; +PREDNISONE10 MG PO; +PREDNISONE20 MG PO; +PREDNISONE5 MG PO; +TYLENOL WITH C1 EACH PO
--- NOTE | 2020-03-15 09:22 | Diagnostic Imaging Report ---
EXAM: Right upper quadrant abdominal ultrasound INDICATION: Crohn's disease COMPARISON: CT abdomen and pelvis of 02/24/2020 TECHNIQUE: Transverse and longitudinal images of the right upper quadrant abdomen were obtained FINDINGS: Liver: Size: 18.2 cm in the right midclavicular line, normal Appearance: Normal echogenicity, smooth contour Mass: No focal masses Gallbladder: Small amount of sludge in the gallbladder. No gallbladder distension, pericholecystic fluid, wall thickening, stone, or reported sonographic Truong's sign. Gallbladder wall measures 2 mm. Bile Ducts: Intrahepatic Ducts: No dilatation Extrahepatic Ducts: Common bile duct measures 8 mm Pancreas: Visualized portions of the pancreatic head, neck and proximal body are normal. Kidney: The right kidney measures 14.0 cm without evidence of hydronephrosis or stone. Vessels: Aorta: Visualized portions are normal Inferior Vena Cava: Visualized portions are normal Main Portal Vein: 1.2 cm, normal size with hepatopetal flow. Free Fluid: No ascites or pleural effusion IMPRESSION: Sludge in the gallbladder. No sonographic evidence of acute cholecystitis. Signed by: Malou Amaro MD on 03/15/2020 9:19 AM
== END ==
LOC: US 07:41
PROVIDERS: ATTEND Internal Medicine Gastroenterology
DX: K50.90 Crohn's disease, unspecified, without complications (principal)
CPT/HCPCS: 76705

== ENCOUNTER → 2020-04-17 | Outpatient (CLI) | payer OTHER ==
--- NOTE | 2020-04-17 13:06 | Diagnostic Imaging Report ---
EXAM: CT Abdomen and Pelvis WITHOUT intravenous contrast INDICATION: Renal calculus COMPARISON: CT abdomen and pelvis of 02/24/2020 TECHNIQUE: Abdomen and pelvis were scanned utilizing a multidetector helical scanner from the lung base to the pubic symphysis without administration of IV contrast. Coronal and sagittal reformations were obtained. IV CONTRAST: None ORAL CONTRAST: Water COMPLICATIONS: None RADIATION DOSE: Total DLP: 683 mGy*cm Dose modulation, iterative reconstruction, and/or weight based adjustment of the mA/kV was utilized to reduce the radiation dose to as low as reasonably achievable. FINDINGS: LOWER THORAX: Normal. HEPATOBILIARY: No focal liver lesions. Cholelithiasis without CT evidence of cholecystitis. SPLEEN: Splenomegaly to 15.1 cm. PANCREAS: No focal masses or ductal dilatation. ADRENALS: No adrenal nodules. KIDNEYS/URETERS: 2 mm punctate left upper pole nonobstructive renal calculus. No right renal calculi. No hydronephrosis or hydroureter. No solid renal mass lesion or PELVIC ORGANS/BLADDER: Unremarkable. PERITONEUM / RETROPERITONEUM: Interval reaccumulation and increase in size of right anterior abdominal wall abscess which now measures up to 11.3 x 5.0 x 8.0 cm. The collection contains small foci of antidependent air superiorly and now involves the right rectus muscle sheath. Intra-abdominal in location of the collection extends along a tract which terminates in the area of the right upper quadrant surgical anastomosis, suggesting likely fistulization. LYMPH NODES: Prominent mesenteric lymph nodes centered about the right upper quadrant. VESSELS: Unremarkable. GI TRACT: Right upper quadrant anastomosis with adjacent areas of colonic wall thickening. A loop of small bowel which abuts the posterior aspect of the abscess also has a thickened wall. Findings are likely reactive secondary to adjacent abscess. BONES AND SOFT TISSUES: No acute osseous injury. Right anterior abdominal wall and intra-abdominal abscess as detailed above. IMPRESSION: Interval worsening of right upper quadrant abscess with largest component in the right anterior abdominal wall measuring up to 11.3 x 5.0 x 8.0 cm. Intra-abdominal extension of the collection with a tract that leads to the area of the right upper quadrant surgical anastomosis, suggesting likely fistulization. 2mm punctate left upper pole nonobstructive renal calculus. Cholelithiasis without CT evidence of cholecystitis. The above findings were discussed with Dr. Frankel on 04/17/2020 12:45 PM, who responded indicating that the communication was understood. Signed by: Malou Amaro MD on 04/17/2020 1:02 PM
== END ==
LOC: CT 12:07
PROVIDERS: ATTEND Internal Medicine
DX: N20.0 Calculus of kidney (principal)
CPT/HCPCS: 74176

== ENCOUNTER 2020-04-19 11:55 | Inpatient (IN) | payer OTHER ==
[~2020-04-19] VITALS: Ht 180.3 cm; Wt 101.2 kg
--- OUTSIDE RECORDS SUMMARY | 2020-04-19 14:21 | XMS REPORT | Continuity of Care Document ---
Author Author [facility] t Organization [facility] Address [address] [place] [address] Phone Unavailable Care Team Providers Care Radio Operator Name Role Phone OTTO WHITTEN, MD MAGDALENO PCP Marli FRANKEL Attphys Unavailable JESSICA JOHNSON Attphys Unavailable MARY SMALL Attphys Unavailable Gisele HERNÁNDEZ Attphys Unavailable Marli FRANKEL Admphyfausto Unavailable Payers Payer Name Policy Type Policy Number Effective Date Expiration Date Fausto combs Cigcherelle o [id number] 2019 00:00:00 [facility] Cdc Review Covid19 [id number] [facility] Cigna o [id number] [facility] Problems Condition Name Condition Details Condition Category Status Onset Date Resolution Date Last Treatment Date Treating Clinician Comments Source Abdominal pain Abdominal pain Problem Active [facility] Inflammatory bowel disease Inflammatory bowel disease Problem Active [facility] Leukocytosis Leukocytosis Problem Active [facility] Acute ulcerative colitis Problem Active [facility] Lower gastrointestinal hemorrhage Problem Active [facility] Sepsis Problem Active [facility] Exacerbation of Crohn's disease Problem Active [facility] Allergies, Adverse Reactions, Alerts Allergy Name Allergy Type Status Severity Reaction(s) Onset Date Inacti ve Date Treating Clinician Comments Source Adalimumab Allergy to substance Active 2020-02-24 00:00:00 [facility] Social History Social Habit Start Date Stop Date Quantity Comments Source Sex Assigned At 1985 00:00:00 1985 00:00:00 Male [facility] Medications Ordered Medication Name Filled Medication Name Start Date Stop Da te Current Medication? Ordering Clinician Indication Dosage Frequency Signature (SIG) Comments Components Source Acetaminophen With Codeine (Tylenol With Codeine #3 Ta blet) 1 Each TABLET Acetaminophen With Codeine (Tylenol With Codeine #3 Tablet) 1 Each TABLET Yes 300 [facility] Ferrous Sulfate Ferrous Sulfate Yes 325 Twice A Day [facility] Hydrocodone Bit/Acetaminophen ([place] 5-325 Tablet) 1 E ach TABLET Hydrocodone Bit/Acetaminophen ([place] 5-325 Tablet) 1 Each TABLET Yes 1 Every 4 Hours as needed for Moderate Pain (4-6) [facility] Metronidazole (Flagyl) 250 Mg TABLET Metronidazole (Flagyl) 250 Mg TABLET Yes [facility] Prednisone Prednisone Yes 5 Daily [facility] Prednisone Prednisone Yes 10 Daily [facility] Prednisone Prednisone Yes 20 Daily [facility] Adalimumab (Humira) 40 Mg/0.8 Ml KIT Adalimumab (Humira) 40 Mg/0 .8 Ml KIT 2020-02-24 00:00:00 No 40 Every Wednesday [facility] Amoxicillin/Potassium Clav (Augmentin 500-125 Tablet) 1 Each TABLET Amoxicillin/Potassium Clav (Augmentin 500-125 Tablet) 1 Each TABLET 2020-02-24 00:00:00 No 500 Three Times A Day [facility] Clindamycin Hcl Clindamycin Hcl 2020-02-24 00:00:00 No 300 Three Times A Day [facility] Pantoprazole Sodium (Protonix) 40 Mg TABLET. Pantopr azole Sodium (Protonix) 40 Mg TABLET. 2020-02-24 00:00:00 No 40 Daily [facility] Dicyclomine Hcl (Bentyl) 10 Mg/1 Ml AMPUL Dicyclomine Hcl (Bentyl) 10 Mg/1 Ml AMPUL 2019-12-17 00:00:00 No 20 Three Times A Day [facility] Hyoscyamine Sulfate (Levsin) 0.125 Mg TABLET Hyoscyami ne Sulfate (Levsin) 0.125 Mg TABLET 2019-12-17 00:00:00 No .125 Ev shira 6 Hours as needed for Gi Upset [facility] Citalopram Hydrobromide (Citalopram Hbr) 20 Mg TABLET Citalopram Hydrobromide (Citalopram Hbr) 20 Mg TABLET 2019-12-04 00:00:00 No 20 Daily [facility] Ciprofloxacin Hcl (Cipro) 500 Mg TABLET Ciprofloxacin Hcl (C ipro) 500 Mg TABLET 2018-03-14 00:00:00 No 500 Every 12 Hours [facility] Hydrocodone Bit/Acetaminophen ([place] 10-325 Tablet) 1 Each TABLET Hydrocodone Bit/Acetaminophen ([place] 10-325 Tablet) 1 Each TABLET 2018-03-14 00:00:00 No 10 Every 6 Hours as needed for Pain [facility] Rifaximin (Xifaxan) 550 Mg TABLET Rifaximin (Xifaxan) 550 Mg TAB LET 2018-03-14 00:00:00 No 550 Three Times A Day [facility] Acetaminophen With Codeine (Tylenol With Codeine #4 Ta blet) 1 Each TABLET Acetaminophen With Codeine (Tylenol With Codeine #4 Tablet) 1 Each TABLET 2018-02-28 00:00:00 No 1 Every 6 Hours as nee ded for Pain [facility] Methocarbamol (Robaxin-750) 750 Mg TABLET Methocarbamo l (Robaxin-750) 750 Mg TABLET 2018-02-28 00:00:00 No 750 Ever y 6 Hours as needed for Muscle Spasms [facility] Vital Signs Vital Name Observation Time Observation Value Comments Source Body Temperature 2020-02-26 08:49:00 98.5 [degF] [facility] BMI (Body Mass Index) 2020-02-24 16:11:00 29.8 kg/m2 [facility] Weight 2020-02-24 10:37:00 214 [lb_av] [facility] Body Temperature 2020-01-05 08:10:00 97.9 [degF] [facility] Weight 2020-01-05 00:14:00 222 [lb_av] [facility] BMI (Body Mass Index) 2020-01-05 00:14:00 29.3 kg/m2 [facility] Procedures Procedure Date / Time Performed Performing Clinician [facility] e Computed tomography of abdomen and pelvis with contrast 00:00:00 [facility] RESECTION OF RIGHT LARGE INTESTINE, OPEN APPROACH 2019-12-11 00: 00:00 [facility] EXCISION OF MESENTERY, OPEN APPROACH 2019-12-11 00:00:00 [facility] RELEASE ASCENDING COLON, OPEN APPROACH 2019-12-11 00:00:00 [facility] RELEASE TRANSVERSE COLON, OPEN APPROACH 2019-12-11 00:00:00 [facility] RELEASE CECUM, OPEN APPROACH 2019-12-11 00:00:00 [facility] EXCISION OF SMALL INTESTINE, OPEN APPROACH 2019-12-11 00:00:00 [facility] TRANSFUSE NONAUT FRESH PLASMA IN PERIPH VEIN, PERC 2019-12-10 00 :00:00 [facility] TRANSFUSE NONAUT FROZEN PLASMA IN PERIPH VEIN, PERC 2019-12-10 0 0:00:00 [facility] INSERTION OF INFUSION DEV INTO SUP VENA CAVA, PERC APPROACH 2019-12-08 00:00:00 [facility] ULTRASONOGRAPHY OF SUPERIOR VENA CAVA, GUIDANCE 2019-12-08 00:00 :00 [facility] TRANSFUSE NONAUT RED BLOOD CELLS IN PERIPH VEIN, PERC 2019-12-06 00:00:00 [facility] Computed tomography of abdomen and pelvis with contrast 00:00:00 [facility] Plan of Care Planned Activity Planned Date Details Comments Source Instructions Infection Control [facility] Encounters Start Date/Time End Date/Time Encounter Type Admission Type [facility] Care Department Encounter ID Source 2020-02-24 12:29:00 2020-02-26 09:30:00 Discharged Inpatient [address] [facility] [id number] [facility] 2020-02-24 01:25:00 2020-02-24 01:25:00 Departed Emergency Room [facility] [place] [id number] [facility] 2020-02-17 19:30:00 2020-02-17 20:36:00 Departed Emergency Room [facility] [id number] [facility] 2020-02-13 09:49:00 2020-02-13 09:49:00 Registered Clinic 3 JESSICA JOHNSON [facility] [id number] [facility] 2019-12-31 18:02:00 2020-01-05 10:49:00 Discharged Inpatient [address] [facility] [id number] [facility] 2019-12-04 10:25:00 2019-12-17 16:46:00 Discharged Inpatient [address] [facility] [id number] [facility] 2018-02-26 18:08:00 2018-02-28 11:31:00 Discharged Inpatient 1 MARY HERNÁNDEZ [facility] [id number] [facility] 2017-12-21 19:05:00 2017-12-22 00:35:00 Departed Emergency Room [facility] [id number] [facility] Results Test Description Test Time Test Comments Results Result Comments Source CT ABDOMEN/PELVIS WO 2020-04-17 12:45:00 [place] [address] Patient Name: DORA MATIAS MR #: [id number] : 1985 Age/Sex: 34/M Req #: [id number] [facility] Physician: Ordered by: SHARLA FRANKEL MD Report #: [id number] Location: CT Room/Bed: Procedure: [id number] CT/CT ABDOMEN/PELVIS WO Exam Date: 04/17/20 Exam Time: 1230 REPORT STATUS: Signed EXAM: CT Abdomen and Pelvis WITHOUT intravenous contrast INDICATION: Renal calculus COMPARISON: CT abdomen and pelvis of 02/24/2020 TECHNIQUE: Abdomen and pelvis were scanned utilizing a multidetector helical scanner from the lung base to the pubic symphysis without administration of IV contrast. Coronal and sagittal reformations were obtained. IV CONTRAST: None ORAL CONTRAST: Water COMPLICATIONS: None RADIATION DOSE: Total DLP: 683 mGy*cm Dose modulation, iterative reconstruction, and/or weight based adjustment of the mA/kV was utilized to reduce the radiation dose to as low as reasonably achievable. FINDINGS: LOWER THORAX: Normal. HEPATOBILIARY: No focal liver lesions. Cholelithiasis without CT evidence of cholecystitis. SPLEEN: Splenomegaly to 15.1 cm. PANCREAS: No focal masses or ductal dilatation. ADRENALS: No adrenal nodules. KIDNEYS/URETERS: 2 mm punctate left upper pole nonobstructive renal calculus. No right renal calculi. No hydronephrosis or hydroureter. No solid renal mass lesion or PELVIC ORGANS/BLADDER: Unremarkable. PERITONEUM / RETROPERITONEUM: Interval reaccumulation and increase in size of right anterior abdominal wall abscess which now measures up to 11.3 x 5.0 x 8.0 cm. The collection contains small foci of antidependent air superiorly and now involves the right rectus muscle sheath. Intra-abdominal in location of the c ollection extends along a tract which terminates in the area of the right upper quadrant surgical anastomosis, suggesting likely fistulization. LYMPH NODES: Prominent mesenteric lymph nodes centered about the right upper quadrant. VESSELS: Unremarkable. GI TRACT: Right upper quadrant anastomosis with adjacent areas of colonic wall thickening. A loop of small bowel which abuts the posterior aspect of the abscess also has a thickened wall. Findings are likely reactive secondary to adjacent abscess. BONES AND SOFT TISSUES: No acute osseous injury. Right anterior abdominal wall and intra-abdominal abscess as detailed above. IMPRESSION: Interval worsening of right upper quadrant abscess with largest component in the right anterior abdominal wall measuring up to 11.3 x 5.0 x 8.0 cm. Intra-abdominal extension of the collection with a tract that leads to the area of the right upper quadrant surgical anastomosis, suggesting likely fistulization. 2mm punctate left upper pole nonobstructive renal calculus. Cholelithiasis without CT evidence of cholecystitis. The above findings were discussed with Dr. Frankel on 04/17/2020 12:45 PM, who responded indicating that the communication was understood. Signed by: Marcelle Chapa MD on 04/17/2020 1:02 PM Dictated By: MARCELLE CHAPA MD 1302 Transcribed By: KATHRIN on 04/17/20 1302 COPY TO: SHARLA FRANKEL MD ABDOMEN LIMITED 2020-03-15 09:15:00 [place] [address] 5 Patient Name: DORA MATIAS MR #: [id number] : 1985 Age/Sex: 34/M Req #: [id number] Adm Physician: Ordered by: JESSICA JOHNSON MD Report #: [id number] Location: US Room/Bed: Procedure: [id number] US/US ABDOMEN LIMITED Exam Date: 03/15/20 Exam Time: 0809 REPORT STATUS: Signed EXAM: Right upper quadrant abdominal ultrasound INDICATION: Crohn's disease COMPARISON: CT abdomen and pelvis of 02/24/2020 TECHNIQUE: Transverse and longitudinal images of the right upper quadrant abdomen were obtained FINDINGS: Liver: Size: 18.2 cm in the right midclavicular line, normal Appearance: Normal echogenicity, smooth contour Mass: No focal masses Gallbladder: Small amount of sludge in the gallbladder. No gallbladder distension, pericholecystic fluid, wall thickening, stone, or reported sonographic Truong's sign. Gallbladder wall measures 2 mm. Bile Ducts: Intrahepatic Ducts: No dilatation Extrahepatic Ducts: Common bile duct measures 8 mm Pancreas: Visualized portions of the pancreatic head, neck and proximal body are normal. Kidney: The right kidney measures 14.0 cm without evidence of hydronephrosis or stone. Vessels: Aorta: Visualized portions are normal Inferior Vena Cava: Visualized portions are normal Main Portal Vein: 1.2 cm, normal size with hepatopetal flow. Free Fluid: No ascites or pleural effusion IMPRESSION: Sludge in the gallbladder. No sonographic evidence of acute cholecystitis. Signed by: Marcelle Chapa MD on 03/15/2020 9:19 AM Dictated By: MARCELLE CHAPA MD 8 Transcribed By: KATHRIN on 03/15/20918 COPY TO: JESSICA JOHNSON MD Blood leukocytes automated count (number/volume) 2020-02-26 05:10:00 Test Item White Blood Count (test code = 6690-2) 11.73 4.8-10.8 [facility] count (number/volume)2020-02-26 05:10:00* Test Item Value Reference Range Interpretation Comments Red Blood Count (test code = 789-8) 4.24 4.3-5.7 [facility] measurement (moles/volume)2020-02-26 05:10:00* Test Item Value Reference Range Interpretation Comments Hemoglobin (test code = 16604-3) 9.7 14.0-18.0 [facility] blood hematocrit (volume fraction)2020-02-26 05:10:00* Test Item Value Reference Range Interpretation Comments Hematocrit (test code = 4544-3) 32.3 38.2-49.6 [facility]ated erythrocyte mean corpuscular thzaxc8327-11-84 05:10:00* Test Item Value Reference Range Interpretation Comments Mean Corpuscular Volume (test code = 787-2) 76.2 81-99 [facility] eryth[facility] mean corpuscular hemoglobin (mass per erythrocyte)2020-02-26 05:10:00* Test Item Value Reference Range Interpretation Comments Mean Corpuscular Hemoglobin (test code = 785-6) 22.9 28-32 [facility] erythrocyte mean corpuscular hemoglobin concentration measurement (mass/volume)2020-02-26 05:10:00* Test Item Value Reference Range Interpretation Comments Mean Corpuscular Hemoglobin Concent (test code = 786-4) 30.0 31-35 [facility] HospitalRDW RovLi-Wuo0970-62-06 05:10:00* Test Item Value Reference Range Interpretation Comments Red Cell Distribution Width (test code = 96989-1) 14.2 11.7 -14.4 [facility] HospitalAutomated blood platelet count (count/volume)2020-02-26 05:10:00* Test Item Value Reference Range Interpretation Comments Platelet Count (test code = 777-3) 417 140-360 [facility] HospitalAutomated blood segmented neutrophil count as percentage of total odenxcgfer2988-71-91 05:10:00* Test Item Value Reference Range Interpretation Comments Neutrophils (%) (Auto) (test code = 00435-7) 80.7 38.7-80.0 [facility] HospitalAutomated blood lymphocyte count as percentage ot total nkcscdezki1289-45-97 05:10:00* Test Item Value Reference Range Interpretation Comments Lymphocytes (%) (Auto) (test code = 736-9) 8.8 18.0-39.1 [facility] HospitalAutom[facility] blood monocyte count as percentage of total izcqbzyjhx0355-71-42 05:10:00* Test Item Value Reference Range Interpretation Comments Monocytes (%) (Auto) (test code = 5905-5) 5.9 4.4-11.3 [facility] HospitalAutomated blood eosinophil count as percentage of total xftsrmzejg5422-87-39 05:10:00* Test Item Value Reference Range Interpretation Comments Eosinophils (%) (Auto) (test code = 713-8) 3.9 0.0-6.0 [facility] HospitalAutomated blood basophil count as percentage of total afdivhxont9015-07-77 05:10:00* Test Item Value Reference Range Interpretation Comments Basophils (%) (Auto) (test code = 706-2) 0.3 0.0-1.0 [facility] HospitalFluoroscopic procedure less than one hour jnpjtfgm3271-32-16 05:10:00* Test Item Value Reference Range Interpretation Comments IM GRANULOCYTES % (test code = IM GRANULOCYTES %) 0.4 0.0- 1.0 [facility] HospitalAutomated blood neutrophil count 2020-02-26 05:10:00* Test Item Value Reference Range Interpretation Comments Neutrophils # (Auto) (test code = 751-8) 9.5 2.1-6.9 [facility] lymphocytes count (number/volume) 2020-02-26 05:10:00* Test Item Value Reference Range Interpretation Comments Lymphocytes # (Auto) (test code = 64001-7) 1.0 1.0-3.2 [facility] HospitalBlood monocytes automated count (number/volume)2020-02-26 05:10:00* Test Item Value Reference Range Interpretation Comments Monocytes # (Auto) (test code = 742-7) 0.7 0.2-0.8 [facility] HospitalAutomated blood eosinophil count 2020-02-26 05:10:00* Test Item Value Reference Range Interpretation Comments Eosinophils # (Auto) (test code = 711-2) 0.5 0.0-0.4 [facility] HospitalAutomated blood basophil count (count/volume)2020-02-26 05:10:00* Test Item Value Reference Range Interpretation Comments Basophils # (Auto) (test code = 704-7) 0.0 0.0-0.1 [facility] HospitalFluoroscopic procedure less than one hour ziqncgpj5847-23-91 05:10:00* Test Item Value Reference Range Interpretation Comments Absolute Immature Granulocyte (auto (dominic t code = Absolute Immature Granulocyte (auto) 0.05 0-0.1 [facility] plasma sodium measurement (moles/volume)2020-02-26 05:10:00* Test Item Value Reference Range Interpretation Comments Sodium Level (test code = 2951-2) 135 136-145 [facility] plasma potassium measurement (moles/volume)2020-02-26 05:10:00* Test Item Value Reference Range Interpretation Comments Potassium Level (test code = 2823-3) 3.6 3.5-5.1 [facility] plasma chloride measurement (moles/volume)2020-02-26 05:10:00* Test Item Value Reference Range Interpretation Comments Chloride Level (test code = 2075-0) 102 98-107 [facility] or plasma carbon dioxide, total measurement (moles/volume)2020-02-26 05:10:00* Test Item Value Reference Range Interpretation Comments Carbon Dioxide Level (test code = 2028-9) 25 22-29 [facility] or plasma anion rfe9939-20-31 05:10:00* Test Item Value Reference Range Interpretation Comments Anion Gap (test code = 39366-9) 11.6 8-16 [facility] plasma urea nitrogen measurement (mass/volume)2020-02-26 05:10:00* Test Item Value Reference Range Interpretation Comments Blood Urea Nitrogen (test code = 3094-0) < 5 7-26 [facility] or plasma creatinine measurement (mass/volume)2020-02-26 05:10:00* Test Item Value Reference Range Interpretation Comments Creatinine (test code = 2160-0) 0.79 0.72-1.25 [facility] or plasma urea nitrogen/creatinine mass tgtxz5055-90-84 05:10:00* Test Item Value Reference Range Interpretation Comments BUN/Creatinine Ratio (test code = 3097-3) 6 6-25 [facility] HospitalEstimated glomerular filtration rate (GFR) zpxevrxozggyx5238-62-92 05:10:00* Test Item Value Reference Range Interpretation Comments Estimat Glomerular Filtration Rate (test code = 576974213) > 60 >60 Ranges were taken from the National Kidney Disease Education Program and the [facility] literature.Reference ranges:60 or greater: [place]um[place]84-63 ( for 3 consecutive months): Chronic kidney disease 15 or less: Kidney failureMedical Arts HospitalGlucose mrzscexczly2642-08-51 05:10:00* Test Item Value Reference Range Interpretation Comments Glucose Level (test code = TLE4408) 95 74-118 [facility] or plasma calcium measurement (mass/volume)2020-02-26 05:10:00* Test Item Value Reference Range Interpretation Comments Calcium Level (test code = 29926-3) 8.5 8.4-10.2 [facility] plasma total bilirubin measurement (mass/volume)2020-02-26 05:10:00* Test Item Value Reference Range Interpretation Comments Total Bilirubin (test code = 1975-2) 0.5 0.2-1.2 [facility] HospitalFluoroscopic procedure less than one hour kgsuwgwn0008-29-43 05:10:00* Test Item Value Reference Range Interpretation Comments Aspartate Amino Transf (AST/SGOT) (test code = Aspartate Amino Transf (AST/SGOT)) 13 5-34 [facility] or plasma alanine aminotransferase measurement (enzymatic activity/volume)2020-02-26 05:10:00* Test Item Value Reference Range Interpretation Comments Alanine Aminotransferase (ALT/SGPT) (test code = 1742-6) 19 0-55 [facility] or plasma protein measurement (mass/volume)2020-02-26 05:10:00* Test Item Value Reference Range Interpretation Comments Total Protein (test code = 2885-2) 6.9 6.5-8.1 [facility] or plasma albumin measurement (mass/volume)2020-02-26 05:10:00* Test Item Value Reference Range Interpretation Comments Albumin (test code = 1751-7) 2.7 3.5-5.0 [facility] HospitalPlasma globulin measurement (mass/volume) 2020-02-26 05:10:00* Test Item Value Reference Range Interpretation Comments Globulin (test code = 15462-7) 4.2 2.3-3.5 [facility] or plasma albumin/globulin mass hqcmn1428-19-25 05:10:00* Test Item Value Reference Range Interpretation Comments Albumin/Globulin Ratio (test code = 1759-0) 0.6 0.8-2.0 [facility] or plasma alkaline phosphatase measurement (enzymatic activity/volume)2020-02-26 05:10:00* Test Item Value Reference Range Interpretation Comments Alkaline Phosphatase (test code = 6768-6) 136 40-150 [facility] HospitalCapillary blood glucose measurement by glucometer (mass/volume)2020-02-25 19:53:00* Test Item Value Reference Range Interpretation Comments Bedside Glucose (test code = 52878-3) 120 70-120 Meter ID: [id number] Regional Healthcare Systemerum or plasma conjugated bilirubin measurement (mass/volume)2020-02-25 05:15:00* Test Item Value Reference Range Interpretation Comments Direct Bilirubin (test code = 47897-2) 0.3 0.0-0.5 [facility] HospitalBlood cobalamin (vitamin B12) measurement (mass/volume)2020-02-25 00:30:00* Test Item Value Reference Range Interpretation Comments Vitamin B12 Level (test code = 28928-6) 417 213816 [facility] or plasma folate measurement (mass/volume)2020-02-25 00:30:00* Test Item Value Reference Range Interpretation Comments Folate (test code = 2284-8) See Comment 7.0-15.4 [facility] HospitalCT A[facility]/PEL WITH CADDZXOU-UWSA3625-51-04 11:30:00 [place] [address] Patient Name: DORA MATIAS MR #: [id number] : 1985 Age/Sex: 34/M Req #: [id number] Adm Physician: Ordered by: MARY SMALL MD Report #: [id number] Location: [facility] Room/Bed: Procedure: HOPD/CT AB D/PEL WITH CONTRAST-HOPD Exam Date: 02/24/20 Exam Ti me: 1105 REPORT STATUS: Signed E XAM: CT Abdomen and Pelvis WITH contrast INDICATION: chron's exacer bation [id number] N COMPARISON: CT abdomen and pelvis 2019, CT for abscess drainage 01/01/2020 TECHNIQUE: Abdomen and pelvis we re scanned utilizing a multidetector helical scanner from the lung base to the pubic symphysis after administration of IV contrast. Coronal and sagittal ref ormations were obtained. Routine protocol was performed. Scan was performed wh en during portal venous phase. IV CONTRAST: 100 mL of Isovue-370 ORAL CONTRAST: None RADIATION DOSE: Total DLP: 829.4 mGy*cm Estimated effective dose: (DLP x 0.015 x size factor) mSv COMPLICATIONS: None FINDINGS: LINES and TUBES: Interval removal of the anterior abdominal drainage catheter. LOWER THORAX: Unremar kable HEPATOBILIARY: No focal hepatic lesions. No biliary ductal dilat ion. GALLBLADDER: No radio-opaque stones or sludge. No wall thickening. SPLEEN: No splenomegaly. PANCREAS: No focal masses or ductal dilatatio n. ADRENALS: No adrenal nodules KIDNEYS/URETERS: Kidneys enhance symmetrically. No hydronephrosis. No cystic or solid mass lesions. No stone s. GI TRACT: Near resolution of the anterior abdominal large abscess with a residual pocket measuring 3.7 x 2.2 cm in the right upper quadrant underneath the abdominal wall on series 2, image 46. Partial bowel resection involving t he ascending colon/cecum and distal ileum with worsening wall thickening at th e anastomotic site when compared to 01/03/2020 (series 2, image 38). Near res olution of the inflammatory changes noted in the distal transverse colon. The remaining bowel is decompressed without wall thickening or significant inflamm atory changes. Mild focal narrowing of the distal sigmoid on axial series 2, image 85, unchanged and likely related to chronic inflammation. No bowel obstr uction. PELVIC ORGANS/BLADDER: Unremarkable. LYMPH NODES: No lymp hadenopathy. VESSELS: Unremarkable. PERITONEUM / RETROPERITONEUM: No f ree air or fluid. BONES: Unremarkable. SOFT TISSUES: Unremarkable. IMPRESSION: 1. Near resolution of the multifocal abscesses in the right upper quadrant with a residual pocket underneath the abdominal wall, measuring 3.7 x 2.2 cm. 2. Resolving inflammatory changes of the distal a scending/transverse colon. However, there has been worsening wall thickening a nd surrounding inflammatory changes of a loop of bowel in the right upper quad rant at the level of the surgical changes. 3. No free air or free fluid in the abdomen and pelvis to suggest bowel perforation. Signed by: Dr. Neema Jaime M.D. on 02/24/2020 11:59 AM Dictated By: CHEPE JAIME MD 1159 COPY TO: MELI SMALL MD Blood [id number] 00:35:00* Test Item Value Reference Range Interpretation Comments Blood Culture (test code = 51973189) NO GROWTH AFTER 24 HOURS [facility] HospitalErythrocyte sedimentation rate by Westergren [id number] 00:30:00* Test Item Value Reference Range Interpretation Comments Erythrocyte Sedimentation Rate (test code = 4537-7) 72 0- 13 [facility] HospitalAutomated reticulocyte count as percentage of total cwvgiprnjbso8331-69-19 00:30:00* Test Item Value Reference Range Interpretation Comments Percent Reticulocyte Count (test code = 63681-7) 0.7 0.8-2 .2 [facility] iron measurement (mass/volume)2020-02-24 00:30:00* Test Item Value Reference Range Interpretation Comments Iron Level (test code = 2498-4) 16 65-175 [facility] plasma iron binding capacity measurement (mass/volume)2020-02-24 00:30:00* Test Item Value Reference Range Interpretation Comments Total Iron Binding Capacity (test code = 2500-7) 211 261-4 78 [facility]uda[facility] or plasma iron saturation measurement (mass fraction)2020-02-24 00:30:00* Test Item Value Reference Range Interpretation Comments Percent Iron Saturation (test code = 2502-3) 8 15-50 [facility] plasma transferrin measurement (mass/volume)2020-02-24 00:30:00* Test Item Value Reference Range Interpretation Comments Transferrin (test code = 3034-6) 151 174-364 [facility] or plasma ferritin measurement (mass/volume)2020-02-24 00:30:00* Test Item Value Reference Range Interpretation Comments Ferritin (test code = 2276-4) 476.65 21.81-274.66 [facility]udaMALL [facility] [id number] 11:33:00 [facility] [address] [place] [address] Patient Name: DORA MATIAS MR #: [id number] : 1985 Age/Sex: 34/M Req #: [id number] Adm Physician: Ordered by: JESSICA JOHNSON MD Report #: [id number] Location: DX Room/Bed: Procedure: [id number] DX/SMALL BOWEL SE ANGEL Exam Date: 02/13/20 Exam Time: 1104 REPORT STATUS: 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 Preliminary image was obtained before adminis tration of contrast and serial overhead images were obtained after administrat ion of oral barium. 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 No acute bony abnormality. Surgical sutures in the right abdomen. STOMACH: Unremarkable mucosal pattern. SMALL BOWEL: Bulb and sweep are normal. Duodenal-jejunal junction is in the normal expected position. Small bowel loops are normal in caliber and distribution. There is no pranav dence of fistula, mucosal changes, stricture or dilation. The transit time was within normal limits. COLON: Status post right hemicolectomy. IMPRE SSION: No radiographic evidence of bowel obstruction, stricture, or fistula. Status post right hemicolectomy. Signed by: Marcelle Chapa MD on 02/13/2020 1 1:36 AM Dictated By: MARCELLE CHAPA MD 1136 Transcribed By: KATHRIN on 02/13/20 1136 COPY TO: JESSICA LUNA MD Fluoroscopic procedure less than one hour duration 2020-02-09 09:50:00* Test Item Value Reference Range Interpretation Comments Coronavirus (PCR) (test code = Coronavirus (PCR)) NOT DETECTED NOTD ETECTED SARS-COV-2 (COVID19), HIGHRISK, RT-PCRNegative results do not preclude SARS-CoV- 2 infection and should not be used as the sole basis for patient management deci sions. Negative results must be combined with clinical observations, patient his tory, and epidemiological information. Optimum specimen types and timing for pea k viral levels during infections caused by SARS-CoV-2 have not been determined. Collection of multiple specimens ot types of specimens may be necessary to detec t virus. Improper specimen collection and handling, sequence variability under p rimers/probes, or organism present below the limit of detection may lead to fals e negative results. Positive and negative predictive values of testing are highl y dependent on prevalance. False negative test results are more likely when prev alence is high.The expected result is negative (not detected).The SARS-CoV-2 dominic t is intended for the qualitative detection of nucleic acid from SARS-CoV-2 in n asopharyngeal and oropharyngeal swab samples from patients who meet COVID-19 cli nical and or epidemiological criteria. For lower respiratory tract specimens, th e assay is submitted for authoriztion by FDA under an Emergency Use Authorizatio n (EUA). Testing methodology is real time RT-PCR. If received as separate collec tion devices, nasopharygeal and oropharyngeal specimens are combined for analysi s. Additional specimens may be split to a separate accession for analysi and rep orting as this test includes a single unit of service.Test results must be corre lated with clinical presentation and evaluated in the context of other laborator y and epidemiologic data. Test performance can be affected because the epidemiol ogy and clinical spectrum of infection caused by SARS-CoV-2 is not fully known. For example, the optimum types of specimens to collect and when during the cours e of infection these specimens are most likely to contain detectable viral RNA m ay not be known.This test has not been Food and Drug Administration (FDA) cleare d or approved and has been authorized by FDA under an Emergency Use Authorizatio n (EUA). The test is only authorized for the duration of the declaration that ci rcumstances exist justifying the authorization of emergency use of in vitro diag nostic tests for detection and/or diagnosis of SARS-CoV-2 under section 564(b) o f the Act, 21 U.S.C. section 360bbb-3(b)(1), unless the authorization is termina jose or revoked sooner. [facility] are certified under the C linical Laboratory Improvement Amendments of 1988 (CLIA), 42 U.S.C. section 263a , to perform high complexity tests.Testing performed by [facility] [id number] [phone] Director: Miles Evans M.D.CLIA # [id number] [facility] Fluoroscopic procedure less than one hour xtwxwpbe7091-80-77 09:50:00* Test Item Value Reference Range Interpretation Comments Coronavirus (PCR) (test code = Coronavirus (PCR)) NOT DETECTED NOTD ETECTED SARS-COV-2 (COVID19), HIGHRISK, RT-PCRNegative results do not preclude SARS-CoV- 2 infection and should not be used as the sole basis for patient management deci sions. Negative results must be combined with clinical observations, patient his tory, and epidemiological information. Optimum specimen types and timing for pea k viral levels during infections caused by SARS-CoV-2 have not been determined. Collection of multiple specimens ot types of specimens may be necessary to detec t virus. Improper specimen collection and handling, sequence variability under p rimers/probes, or organism present below the limit of detection may lead to fals e negative results. Positive and negative predictive values of testing are highl y dependent on prevalance. False negative test results are more likely when prev alence is high.The expected result is negative (not detected).The SARS-CoV-2 dominic t is intended for the qualitative detection of nucleic acid from SARS-CoV-2 in n asopharyngeal and oropharyngeal swab samples from patients who meet COVID-19 cli nical and or epidemiological criteria. For lower respiratory tract specimens, th e assay is submitted for authoriztion by FDA under an Emergency Use Authorizatio n (EUA). Testing methodology is real time RT-PCR. If received as separate collec tion devices, nasopharygeal and oropharyngeal specimens are combined for analysi s. Additional specimens may be split to a separate accession for analysi and rep orting as this test includes a single unit of service.Test results must be corre lated with clinical presentation and evaluated in the context of other laborator y and epidemiologic data. Test performance can be affected because the epidemiol ogy and clinical spectrum of infection caused by SARS-CoV-2 is not fully known. For example, the optimum types of specimens to collect and when during the cours e of infection these specimens are most likely to contain detectable viral RNA m ay not be known.This test has not been Food and Drug Administration (FDA) cleare d or approved and has been authorized by FDA under an Emergency Use Authorizatio n (EUA). The test is only authorized for the duration of the declaration that ci rcumstances exist justifying the authorization of emergency use of in vitro diag nostic tests for detection and/or diagnosis of SARS-CoV-2 under section 564(b) o f the Act, 21 U.S.C. section 360bbb-3(b)(1), unless the authorization is termina jose or revoked sooner. [facility] are certified under the C linical Laboratory Improvement Amendments of 1988 (CLIA), 42 U.S.C. section 263a , to perform high complexity tests.Testing performed by [facility] [id number] [place], [place] [phone] Director: Miles Evans M.D.CLIA # [id number] [facility] Fluoroscopic procedure less than one hour jnxiaozn0485-28-48 09:50:00* Test Item Value Reference Range Interpretation Comments Coronavirus (PCR) (test code = Coronavirus (PCR)) NOT DETECTED NOTD ETECTED SARS-COV-2 (COVID19), HIGHRISK, RT-PCRNegative results do not preclude SARS-CoV- 2 infection and should not be used as the sole basis for patient management deci sions. Negative results must be combined with clinical observations, patient his tory, and epidemiological information. Optimum specimen types and timing for pea k viral levels during infections caused by SARS-CoV-2 have not been determined. Collection of multiple specimens ot types of specimens may be necessary to detec t virus. Improper specimen collection and handling, sequence variability under p rimers/probes, or organism present below the limit of detection may lead to fals e negative results. Positive and negative predictive values of testing are highl y dependent on prevalance. False negative test results are more likely when prev alence is high.The expected result is negative (not detected).The SARS-CoV-2 dominic t is intended for the qualitative detection of nucleic acid from SARS-CoV-2 in n asopharyngeal and oropharyngeal swab samples from patients who meet COVID-19 cli nical and or epidemiological criteria. For lower respiratory tract specimens, th e assay is submitted for authoriztion by FDA under an Emergency Use Authorizatio n (EUA). Testing methodology is real time RT-PCR. If received as separate collec tion devices, nasopharygeal and oropharyngeal specimens are combined for analysi s. Additional specimens may be split to a separate accession for analysi and rep orting as this test includes a single unit of service.Test results must be corre lated with clinical presentation and evaluated in the context of other laborator y and epidemiologic data. Test performance can be affected because the epidemiol ogy and clinical spectrum of infection caused by SARS-CoV-2 is not fully known. For example, the optimum types of specimens to collect and when during the cours e of infection these specimens are most likely to contain detectable viral RNA m ay not be known.This test has not been Food and Drug Administration (FDA) cleare d or approved and has been authorized by FDA under an Emergency Use Authorizatio n (EUA). The test is only authorized for the duration of the declaration that ci rcumstances exist justifying the authorization of emergency use of in vitro diag nostic tests for detection and/or diagnosis of SARS-CoV-2 under section 564(b) o f the Act, 21 U.S.C. section 360bbb-3(b)(1), unless the authorization is termina jose or revoked sooner. [facility] are certified under the C linical Laboratory Improvement Amendments of 1988 (CLIA), 42 U.S.C. section 263a , to perform high complexity tests.Testing performed by [facility] [id number] [place] [address] [phone] Director: Miles Evans M.D.CLIA # [id number] Arts HospitalBlperham health hospital leukocytes automated count (number/volume)2020-01-05 05:20:00* Test Item Value Reference Range Interpretation Comments White Blood Count (test code = 6690-2) 8.85 4.8-10.8 [facility]Blood erythrocytes automated count (number/volume)2020-01-05 05:20:00* Test Item Value Reference Range Interpretation Comments Red Blood Count (test code = 789-8) 3.57 4.3-5.7 [facility] HospitalBlood hemoglobin measurement (moles/volume)2020-01-05 05:20:00* Test Item Value Reference Range Interpretation Comments Hemoglobin (test code = 60923-0) 8.5 14.0-18.0 [facility] HospitalAutomated blood hematocrit (volume fraction)2020-01-05 05:20:00* Test Item Value Reference Range Interpretation Comments Hematocrit (test code = 4544-3) 28.9 38.2-49.6 [facility]Automated erythrocyte mean corpuscular nucqcf2457-12-50 05:20:00* Test Item Value Reference Range Interpretation Comments Mean Corpuscular Volume (test code = 787-2) 81.0 81-99 [facility]Automated erythrocyte mean corpuscular hemoglobin (mass per erythrocyte)2020-01-05 05:20:00* Test Item Value Reference Range Interpretation Comments Mean Corpuscular Hemoglobin (test code = 785-6) 23.8 28-32 [facility]Automated erythrocyte mean corpuscular hemoglobin concentration measurement (mass/volume)2020-01-05 05:20:00* Test Item Value Reference Range Interpretation Comments Mean Corpuscular Hemoglobin Concent (test code = 786-4) 29.4 31-35 [facility] HospitalRDW PphWo-Lpe7310-62-15 05:20:00* Test Item Value Reference Range Interpretation Comments Red Cell Distribution Width (test code = 24207-0) 17.5 11.7 -14.4 [facility] HospitalAutomated blood platelet count (count/volume)2020-01-05 05:20:00* Test Item Value Reference Range Interpretation Comments Platelet Count (test code = 777-3) 492 140-360 [facility] HospitalAutomated blood segmented neutrophil count as percentage of total mgprcnjeex4699-73-72 05:20:00* Test Item Value Reference Range Interpretation Comments Neutrophils (%) (Auto) (test code = 43210-3) 73.7 38.7-80.0 [facility] HospitalAutomated blood lymphocyte count as percentage ot total fnpsttqqdr0150-62-99 05:20:00* Test Item Value Reference Range Interpretation Comments Lymphocytes (%) (Auto) (test code = 736-9) 14.9 18.0-39.1 [facility] HospitalAut[facility] blood monocyte count as percentage of total xtlbozmslk8891-86-88 05:20:00* Test Item Value Reference Range Interpretation Comments Monocytes (%) (Auto) (test code = 5905-5) 7.8 4.4-11.3 [facility] HospitalAutomated blood eosinophil count as percentage of total lwsgntnblw2401-80-65 05:20:00* Test Item Value Reference Range Interpretation Comments Eosinophils (%) (Auto) (test code = 713-8) 2.6 0.0-6.0 [facility] HospitalAutomated blood basophil count as percentage of total rwncrduvel3646-18-60 05:20:00* Test Item Value Reference Range Interpretation Comments Basophils (%) (Auto) (test code = 706-2) 0.5 0.0-1.0 [facility] HospitalFluoroscopic procedure less than one hour iigaksut9597-63-37 05:20:00* Test Item Value Reference Range Interpretation Comments IM GRANULOCYTES % (test code = IM GRANULOCYTES %) 0.5 0.0- 1.0 [facility] HospitalAutomated blood neutrophil count 2020-01-05 05:20:00* Test Item Value Reference Range Interpretation Comments Neutrophils # (Auto) (test code = 751-8) 6.5 2.1-6.9 [facility] HospitalBlood lymphocytes count (number/volume) 2020-01-05 05:20:00* Test Item Value Reference Range Interpretation Comments Lymphocytes # (Auto) (test code = 98941-4) 1.3 1.0-3.2 [facility] HospitalBlood monocytes automated count (number/volume)2020-01-05 05:20:00* Test Item Value Reference Range Interpretation Comments Monocytes # (Auto) (test code = 742-7) 0.7 0.2-0.8 [facility] HospitalAutomated blood eosinophil count 2020-01-05 05:20:00* Test Item Value Reference Range Interpretation Comments Eosinophils # (Auto) (test code = 711-2) 0.2 0.0-0.4 [facility] HospitalAutomated blood basophil count (count/volume)2020-01-05 05:20:00* Test Item Value Reference Range Interpretation Comments Basophils # (Auto) (test code = 704-7) 0.0 0.0-0.1 [facility] HospitalFluoroscopic procedure less than one hour jqqltwvn0352-19-60 05:20:00* Test Item Value Reference Range Interpretation Comments Absolute Immature Granulocyte (auto (dominic t code = Absolute Immature Granulocyte (auto) 0.04 0-0.1 [facility] HospitalBlood platelets count by estimate (number/volume)2020-01-05 05:20:00* Test Item Value Reference Range Interpretation Comments Platelet Estimate (test code = 49284-0) SLIGHTLY INCREASED [facility] HospitalPlatelet vtbjnewbkh8719-36-74 05:20:00* Test Item Value Reference Range Interpretation Comments Platelet Morphology Comment (test code = 97555-7) RARE EDTA CLUMPIN G [facility] HospitalBl[facility] hospital polychromasia detection by light pzcbfduezv8202-65-42 05:20:00* Test Item Value Reference Range Interpretation Comments Polychromasia (test code = 68986-6) FEW [facility] HospitalBl[facility] hospital hypochromia detection by light snqiwgzwxw7356-30-22 05:20:00* Test Item Value Reference Range Interpretation Comments Hypochromasia (test code = 728-6) SLIGHT [facility] HospitalBl[facility] hospital anisocytosis detection by light wvcyndsdoc7969-81-62 05:20:00* Test Item Value Reference Range Interpretation Comments Anisocytosis (test code = 702-1) SLIGHT [facility] HospitalRBC lrbmvovfnh9055-32-43 05:20:00* Test Item Value Reference Range Interpretation Comments Red Cell Morphology Comment (test code = 6742-1) NORMAL [facility] plasma sodium measurement (moles/volume)2020-01-05 05:20:00* Test Item Value Reference Range Interpretation Comments Sodium Level (test code = 2951-2) 141 136-145 [facility]uda[facility] or plasma potassium measurement (moles/volume)2020-01-05 05:20:00* Test Item Value Reference Range Interpretation Comments Potassium Level (test code = 2823-3) 3.6 3.5-5.1 [facility]uda[facility] or plasma chloride measurement (moles/volume)2020-01-05 05:20:00* Test Item Value Reference Range Interpretation Comments Chloride Level (test code = 2075-0) 107 98-107 [facility]uda[facility] or plasma carbon dioxide, total measurement (moles/volume)2020-01-05 05:20:00* Test Item Value Reference Range Interpretation Comments Carbon Dioxide Level (test code = 2028-9) 25 22-29 [facility]uda[facility] or plasma anion znr2475-96-28 05:20:00* Test Item Value Reference Range Interpretation Comments Anion Gap (test code = 52292-7) 12.6 8-16 [facility] or plasma urea nitrogen measurement (mass/volume)2020-01-05 05:20:00* Test Item Value Reference Range Interpretation Comments Blood Urea Nitrogen (test code = 3094-0) 5 7-26 [facility] or plasma creatinine measurement (mass/volume)2020-01-05 05:20:00* Test Item Value Reference Range Interpretation Comments Creatinine (test code = 2160-0) 0.63 0.72-1.25 [facility]uda[facility] or plasma urea nitrogen/creatinine mass qmxnm7861-24-60 05:20:00* Test Item Value Reference Range Interpretation Comments BUN/Creatinine Ratio (test code = 3097-3) 8 6-25 [facility] HospitalEstimated glomerular filtration rate (GFR) agxerlgkzvtzr8470-91-87 05:20:00* Test Item Value Reference Range Interpretation Comments Estimat Glomerular Filtration Rate (test code = 332922908) > 60 >60 Ranges were taken from the National Kidney Disease Education Program and the [facility] Kidney Foundation literature.Reference ranges:60 or greater: Jofcdk54-09 ( for 3 consecutive months): Chronic kidney disease 15 or less: Kidney failureMedical Arts HospitalGlucose wmqrcojqmgi3409-94-81 05:20:00* Test Item Value Reference Range Interpretation Comments Glucose Level (test code = ODT0884) 83 74-118 [facility]uda[facility] or plasma calcium measurement (mass/volume)2020-01-05 05:20:00* Test Item Value Reference Range Interpretation Comments Calcium Level (test code = 85297-1) 8.4 8.4-10.2 [facility] HospitalBlood leukocytes automated count (number/volume)2020-01-05 05:20:00* Test Item Value Reference Range Interpretation Comments White Blood Count (test code = 6690-2) 8.85 4.8-10.8 [facility] HospitalBlood erythrocytes automated count (number/volume)2020-01-05 05:20:00* Test Item Value Reference Range Interpretation Comments Red Blood Count (test code = 789-8) 3.57 4.3-5.7 [facility] HospitalBlood hemoglobin measurement (moles/volume)2020-01-05 05:20:00* Test Item Value Reference Range Interpretation Comments Hemoglobin (test code = 86045-2) 8.5 14.0-18.0 [facility] HospitalAutomated blood hematocrit (volume fraction)2020-01-05 05:20:00* Test Item Value Reference Range Interpretation Comments Hematocrit (test code = 4544-3) 28.9 38.2-49.6 [facility] HospitalAutomated erythrocyte mean corpuscular qyzowe8695-85-67 05:20:00* Test Item Value Reference Range Interpretation Comments Mean Corpuscular Volume (test code = 787-2) 81.0 81-99 [facility] HospitalAutomated erythrocyte mean corpuscular hemoglobin (mass per erythrocyte)2020-01-05 05:20:00* Test Item Value Reference Range Interpretation Comments Mean Corpuscular Hemoglobin (test code = 785-6) 23.8 28-32 [facility] HospitalAutomated erythrocyte mean corpuscular hemoglobin concentration measurement (mass/volume)2020-01-05 05:20:00* Test Item Value Reference Range Interpretation Comments Mean Corpuscular Hemoglobin Concent (test code = 786-4) 29.4 31-35 [facility] HospitalRDW TbkPa-Bwr8982-48-15 05:20:00* Test Item Value Reference Range Interpretation Comments Red Cell Distribution Width (test code = 76080-3) 17.5 11.7 -14.4 [facility] HospitalAutomated blood platelet count (count/volume)2020-01-05 05:20:00* Test Item Value Reference Range Interpretation Comments Platelet Count (test code = 777-3) 492 140-360 [facility] HospitalAutomated blood segmented neutrophil count as percentage of total krvjlijgxo7210-13-71 05:20:00* Test Item Value Reference Range Interpretation Comments Neutrophils (%) (Auto) (test code = 66012-8) 73.7 38.7-80.0 [facility] HospitalAutomated blood lymphocyte count as percentage ot total iznynqjhoj0202-66-42 05:20:00* Test Item Value Reference Range Interpretation Comments Lymphocytes (%) (Auto) (test code = 736-9) 14.9 18.0-39.1 [facility] HospitalAutomated blood monocyte count as percentage of total mxmsipyqit0564-92-58 05:20:00* Test Item Value Reference Range Interpretation Comments Monocytes (%) (Auto) (test code = 5905-5) 7.8 4.4-11.3 [facility] HospitalAutomated blood eosinophil count as percentage of total xrgbuaitbo8903-28-55 05:20:00* Test Item Value Reference Range Interpretation Comments Eosinophils (%) (Auto) (test code = 713-8) 2.6 0.0-6.0 [facility] HospitalAutomated blood basophil count as percentage of total dlcwvnmiip7380-00-57 05:20:00* Test Item Value Reference Range Interpretation Comments Basophils (%) (Auto) (test code = 706-2) 0.5 0.0-1.0 [facility] HospitalFluoroscopic procedure less than one hour pnurepnw8996-81-30 05:20:00* Test Item Value Reference Range Interpretation Comments IM GRANULOCYTES % (test code = IM GRANULOCYTES %) 0.5 0.0- 1.0 [facility] HospitalAutomated blood neutrophil count 2020-01-05 05:20:00* Test Item Value Reference Range Interpretation Comments Neutrophils # (Auto) (test code = 751-8) 6.5 2.1-6.9 [facility] HospitalBlood lymphocytes count (number/volume) 2020-01-05 05:20:00* Test Item Value Reference Range Interpretation Comments Lymphocytes # (Auto) (test code = 75960-7) 1.3 1.0-3.2 [facility] monocytes automated count (number/volume)2020-01-05 05:20:00* Test Item Value Reference Range Interpretation Comments Monocytes # (Auto) (test code = 742-7) 0.7 0.2-0.8 [facility] HospitalAutomated blood eosinophil count 2020-01-05 05:20:00* Test Item Value Reference Range Interpretation Comments Eosinophils # (Auto) (test code = 711-2) 0.2 0.0-0.4 [facility] HospitalAutomated blood basophil count (count/volume)2020-01-05 05:20:00* Test Item Value Reference Range Interpretation Comments Basophils # (Auto) (test code = 704-7) 0.0 0.0-0.1 [facility] HospitalFluoroscopic procedure less than one hour xfhguude7021-61-67 05:20:00* Test Item Value Reference Range Interpretation Comments Absolute Immature Granulocyte (auto (dominic t code = Absolute Immature Granulocyte (auto) 0.04 0-0.1 [facility] platelets count by estimate (number/volume)2020-01-05 05:20:00* Test Item Value Reference Range Interpretation Comments Platelet Estimate (test code = 00314-2) SLIGHTLY INCREASED [facility] HospitalPlatelet agqpwtatsa2540-33-38 05:20:00* Test Item Value Reference Range Interpretation Comments Platelet Morphology Comment (test code = 07658-5) RARE EDTA CLUMPIN G [facility] HospitalBlood polychromasia detection by light lwtqyejqhb6997-00-59 05:20:00* Test Item Value Reference Range Interpretation Comments Polychromasia (test code = 54672-6) FEW [facility] hypochromia detection by light cunelynsml0093-20-67 05:20:00* Test Item Value Reference Range Interpretation Comments Hypochromasia (test code = 728-6) SLIGHT [facility] anisocytosis detection by light cdfgxeckiq3044-60-05 05:20:00* Test Item Value Reference Range Interpretation Comments Anisocytosis (test code = 702-1) SLIGHT [facility] HospitalRBC ssxncwgpkh0344-87-53 05:20:00* Test Item Value Reference Range Interpretation Comments Red Cell Morphology Comment (test code = 6742-1) [facility]ORMAL [facility] sodium measurement (moles/volume)2020-01-05 05:20:00* Test Item Value Reference Range Interpretation Comments Sodium Level (test code = 2951-2) 141 136-145 [facility] potassium measurement (moles/volume)2020-01-05 05:20:00* Test Item Value Reference Range Interpretation Comments Potassium Level (test code = 2823-3) 3.6 3.5-5.1 [facility] chloride measurement (moles/volume)2020-01-05 05:20:00* Test Item Value Reference Range Interpretation Comments Chloride Level (test code = 2075-0) 107 98-107 [facility] carbon dioxide, total measurement (moles/volume)2020-01-05 05:20:00* Test Item Value Reference Range Interpretation Comments Carbon Dioxide Level (test code = 2028-9) 25 22-29 [facility] anion shq7001-51-59 05:20:00* Test Item Value Reference Range Interpretation Comments Anion Gap (test code = 98591-2) 12.6 8-16 [facility] urea nitrogen measurement (mass/volume)2020-01-05 05:20:00* Test Item Value Reference Range Interpretation Comments Blood Urea Nitrogen (test code = 3094-0) 5 7-26 [facility] creatinine measurement (mass/volume)2020-01-05 05:20:00* Test Item Value Reference Range Interpretation Comments Creatinine (test code = 2160-0) 0.63 0.72-1.25 [facility] plasma urea nitrogen/creatinine mass saawi5258-22-19 05:20:00* Test Item Value Reference Range Interpretation Comments BUN/Creatinine Ratio (test code = 3097-3) 8 6-25 [facility] HospitalEstimated glomerular filtration rate (GFR) apxyrlqrqwcti2815-54-88 05:20:00* Test Item Value Reference Range Interpretation Comments Estimat Glomerular Filtration Rate (test code = 414910789) > 60 >60 Ranges were taken from the National Kidney Disease Education Program and the [facility] literature.Reference ranges:60 or greater: Mpszgd40-46 ( for 3 consecutive months): Chronic kidney disease 15 or less: Kidney failureMedical Arts HospitalGlucose bczyumdxhtm9036-74-79 05:20:00* Test Item Value Reference Range Interpretation Comments Glucose Level (test code = AQL3053) 83 74-118 [facility] plasma calcium measurement (mass/volume)2020-01-05 05:20:00* Test Item Value Reference Range Interpretation Comments Calcium Level (test code = 21933-5) 8.4 8.4-10.2 [facility] HospitalBlood leukocytes automated count (number/volume)2020-01-05 05:20:00* Test Item Value Reference Range Interpretation Comments White Blood Count (test code = 6690-2) 8.85 4.8-10.8 [facility] HospitalBlood erythrocytes automated count (number/volume)2020-01-05 05:20:00* Test Item Value Reference Range Interpretation Comments Red Blood Count (test code = 789-8) 3.57 4.3-5.7 [facility] HospitalBlood hemoglobin measurement (moles/volume)2020-01-05 05:20:00* Test Item Value Reference Range Interpretation Comments Hemoglobin (test code = 44454-6) 8.5 14.0-18.0 [facility] HospitalAutomated blood hematocrit (volume fraction)2020-01-05 05:20:00* Test Item Value Reference Range Interpretation Comments Hematocrit (test code = 4544-3) 28.9 38.2-49.6 [facility] HospitalAutomated erythrocyte mean corpuscular qkmics7891-69-74 05:20:00* Test Item Value Reference Range Interpretation Comments Mean Corpuscular Volume (test code = 787-2) 81.0 81-99 [facility] HospitalAutomated erythrocyte mean corpuscular hemoglobin (mass per erythrocyte)2020-01-05 05:20:00* Test Item Value Reference Range Interpretation Comments Mean Corpuscular Hemoglobin (test code = 785-6) 23.8 28-32 [facility] HospitalAutomated erythrocyte mean corpuscular hemoglobin concentration measurement (mass/volume)2020-01-05 05:20:00* Test Item Value Reference Range Interpretation Comments Mean Corpuscular Hemoglobin Concent (test code = 786-4) 29.4 31-35 [facility] HospitalRDW VufSe-Uqq1906-80-15 05:20:00* Test Item Value Reference Range Interpretation Comments Red Cell Distribution Width (test code = 18009-7) 17.5 11.7 -14.4 [facility]Aut[facility] platelet count (count/volume)2020-01-05 05:20:00* Test Item Value Reference Range Interpretation Comments Platelet Count (test code = 777-3) 492 140-360 [facility] HospitalAut[facility] blood segmented neutrophil count as percentage of total cungpncpze1874-34-51 05:20:00* Test Item Value Reference Range Interpretation Comments Neutrophils (%) (Auto) (test code = 94213-1) 73.7 38.7-80.0 [facility] lymphocyte count as percentage ot total nbquqfbfwd8994-45-32 05:20:00* Test Item Value Reference Range Interpretation Comments Lymphocytes (%) (Auto) (test code = 736-9) 14.9 18.0-39.1 [facility]Aut[facility] blood monocyte count as percentage of total fuhpxvqlvl9877-43-43 05:20:00* Test Item Value Reference Range Interpretation Comments Monocytes (%) (Auto) (test code = 5905-5) 7.8 4.4-11.3 [facility]Aut[facility] blood eosinophil count as percentage of total cuzkqtatfe3402-62-00 05:20:00* Test Item Value Reference Range Interpretation Comments Eosinophils (%) (Auto) (test code = 713-8) 2.6 0.0-6.[address] [facility] basophil count as percentage of total scytcoqqgg1826-56-70 05:20:00* Test Item Value Reference Range Interpretation Comments Basophils (%) (Auto) (test code = 706-2) 0.5 0.0-1.0 [facility] HospitalFluoroscopic procedure less than one hour munbgqhb9869-01-79 05:20:00* Test Item Value Reference Range Interpretation Comments IM GRANULOCYTES % (test code = IM GRANULOCYTES %) 0.5 0.0- 1.0 [facility] HospitalAutomated blood neutrophil count 2020-01-05 05:20:00* Test Item Value Reference Range Interpretation Comments Neutrophils # (Auto) (test code = 751-8) 6.5 2.1-6.9 [facility] lymphocytes count (number/volume) 2020-01-05 05:20:00* Test Item Value Reference Range Interpretation Comments Lymphocytes # (Auto) (test code = 75530-0) 1.3 1.0-3.2 [facility] monocytes automated count (number/volume)2020-01-05 05:20:00* Test Item Value Reference Range Interpretation Comments Monocytes # (Auto) (test code = 742-7) 0.7 0.2-0.8 [facility] Hospitaled blood eosinophil count 2020-01-05 05:20:00* Test Item Value Reference Range Interpretation Comments Eosinophils # (Auto) (test code = 711-2) 0.2 0.0-0.4 [facility]Autnov[facility] blood basophil count (count/volume)2020-01-05 05:20:00* Test Item Value Reference Range Interpretation Comments Basophils # (Auto) (test code = 704-7) 0.0 0.0-0.1 [facility] HospitalFluoroscopic procedure less than one hour lgvdqxic3004-67-30 05:20:00* Test Item Value Reference Range Interpretation Comments Absolute Immature Granulocyte (auto (dominic t code = Absolute Immature Granulocyte (auto) 0.04 0-0.1 [facility] platelets count by estimate (number/volume)2020-01-05 05:20:00* Test Item Value Reference Range Interpretation Comments Platelet Estimate (test code = 25559-9) SLIGHTLY INCREASED [facility] HospitalPlatelet wuhuzenvay6481-81-11 05:20:00* Test Item Value Reference Range Interpretation Comments Platelet Morphology Comment (test code = 32873-9) RARE EDTA CLUMPIN G [facility]Bl[facility] polychromasia detection by light jdeiglcuzo0956-02-25 05:20:00* Test Item Value Reference Range Interpretation Comments Polychromasia (test code = 15665-3) FEW [facility] HospitalBlper[facility] hospital hypochromia detection by light wolfngavyq1939-24-38 05:20:00* Test Item Value Reference Range Interpretation Comments Hypochromasia (test code = 728-6) SLIGHT [facility] anisocytosis detection by light kywvpsgfhv0443-40-94 05:20:00* Test Item Value Reference Range Interpretation Comments Anisocytosis (test code = 702-1) SLIGHT [facility] HospitalRB obmqbpembr3984-40-09 05:20:00* Test Item Value Reference Range Interpretation Comments Red Cell Morphology Comment (test code = 6742-1) NORMAL [facility] plasma sodium measurement (moles/volume)2020-01-05 05:20:00* Test Item Value Reference Range Interpretation Comments Sodium Level (test code = 2951-2) 141 136-145 [facility] or plasma potassium measurement (moles/volume)2020-01-05 05:20:00* Test Item Value Reference Range Interpretation Comments Potassium Level (test code = 2823-3) 3.6 3.5-5.1 [facility] or plasma chloride measurement (moles/volume)2020-01-05 05:20:00* Test Item Value Reference Range Interpretation Comments Chloride Level (test code = 2075-0) 107 98-107 [facility] or plasma carbon dioxide, total measurement (moles/volume)2020-01-05 05:20:00* Test Item Value Reference Range Interpretation Comments Carbon Dioxide Level (test code = 2028-9) 25 22-29 [facility]uda[facility] or plasma anion ego0306-68-21 05:20:00* Test Item Value Reference Range Interpretation Comments Anion Gap (test code = 10389-5) 12.6 8-16 [facility] or plasma urea nitrogen measurement (mass/volume)2020-01-05 05:20:00* Test Item Value Reference Range Interpretation Comments Blood Urea Nitrogen (test code = 3094-0) 5 7-26 [facility] or plasma creatinine measurement (mass/volume)2020-01-05 05:20:00* Test Item Value Reference Range Interpretation Comments Creatinine (test code = 2160-0) 0.63 0.72-1.25 [facility] or plasma urea nitrogen/creatinine mass cpfkg8579-83-22 05:20:00* Test Item Value Reference Range Interpretation Comments BUN/Creatinine Ratio (test code = 3097-3) 8 6-25 [facility] HospitalEstimated glomerular filtration rate (GFR) iknjzenfvqidg5671-91-94 05:20:00* Test Item Value Reference Range Interpretation Comments Estimat Glomerular Filtration Rate (test code = 009519486) > 60 >60 Ranges were taken from the National Kidney Disease Education Program and the [facility] literature.Reference ranges:60 or greater: Ijabvh46-59 ( for 3 consecutive months): Chronic kidney disease 15 or less: Kidney failureMedical Arts HospitalGlucose oessajccapx9887-56-77 05:20:00* Test Item Value Reference Range Interpretation Comments Glucose Level (test code = YPC0065) 83 74-118 [facility] or plasma calcium measurement (mass/volume)2020-01-05 05:20:00* Test Item Value Reference Range Interpretation Comments Calcium Level (test code = 70965-1) 8.4 8.4-10.2 [facility] HospitalBlood platelets count by estimate (number/volume)2020-01-05 05:20:00* Test Item Value Reference Range Interpretation Comments Platelet Estimate (test code = 64287-0) SLIGHTLY INCREASED [facility] HospitalPlatelet hqvvovgxfs4757-34-53 05:20:00* Test Item Value Reference Range Interpretation Comments Platelet Morphology Comment (test code = 21736-1) RARE EDTA CLUMPIN G [facility] HospitalBlood polychromasia detection by light utgyifghap1012-68-11 05:20:00* Test Item Value Reference Range Interpretation Comments Polychromasia (test code = 08655-0) FEW [facility]Bl[facility] hypochromia detection by light xidqqlxtup5136-82-91 05:20:00* Test Item Value Reference Range Interpretation Comments Hypochromasia (test code = 728-6) SLIGHT [facility] anisocytosis detection by light qgxntvzjqb7771-86-97 05:20:00* Test Item Value Reference Range Interpretation Comments Anisocytosis (test code = 702-1) SLIGHT [facility] HospitalRBC vgjihgftxc5907-25-59 05:20:00* Test Item Value Reference Range Interpretation Comments Red Cell Morphology Comment (test code = 6742-1) NORMAL [facility] HospitalFluoroscopic procedure less than one hour afohqixx4150-89-00 06:43:00* Test Item Value Reference Range Interpretation Comments Differential Total Cells Counted (test code = Differmauricio tial Total Cells Counted) 100 [facility] leukocytes 2020-01-04 06:43:00* Test Item Value Reference Range Interpretation Comments Neutrophils % (Manual) (test code = 08322-2) 77 40-74 [facility] blood lymphocytes/100 leukocytes 2020-01-04 06:43:00* Test Item Value Reference Range Interpretation Comments Lymphocytes % (Manual) (test code = 737-7) 12 19-48 [facility] blood monocytes/100 leukocytes 2020-01-04 06:43:00* Test Item Value Reference Range Interpretation Comments Monocytes % (Manual) (test code = 744-3) 8 3.4-9.0 [facility] blood eosinophil count as percentage of total kskxzvauti0341-75-74 06:43:00* Test Item Value Reference Range Interpretation Comments Eosinophils % (Manual) (test code = 714-6) 3 0-7 [facility] plasma total bilirubin measurement (mass/volume)2020-01-04 06:43:00* Test Item Value Reference Range Interpretation Comments Total Bilirubin (test code = 1975-2) 0.2 0.2-1.2 [facility] HospitalFluoroscopic procedure less than one hour njqqmaqe5045-02-64 06:43:00* Test Item Value Reference Range Interpretation Comments Aspartate Amino Transf (AST/SGOT) (test code = Aspartate Amino Transf (AST/SGOT)) 10 5-34 [facility] plasma alanine aminotransferase measurement (enzymatic activity/volume)2020-01-04 06:43:00* Test Item Value Reference Range Interpretation Comments Alanine Aminotransferase (ALT/SGPT) (test code = 1742-6) 11 0-55 [facility] or plasma protein measurement (mass/volume)2020-01-04 06:43:00* Test Item Value Reference Range Interpretation Comments Total Protein (test code = 2885-2) 6.5 6.5-8.1 [facility] plasma albumin measurement (mass/volume)2020-01-04 06:43:00* Test Item Value Reference Range Interpretation Comments Albumin (test code = 1751-7) 1.9 3.5-5.0 [facility] HospitalPlasma globulin measurement (mass/volume) 2020-01-04 06:43:00* Test Item Value Reference Range Interpretation Comments Globulin (test code = 77406-1) 4.6 2.3-3.5 [facility] or plasma albumin/globulin mass jpiod6729-15-44 06:43:00* Test Item Value Reference Range Interpretation Comments Albumin/Globulin Ratio (test code = 1759-0) 0.4 0.8-2.0 [facility] or plasma alkaline phosphatase measurement (enzymatic activity/volume)2020-01-04 06:43:00* Test Item Value Reference Range Interpretation Comments Alkaline Phosphatase (test code = 6768-6) 150 40-150 [facility] HospitalFluoroscopic procedure less than one hour slvzaphq3473-62-53 06:43:00* Test Item Value Reference Range Interpretation Comments Differential Total Cells Counted (test code = Differmauricio tial Total Cells Counted) 100 [facility] HospitalManual blood neutrophils/100 leukocytes 2020-01-04 06:43:00* Test Item Value Reference Range Interpretation Comments Neutrophils % (Manual) (test code = 46595-1) 77 40-74 [facility] blood lymphocytes/100 leukocytes 2020-01-04 06:43:00* Test Item Value Reference Range Interpretation Comments Lymphocytes % (Manual) (test code = 737-7) 12 19-48 [facility] monocytes/100 leukocytes 2020-01-04 06:43:00* Test Item Value Reference Range Interpretation Comments Monocytes % (Manual) (test code = 744-3) 8 3.4-9.0 [facility] blood eosinophil count as percentage of total okflqdnxev6566-42-82 06:43:00* Test Item Value Reference Range Interpretation Comments Eosinophils % (Manual) (test code = 714-6) 3 0-7 [facility] plasma total bilirubin measurement (mass/volume)2020-01-04 06:43:00* Test Item Value Reference Range Interpretation Comments Total Bilirubin (test code = 1975-2) 0.2 0.2-1.2 [facility] HospitalFluoroscopic procedure less than one hour sgxjkdzd5124-49-53 06:43:00* Test Item Value Reference Range Interpretation Comments Aspartate Amino Transf (AST/SGOT) (test code = Aspartate Amino Transf (AST/SGOT)) 10 5-34 [facility] plasma alanine aminotransferase measurement (enzymatic activity/volume)2020-01-04 06:43:00* Test Item Value Reference Range Interpretation Comments Alanine Aminotransferase (ALT/SGPT) (test code = 1742-6) 11 0-55 [facility] or plasma protein measurement (mass/volume)2020-01-04 06:43:00* Test Item Value Reference Range Interpretation Comments Total Protein (test code = 2885-2) 6.5 6.5-8.1 [facility] plasma albumin measurement (mass/volume)2020-01-04 06:43:00* Test Item Value Reference Range Interpretation Comments Albumin (test code = 1751-7) 1.9 3.5-5.0 [facility] HospitalPlasma globulin measurement (mass/volume) 2020-01-04 06:43:00* Test Item Value Reference Range Interpretation Comments Globulin (test code = 77279-3) 4.6 2.3-3.5 [facility] plasma albumin/globulin mass sjpde0355-33-00 06:43:00* Test Item Value Reference Range Interpretation Comments Albumin/Globulin Ratio (test code = 1759-0) 0.4 0.8-2.0 [facility] plasma alkaline phosphatase measurement (enzymatic activity/volume)2020-01-04 06:43:00* Test Item Value Reference Range Interpretation Comments Alkaline Phosphatase (test code = 6768-6) 150 40-150 [facility] HospitalFluoroscopic procedure less than one hour aofzgsmd8742-64-33 06:43:00* Test Item Value Reference Range Interpretation Comments Differential Total Cells Counted (test code = Differmauricio tial Total Cells Counted) 100 [facility]ual [facility]/100 leukocytes 2020-01-04 06:43:00* Test Item Value Reference Range Interpretation Comments Neutrophils % (Manual) (test code = 53326-5) 77 40-74 [facility]ual [facility] lymphocytes/100 leukocytes 2020-01-04 06:43:00* Test Item Value Reference Range Interpretation Comments Lymphocytes % (Manual) (test code = 737-7) 12 19-48 [facility] blood monocytes/100 leukocytes 2020-01-04 06:43:00* Test Item Value Reference Range Interpretation Comments Monocytes % (Manual) (test code = 744-3) 8 3.4-9.0 [facility] eosinophil count as percentage of total rvvwbkwkfk1893-56-40 06:43:00* Test Item Value Reference Range Interpretation Comments Eosinophils % (Manual) (test code = 714-6) 3 0-7 [facility] total bilirubin measurement (mass/volume)2020-01-04 06:43:00* Test Item Value Reference Range Interpretation Comments Total Bilirubin (test code = 1975-2) 0.2 0.2-1.2 [facility] HospitalFluoroscopic procedure less than one hour iiqxvwof8214-01-88 06:43:00* Test Item Value Reference Range Interpretation Comments Aspartate Amino Transf (AST/SGOT) (test code = Aspartate Amino Transf (AST/SGOT)) 10 5-34 [facility] or plasma alanine aminotransferase measurement (enzymatic activity/volume)2020-01-04 06:43:00* Test Item Value Reference Range Interpretation Comments Alanine Aminotransferase (ALT/SGPT) (test code = 1742-6) 11 0-55 [facility] plasma protein measurement (mass/volume)2020-01-04 06:43:00* Test Item Value Reference Range Interpretation Comments Total Protein (test code = 2885-2) 6.5 6.5-8.1 [facility] plasma albumin measurement (mass/volume)2020-01-04 06:43:00* Test Item Value Reference Range Interpretation Comments Albumin (test code = 1751-7) 1.9 3.5-5.0 [facility] HospitalPlasma globulin measurement (mass/volume) 2020-01-04 06:43:00* Test Item Value Reference Range Interpretation Comments Globulin (test code = 88833-3) 4.6 2.3-3.5 [facility] plasma albumin/globulin mass sazou4866-28-69 06:43:00* Test Item Value Reference Range Interpretation Comments Albumin/Globulin Ratio (test code = 1759-0) 0.4 0.8-2.0 [facility] [facility] plasma alkaline phosphatase measurement (enzymatic activity/volume)2020-01-04 06:43:00* Test Item Value Reference Range Interpretation Comments Alkaline Phosphatase (test code = 6768-6) 150 40-150 [facility] HospitalFluoroscopic procedure less than one hour qtzxsvbw7037-06-03 06:43:00* Test Item Value Reference Range Interpretation Comments Differential Total Cells Counted (test code = Soren tial Total Cells Counted) 100 [facility] HospitalManual blood neutrophils/100 leukocytes 2020-01-04 06:43:00* Test Item Value Reference Range Interpretation Comments Neutrophils % (Manual) (test code = 28808-8) 77 40-74 [facility] blood lymphocytes/100 leukocytes 2020-01-04 06:43:00* Test Item Value Reference Range Interpretation Comments Lymphocytes % (Manual) (test code = 737-7) 12 19-48 [facility] blood monocytes/100 leukocytes 2020-01-04 06:43:00* Test Item Value Reference Range Interpretation Comments Monocytes % (Manual) (test code = 744-3) 8 3.4-9.0 [facility] blood eosinophil count as percentage of total fptxdvhvbp3025-38-50 06:43:00* Test Item Value Reference Range Interpretation Comments Eosinophils % (Manual) (test code = 714-6) 3 0-7 [facility] HospitalDRN ABD FLUID/ABSC W [id number] 14:04:00 [place] [address] Patient Name: DORA MATIAS MR #: [id number] : 1985 Age/Sex: 34/M Req #: [id number] Adm Physician: SHARLA FRANKEL MD Ordered by: IGNACIO LEE MD Report #: [id number] Location: [facility] Room/Bed: [place] [address] Procedure: RON/DAKOTA ABD FLU ID/ABSC W CATH Exam Date: 01/01/20 Exam Time: 1315 REPORT STATUS: Signed CT-guided a bdominal fluid collection aspiration. History: Right upper quadrant fluid collection. Modality: CT RADIATION DOSE: Total DLP: 1278.44 mGy*c m Dose modulation, iterative reconstruction, and/or weight based adjustme nt of the mA/kV was utilized to reduce the radiation dose to as low as reasona jose maria achievable. Sedation: Versed 2 mg and fentanyl 100 mcg was given intra venously for conscious sedation. Vital signs were monitored throughout the pr ocedure by a nurse, and remained stable. Physician intra-service time was 20. Approach: Right upper quadrant, per cutaneous Estimated blood loss: < 5 cc. Specimen: 12 cc of grossly purulent appearing fluid, sent for microbiology. compressor station operator: Brandon Brand MD. Technique: Informed written consent was obtained. Discussion of risks, benefits, and alternatives were made with the patient. The patient expressed understanding and agreed to proceed. A universal timeout was performed prior to starting the procedure. All elements maximal sterile barrier technique was utilized for this procedure, including utilization of sterile scrub solution for skin prep, a large sterile sheet to cover the areas of the patient that were not prepped, and hand hygiene, mask, head covering, and sterile gown for performing radiologist and scrub technologist. The patient was placed supine within the CT gantry. Initial CT images were obtained demonstrating ill-defined phlegmon and probably on or ganized fluid/stranding. The small, more organized collection noted on prior C T examination of the right upper quadrant was targeted for aspiration. The rig ht upper quadrant was prepped and draped in a sterile fashion. 1% lidocaine wa s used for local anesthesia. Using CT guidance, a 18-gauge x 9 cm needle was advanced into the fluid collection from an anterior approach. The collecti on was too small for wire/drain placement. Subsequent, a total of 12 cc of gr ossly purulent appearing fluid was aspirated, near completely evacuating the c ollection. The needle was removed and hemostasis achieved with manual compress ion. The patient told the procedure without immediate consultation. Impressi on: Successful CT-guided aspiratio n of right upper quadrant fluid collection yielding 12 cc of grossly purulent appearing fluid which was sent for microbiology. Signed by: Alana Brand MD on 01/01/2020 2:08 PM Dictated By: BRANDON BRAND MD El ectronically Signed By: BRANDON BRAND MD on 01/01/201407 Transcribed By: KULDEEP Bah on 01/01/201407 COPY TO: IGNACIO LEE MD Bacterial body fluid xvmqxrz5025-74-66 13:35:00* Test Item Value Reference Range Interpretation Comments Body Fluid Culture (test code = 611-4) STREPTOCOCCUS VIRIDANS [facility] HospitalBacterial body fluid kuqefej6672-29-51 13:35:00* Test Item Value Reference Range Interpretation Comments Body Fluid Culture (test code = 611-4) STREPTOCOCCUS VIRIDANS [facility] HospitalBacteria body fluid sgcyswr3879-71-14 13:35:00* Test Item Value Reference Range Interpretation Comments Body Fluid Culture (test code = 611-4) STREPTOCOCCUS VIRIDANS [facility] HospitalBacteria body fluid sjyqmxw4612-89-15 13:35:00* Test Item Value Reference Range Interpretation Comments Body Fluid Culture (test code = 611-4) STREPTOCOCCUS VIRIDANS [facility] HospitalProthrombin time (PT) in platelet poor plasma by coagulation mjxmq7830-95-64 10:50:00* Test Item Value Reference Range Interpretation Comments Prothrombin Time (test code = 5902-2) 18.7 11.9-14.5 [facility] HospitalINR in Platelet poor plasma by Coagulation lnfnb0490-40-00 10:50:00* Test Item Value Reference Range Interpretation Comments Prothromb Time International Ratio (test code = 6301-6) 1.46 Oral Anticoagulant Therapy INR Values:1. Low Intensity Therapy 1.5 - 2.02 . Moderate Intensity Therapy 2.0 - 3.03. High Intensity Therapy(1) 2.5 - 3. 54. High Intensity Therapy(2) 3.0 - 4.05. Panic Value INR > 5.0 [facility] HospitalActivated partial thromboplastin time (aPTT) in platelet poor plasma by coagulation jwnfu1882-77-45 10:50:00* Test Item Value Reference Range Interpretation Comments Activated Partial Thromboplast Time (test code = 41778-8) 52.2 23.8-35.5 [facility] HospitalProthrombin time (PT) in platelet poor plasma by coagulation qikyj6863-04-89 10:50:00* Test Item Value Reference Range Interpretation Comments Prothrombin Time (test code = 5902-2) 18.7 11.9-14.5 [facility] HospitalINR in Platelet poor plasma by Coagulation cspkj7732-99-82 10:50:00* Test Item Value Reference Range Interpretation Comments Prothromb Time International Ratio (test code = 6301-6) 1.46 Oral Anticoagulant Therapy INR Values:1. Low Intensity Therapy 1.5 - 2.02 . Moderate Intensity Therapy 2.0 - 3.03. High Intensity Therapy(1) 2.5 - 3. 54. High Intensity Therapy(2) 3.0 - 4.05. Panic Value INR > 5.0 [facility] HospitalActivated partial thromboplastin time (aPTT) in platelet poor plasma by coagulation awsyg3563-07-91 10:50:00* Test Item Value Reference Range Interpretation Comments Activated Partial Thromboplast Time (test code = 90045-7) 52.2 23.8-35.5 [facility] HospitalProthrombin time (PT) in platelet poor plasma by coagulation mljtm5560-33-53 10:50:00* Test Item Value Reference Range Interpretation Comments Prothrombin Time (test code = 5902-2) 18.7 11.9-14.5 [facility] HospitalINR in Platelet poor plasma by Coagulation hzgyc0595-79-82 10:50:00* Test Item Value Reference Range Interpretation Comments Prothromb Time International Ratio (test code = 6301-6) 1.46 Oral Anticoagulant Therapy INR Values:1. Low Intensity Therapy 1.5 - 2.02 . Moderate Intensity Therapy 2.0 - 3.03. High Intensity Therapy(1) 2.5 - 3. 54. High Intensity Therapy(2) 3.0 - 4.05. Panic Value INR > 5.0 [facility] HospitalActivated partial thromboplastin time (aPTT) in platelet poor plasma by coagulation nvoyq1562-74-93 10:50:00* Test Item Value Reference Range Interpretation Comments Activated Partial Thromboplast Time (test code = 97424-0) 52.2 23.8-35.5 [facility] HospitalProthrombin time (PT) in platelet poor plasma by coagulation jxniv7625-86-38 10:50:00* Test Item Value Reference Range Interpretation Comments Prothrombin Time (test code = 5902-2) 18.7 11.9-14.5 [facility] HospitalINR in Platelet poor plasma by Coagulation prsoe6258-10-65 10:50:00* Test Item Value Reference Range Interpretation Comments Prothromb Time International Ratio (test code = 6301-6) 1.46 Oral Anticoagulant Therapy INR Values:1. Low Intensity Therapy 1.5 - 2.02 . Moderate Intensity Therapy 2.0 - 3.03. High Intensity Therapy(1) 2.5 - 3. 54. High Intensity Therapy(2) 3.0 - 4.05. Panic Value INR > 5.0 [facility] HospitalActivated partial thromboplastin time (aPTT) in platelet poor plasma by coagulation dsyyl1786-96-77 10:50:00* Test Item Value Reference Range Interpretation Comments Activated Partial Thromboplast Time (test code = 07459-2) 52.2 23.8-35.5 [facility] by glucometer (mass/volume)2020-01-01 07:32:00* Test Item Value Reference Range Interpretation Comments Bedside Glucose (test code = 27754-1) 176 70-120 Meter ID: [id number] Saint [facility] Atlantaillary blood glucose measurement by glucometer (mass/volume)2020-01-01 07:32:00* Test Item Value Reference Range Interpretation Comments Bedside Glucose (test code = 87648-5) 176 70-120 Meter ID: [id number] Saint [facility] Atlantaillary blood glucose measurement by glucometer (mass/volume)2020-01-01 07:32:00* Test Item Value Reference Range Interpretation Comments Bedside Glucose (test code = 91887-7) 176 70-120 Meter ID: [id number] Arts HospitalManual blood band neutrophils form/100 mprkfsmysk2394-34-93 04:30:00* Test Item Value Reference Range Interpretation Comments Band Neutrophils % (test code = 764-1) 1 [facility] HospitalManual blood band neutrophils form/100 dpmripcfbj2511-61-12 04:30:00* Test Item Value Reference Range Interpretation Comments Band Neutrophils % (test code = 764-1) [address] [facility] neutrophils form/100 kqzrjtgmbb0627-09-49 04:30:00* Test Item Value Reference Range Interpretation Comments Band Neutrophils % (test code = 764-1) 1 [facility] neutrophils form/100 ocebdyxowz1644-27-80 04:30:00* Test Item Value Reference Range Interpretation Comments Band Neutrophils % (test code = 764-1) 1 [facility] HospitalCT ABDOMEN/PELVIS [id number] 18:48:00 [facility] [address] [place] [address] Patient Name: DORA MATIAS MR #: [id number] : 1985 Age/Sex: 34/M Req #: [id number] Adm Physician: SHARLA FRANKEL MD Ordered by: DESITN DALTON INCIDENT ENGINEER Repor t #: [id number] Location: [facility] Room/Bed : [place] [address] Procedure: [id number] CT/CT ABDOMEN/PE LVIS W Exam Date: 12/31/19 Exam Time: 1830 REPORT STATUS: Signed EXAMINATION: CT of the abdomen and pelvis with contrast. TECHNIQUE: Helical CT images of e abdomen and pelvis were performed from the lung bases to the lesser trochant ers after the intravenous administration of 100 cc of Isovue 300 and the oral administration of none. Coronal and sagittal reformatted images were obtained . Dose modulation, iterative reconstruction, and/or weight based adjustment of the mA/kV was utilized to reduce the radiation dose to as low as reasonably a chievable. COMPARISON: None. CLINICAL HISTORY:Fever, stomach pain DISCUSSION: ABDOMEN/PELVIS: LOWER THORAX:Unremarkable. HE PATOBILIARY: No focal hepatic lesions. No intra-or extrahepatic biliary ducta l dilation. The gallbladder is normal. SPLEEN: No splenomegaly. PA NCREAS: No focal masses or ductal dilatation. ADRENALS: No adrenal nodules . KIDNEYS/URETERS: No hydronephrosis, stones, or solid mass lesions. P ELVIC ORGANS/BLADDER: The bladder is normal. PERITONEUM/RETROPERITONEUM: Well-defined abscess in the right upper quadrant measuring up to 3.2 cm on axi al image 52. Superiorly, ill-defined phlegmon on axial image 44. Anteriorly il l-defined air-containing collection measuring 3.3 cm axial image 72 located in the left of midline abdomen.. LYMPH NODES: Reactive right upper quadrant l ymph nodes. VESSELS: The celiac trunk,superior and inferior mesenteric and bilateral renal arteries are patent The portal, superior mesenteric and sple eugenia veins are patent. GI TRACT: Partial bowel resection involving the asc ending colon/cecum and distal ileum. Reactive thickening of the proximal trans verse colon BONES AND SOFT TISSUE: No bony destructive lesions. No soft tissue abnormalities. IMPRESSION: Partial ileocolectomy with righ t upper quadrant 3.2 cm abscess and additional ill-defined phlegmon superiorly and left midline abdomen inferiorly. Reactive change in the proximal trans verse colon and right upper quadrant lymphadenopathy. Signed by: Dr. Teo Quan M.D. on 12/31/2019 6:56 PM Dictated By: FELICIA QUAN MD E lectronically Signed By: FELICIA QUAN MD on 12/31/191855 Transcribed By: Gideon CAMACHO on 12/31/191855 COPY TO: DESTIN DALTON NP Fluoroscopic procedure less than one hour fnhxavzq4866-69-13 17:55:00* Test Item Value Reference Range Interpretation Comments Coronavirus (PCR) (test code = Coronavirus (PCR)) NOT DETECTED NOTD ETECTED SARS-COV-2 (COVID19), HIGHRISK, RT-PCRNegative results do not preclude SARS-CoV- 2 infection and should not be used as the sole basis for patient management deci sions. Negative results must be combined with clinical observations, patient his tory, and epidemiological information. Optimum specimen types and timing for pea k viral levels during infections caused by SARS-CoV-2 have not been determined. Collection of multiple specimens ot types of specimens may be necessary to detec t virus. Improper specimen collection and handling, sequence variability under p rimers/probes, or organism present below the limit of detection may lead to fals e negative results. Positive and negative predictive values of testing are highl y dependent on prevalance. False negative test results are more likely when prev alence is high.The expected result is negative (not detected).The SARS-CoV-2 dominic t is intended for the qualitative detection of nucleic acid from SARS-CoV-2 in n asopharyngeal and oropharyngeal swab samples from patients who meet COVID-19 cli nical and or epidemiological criteria. For lower respiratory tract specimens, th e assay is submitted for authoriztion by FDA under an Emergency Use Authorizatio n (EUA). Testing methodology is real time RT-PCR. If received as separate collec tion devices, nasopharygeal and oropharyngeal specimens are combined for analysi s. Additional specimens may be split to a separate accession for analysi and rep orting as this test includes a single unit of service.Test results must be corre lated with clinical presentation and evaluated in the context of other laborator y and epidemiologic data. Test performance can be affected because the epidemiol ogy and clinical spectrum of infection caused by SARS-CoV-2 is not fully known. For example, the optimum types of specimens to collect and when during the cours e of infection these specimens are most likely to contain detectable viral RNA m ay not be known.This test has not been Food and Drug Administration (FDA) cleare d or approved and has been authorized by FDA under an Emergency Use Authorizatio n (EUA). The test is only authorized for the duration of the declaration that ci rcumstances exist justifying the authorization of emergency use of in vitro diag nostic tests for detection and/or diagnosis of SARS-CoV-2 under section 564(b) o f the Act, 21 U.S.C. section 360bbb-3(b)(1), unless the authorization is termina jose or revoked sooner. [facility] are certified under the C linical Laboratory Improvement Amendments of 1988 (CLIA), 42 U.S.C. section 263a , to perform high complexity tests.Testing performed by [facility] [address] [id number] Director: Miles Evans M.D.CLIA # [id number] Arts HospitalManual blood myelocytes/100 pkonxmlksq3365-52-95 17:45:00* Test Item Value Reference Range Interpretation Comments Myelocytes % (test code = 749-2) 1 0-0 [facility] HospitalBlood microcytes detection by light snadyjldae2636-46-32 17:45:00* Test Item Value Reference Range Interpretation Comments Microcytosis (test code = 741-9) SLIGHT [facility] HospitalFluoroscopic procedure less than one hour ajrffoyi6356-54-04 17:45:00* Test Item Value Reference Range Interpretation Comments Lactic Acid Level (test code = Lactic Acid Level) 1.6 0.5- 2.0 [facility] plasma lipase measurement (enzymatic activity/volume)2019-12-31 17:45:00* Test Item Value Reference Range Interpretation Comments Lipase (test code = 3040-3) [facility] blood myelocytes/100 leukocytes 2019-12-31 17:45:00* Test Item Value Reference Range Interpretation Comments Myelocytes % (test code = 749-2) 1 0-0 [facility] HospitalBl[facility] microcytes detection by light alwqudimsc0866-19-15 17:45:00* Test Item Value Reference Range Interpretation Comments Microcytosis (test code = 741-9) SLIGHT [facility] HospitalFluoroscopic procedure less than one hour lwkzgjhb8070-58-07 17:45:00* Test Item Value Reference Range Interpretation Comments Lactic Acid Level (test code = Lactic Acid Level) 1.6 0.5- 2.0 [facility] plasma lipase measurement (enzymatic activity/volume)2019-12-31 17:45:00* Test Item Value Reference Range Interpretation Comments Lipase (test code = 3040-3) [facility] myel[facility]100 leukocytes 2019-12-31 17:45:00* Test Item Value Reference Range Interpretation Comments Myelocytes % (test code = 749-2) 1 0-0 [facility] HospitalBlood microcytes detection by light qhiyyckiwd6505-47-69 17:45:00* Test Item Value Reference Range Interpretation Comments Microcytosis (test code = 741-9) SLIGHT [facility] HospitalFluoroscopic procedure less than one hour jacoazny6514-15-95 17:45:00* Test Item Value Reference Range Interpretation Comments Lactic Acid Level (test code = Lactic Acid Level) 1.6 0.5- 2.0 [facility] plasma lipase measurement (enzymatic activity/volume)2019-12-31 17:45:00* Test Item Value Reference Range Interpretation Comments Lipase (test code = 3040-3) [facility] HospitalManual blood myelocytes/100 leukocytes 2019-12-31 17:45:00* Test Item Value Reference Range Interpretation Comments Myelocytes % (test code = 749-2) 1 0-0 [facility] HospitalBlper[facility] microcytes detection by light yoybnrkxtz1184-53-35 17:45:00* Test Item Value Reference Range Interpretation Comments Microcytosis (test code = 741-9) SLIGHT [facility] HospitalFluoroscopic procedure less than one hour rbzwbpgt0073-26-26 17:45:00* Test Item Value Reference Range Interpretation Comments Lactic Acid Level (test code = Lactic Acid Level) 1.6 0.5- 2.0 [facility] plasma lipase measurement (enzymatic activity/volume)2019-12-31 17:45:00* Test Item Value Reference Range Interpretation Comments Lipase (test code = 3040-3) [facility] HospitalBlood usknztf9201-52-24 17:15:00* Test Item Value Reference Range Interpretation Comments Blood Culture (test code = 27784758) NO GROWTH AFTER 72 HOURS [facility] HospitalBlood pqdepgd9329-74-82 17:15:00* Test Item Value Reference Range Interpretation Comments Blood Culture (test code = 26973090) NO GROWTH AFTER 5 DAYS, FINAL REPORT [facility] HospitalBlood djwvznb8467-78-25 17:15:00* Test Item Value Reference Range Interpretation Comments Blood Culture (test code = 39589560) NO GROWTH AFTER 5 DAYS, FINAL REPORT [facility] HospitalUrine color scaovbouxvtvc6393-99-75 17:09:00* Test Item Value Reference Range Interpretation Comments Urine Color (test code = 5778-6) CATRACHO YELLOW [facility] HospitalUrine eumeiks5226-93-69 17:09:00* Test Item Value Reference Range Interpretation Comments Urine Clarity (test code = 89975-0) HAZY CLEAR [facility] gravity of Urine by Test strip 2019-12-31 17:09:00* Test Item Value Reference Range Interpretation Comments Urine Specific [place] (test code = 5811-5) 1.030 1.010-1.02 5 [facility] HospitalUrine pH measurement by automated test twsxt2241-54-44 17:09:00* Test Item Value Reference Range Interpretation Comments Urine pH (test code = 61784-6) 6 5-7 [facility] HospitalUrine leukocyte esterase detection by erniaqjg9953-68-83 17:09:00* Test Item Value Reference Range Interpretation Comments Urine Leukocyte Esterase (test code = 5799-2) NEGATIVE NEGATIVE [facility] HospitalUrine nitrite yxgmucrwj3804-39-44 17:09:00* Test Item Value Reference Range Interpretation Comments Urine Nitrite (test code = 32197-3) POSITIVE NEGATIVE [facility] HospitalUrine protein measurement by test strip (mass/volume)2019-12-31 17:09:00* Test Item Value Reference Range Interpretation Comments Urine Protein (test code = 5804-0) 1+ NEGATIVE [facility] HospitalUrine glucose ywyhqxihp3982-14-06 17:09:00* Test Item Value Reference Range Interpretation Comments Urine Glucose (UA) (test code = 2349-9) NEGATIVE NEGATIVE [facility] HospitalUrine ketones detection by automated test nqlfc5631-92-02 17:09:00* Test Item Value Reference Range Interpretation Comments Urine Ketones (test code = 02325-3) TRACE NEGATIVE [facility] HospitalUrine urobilinogen measurement by test strip (mass/volume)2019-12-31 17:09:00* Test Item Value Reference Range Interpretation Comments Urine Urobilinogen (test code = 32667-8) 0.2 0.2-1 [facility] HospitalUrine total bilirubin measurement (mass/volume)2019-12-31 17:09:00* Test Item Value Reference Range Interpretation Comments Urine Bilirubin (test code = 1978-6) SMALL NEGATIVE [facility] HospitalUrine erythrocytes dtdaeqesw7145-71-16 17:09:00* Test Item Value Reference Range Interpretation Comments Urine Blood (test code = 93785-5) TRACE NEGATIVE [facility] HospitalAutomated urine sediment leukocyte count by microscopy (number/high power field)2019-12-31 17:09:00* Test Item Value Reference Range Interpretation Comments Urine WBC (test code = 5821-4) 6-10 0-5 [facility] HospitalErythrocytes detection in urine sediment by light btyoshbqey2514-91-86 17:09:00* Test Item Value Reference Range Interpretation Comments Urine RBC (test code = 29244-3) 0-5 0-5 [facility] HospitalBacteria detection in urine sediment by light hhndrsguny3304-26-35 17:09:00* Test Item Value Reference Range Interpretation Comments Urine Bacteria (test code = 90932-8) FEW NONE [facility] HospitalEpithelial cells detection in urine sediment by light bhkrepianc0299-48-67 17:09:00* Test Item Value Reference Range Interpretation Comments Urine Epithelial Cells (test code = 29649-3) FEW NONE [facility] HospitalAmorphous sediment detection in urine sediment by light poxngnzyle5661-41-94 17:09:00* Test Item Value Reference Range Interpretation Comments Urine Amorphous Sediment (test code = 8246-1) FEW FEW [facility] HospitalHyaline casts detection in urine sediment by light ejipqcvekg4754-85-38 17:09:00* Test Item Value Reference Range Interpretation Comments Urine Hyaline Casts (test code = 91716-5) 0-1 0-1 [facility] HospitalUrine color kvbjdvmtcmyrj0257-70-78 17:09:00* Test Item Value Reference Range Interpretation Comments Urine Color (test code = 5778-6) [place] YELLOW [facility] HospitalUrine bwfaxrq8168-03-56 17:09:00* Test Item Value Reference Range Interpretation Comments Urine Clarity (test code = 01589-5) HAZY CLEAR [facility] gravity of Urine by Test strip 2019-12-31 17:09:00* Test Item Value Reference Range Interpretation Comments Urine Specific [place] (test code = 5811-5) 1.030 1.010-1.02 5 [facility] HospitalUrine pH measurement by automated test zzbnj9707-36-01 17:09:00* Test Item Value Reference Range Interpretation Comments Urine pH (test code = 30711-2) 6 5-7 [facility] HospitalUrine leukocyte esterase detection by fbqibbii2813-71-21 17:09:00* Test Item Value Reference Range Interpretation Comments Urine Leukocyte Esterase (test code = 5799-2) NEGATIVE NEGATIVE [facility] HospitalUrine nitrite csbcmoyzc8044-34-02 17:09:00* Test Item Value Reference Range Interpretation Comments Urine Nitrite (test code = 86808-7) POSITIVE NEGATIVE [facility] [facility] protein measurement by test strip (mass/volume)2019-12-31 17:09:00* Test Item Value Reference Range Interpretation Comments Urine Protein (test code = 5804-0) 1+ NEGATIVE [facility] glucose vauffqiko9687-23-63 17:09:00* Test Item Value Reference Range Interpretation Comments Urine Glucose (UA) (test code = 2349-9) NEGATIVE NEGATIVE [facility]Urine ketones detection by automated test awdzs0496-34-60 17:09:00* Test Item Value Reference Range Interpretation Comments Urine Ketones (test code = 84495-0) TRACE NEGATIVE [facility] HospitalUrine urobilinogen measurement by test strip (mass/volume)2019-12-31 17:09:00* Test Item Value Reference Range Interpretation Comments Urine Urobilinogen (test code = 47235-1) 0.2 0.2-1 [facility] total bilirubin measurement (mass/volume)2019-12-31 17:09:00* Test Item Value Reference Range Interpretation Comments Urine Bilirubin (test code = 1978-6) SMALL NEGATIVE [facility] HospitalU[facility] erythrocytes kujljsuic0300-50-47 17:09:00* Test Item Value Reference Range Interpretation Comments Urine Blood (test code = 73140-0) TRACE NEGATIVE [facility] HospitalAutomated urine sediment leukocyte count by microscopy (number/high power field)2019-12-31 17:09:00* Test Item Value Reference Range Interpretation Comments Urine WBC (test code = 5821-4) 6-10 0-5 [facility] HospitalErythrocytes detection in urine sediment by light vpiuvdxqbu5910-79-95 17:09:00* Test Item Value Reference Range Interpretation Comments Urine RBC (test code = 92802-7) 0-5 0-5 [facility] HospitalBacteria detection in urine sediment by light cpszyswmer8916-44-88 17:09:00* Test Item Value Reference Range Interpretation Comments Urine Bacteria (test code = 13335-9) FEW NONE [facility] HospitalEpithelial cells detection in urine sediment by light nigzpstczm6220-12-99 17:09:00* Test Item Value Reference Range Interpretation Comments Urine Epithelial Cells (test code = 98537-8) FEW NONE [facility] HospitalAmorphous sediment detection in urine sediment by light cpmvkljrgi2745-24-74 17:09:00* Test Item Value Reference Range Interpretation Comments Urine Amorphous Sediment (test code = 8246-1) FEW FEW [facility] HospitalHyaline casts detection in urine sediment by light mxjjgcpxmn0391-22-32 17:09:00* Test Item Value Reference Range Interpretation Comments Urine Hyaline Casts (test code = 94426-9) 0-1 0-1 [facility] HospitalUrine color axzkpeshnxajb9947-79-11 17:09:00* Test Item Value Reference Range Interpretation Comments Urine Color (test code = 5778-6) CATRACHO YELLOW [facility] HospitalUrine ejcmvrc6348-99-63 17:09:00* Test Item Value Reference Range Interpretation Comments Urine Clarity (test code = 93804-5) HAZY CLEAR [facility]udapecific gravity of Urine by Test strip 2019-12-31 17:09:00* Test Item Value Reference Range Interpretation Comments Urine Specific [place] (test code = 5811-5) 1.030 1.010-1.02 5 [facility] HospitalU[facility] pH measurement by automated test yecfj0340-54-83 17:09:00* Test Item Value Reference Range Interpretation Comments Urine pH (test code = 80788-3) 6 5-7 [facility] HospitalUrine leukocyte esterase detection by kiektihz1192-72-40 17:09:00* Test Item Value Reference Range Interpretation Comments Urine Leukocyte Esterase (test code = 5799-2) NEGATIVE NEGATIVE [facility] HospitalUrine nitrite rekpfaevy3863-54-69 17:09:00* Test Item Value Reference Range Interpretation Comments Urine Nitrite (test code = 23594-0) POSITIVE NEGATIVE [facility] HospitalUrine protein measurement by test strip (mass/volume)2019-12-31 17:09:00* Test Item Value Reference Range Interpretation Comments Urine Protein (test code = 5804-0) 1+ NEGATIVE [facility] HospitalU[facility] glucose qkikleojj5982-32-53 17:09:00* Test Item Value Reference Range Interpretation Comments Urine Glucose (UA) (test code = 2349-9) NEGATIVE NEGATIVE [facility] HospitalUrine ketones detection by automated test drofx1195-66-08 17:09:00* Test Item Value Reference Range Interpretation Comments Urine Ketones (test code = 26037-3) TRACE NEGATIVE [facility] HospitalUrine urobilinogen measurement by test strip (mass/volume)2019-12-31 17:09:00* Test Item Value Reference Range Interpretation Comments Urine Urobilinogen (test code = 52210-4) 0.2 0.2-1 [facility] HospitalU[facility] total bilirubin measurement (mass/volume)2019-12-31 17:09:00* Test Item Value Reference Range Interpretation Comments Urine Bilirubin (test code = 1978-6) SMALL NEGATIVE [facility] HospitalUrine erythrocytes kkjutlufp8191-74-97 17:09:00* Test Item Value Reference Range Interpretation Comments Urine Blood (test code = 78606-7) TRACE NEGATIVE [facility] HospitalAutomated urine sediment leukocyte count by microscopy (number/high power field)2019-12-31 17:09:00* Test Item Value Reference Range Interpretation Comments Urine WBC (test code = 5821-4) 6-10 0-5 [facility] HospitalErythrocytes detection in urine sediment by light ikznzgbtif3434-96-98 17:09:00* Test Item Value Reference Range Interpretation Comments Urine RBC (test code = 19112-7) 0-5 0-5 [facility] HospitalBacteria detection in urine sediment by light sayqauyrix8127-04-39 17:09:00* Test Item Value Reference Range Interpretation Comments Urine Bacteria (test code = 48542-5) FEW NONE [facility] HospitalEpithelial cells detection in urine sediment by light hzxnunfrel2259-97-10 17:09:00* Test Item Value Reference Range Interpretation Comments Urine Epithelial Cells (test code = 78634-2) FEW NONE [facility] HospitalAmorphous sediment detection in urine sediment by light yigjwflnse2325-46-02 17:09:00* Test Item Value Reference Range Interpretation Comments Urine Amorphous Sediment (test code = 8246-1) FEW FEW [facility] HospitalHyaline casts detection in urine sediment by light gnmbgecgvs1031-49-04 17:09:00* Test Item Value Reference Range Interpretation Comments Urine Hyaline Casts (test code = 69894-2) 0-1 0-1 [facility] HospitalUrine color qiralstunjrld5074-78-14 17:09:00* Test Item Value Reference Range Interpretation Comments Urine Color (test code = 5778-6) CATRACHO YELLOW [facility] HospitalUrine yyxoozw8616-84-99 17:09:00* Test Item Value Reference Range Interpretation Comments Urine Clarity (test code = 83603-7) HAZY CLEAR [facility]udapecific gravity of Urine by Test strip 2019-12-31 17:09:00* Test Item Value Reference Range Interpretation Comments Urine Specific [place] (test code = 5811-5) 1.030 1.010-1.02 5 [facility] HospitalU[facility] pH measurement by automated test jqvhp9560-26-73 17:09:00* Test Item Value Reference Range Interpretation Comments Urine pH (test code = 35504-7) 6 5-7 [facility] HospitalUrine leukocyte esterase detection by axrzvvsc3071-73-24 17:09:00* Test Item Value Reference Range Interpretation Comments Urine Leukocyte Esterase (test code = 5799-2) NEGATIVE NEGATIVE [facility] HospitalUrine nitrite xphctcqqd4698-59-89 17:09:00* Test Item Value Reference Range Interpretation Comments Urine Nitrite (test code = 96996-7) POSITIVE NEGATIVE [facility] HospitalUrine protein measurement by test strip (mass/volume)2019-12-31 17:09:00* Test Item Value Reference Range Interpretation Comments Urine Protein (test code = 5804-0) 1+ NEGATIVE [facility] HospitalUrine glucose reiyysypm5333-28-73 17:09:00* Test Item Value Reference Range Interpretation Comments Urine Glucose (UA) (test code = 2349-9) NEGATIVE NEGATIVE [facility] HospitalUrine ketones detection by automated test pbiwb8253-77-05 17:09:00* Test Item Value Reference Range Interpretation Comments Urine Ketones (test code = 39222-5) TRACE NEGATIVE [facility] HospitalUrine urobilinogen measurement by test strip (mass/volume)2019-12-31 17:09:00* Test Item Value Reference Range Interpretation Comments Urine Urobilinogen (test code = 00283-3) 0.2 0.2-1 [facility] HospitalUrine total bilirubin measurement (mass/volume)2019-12-31 17:09:00* Test Item Value Reference Range Interpretation Comments Urine Bilirubin (test code = 1978-6) SMALL NEGATIVE [facility] HospitalUrine erythrocytes ofeftnmmj0106-00-47 17:09:00* Test Item Value Reference Range Interpretation Comments Urine Blood (test code = 72535-4) TRACE NEGATIVE [facility] HospitalAutomated urine sediment leukocyte count by microscopy (number/high power field)2019-12-31 17:09:00* Test Item Value Reference Range Interpretation Comments Urine WBC (test code = 5821-4) 6-10 0-5 [facility] HospitalErythrocytes detection in urine sediment by light kxiudvwtar0275-51-70 17:09:00* Test Item Value Reference Range Interpretation Comments Urine RBC (test code = 95176-0) 0-5 0-5 [facility] HospitalBacteria detection in urine sediment by light lrtmnuoahz6635-81-71 17:09:00* Test Item Value Reference Range Interpretation Comments Urine Bacteria (test code = 08675-2) FEW NONE [facility] HospitalEpithelial cells detection in urine sediment by light xxbeilaijf8338-01-74 17:09:00* Test Item Value Reference Range Interpretation Comments Urine Epithelial Cells (test code = 26603-9) FEW NONE [facility] HospitalAmorphous sediment detection in urine sediment by light xfgblfpqnu8587-57-09 17:09:00* Test Item Value Reference Range Interpretation Comments Urine Amorphous Sediment (test code = 8246-1) FEW FEW [facility] HospitalHyaline casts detection in urine sediment by light gfgxwcbpub9772-64-45 17:09:00* Test Item Value Reference Range Interpretation Comments Urine Hyaline Casts (test code = 35664-5) 0-1 0-1 [facility]uda[facility]um [facility] plasma magnesium measurement (mass/volume)2019-12-16 17:10:00* Test Item Value Reference Range Interpretation Comments Magnesium Level (test code = 91845-7) 1.5 1.3-2.1 [facility]udaerum or plasma magnesium measurement (mass/volume)2019-12-16 17:10:00* Test Item Value Reference Range Interpretation Comments Magnesium Level (test code = 87625-1) 1.5 1.3-2.1 [facility]udaerum or plasma magnesium measurement (mass/volume)2019-12-16 17:10:00* Test Item Value Reference Range Interpretation Comments Magnesium Level (test code = 69905-9) 1.5 1.3-2.1 [facility]udaerum or plasma magnesium measurement (mass/volume)2019-12-16 17:10:00* Test Item Value Reference Range Interpretation Comments Magnesium Level (test code = 66190-9) 1.5 1.3-2.1 [facility] HospitalCHEST XRAY LINE KGBTNWPMF6315-81-31 19:58:00 [place] [address] Patient Name: DORA MATIAS MR #: [id number] : 1985 Age/Sex: 34/M Req #: [id number] Adm Physician: SHARLA FRANKEL MD Ordered by: IGNACIO LEE MD Report #: [id number] Location: MED/SURG2 Room/Bed: 210 Procedure: [id number] DX /CHEST XRAY LINE PLACEMENT Exam Date: 12/08/19 Exam Time: 1899 REPORT STATUS: Signed EXAMINATION: CHEST XRAY LINE PLACEMENT INDICATION: veri fy placement of PICC [id number] COMPARISON: 04/22/2018 FINDINGS: TUBES and LINES: Right peripherally inserted central venous cathete r with distal tip at the right atrial/superior vena cava junction. LUNGS: Lungs are well inflated. Lungs are clear. There is no evidence of pneumon ia or pulmonary edema. PLEURA: No pleural effusion or pneumothorax. H EART AND MEDIASTINUM: The cardiomediastinal silhouette is unremarkable. BONES AND SOFT TISSUES: No acute osseous lesion. Soft tissues are unremark able. UPPER ABDOMEN: No free air under the diaphragm. IMPRESSION: Right peripherally inserted central venous catheter with distal tip at the right atrial/superior vena cava junction. Signed by: Compa Dubose on 12/08/2019 7:59 PM Dictated By: SANDY SAMSON MD, MD 58 Transcribed By: KATHRIN on 11/21 COPY TO: IGNACIO LEE MD Blood macrocytes detection by light nadeblaasd8746-20-57 05:00:00* Test Item Value Reference Range Interpretation Comments Macrocytosis (test code = 738-5) SLIGHT [facility] HospitalBlood ovalocytes detection by light cxqcviusio5996-54-39 05:00:00* Test Item Value Reference Range Interpretation Comments Ovalocytes (test code = 774-0) FEW [facility] macrocytes detection by light yaiiolxblv0292-88-31 05:00:00* Test Item Value Reference Range Interpretation Comments Macrocytosis (test code = 738-5) SLIGHT [facility]Bl[facility] ovalocytes detection by light hjyptijmce4998-70-28 05:00:00* Test Item Value Reference Range Interpretation Comments Ovalocytes (test code = 774-0) FEW [facility]Bl[facility] macrocytes detection by light wapntefapv7292-07-12 05:00:00* Test Item Value Reference Range Interpretation Comments Macrocytosis (test code = 738-5) SLIGHT [facility] ovalocytes detection by light zlxykexmtt0202-66-07 05:00:00* Test Item Value Reference Range Interpretation Comments Ovalocytes (test code = 774-0) FEW [facility]Bl[facility] macrocytes detection by light ipzqxqszka8393-92-12 05:00:00* Test Item Value Reference Range Interpretation Comments Macrocytosis (test code = 738-5) SLIGHT [facility] ovalocytes detection by light ivyuggrabd3112-37-88 05:00:00* Test Item Value Reference Range Interpretation Comments Ovalocytes (test code = 774-0) FEW [facility] HospitalClostridium difficile A and B toxin assay 2019-12-05 10:00:00* Test Item Value Reference Range Interpretation Comments Clostridium Difficile Toxin A & B (test code = 744970108) NEGATIVE NEGATIVE Testing on stool aspirate specimens is outside sole stapler welt claims since specime n type not validated on this assay.[facility] Clostridium difficile A and B toxin vvgvk6508-47-79 10:00:00* Test Item Value Reference Range Interpretation Comments Clostridium Difficile Toxin A & B (test code = 498548845) NEGATIVE NEGATIVE Testing on stool aspirate specimens is outside sole stapler welt claims since specime n type not validated on this assay.[facility] Clostridium difficile A and B toxin yvpic3782-84-45 10:00:00* Test Item Value Reference Range Interpretation Comments Clostridium Difficile Toxin A & B (test code = 055652835) NEGATIVE NEGATIVE Testing on stool aspirate specimens is outside sole stapler welt claims since specime n type not validated on this assay.[facility] Clostridium difficile A and B toxin ckvuf0794-60-13 10:00:00* Test Item Value Reference Range Interpretation Comments Clostridium Difficile Toxin A & B (test code = 725998294) NEGATIVE NEGATIVE Testing on stool aspirate specimens is outside sole stapler welt claims since specime n type not validated on this assay.[facility] Automated reticulocyte count as percentage of total esjwoyibyhqx0113-18-74 05:15:00* Test Item Value Reference Range Interpretation Comments Percent Reticulocyte Count (test code = 55153-2) 2.4 0.8-2 .2 [facility]uda[facility] or plasma iron measurement (mass/volume)2019-12-05 05:15:00* Test Item Value Reference Range Interpretation Comments Iron Level (test code = 2498-4) 18 65-175 [facility]udaerum or plasma iron binding capacity measurement (mass/volume)2019-12-05 05:15:00* Test Item Value Reference Range Interpretation Comments Total Iron Binding Capacity (test code = 2500-7) 178 261-4 78 [facility] Budaerum or plasma iron saturation measurement (mass fraction)2019-12-05 05:15:00* Test Item Value Reference Range Interpretation Comments Percent Iron Saturation (test code = 2502-3) 10 15-50 [facility]udaerum or plasma transferrin measurement (mass/volume)2019-12-05 05:15:00* Test Item Value Reference Range Interpretation Comments Transferrin (test code = 3034-6) 127 174-364 [facility]udaerum or plasma ferritin measurement (mass/volume)2019-12-05 05:15:00* Test Item Value Reference Range Interpretation Comments Ferritin (test code = 2276-4) 352.09 21.81-274.66 [facility] HospitalBlood cobalamin (vitamin B12) measurement (mass/volume)2019-12-05 05:15:00* Test Item Value Reference Range Interpretation Comments Vitamin B12 Level (test code = 89384-8) 381 213-816 [facility] Budatool calprotectin measurement (mass/mass)2019-12-05 05:15:00* Test Item Value Reference Range Interpretation Comments Stool Calprotectin (test code = 36274-4) 189 0-120 Concentration Interpretation Follow-Up<16 - 50 ug/g Normal None>50 -120 ug/g Borderline Re-evaluate in 4-6 weeks >120 ug/g Abnormal Repeat as clinically indicatedPerformed at: [facility] [employer] [id number] Director: Rick Pike MD, Phone: [phone] Scott & White [facility] – Budaerum or plasma folate measurement (mass/volume) 2019-12-05 05:15:00* Test Item Value Reference Range Interpretation Comments Folate (test code = 2284-8) 14.0 >3.0 A serum folate concentration of less than 3.1 ng/mL isconsidered to represent cl inical deficiency.Performed at: [facility] [id number] Director: Joselo Frank MD, Phone: [phone] Scott & White Medical Center – Budaerum or plasma C reactive protein measurement (mass/volume)2019-12-05 05:15:00* Test Item Value Reference Range Interpretation Comments C-Reactive Protein (test code = 1988-5) 54 0-10 Performed at: [facility] [id number] Director: Joselo Frank MD, Phone: [phone] [facility] HospitalAutomated reticulocyte count as percentage of total basjvifqlzxj2874-11-70 05:15:00* Test Item Value Reference Range Interpretation Comments Percent Reticulocyte Count (test code = 55401-7) 2.4 0.8-2 .2 [facility]udaerum or plasma iron measurement (mass/volume)2019-12-05 05:15:00* Test Item Value Reference Range Interpretation Comments Iron Level (test code = 2498-4) 18 65-175 [facility]udaerum or plasma iron binding capacity measurement (mass/volume)2019-12-05 05:15:00* Test Item Value Reference Range Interpretation Comments Total Iron Binding Capacity (test code = 2500-7) 178 261-4 78 [facility]udaerum or plasma iron saturation measurement (mass fraction)2019-12-05 05:15:00* Test Item Value Reference Range Interpretation Comments Percent Iron Saturation (test code = 2502-3) 10 15-50 [facility]udaerum or plasma transferrin measurement (mass/volume)2019-12-05 05:15:00* Test Item Value Reference Range Interpretation Comments Transferrin (test code = 3034-6) 127 174-364 [facility]udaerum or plasma ferritin measurement (mass/volume)2019-12-05 05:15:00* Test Item Value Reference Range Interpretation Comments Ferritin (test code = 2276-4) 352.09 21.81-274.66 [facility]Blood cobalamin (vitamin B12) measurement (mass/volume)2019-12-05 05:15:00* Test Item Value Reference Range Interpretation Comments Vitamin B12 Level (test code = 12194-7) 381 213-816 [facility] Budatool calprotectin measurement (mass/mass)2019-12-05 05:15:00* Test Item Value Reference Range Interpretation Comments Stool Calprotectin (test code = 66334-9) 189 0-120 Concentration Interpretation Follow-Up<16 - 50 ug/g Normal None>50 -120 ug/g Borderline Re-evaluate in 4-6 weeks >120 ug/g Abnormal Repeat as clinically indicatedPerformed at: - [facility] [address] [id number] Director: Rick Pike MD, Phone: [phone] Scott & White Medical Center – Budaerum or plasma folate measurement (mass/volume) 2019-12-05 05:15:00* Test Item Value Reference Range Interpretation Comments Folate (test code = 2284-8) 14.0 >3.0 A serum folate concentration of less than 3.1 ng/mL isconsidered to represent cl inical deficiency.Performed at: [facility] [facility] [address] [id number] Director: Joselo Frank MD, Phone: [phone] Scott & White Medical Center – Budaerum or plasma C reactive protein measurement (mass/volume)2019-12-05 05:15:00* Test Item Value Reference Range Interpretation Comments C-Reactive Protein (test code = 1988-5) 54 0-10 Performed at: [facility] [address] [place], [place] [id number] Director: Joselo Frank MD, Phone: [phone] [facility] HospitalAutomated reticulocyte count as percentage of total ttidukzpheee6730-80-78 05:15:00* Test Item Value Reference Range Interpretation Comments Percent Reticulocyte Count (test code = 41430-5) 2.4 0.8-2 .2 [facility]udaerum or plasma iron measurement (mass/volume)2019-12-05 05:15:00* Test Item Value Reference Range Interpretation Comments Iron Level (test code = 2498-4) 18 65-175 [facility]udaerum or plasma iron binding capacity measurement (mass/volume)2019-12-05 05:15:00* Test Item Value Reference Range Interpretation Comments Total Iron Binding Capacity (test code = 2500-7) 178 261-4 78 [facility] Budaerum or plasma iron saturation measurement (mass fraction)2019-12-05 05:15:00* Test Item Value Reference Range Interpretation Comments Percent Iron Saturation (test code = 2502-3) 10 15-50 [facility]udaerum or plasma transferrin measurement (mass/volume)2019-12-05 05:15:00* Test Item Value Reference Range Interpretation Comments Transferrin (test code = 3034-6) 127 174-364 [facility]udaerum or plasma ferritin measurement (mass/volume)2019-12-05 05:15:00* Test Item Value Reference Range Interpretation Comments Ferritin (test code = 2276-4) 352.09 21.81-274.66 [facility] HospitalBlood cobalamin (vitamin B12) measurement (mass/volume)2019-12-05 05:15:00* Test Item Value Reference Range Interpretation Comments Vitamin B12 Level (test code = 69624-3) 381 213-816 [facility]ool calprotectin measurement (mass/mass)2019-12-05 05:15:00* Test Item Value Reference Range Interpretation Comments Stool Calprotectin (test code = 27718-2) 189 0-120 Concentration Interpretation Follow-Up<16 - 50 ug/g Normal None>50 -120 ug/g Borderline Re-evaluate in 4-6 weeks >120 ug/g Abnormal Repeat as clinically indicatedPerformed at: [employer] [id number] Director: Rick Pike MD, Phone: [phone] Scott & White Medical Center – Budaerum or plasma folate measurement (mass/volume) 2019-12-05 05:15:00* Test Item Value Reference Range Interpretation Comments Folate (test code = 2284-8) 14.0 >3.0 A serum folate concentration of less than 3.1 ng/mL isconsidered to represent cl inical deficiency.Performed at: [facility] [id number] Director: Joselo Frank MD, Phone: [phone] Scott & White Medical Center – Budaerum or plasma C reactive protein measurement (mass/volume)2019-12-05 05:15:00* Test Item Value Reference Range Interpretation Comments C-Reactive Protein (test code = 1988-5) 54 0-10 Performed at: [facility] [id number] Director: Joselo Frank MD, Phone: [phone] Scott & [facility] Budatool calprotectin measurement (mass/mass)2019-12-05 05:15:00* Test Item Value Reference Range Interpretation Comments Stool Calprotectin (test code = 79573-1) 189 0-120 Concentration Interpretation Follow-Up<16 - 50 ug/g Normal None>50 -120 ug/g Borderline Re-evaluate in 4-6 weeks >120 ug/g Abnormal Repeat as clinically indicatedPerformed at: [facility] [id number] Director: Rick Pike MD, Phone: [phone] Scott & White Medical Center – Budaerum or plasma folate measurement (mass/volume) 2019-12-05 05:15:00* Test Item Value Reference Range Interpretation Comments Folate (test code = 2284-8) 14.0 >3.0 A serum folate concentration of less than 3.1 ng/mL isconsidered to represent cl inical deficiency.Performed at: [facility] [address] [id number] Director: Joselo Frank MD, Phone: [phone] Scott & White Medical Center – Budaerum or plasma C reactive protein measurement (mass/volume)2019-12-05 05:15:00* Test Item Value Reference Range Interpretation Comments C-Reactive Protein (test code = 1988-5) 54 0-10 Performed at: - [facility] [address] [id number] Director: Joselo Frank MD, Phone: [phone] [facility] Budatool gastrointestinal hemoglobin nndhtaehi9198-15-02 19:05:00* Test Item Value Reference Range Interpretation Comments Stool Occult Blood (test code = 2335-8) POSITIVE NEGATIVE [facility] gastrointestinal hemoglobin rmbdjnibd7035-19-98 19:05:00* Test Item Value Reference Range Interpretation Comments Stool Occult Blood (test code = 2335-8) POSITIVE NEGATIVE [facility] gastrointestinal hemoglobin hlpfqvhoq3089-67-69 19:05:00* Test Item Value Reference Range Interpretation Comments Stool Occult Blood (test code = 2335-8) POSITIVE NEGATIVE [facility] gastrointestinal hemoglobin mpbghhjpj4847-49-89 19:05:00* Test Item Value Reference Range Interpretation Comments Stool Occult Blood (test code = 2335-8) POSITIVE NEGATIVE [facility] [id number] 10:34:00 [facility] [address] [place] [address] Patient Name: DORA MATIAS MR #: [id number] : 1985 Age/Sex: 34/M Req #: [id number] Adm Physician: Ordered by: DARYL BUNN DO Report #: [id number] Location: ER Room/Bed: Procedure: [id number] CT/C T ABDOMEN/PELVIS W Exam Date: 12/04/19 Exam Time: 09 00 REPORT STATUS: Signed EXAM: C T Abdomen and Pelvis WITH intravenous contrast INDICATION: Abdominal pain , rectal bleeding, Crohn disease COMPARISON: CT abdomen and pelvis of 018 TECHNIQUE: Abdomen and pelvis were scanned utilizing a [facility]ector [facility] from the lung base to the pubic symphysis after administration o f IV contrast. Coronal and sagittal reformations were obtained. Routine protoc ol was performed. Scan was performed during portal venous phase. IV CONTRAST: 100mL of Isovue 370 ORAL CONTRAST: Gastrografin RADIATION DOSE: Total DLP: 512 mGy*cm Dose modulation, iterative reconstruction, and/or weight based adjustment of the mA/kV was utilized to reduce the radiation dos e to as low as reasonably achievable. FINDINGS: LOWER THORAX: Normal. HEPATOBILIARY: Diffuse hepatic steatosis. No focal liver lesion. No biliary ductal dilation. Unremarkable gallbladder. SPLEEN: No splenomegaly. PANCREAS: No focal masses or ductal dilatation. ADRENALS: No adrenal nodul es. KIDNEYS/URETERS: No hydronephrosis, stones, or solid mass lesions. PELVI C ORGANS/BLADDER: Unremarkable. PERITONEUM / RETROPERITONEUM: See GI tract LYMPH NODES: Mesenteric lymphadenopathy. VESSELS: Unremarkable. GI TRAC T: In the mid anterior abdomen, there are several loops of small bowel which d emonstrate wall thickening and enhancement. Posterior to these loops, there is a 4.1 x 1.5 cm peripherally enhancing fluid collection containing a small vikki unt of air. Small amount of air adjacent to this collection appears extralumin al. Associated adjacent mesenteric adenopathy. BONES AND SOFT TISSUES: No a cute osseous injury. No suspicious lytic or blastic lesions. IMPRESSION: Anterior abdominal distal jejunal/proximal ileal wall thickening/enhancement with associated mesenteric fat stranding and a 4.1 x 1.5 cm wall enhancing m esenteric fluid collection with a small amount of adjacent extraluminal air. A ssociated mesenteric lymphadenopathy. Findings consistent with acute Crohn dis ease flare with associated small mesenteric abscess. This abscess, based on si ze and location, is not amenable to percutaneous drainage. Signed by: Padilla Chapa MD on 12/04/2019 10:43 AM Dictated By: MARCELLE CHAPA MD Electronicall y Signed By: MARCELLE CHAPA MD on 12/04/191042 Transcribed By: KATHRIN on 12/04/191042 COPY TO: DARYL BUNNDO - XR SMALL INTESTINE 2019-02-02 10:37:00 FAX: Sharla Torres MD [phone] [place]: St: PRE FAX: Ashlee Gutierrez RN [phone] Name: DORA MATIAS [facility] : 1985 Age/S: 33/M [address] [facility] Unit #: [id number] Loc: [place] [address] Phys: Ashlee Felton RN Acct: [id number] Dis Date: Status: PRE CLI PHONE #: [phone] Exam Date: 01/30/2019 1141 FAX #: [phone] Reason: CROHN SISEASE EXAMS: CPT CODE: [id number] XR SMALL INTESTINE 80940 EXAM: Small bowel follow-through barium study; INFORMATION: Crohn's disease; FINDINGS: Unimpaired passage of contrast material through the esophagus, stomach and duodenum. Duodenum and proximal jejunal loops are unremarkable. Distal jejunal loops and ileal l oops show intermittent high-grade strictures, alternating with dilated bow el segments. Opacification of the colon was noticed after 30 minutes but n o obvious internal fistula was identified with fluoroscopic evaluation. There was mucosal atrophy; no evidence of active ulcerations. IMPRESSION: 1. Chronic Crohn's disease involving the ileum and distal jejunum with high-grade strictures, alternating with dilated ileal loops (skip lesions). 2. Early opacification of the colon but no defi nite evidence of internal fistulous. Fluoroscopy Time: 162 sec CAK : 438.109 mGy Electronicall y Signed by Galo Moore on 02/02/2019 at 10 37 Reported and signed by: Yonny Moore M.D. CC: Sharla Frankel MD; Ashlee Felton RN T echnologist: ALEJANDRO ALVAREZ RT(R); Nehal Ballard RT(R); ... Trnscrd Date /Time/By: 02/02/2019 (1037) : By: LucyGRW Orig Print D/T: S: 019 (1040) PAGE 1 Signed Report CHEST 2 [id number] 11:47:00 [place] [address] Patient Name: DORA MATIAS MR #: [id number] : 1985 Age/Sex: 32/M Req #: [id number] Adm Physician: Ordered by: JESSICA JOHNSON MD Report #: [id number] Location: [facility] Room/Bed: Procedure: [id number] DX/CHEST 2 VIEWS Exam Date: Exam Time: 1120 REPORT STATUS: Signed EXAMINATION: CHEST 2 VIEWS INDICATION: COMPARISON: None FINDINGS: PA and lateral views TUBES and LINES: None. LUNGS: Lungs are moderately inflated. Lungs are clear. There is no eviden ce of pneumonia or pulmonary edema. PLEURA: No pleural effusion or pneum othorax. HEART AND MEDIASTINUM: The cardiomediastinal silhouette is unrema rkable. BONES AND SOFT TISSUES: No acute osseous lesion. Soft tissues are unremarkable. UPPER ABDOMEN: No free air under the diaphragm. IMPRESSION: No acute thoracic abnormality. Signed by: DR. Richard Victoria MD on 04/22/2018 11:48 AM Dictated By: RICHARD VICTORIA MD Electronic ally Signed By: RICHARD VICTORIA MD on 04/22/181147 Transcribed By: KATHRIN on 1147 COPY TO: JESSICA JOHNSON MD Stool Lactoferrin (LAB) 2018-02-28 10:31:00* Test Item Value Reference Range Interpretation Comments Stool Lactoferrin (LAB) (test code = 40600-9) POSITIVE NEGATIVE H Testing on stool aspirate specimens is outside sole stapler welt claims since specime n type not validated on this assay.[facility] Occult Akyuj5407-70-24 10:31:00* Test Item Value Reference Range Interpretation Comments Stool Occult Blood (test code = 2335-8) POSITIVE NEGATIVE H [facility] Hospital[facility] Blood Suqav4476-14-48 06:35:00* Test Item Value Reference Range Interpretation Comments White Blood Count (test code = 6690-2) 8.65 4.8-10.8 [facility] Blood Irogl5938-77-60 06:35:00* Test Item Value Reference Range Interpretation Comments Red Blood Count (test code = 789-8) 4.52 4.3-5.7 [facility] HospitalHemoglobin2018-07-09 06:35:00* Test Item Value Reference Range Interpretation Comments Hemoglobin (test code = 73000-4) 11.0 14.0-18.0 L [facility] HospitalHematocrit2018-07-09 06:35:00* Test Item Value Reference Range Interpretation Comments Hematocrit (test code = 4544-3) 35.7 38.2-49.6 L [facility] HospitalMean Corpuscular Ncnfdp1805-74-74 06:35:00* Test Item Value Reference Range Interpretation Comments Mean Corpuscular Volume (test code = 787-2) 79.0 81-99 L [facility] HospitalMean Corpuscular Uzvmvzsbnu7074-91-19 06:35:00* Test Item Value Reference Range Interpretation Comments Mean Corpuscular Hemoglobin (test code = 785-6) 24.3 28-32 L [facility] HospitalMean Corpuscular Hemoglobin Concent 2018-02-28 06:35:00* Test Item Value Reference Range Interpretation Comments Mean Corpuscular Hemoglobin Concent (test code = 786-4) 30.8 31-35 L [facility] HospitalRed Cell Distribution Hypru3932-25-10 06:35:00* Test Item Value Reference Range Interpretation Comments Red Cell Distribution Width (test code = 95085-5) 13.4 11.7 -14.4 [facility] HospitalPlatelet Cejvj3003-73-84 06:35:00* Test Item Value Reference Range Interpretation Comments Platelet Count (test code = 777-3) 345 140-360 [facility] HospitalNeutrophils (%) (Auto)2018-02-28 06:35:00 * Test Item Value Reference Range Interpretation Comments Neutrophils (%) (Auto) (test code = 97239-7) 72.5 38.7-80.0 [facility] HospitalLymphocytes (%) (Auto)2018-02-28 06:35:00 * Test Item Value Reference Range Interpretation Comments Lymphocytes (%) (Auto) (test code = 736-9) 17.1 18.0-39.1 L [facility] HospitalMonocytes (%) (Auto)2018-02-28 06:35:00* Test Item Value Reference Range Interpretation Comments Monocytes (%) (Auto) (test code = 5905-5) 6.7 4.4-11.3 [facility] HospitalEosinophils (%) (Auto)2018-02-28 06:35:00 * Test Item Value Reference Range Interpretation Comments Eosinophils (%) (Auto) (test code = 713-8) 2.7 0.0-6.0 [facility] HospitalBasophils (%) (Auto)2018-02-28 06:35:00* Test Item Value Reference Range Interpretation Comments Basophils (%) (Auto) (test code = 706-2) 0.3 0.0-1.0 [facility] HospitalIM GRANULOCYTES %2018-02-28 06:35:00* Test Item Value Reference Range Interpretation Comments IM GRANULOCYTES % (test code = IM GRANULOCYTES %) 0.7 0.0- 1.0 [facility] HospitalNeutrophils # (Auto)2018-02-28 06:35:00* Test Item Value Reference Range Interpretation Comments Neutrophils # (Auto) (test code = 751-8) 6.3 2.1-6.9 [facility] HospitalLymphocytes # (Auto)2018-02-28 06:35:00* Test Item Value Reference Range Interpretation Comments Lymphocytes # (Auto) (test code = 24729-5) 1.5 1.0-3.2 [facility] HospitalMonocytes # (Auto)2018-02-28 06:35:00* Test Item Value Reference Range Interpretation Comments Monocytes # (Auto) (test code = 742-7) 0.6 0.2-0.8 [facility] HospitalEosinophils # (Auto)2018-02-28 06:35:00* Test Item Value Reference Range Interpretation Comments Eosinophils # (Auto) (test code = 711-2) 0.2 0.0-0.4 [facility] HospitalBasophils # (Auto)2018-02-28 06:35:00* Test Item Value Reference Range Interpretation Comments Basophils # (Auto) (test code = 704-7) 0.0 0.0-0.1 [facility] HospitalAbsolute Immature Granulocyte (auto 2018-02-28 06:35:00* Test Item Value Reference Range Interpretation Comments Absolute Immature Granulocyte (auto (dominic t code = Absolute Immature Granulocyte (auto) 0.06 0-0.1 [facility]udaodium Pkkbg5838-77-61 06:35:00* Test Item Value Reference Range Interpretation Comments Sodium Level (test code = 2951-2) 138 136-145 [facility] HospitalPotassium Kfogc7520-94-55 06:35:00* Test Item Value Reference Range Interpretation Comments Potassium Level (test code = 2823-3) 4.0 3.5-5.1 [facility] HospitalChloride Brdnk5416-83-18 06:35:00* Test Item Value Reference Range Interpretation Comments Chloride Level (test code = 2075-0) 101 98-107 [facility] HospitalCarbon Dioxide Mcyef1710-17-22 06:35:00* Test Item Value Reference Range Interpretation Comments Carbon Dioxide Level (test code = 2028-9) 28 22-29 [facility] HospitalAnion Zfe2363-98-16 06:35:00* Test Item Value Reference Range Interpretation Comments Anion Gap (test code = 35056-8) 13.0 8-16 [facility] HospitalBlood Urea Lsijlkml8084-88-66 06:35:00* Test Item Value Reference Range Interpretation Comments Blood Urea Nitrogen (test code = 3094-0) 9 7-26 [facility] HospitalCreatinine2018-07-09 06:35:00* Test Item Value Reference Range Interpretation Comments Creatinine (test code = 2160-0) 1.04 0.72-1.25 [facility] HospitalBUN/Creatinine Kgebo6484-23-38 06:35:00* Test Item Value Reference Range Interpretation Comments BUN/Creatinine Ratio (test code = 3097-3) 9 6-25 [facility] HospitalEstimat Glomerular Filtration Rate 2018-02-28 06:35:00* Test Item Value Reference Range Interpretation Comments Estimat Glomerular Filtration Rate (test code = 96014-3) 60- >60 Ranges were taken from the National Kidney Disease Education Program and the [facility] literature.Reference ranges:60 or greater: Lykrpv87-10 ( for 3 consecutive months): Chronic kidney disease 15 or less: Kidney failureMedical Arts HospitalGlucose Iyuan1069-69-47 06:35:00* Test Item Value Reference Range Interpretation Comments Glucose Level (test code = XYD9521) 104 74-118 [facility] HospitalCalcium Acrfo0859-10-84 06:35:00* Test Item Value Reference Range Interpretation Comments Calcium Level (test code = 78581-9) 9.1 8.4-10.2 [facility] HospitalTotal Jpkxdnllu9190-89-32 06:35:00* Test Item Value Reference Range Interpretation Comments Total Bilirubin (test code = 1975-2) 0.9 0.2-1.2 [facility] HospitalAspartate Amino Transf (AST/SGOT) 2018-02-28 06:35:00* Test Item Value Reference Range Interpretation Comments Aspartate Amino Transf (AST/SGOT) (test code = Aspartate Amino Transf (AST/SGOT)) 19 5-34 [facility] HospitalAlanine Aminotransferase (ALT/SGPT) 2018-02-28 06:35:00* Test Item Value Reference Range Interpretation Comments Alanine Aminotransferase (ALT/SGPT) (test code = 1742-6) 27 0-55 [facility] HospitalTotal Iyrwgmi9335-74-42 06:35:00* Test Item Value Reference Range Interpretation Comments Total Protein (test code = 2885-2) 7.6 6.5-8.1 [facility] HospitalAlbumin2018-07-09 06:35:00* Test Item Value Reference Range Interpretation Comments Albumin (test code = 1751-7) 2.8 3.5-5.0 L [facility] HospitalGlobulin2018-07-09 06:35:00* Test Item Value Reference Range Interpretation Comments Globulin (test code = 01161-5) 4.8 2.3-3.5 H [facility] HospitalAlbumin/Globulin Fwxvj5846-71-20 06:35:00 * Test Item Value Reference Range Interpretation Comments Albumin/Globulin Ratio (test code = 1759-0) 0.6 0.8-2.0 L [facility] HospitalAlkaline Ikybrgowitr4331-70-41 06:35:00* Test Item Value Reference Range Interpretation Comments Alkaline Phosphatase (test code = 6768-6) 88 40-150 [facility] HospitalCT ABDOMEN/PELVIS F0408-70-73 16:32:00 [facility] [address] [place] [address] Patient Name: DORA MATIAS MR #: [id number] : [birth year] Age/Sex: 32/M Req #: [id number] Adm Physician: Ordered by: KELECHI PALMA NP Report #: [id number] Location: ER Room/Bed: Procedure: [id number] CT/CT ABDOMEN/PELVIS W Exam Da te: 02/26/18 Exam Time: 1500 REPORT STATUS: Sig amrita EXAM: CT Abdomen and Pelvis WITH contrast INDICATION: Lower abdominal pain. Nausea. COMPARISON: None. TECHNIQUE: Abdomen and pelvis were scanned utilizing a multidetector helical scanner from the lung base to the pubic symp hysis after administration of IV contrast. Coronal and sagittal reformations w ere obtained. Routine protocol was performed. Scan was performed when during p ortal venous phase. IV CONTRAST: 150 mL of Omnipaque 300 ORAL CONTRAST: Water RADIATION DOSE: Total DLP: 900.86 mGy*cm Estimated effective dose: (DLP x 0.015 x size factor) mSv COMPLICATIONS: None FINDINGS: Examination limited due to the lack o f oral contrast. LINES and TUBES: None. LOWER THORAX: Unremarkable HEPATOBILIARY: Diffuse low attenuation of the hepatic parenchyma consistent with steatosis. No focal hepatic lesions. No biliary ductal dilation. GA LLBLADDER: No radio-opaque stones or sludge. No wall thickening. SPLEEN: N o splenomegaly. PANCREAS: No focal masses or ductal dilatation. ADR ENALS: No adrenal nodules KIDNEYS/URETERS: Left cortical renal scarring . No hydronephrosis. No cystic or solid mass lesions. No stones. GI TRA CT: No bowel dilatation to suggest obstruction. Abnormal appearing small bowel bowel loops in the right lower quadrant which is thick-walled and abnormally enhancing, with luminal narrowing and associated with extensive stranding of t he surrounding fat best seen on coronal images. Surrounding phlegmonous change s, however, no abscess formation this time. There is dilatation of the small b owel loop proximal to it, with fecalization of its contents as seen on coronal image 37. More proximal to this dilated small bowel loop, there is a second a bnormal small bowel loop in the right mid abdomen laterally as seen on image 3 1. PELVIC ORGANS/BLADDER: There is asymmetric wall thickening of the anteri or aspect of the urinary bladder, which is nonspecific, however, may reflect f ocal cystitis secondary to adjacent inflammatory change. LYMPH NODES: Mul tiple mildly enlarged mesenteric lymph nodes, likely reactive. VESSELS: Unr emarkable. PERITONEUM / RETROPERITONEUM: No free air or fluid. BONES: Osteitis condensans ilii. Bilateral L5 spondylosis without spondylolisthesis. SOFT TISSUES: Bilateral fat-containing inguinal hernias. IMPRESSION: 1. Findings consistent with inflammatory bowel disease involving small bowel loops in the right middle and lower abdomen, with extensive surrounding inf lammatory/phlegmonous changes without abscess formation at this time. There is concern for developing small bowel obstruction in this examination limited du e to the lack of oral contrast. This may represent acute inflammatory bowel di sease, or acute inflammatory changes superimposed on some degree of previously present in stricture, however, there are no priors available for comparison. Recommend follow-up after treatment to document resolution and exclude strictu res. 2. Reactive enteric lymphadenopathy. 3. Asymmetric wall thickeni ng of the anterior wall of the urinary bladder is nonspecific, possibly inflam matory or infectious process less likely neoplasm. Signed by: Dr. Yue Serrato M.D. on 02/26/2018 4:49 PM Dictated By: PANCHO SERRATO MD, MD 48 Transcribed By: KATHRIN on 02/26/18 1649 COPY TO: KELECHI PALMA INCIDENT ENGINEER Urine WBC 2018-02-26 15:39:00* Test Item Value Reference Range Interpretation Comments Urine WBC (test code = 5821-4) 0-5 0-5 [facility] HospitalUrine [id number] 15:39:00* Test Item Value Reference Range Interpretation Comments Urine RBC (test code = 69587-2) 0-5 0-5 [facility] HospitalUrine Ctwcuzhj8975-39-84 15:39:00* Test Item Value Reference Range Interpretation Comments Urine Bacteria (test code = 68045-8) NONE NONE [facility] HospitalUrine Epithelial Uuwvf5823-53-78 15:39:00 * Test Item Value Reference Range Interpretation Comments Urine Epithelial Cells (test code = 14730-0) RARE NONE [facility] HospitalUrine Iaxmw5425-51-56 15:27:00* Test Item Value Reference Range Interpretation Comments Urine Color (test code = 5778-6) YELLOW YELLOW [facility] HospitalUrine Wlefbrq9169-79-02 15:27:00* Test Item Value Reference Range Interpretation Comments Urine Clarity (test code = 49838-8) CLEAR CLEAR [facility] HospitalUrine Specific Eiaossd1551-01-49 15:27:00 * Test Item Value Reference Range Interpretation Comments Urine Specific [place] (test code = 5811-5) 1.020 1.010-1.02 5 [facility] HospitalUrine uP8738-06-30 15:27:00* Test Item Value Reference Range Interpretation Comments Urine pH (test code = 16999-9) 6 5-7 [facility] HospitalUrine Leukocyte Hqrfdows0432-97-06 15:27:00* Test Item Value Reference Range Interpretation Comments Urine Leukocyte Esterase (test code = 5799-2) NEGATIVE NEGATIVE [facility] HospitalUrine Btoajzx7260-72-21 15:27:00* Test Item Value Reference Range Interpretation Comments Urine Nitrite (test code = 70139-9) NEGATIVE NEGATIVE [facility] HospitalUrine Xoyqdsj0198-65-43 15:27:00* Test Item Value Reference Range Interpretation Comments Urine Protein (test code = 5804-0) NEGATIVE NEGATIVE [facility] HospitalUrine Glucose (UA)2018-02-26 15:27:00* Test Item Value Reference Range Interpretation Comments Urine Glucose (UA) (test code = 2349-9) NEGATIVE NEGATIVE [facility] HospitalUrine Qvimbxv1607-42-09 15:27:00* Test Item Value Reference Range Interpretation Comments Urine Ketones (test code = 09361-9) NEGATIVE NEGATIVE [facility] HospitalUrine Klkbjfqwgset4636-50-66 15:27:00* Test Item Value Reference Range Interpretation Comments Urine Urobilinogen (test code = 35414-0) 0.2 0.2-1 [facility] HospitalUrine Mdcsdebfr3030-54-77 15:27:00* Test Item Value Reference Range Interpretation Comments Urine Bilirubin (test code = 1978-6) NEGATIVE NEGATIVE [facility] HospitalUrine Mmzss3927-42-08 15:27:00* Test Item Value Reference Range Interpretation Comments Urine Blood (test code = 94934-0) NEGATIVE NEGATIVE [facility] HospitalMagnesium Qmrhs1769-46-02 14:06:00* Test Item Value Reference Range Interpretation Comments Magnesium Level (test code = 07025-1) 2.0 1.3-2.1 [facility] HospitalAmylase Rotry8389-90-13 14:06:00* Test Item Value Reference Range Interpretation Comments Amylase Level (test code = 1798-8) 29 25-125 [facility] HospitalLipase2018-07-07 14:06:00* Test Item Value Reference Range Interpretation Comments Lipase (test code = 3040-3) 27 8-78 [facility]
[2020-04-19] MEDS ORDERED: ACETAMINOPHEN 325 MG TAB PO PRN (14:45)
[2020-04-19] MEDS ORDERED: METRONIDAZOLE 500MG/NS 100ML 100 ML IV SCH (15:00)
--- NOTE | 2020-04-19 15:05 | Diagnostic Imaging Report ---
Ultrasound-guided right lower quadrant abdominal wall fluid collection drainage. History: Right lower quadrant abdominal wall fluid collection. Sedation: None Approach: Right lower quadrant, percutaneous Estimated blood loss: < 5 cc. Specimen: 160 cc of grossly purulent appearing fluid, samples sent for microbiology. power shovel operator: Brandon Brand MD. Technique: Informed written consent was obtained. Discussion of risks, benefits, and alternatives were made with the patient. The patient expressed understanding and agreed to proceed. A universal timeout was performed prior to starting the procedure. All elements maximal sterile barrier technique was utilized for this procedure, including utilization of sterile scrub solution for skin prep, a large sterile sheet to cover the areas of the patient that were not prepped, and hand hygiene, mask, head covering, and sterile gown for performing radiologist and scrub technologist. Additional ultrasound images demonstrate large right lower quadrant abdominal wall fluid collection. The right lower quadrant was prepped and draped in sterile fashion. 2% lidocaine was used for local anesthesia. Using ultrasound gens, following acquisition of coronal images, a 8 Slovenian pigtail drainage catheter was advanced into the collection. The pigtail was formed within the dependent portion of the collection. The catheter was fixed to the skin with silk suture. A sterile dressing was applied. There was drainage of 160 cc of grossly purulent fluid. Samples were sent for microbiology. The catheter was then attached to bulb suction. The patient called the procedure without immediate location. Impression: Successful ultrasound-guided right lower quadrant abdominal wall fluid collection drainage with placement of 8 Slovenian drainage catheter and aspiration of 160 cc of grossly purulent appearing fluid. Signed by: Dr. Brandon Brand MD on 04/19/2020 3:02 PM
[2020-04-19 15:09] VITALS: BP 144/75
--- NOTE | 2020-04-19 15:10 | History and Physical ---
CHIEF COMPLAINT: Right-sided abdominal pain. HISTORY OF PRESENT ILLNESS: This is a 34-year-old white man, who presents to [facility] with complaints of right-sided abdominal pain for the last few days. The patient underwent a CT of the abdomen and pelvis on April 17, 2020, which revealed a 11.3 x 5 x 8 cm worsening right upper quadrant abscess. The patient was brought back today and Interventional Radiology drained 120 mL of purulent sanguineous fluid from this abscess. The patient has a drain in place connected to a Lance-Cardozo bulb. The patient states he does not feel well. Denies any fever or chills. The patient states he started intravenous Entyvio (vedolizumab) infusions last week for his Crohn's disease. REVIEW OF SYSTEMS: GENERAL: The patient has a general weight decline over the last few months, but has been stable last month. No fever or chills. Just feels weak. HEENT: No headaches. No vision changes. CARDIOVASCULAR/RESPIRATORY: No chest pain. No shortness of breath or cough. GI: No nausea, vomiting, diarrhea, or constipation. Does complain of right- sided abdominal pain for the past couple weeks. : No UTI symptoms or hematuria. NEUROMUSCULAR: No limb weakness or numbness. ALLERGIES: ADALIMUMAB. PAST MEDICAL HISTORY: 1. Crohn's disease. 2. Anemia secondary to chronic disease/iron deficiency. HOME MEDICATIONS: 1. Intravenous weekly Entyvio (vedolizumab) infusions, started last week. 2. Tylenol No. 3, one pill up to 3 times a day as needed for pain. PAST SURGICAL HISTORY: Exploratory laparotomy with right ileocolectomy and mesenteric drainage abscess in November 2019. FAMILY HISTORY: Father with prostate cancer. SOCIAL HISTORY: He is and lives with his . He works at a local [employer]. The patient does not smoke. He does dip tobacco. The patient states he drinks alcohol rarely. PHYSICAL EXAMINATION: GENERAL: He is awake, alert, and fully oriented. He is in no distress, very pleasant and cooperative. VITAL SIGNS: Height 5 feet 11 inches, weight is 200 pounds, BMI is 27. He is afebrile, blood pressure 140/80, pulse is 86, and respiratory rate is 14. INTEGUMENT: Skin is warm and dry. Slight pallor. No jaundice or diaphoresis. HEENT: Anicteric sclerae. Moist mucous membranes. NECK: Supple. CARDIOVASCULAR: Regular rate and rhythm. LUNGS: No rales. No rhonchi. No wheezes. ABDOMEN: Soft. The patient has a well healed exploratory laparotomy surgical incision. Currently, he has a right-sided lumbar abdominal drain in place connected to a Lance Cardozo bulb that does contain sanguineous purulent material. Normal bowel sounds auscultated. EXTREMITIES: No edema or deformity. NEUROLOGIC: Intact. DIAGNOSES: 1. Right upper quadrant intra-abdominal abscess. 2. Status post CT-guided drainage of right upper quadrant intra-abdominal abscess. 3. Crohn's disease. 4. Anemia secondary to chronic disease/iron deficiency. PLAN: 1. Admit to floor. 2. Start intravenous antibiotics. 3. Check white blood cell count. 4. Check electrolytes. 5. Consult General Surgery. 6. The patient may benefit from a fistulogram. 7. Send fluid for stain and culture. I spent 50 minutes in the care of this patient. MD LIAM Lim/JOHN /[id number] MTDAlana
[2020-04-19 15:16] VITALS: BP 144/75
[2020-04-19] MEDS ORDERED: SODIUM CHLORIDE 0.9% 250ML 250 ML ONE (15:26)
[2020-04-19 16:03] VITALS: BP 144/75
[2020-04-19] MEDS: HYDROMORPHONE 1MG/1ML INJ IV PRN ×3 (16:18→23:08)
[2020-04-19] MEDS: CEFTRIAXONE SOD 1 GM/NS 50 ML 50 ML IV SCH (16:23)
[2020-04-19 17:49] LABS: BASOPHILS % 0.2 % (0.0-1.0); EOSINOPHILS # (AUTO) 0.2 (0.0-0.4); EOSINOPHILS % 0.9 % (0.0-6.0); HEMATOCRIT 36.2 % (38.2-49.6); HEMOGLOBIN 10.9 g/dL (14.0-18.0); LYMPHOCYTES # (AUTO) 1.8 (1.0-3.2); LYMPHOCYTES % 9.2 % (18.0-39.1); MEAN CORPUSCULAR HEMOGLOBIN 23.2 pg (28-32); MEAN CORPUSCULAR HGB CONC 30.1 g/dL (31-35); MONOCYTES # (AUTO) 0.9 (0.2-0.8); MONOCYTES % 4.6 % (4.4-11.3); NEUTROPHILS % 84.4 % (38.7-80.0); PLATELET COUNT 439 x10e3/uL (140-360); RED CELL DISTRIBUTION WIDTH 17.4 % (11.7-14.4)
[2020-04-19 18:06] LABS: ALANINE AMINOTRANSFERASE 25 IU/L (0-55); ALBUMIN 2.7 g/dL (3.5-5.0); ALBUMIN/GLOBULIN RATIO 0.6 (0.8-2.0); ALKALINE PHOSPHATASE 135 IU/L (40-150); ANION GAP 15.4 mmol/L (8-16); BLOOD UREA NITROGEN 8 mg/dL (7-26); BUN/CREATININE RATIO 11 (6-25); CALCIUM 8.6 mg/dL (8.4-10.2); CARBON DIOXIDE 23 mmol/L (22-29); CHLORIDE 104 mmol/L (98-107); CREATININE, SERUM 0.76 mg/dL (0.72-1.25); EST GLOMERULAR FILTRATION RATE > 60 ML/MIN (60-); GLUCOSE 114 mg/dL (74-118); POTASSIUM 3.4 mmol/L (3.5-5.1); SODIUM 139 mmol/L (136-145)
[2020-04-19 19:42] VITALS: BP 143/79
[2020-04-19] MEDS: HYDROCODONE/APAP 7.5MG-325MG 1 EA TAB PO PRN (21:08)
[2020-04-20] VITALS (8 sets, daily range): BP systolic 125–144; BP diastolic 72–87
[2020-04-20] MEDS: METRONIDAZOLE 500MG/NS 100ML 100 ML IV SCH ×3 (02:00→18:30)
[2020-04-20] MEDS: HYDROMORPHONE 1MG/1ML INJ IV PRN ×7 (02:10→22:53)
[2020-04-20] MEDS: HYDROCODONE/APAP 7.5MG-325MG 1 EA TAB PO PRN ×4 (03:43→21:08)
[2020-04-20] MEDS: CEFTRIAXONE SOD 1 GM/NS 50 ML 50 ML IV SCH ×2 (03:45→16:08)
[2020-04-20 05:10] LABS: BASOPHILS % 0.2 % (0.0-1.0); EOSINOPHILS # (AUTO) 0.3 (0.0-0.4); EOSINOPHILS % 1.5 % (0.0-6.0); HEMATOCRIT 34.7 % (38.2-49.6); HEMOGLOBIN 10.4 g/dL (14.0-18.0); LYMPHOCYTES # (AUTO) 1.7 (1.0-3.2); LYMPHOCYTES % 10.2 % (18.0-39.1); MEAN CORPUSCULAR HEMOGLOBIN 23.6 pg (28-32); MEAN CORPUSCULAR VOLUME 78.9 fL (81-99); MONOCYTES # (AUTO) 0.8 (0.2-0.8); MONOCYTES % 5.1 % (4.4-11.3); NEUTROPHILS # (AUTO) 13.3 (2.1-6.9); NEUTROPHILS % 82.3 % (38.7-80.0); PLATELET COUNT 384 x10e3/uL (140-360); RED CELL DISTRIBUTION WIDTH 17.1 % (11.7-14.4)
[2020-04-20 05:36] LABS: ALANINE AMINOTRANSFERASE 23 IU/L (0-55); ALBUMIN 2.4 g/dL (3.5-5.0); ALBUMIN/GLOBULIN RATIO 0.6 (0.8-2.0); ALKALINE PHOSPHATASE 126 IU/L (40-150); ANION GAP 15.1 mmol/L (8-16); BLOOD UREA NITROGEN 8 mg/dL (7-26); BUN/CREATININE RATIO 10 (6-25); CALCIUM 8.4 mg/dL (8.4-10.2); CARBON DIOXIDE 23 mmol/L (22-29); CHLORIDE 103 mmol/L (98-107); CREATININE, SERUM 0.81 mg/dL (0.72-1.25); EST GLOMERULAR FILTRATION RATE > 60 ML/MIN (60-); GLUCOSE 122 mg/dL (74-118); POTASSIUM 3.1 mmol/L (3.5-5.1); SODIUM 138 mmol/L (136-145)
--- NOTE | 2020-04-20 07:42 | NUR ---
Patient's potassium is 3.1, called Dr. Frankel's answering service for the telephone switchboard operator physician, spoke to Angela.
[2020-04-20] MEDS ORDERED: POTASSIUM CHLORIDE 20 MEQ TAB CR PO ONE (09:00)
[2020-04-20] MEDS ORDERED: POTASSIUM CHLORIDE 10MEQ EA PO ONE (10:00)
--- NOTE | 2020-04-20 13:24 | Progress Note ---
DATE: 04/20/2020 INTERNAL MEDICINE PROGRESS NOTE: SUBJECTIVE: The patient is doing well. PHYSICAL EXAMINATION: HEART: Showed regular rhythm. Normal S1, S2 sound. LUNGS: Clear bilaterally. ABDOMEN: Soft. He had a drain in the right upper quadrant, which is draining serosanguineous discharge. EXTREMITIES: Show no edema. VITAL SIGNS: Blood pressure 125/72, temperature 97.9, heart rate 74 per minute, respiratory rate 20 per minute, and oxygen saturation is 99%. LABORATORY DATA: On the BMP; sodium 138, potassium 3.1, chloride 103, CO2 of 23, BUN 8, creatinine 0.81, glucose 122, and calcium 8.4. Total bilirubin 0.6, AST 12, ALT 23, alkaline phosphatase 126, total protein 6.6, albumin 2.4, and globulin 4.2. On the CBC, white blood count 16.13, hemoglobin 10.4, hematocrit 34.7, and platelet count 384,000. Microbiology, we have gram-negative bacillus, gram-positive rods, gram-negative rods, so we are still waiting on the final report. IMPRESSION: 1. Abdominal wall abscess. 2. Crohn disease. 3. Anemia of chronic disease. 4. Hypokalemia. 5. Leukocytosis. PLAN OF TREATMENT: We are going to continue with the current medication regimen, which include ceftriaxone 1 g IV twice a day, metronidazole 500 g IV q.8 hours, Tylenol 650 mg q.4 hours as needed for mild pain or fever, Lowes 10.5/325 q.4 hours as needed for moderate pain, Dilaudid 0.5 mg IV every 3 hours as needed for severe pain. Potassium has been replaced. We are going to recheck the potassium level today along with magnesium level. Also, we will do CBC tomorrow. MD MALIK Samayoa/JOHN /[id number]
[2020-04-20 15:26] LABS: MAGNESIUM 1.9 MG/DL (1.3-2.1); POTASSIUM 3.5 mmol/L (3.5-5.1)
[2020-04-21] VITALS (8 sets, daily range): BP systolic 131–147; BP diastolic 71–86
[2020-04-21] MEDS: METRONIDAZOLE 500MG/NS 100ML 100 ML IV SCH ×2 (02:15→08:18)
[2020-04-21] MEDS: HYDROMORPHONE 1MG/1ML INJ IV PRN ×5 (02:19→22:55)
[2020-04-21] MEDS: HYDROCODONE/APAP 7.5MG-325MG 1 EA TAB PO PRN ×2 (04:00→17:21)
[2020-04-21] MEDS: CEFTRIAXONE SOD 1 GM/NS 50 ML 50 ML IV SCH ×2 (04:00→15:22)
[2020-04-21 04:59] LABS: BASOPHILS % 0.3 % (0.0-1.0); EOSINOPHILS # (AUTO) 0.2 (0.0-0.4); EOSINOPHILS % 1.9 % (0.0-6.0); HEMOGLOBIN 10.6 g/dL (14.0-18.0); LYMPHOCYTES # (AUTO) 1.3 (1.0-3.2); LYMPHOCYTES % 11.1 % (18.0-39.1); MEAN CORPUSCULAR HEMOGLOBIN 23.2 pg (28-32); MEAN CORPUSCULAR HGB CONC 29.4 g/dL (31-35); MEAN CORPUSCULAR VOLUME 78.8 fL (81-99); MONOCYTES # (AUTO) 0.6 (0.2-0.8); MONOCYTES % 4.7 % (4.4-11.3); NEUTROPHILS # (AUTO) 9.7 (2.1-6.9); NEUTROPHILS % 81.4 % (38.7-80.0); PLATELET COUNT 373 x10e3/uL (140-360); RED BLOOD COUNT 4.57 x10e6/uL (4.3-5.7); RED CELL DISTRIBUTION WIDTH 17.1 % (11.7-14.4)
[2020-04-21 05:19] LABS: ALANINE AMINOTRANSFERASE 20 IU/L (0-55); ALBUMIN 2.5 g/dL (3.5-5.0); ALBUMIN/GLOBULIN RATIO 0.6 (0.8-2.0); ALKALINE PHOSPHATASE 119 IU/L (40-150); ANION GAP 14.5 mmol/L (8-16); BLOOD UREA NITROGEN 8 mg/dL (7-26); BUN/CREATININE RATIO 10 (6-25); CALCIUM 8.5 mg/dL (8.4-10.2); CARBON DIOXIDE 25 mmol/L (22-29); CHLORIDE 103 mmol/L (98-107); CREATININE, SERUM 0.77 mg/dL (0.72-1.25); EST GLOMERULAR FILTRATION RATE > 60 ML/MIN (60-); GLUCOSE 93 mg/dL (74-118); POTASSIUM 3.5 mmol/L (3.5-5.1); SODIUM 139 mmol/L (136-145)
--- NOTE | 2020-04-21 10:19 | NUR ---
PATIENT COMPLAINED OF NAUSEA, HE DOES NOT HAVE ANY NAUSEA MEDICATION, CALL DR. MENJIVAR'S ANSWERING SERVICE TO REQUEST AN ORDER.
[2020-04-21] MEDS: ONDANSETRON HCL INJ 2MG/ML 2ML 2 MG/ML VIAL IV PRN ×3 (10:40→22:55)
--- NOTE | 2020-04-21 15:23 | Progress Note ---
DATE: 04/21/2020 INTERNAL MEDICINE PROGRESS NOTE: SUBJECTIVE: The patient has some complaint of nausea today. He is on IV Zofran. PHYSICAL EXAMINATION: VITAL SIGNS: Blood pressure 146/86, temperature 98.5, heart rate 91 per minute, respiratory rate 19 per minute, and oxygen saturation 100%. ABDOMEN: Shows a drain on the right upper quadrant. EXTREMITIES: Show no evidence of edema. LABORATORY DATA: On the culture of the abscess show E. coli, sensitive to pretty much all antibiotics. We have blood work, which show CBC, white blood count is 11.87 significantly improved from before, hemoglobin 10.6, hematocrit 33.0, and platelet count 373,000. On the BMP; sodium 139, potassium 3.5, chloride 103, CO2 25, BUN 8, creatinine 0.77, glucose 93, calcium 8.5, and magnesium 1.9. Total bilirubin 0.3, AST 10, ALT 20, and alkaline phosphatase 119. Total protein 6.9, albumin 2.5, and globulin 4.4. FINAL IMPRESSION: 1. Abdominal wall abscess, status post drain placement. 2. Crohn disease. 3. Anemia of chronic disease. 4. Hypokalemia. 5. Leukocytosis. PLAN OF TREATMENT: Continue ceftriaxone 1 g IV daily. We are going to discontinue the Flagyl since the E. coli is sensitive to ceftriaxone. Continue Tylenol 650 mg q.4 hours as needed. Continue [place] 7.5/325 q.4 hours as needed for severe pain, Dilaudid 0.5 mg IV every 3 hours as needed, Zofran 4 mg IV q.4 hours as needed. We are going to repeat another CBC. This is a significant improvement in the white blood count. The patient is afebrile, doing well. Tentative discharge once the drainage is significantly lower and once the drain can be removed . MD MALIK Samayoa/JOHN /[id number]
[2020-04-21] MEDS ORDERED: POTASSIUM CHLORIDE 10MEQ EA PO ONE (17:15)
[2020-04-22] VITALS (7 sets, daily range): BP systolic 126–144; BP diastolic 73–85
[2020-04-22] MEDS: HYDROCODONE/APAP 7.5MG-325MG 1 EA TAB PO PRN ×2 (00:53→04:55)
[2020-04-22] MEDS: HYDROMORPHONE 1MG/1ML INJ IV PRN ×6 (03:10→22:18)
[2020-04-22] MEDS: ONDANSETRON HCL INJ 2MG/ML 2ML 2 MG/ML VIAL IV PRN ×4 (03:10→21:50)
[2020-04-22] MEDS: CEFTRIAXONE SOD 1 GM/NS 50 ML 50 ML IV SCH ×2 (03:38→16:19)
[2020-04-22 05:09] LABS: BASOPHILS % 0.2 % (0.0-1.0); EOSINOPHILS # (AUTO) 0.3 (0.0-0.4); HEMATOCRIT 35.9 % (38.2-49.6); HEMOGLOBIN 10.8 g/dL (14.0-18.0); LYMPHOCYTES # (AUTO) 1.6 (1.0-3.2); LYMPHOCYTES % 11.9 % (18.0-39.1); MEAN CORPUSCULAR HEMOGLOBIN 23.4 pg (28-32); MEAN CORPUSCULAR HGB CONC 30.1 g/dL (31-35); MEAN CORPUSCULAR VOLUME 77.7 fL (81-99); MONOCYTES # (AUTO) 0.6 (0.2-0.8); MONOCYTES % 4.8 % (4.4-11.3); NEUTROPHILS # (AUTO) 10.7 (2.1-6.9); NEUTROPHILS % 80.5 % (38.7-80.0); PLATELET COUNT 390 x10e3/uL (140-360); RED BLOOD COUNT 4.62 x10e6/uL (4.3-5.7); RED CELL DISTRIBUTION WIDTH 16.8 % (11.7-14.4)
[2020-04-22 05:36] LABS: ALANINE AMINOTRANSFERASE 17 IU/L (0-55); ALBUMIN 2.5 g/dL (3.5-5.0); ALBUMIN/GLOBULIN RATIO 0.6 (0.8-2.0); ALKALINE PHOSPHATASE 114 IU/L (40-150); ANION GAP 15.9 mmol/L (8-16); BLOOD UREA NITROGEN 6 mg/dL (7-26); BUN/CREATININE RATIO 8 (6-25); CALCIUM 8.7 mg/dL (8.4-10.2); CARBON DIOXIDE 24 mmol/L (22-29); CHLORIDE 103 mmol/L (98-107); CREATININE, SERUM 0.79 mg/dL (0.72-1.25); EST GLOMERULAR FILTRATION RATE > 60 ML/MIN (60-); GLUCOSE 100 mg/dL (74-118); POTASSIUM 3.9 mmol/L (3.5-5.1); SODIUM 139 mmol/L (136-145)
--- NOTE | 2020-04-22 07:00 | NUR ---
BEDSIDE SHIFT REPORT RECEIVED FROM COPPER PLATE LITHOGRAPHER NURSE. PT DENIES NEEDS AT THIS TIME.
--- NOTE | 2020-04-22 09:40 | Progress Note ---
DATE: 04/22/2020 CHIEF COMPLAINT/HISTORY OF PRESENT ILLNESS: This is a 34-year-old white man, whose primary treating diagnosis sepsis secondary to abdominal wall abscess. On Sunday April 19, 2020, Intervention Radiology drained 120 mL of purulent sanguinous fluid from this abscess and left a drain in place connected to a Lance-Cardozo fall. The patient has been improving clinically with intravenous antibiotics over the weekend, namely ceftriaxone and metronidazole. Today, the patient was found to have a tender palpable nodule on the superior aspect of his previous expiratory laparotomy incisional scar. The patient denies any fever or chills. The patient also denies any nausea, vomiting, or diarrhea. Blood work today revealed white blood cell count 44661 with 80% segmented neutrophils. Hemoglobin is 10.8 g/dL. The patient's potassium is 3.9. The patient's BUN and creatinine are 6 and 0.79 respectively. AST and ALT are 8 and 17 respectively. Albumin level is 2.5. The culture from the drained abscess is growing E coli bacterial species. REVIEW OF SYSTEMS: As per HPI. PHYSICAL EXAMINATION: GENERAL: He is awake, alert and fully oriented. He is in no distress, very pleasant and cooperative. VITAL SIGNS: Height 5 feet 11 inches, weight is 224 pounds, BMI 31, blood pressure 120/76, pulse is 88, respiratory rate 22, temperature 97.7, oxygen saturation is 100% on room air. INTEGUMENT: Skin is warm and dry. No pallor, jaundice, diaphoresis. HEENT: Anicteric sclerae. Moist mucous membranes. NECK: Supple. CARDIOVASCULAR: Regular rate and rhythm. LUNGS: No rales, no rhonchi, no wheezes. ABDOMEN: Soft. There is a Lance Cardozo drain in the right lumbar abdominal area that is draining serosanguineous fluid. There has a tender palpable nodule on the superior aspect of his previous exploratory laparotomy incision. This is a new finding. EXTREMITIES: No edema or deformity. NEURO: Intact. DIAGNOSES: 1. Sepsis secondary to abdominal wall abscess. 2. Crohn's disease. 3. Anemia secondary to chronic disease/iron deficiency. PLAN: 1. Reorder a CT of abdomen and pelvis without contrast to assess this new abdominal wall finding. 2. Continue intravenous antibiotics. 3. Pain control. 4. Follow white blood cell count. 5. We will discuss case with General Surgery. I spent 40 minutes in the care of this patient. MD LIAM Lim/JOHN /[id number] MTDAlana
--- NOTE | 2020-04-22 10:01 | Diagnostic Imaging Report ---
EXAM: CT Abdomen and Pelvis WITHOUT intravenous contrast INDICATION: Evaluate anterior abdominal wall abscess. COMPARISON: 04/17/2020 TECHNIQUE: Abdomen and pelvis were scanned utilizing a multidetector helical scanner from the lung base to the pubic symphysis without administration of IV contrast. Coronal and sagittal reformations were obtained. Routine technique was performed. IV CONTRAST: None ORAL CONTRAST: None COMPLICATIONS: None RADIATION DOSE: Total DLP: 690 mGy*cm Dose modulation, iterative reconstruction, and/or weight based adjustment of the mA/kV was utilized to reduce the radiation dose to as low as reasonably achievable. FINDINGS: LOWER THORAX: Basilar atelectasis is noted. HEPATOBILIARY: No focal hepatic lesions. No biliary ductal dilatation. The gallbladder is stable with stable tiny dependent gallstones. SPLEEN: Stable mild splenomegaly PANCREAS: No focal masses or ductal dilatation. ADRENALS: No adrenal nodules. KIDNEYS/URETERS: Stable punctate 2 mm left upper pole nonobstructing renal calculus. Negative for hydronephrosis or perinephric fluid collection. PELVIC ORGANS/BLADDER: Urinary bladder is decompressed limiting evaluation. Prostate is within normal limits for size. PERITONEUM / RETROPERITONEUM: No free air or fluid. LYMPH NODES: Stable mildly prominent mid mesenteric lymph nodes. VESSELS: Unremarkable. GI TRACT: Lack of oral contrast limits evaluation. Stable multifocal postsurgical changes from partial colon resection and anastomosis. Previously identified anterior abdominal wall abscess has essentially completely resolved. Indwelling drain is noted in appropriate position. Stable intra-abdominal linear soft tissue extending to the surgical anastomosis suggesting fistulization. No new drainable fluid collection. Fluid is identified within the distal colon, nonspecific. BONES AND SOFT TISSUES: Negative for acute osseous abnormality. Mild to moderate multilevel degenerative changes of the lower thoracic spine are noted. No suspicious lytic or blastic lesion. Soft tissues are unremarkable. IMPRESSION: 1. Interval placement of a drainage catheter within the right anterior abdominal wall abscess which has nearly completely resolved. No residual fluid collection is identified. Drainage catheter is in appropriate position. No new drainable fluid collection. There is stable soft tissue extension from the anastomosis to the anterior abdominal wall, again concerning for possible leak/fistula. 2. Stable cholelithiasis and splenomegaly. 3. Basilar atelectasis is noted. Signed by: Adilson Priest MD on 04/22/2020 9:58 AM
--- NOTE | 2020-04-22 19:25 | NUR ---
BEDSIDE SHIFT REPORT RECEIVED FROM DAY RN. ABDOMINAL INCISION- TOP QUARTER SIZE TENDER AND REDDENED. OMARI DRAIN OUTPUT 15 ML SEROUS SANGUINOUS DRAINAGE. RESPIRATIONS ARE EVEN AND UNLABORED. VOIDING WITHOUT DIFFICULTY. 20 G LEFT WRIST SITE HEALTHY. CALL LIGHT WITHIN REACH. BED IN LOW POSITION.
[2020-04-22] MEDS ORDERED: VANCOMYCIN 1GM/NS 250 ML 250 ML IV SCH ×2 (21:45→23:00)
--- NOTE | 2020-04-22 22:00 | NUR ---
PT ASKING FOR PAIN MED TO BE INCREASED. DR MENJIVAR CALLED ABOUT PAIN AND TOP OF INCISION BEING RED. NEW ORDERS RECEIVED FOR DILAUDID 1 MG IV Q 3 HRS PRN AND VANCOMYCIN IV Q 12 HRS. CALL LIGHT WITHIN REACH. BED IN LOW POSITION.
[2020-04-23] VITALS (8 sets, daily range): BP systolic 131–164; BP diastolic 76–91
[2020-04-23] MEDS: HYDROMORPHONE 1MG/1ML INJ IV PRN ×7 (01:48→21:22)
[2020-04-23] MEDS: CEFTRIAXONE SOD 1 GM/NS 50 ML 50 ML IV SCH ×3 (04:00→16:24)
[2020-04-23] MEDS: ONDANSETRON HCL INJ 2MG/ML 2ML 2 MG/ML VIAL IV PRN ×3 (04:58→17:59)
[2020-04-23 05:00] LABS: BASOPHILS % 0.2 % (0.0-1.0); EOSINOPHILS # (AUTO) 0.3 (0.0-0.4); EOSINOPHILS % 1.7 % (0.0-6.0); HEMATOCRIT 34.6 % (38.2-49.6); HEMOGLOBIN 10.4 g/dL (14.0-18.0); LYMPHOCYTES # (AUTO) 1.5 (1.0-3.2); LYMPHOCYTES % 10.1 % (18.0-39.1); MEAN CORPUSCULAR HEMOGLOBIN 23.2 pg (28-32); MEAN CORPUSCULAR HGB CONC 30.1 g/dL (31-35); MEAN CORPUSCULAR VOLUME 77.2 fL (81-99); MONOCYTES # (AUTO) 0.8 (0.2-0.8); MONOCYTES % 5.6 % (4.4-11.3); NEUTROPHILS % 81.9 % (38.7-80.0); PLATELET COUNT 408 x10e3/uL (140-360); RED BLOOD COUNT 4.48 x10e6/uL (4.3-5.7); RED CELL DISTRIBUTION WIDTH 16.6 % (11.7-14.4)
--- NOTE | 2020-04-23 05:00 | NUR ---
georges output was 20 + 10.serous sanguinous. dilaudid 1 mg effective with pain med.
--- NOTE | 2020-04-23 05:00 | NUR ---
georges drain output is 30 for 7p-7a.
[2020-04-23 05:24] LABS: ALANINE AMINOTRANSFERASE 14 IU/L (0-55); ALKALINE PHOSPHATASE 93 IU/L (40-150); ANION GAP 13.8 mmol/L (8-16); BLOOD UREA NITROGEN 8 mg/dL (7-26); BUN/CREATININE RATIO 11 (6-25); CALCIUM 8.4 mg/dL (8.4-10.2); CARBON DIOXIDE 26 mmol/L (22-29); CHLORIDE 102 mmol/L (98-107); CREATININE, SERUM 0.75 mg/dL (0.72-1.25); EST GLOMERULAR FILTRATION RATE > 60 ML/MIN (60-); GLUCOSE 114 mg/dL (74-118); POTASSIUM 3.8 mmol/L (3.5-5.1); SODIUM 138 mmol/L (136-145)
--- NOTE | 2020-04-23 07:00 | NUR ---
BEDSIDE SHIFT REPORT RECEIVED FROM CROSSTIE INSPECTOR NURSE. PT DENIES NEEDS AT THIS TIME.
[2020-04-23 08:52] LABS: ALBUMIN 3.3 g/dL (3.5-5.0); ALBUMIN/GLOBULIN RATIO 0.9 (0.8-2.0)
[2020-04-23] MEDS ORDERED: IOPAMIDOL 300MG/ML 100 ML INFUS..BTL IV ONE (10:27)
--- NOTE | 2020-04-23 10:46 | Progress Note ---
DATE: 04/23/2020 CHIEF COMPLAINT/HISTORY OF PRESENT ILLNESS: This is a 34-year-old white man, whose primary treating diagnosis is sepsis, secondary to abdominal wall abscess. On Sunday April 19, 2020, Interventional Radiology drained 120 mL of purulent sanguinous fluid from this abscess. The left drain in place connected to a Lance-Cardozo bulb. The patient states that he has no pain in the area of the abdominal abscess drainage, but he does have tenderness in the superior aspect of his previous expiratory laparotomy incisional scar. The patient denies any fever or chills. The patient also denies any nausea, vomiting, or diarrhea. The patient had blood work today, which revealed white blood cell count of 14,700 with 81% segmented neutrophils. Hemoglobin is 10.4 g/dL. The patient's BUN and creatinine are 8 and 0.75 respectively. Potassium 3.8. The patient underwent a repeat CT of abdomen and pelvis without contrast on April 22, 2020, which revealed almost complete resolution of the previous right anterior abdominal wall abscess that had the drain catheter placed last Sunday April 19, 2020. However, the radiologist noted possible findings concerning for leak/fistula. REVIEW OF SYSTEMS: As per HPI. PHYSICAL EXAMINATION: GENERAL: He is awake, alert, and fully oriented. He is very pleasant and cooperative on exam. VITAL SIGNS: Height is 5 feet 11 inches, weight 224 pounds. BMI 34. Blood pressure is 138/82, pulse 86, respiratory rate 18, temperature 98.1, and oxygen saturation 99% on room air. INTEGUMENT: Skin is warm and dry. No pallor, jaundice, or diaphoresis. HEENT: Anterior sclerae with moist mucous membranes. NECK: Supple. CARDIOVASCULAR: Distant heart sounds. Regular rate and rhythm with S4 gallop. LUNGS: No rales, no rhonchi, no wheezes. ABDOMEN: Soft. The patient has a tender palpable mass in the superior aspect of the previous expiratory laparotomy incision, that is somewhat erythematous in color. The drain in the right lumbar abdominal area is still draining purulent sanguinous fluid, but less in volume. EXTREMITIES: No edema or deformity. NEUROLOGIC: Intact. DIAGNOSES: 1. Sepsis, secondary to abdominal wall abscess, resolving. 2. Crohn disease. 3. Anemia, secondary to chronic disease/iron deficiency. PLAN: 1. I discussed the case with general surgeon. 2. The general surgeon will discuss the repeat CT of abdomen and pelvis without contrast with the radiologist, who read this imaging test yesterday and stated there perhaps could be fistulization. 3. Continue intravenous antibiotics. 4. Pain control. 5. Follow white blood cell count. 6. Consider fistulogram. 7. Add metronidazole. I spent 40 minutes in the care of this patient. MD LIAM Lim/JOHN /[id number] MTDAlana
--- NOTE | 2020-04-23 11:13 | NUR ---
LYNDA FROM OUTPATIENT CM FROM INSURANCE CALLED [phone] EXT [id number], [facility] [phone]
--- NOTE | 2020-04-23 11:21 | Diagnostic Imaging Report ---
Fluoroscopic abdominal abscess drain evaluation/sinogram. History: Right abdominal abscess drain. Concern for possible fistula to one of the bowel anastomoses. Modality: Fluoroscopic Sedation: None Fluoroscopy Time: 1.4 min. Reference Air Kerma (Ka, r): 20.8 mGy. Approach: Indwelling right abdominal wall abscess drain Estimated blood loss: < 5 cc. Specimen: None. chisel mortiser operator: Adilson Priest MD Coat Presser: None. Technique: Informed written consent was obtained. Discussion of risks, benefits, and alternatives were made with the patient. The patient expressed understanding and agreed to proceed. A universal timeout was performed prior to starting the procedure. All elements maximal sterile barrier technique was utilized for this procedure, including utilization of sterile scrub solution for skin prep, a large sterile sheet to cover the areas of the patient that were not prepped, and hand hygiene, mask, head covering, and sterile gown for performing radiologist and scrub technologist. Initial center rep images obtained after measuring appropriate location of the abdominal drain. Contrast was then injected slowly for a total of approximately 30 cc. Initially the abscess cavity was opacified and there is then a tract extending to the right upper quadrant and contrast identified within peristalsing colonic bowel loops. Contrast is also noted within the midline small new probable collection. Contrast was then removed. Persistent contrast is noted within the colon and midline small superficial collection. Impression: Abscess evaluation/sinogram demonstrates fistula to the right upper quadrant colonic anastomotic site with contrast identified within the colon. The contrast within the colon did not propagate antegrade suggesting possible ileus. Contrast is also noted extending to the midline smaller fluid collection suggesting that this smaller new connection does communicate with the larger collection that the abscess drain is within. Contrast within the abscess drain was removed however there is still residual contrast within the midline smaller collection. Recommend twice daily flushes to help facilitate drainage of the smaller midline component of the abscess. Signed by: Adilson Priest MD on 04/23/2020 11:18 AM
[2020-04-23] MEDS: METRONIDAZOLE 500MG/NS 100ML 100 ML IV SCH ×2 (14:32→21:40)
[2020-04-23] MEDS ORDERED: MAGNESIUM HYDROXIDE 30 ML UDC PO STA (17:26)
--- NOTE | 2020-04-23 19:05 | NUR ---
Patient visited in room during nursing rounds. Patient alert and oriented x3. Ambulatory in room prn. OMARI drain to RLQ abd draining minimal light yellow fluid. Patient aware he will be NPO at midnight and scheduled for surgery (Explaratory Laparotomy and bowel resection) tomorrow (04/24/20) by Dr. Aram Arreaga. Will have pt sign consent form tonight. Call ruano within reach. Will monitor pt closely.
--- NOTE | 2020-04-23 19:45 | NUR ---
Patient signed consent form (Exploratory Laparotomy and bowel resection). 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
--- NOTE | 2020-04-23 20:10 | NUR ---
Flushed OMARI drain with 10ml NS
--- NOTE | 2020-04-23 21:30 | NUR ---
COVID testing done on patient by [employer] (Lupis Jung). Pt tolerated testing well.
--- NOTE | 2020-04-23 22:00 | NUR ---
Magnetic Locater informed nurse that patient's (Sheila Griffin) is allowed to come tomorrow to stay with patient pre and post surgery. Permission granted by CNO of hospital. Patient aware and called via mandie phone.
[2020-04-24] VITALS (7 sets, daily range): BP systolic 128–150; BP diastolic 72–91
[2020-04-24] MEDS: HYDROMORPHONE 1MG/1ML INJ IV PRN ×3 (03:40→07:30)
[2020-04-24] MEDS: CEFTRIAXONE SOD 1 GM/NS 50 ML 50 ML IV SCH (03:45)
[2020-04-24 05:10] LABS: BASOPHILS % 0.3 % (0.0-1.0); EOSINOPHILS # (AUTO) 0.3 (0.0-0.4); EOSINOPHILS % 1.7 % (0.0-6.0); HEMOGLOBIN 10.5 g/dL (14.0-18.0); LYMPHOCYTES # (AUTO) 1.6 (1.0-3.2); LYMPHOCYTES % 10.6 % (18.0-39.1); MEAN CORPUSCULAR HEMOGLOBIN 24.3 pg (28-32); MEAN CORPUSCULAR HGB CONC 30.9 g/dL (31-35); MEAN CORPUSCULAR VOLUME 78.7 fL (81-99); MONOCYTES # (AUTO) 0.8 (0.2-0.8); MONOCYTES % 5.4 % (4.4-11.3); NEUTROPHILS # (AUTO) 11.9 (2.1-6.9); NEUTROPHILS % 81.5 % (38.7-80.0); PLATELET COUNT 355 x10e3/uL (140-360); RED BLOOD COUNT 4.32 x10e6/uL (4.3-5.7); RED CELL DISTRIBUTION WIDTH 16.7 % (11.7-14.4)
[2020-04-24 05:35] LABS: ANION GAP 15.9 mmol/L (8-16); BLOOD UREA NITROGEN 7 mg/dL (7-26); BUN/CREATININE RATIO 9 (6-25); CALCIUM 8.7 mg/dL (8.4-10.2); CARBON DIOXIDE 25 mmol/L (22-29); CHLORIDE 102 mmol/L (98-107); CREATININE, SERUM 0.77 mg/dL (0.72-1.25); EST GLOMERULAR FILTRATION RATE > 60 ML/MIN (60-); GLUCOSE 99 mg/dL (74-118); POTASSIUM 3.9 mmol/L (3.5-5.1); SODIUM 139 mmol/L (136-145)
[2020-04-24] MEDS: METRONIDAZOLE 500MG/NS 100ML 100 ML IV SCH ×3 (06:00→22:30)
--- NOTE | 2020-04-24 06:07 | NUR ---
Patient refused to take a bath at this time. Patient prefers to take a hibiclens bath around breakfast or after breakfast time. Pt provided with bath materials and aware procedure/surgery to happen late this morning. Will pass information to incoming dayshift staff.
--- NOTE | 2020-04-24 09:26 | Progress Note ---
DATE: 04/24/2020 CHIEF COMPLAINT/HISTORY OF PRESENT ILLNESS: This is a 34-year-old white man, whose primary treating diagnosis is sepsis secondary to abdominal wall abscess. Yesterday April 23, 2020, the patient underwent a fistulogram, which revealed findings consistent with a fistula in the right upper quadrant colonic anastomotic site with contrast identified within the colon. The patient is scheduled to undergo tentative surgery today for this condition. Today's blood work revealed white blood cell count of 14,500 with 81% segmented neutrophils. Hemoglobin is 10.5 g/dL. The patient's BUN and creatinine today are 7 and 0.77 respectively. The patient's potassium today is 3.9. REVIEW OF SYSTEMS: As per HPI. PHYSICAL EXAMINATION: GENERAL: He is awake, alert, and fully oriented. VITAL SIGNS: Blood pressure is 140/80, pulse 74, respiratory rate is 18, temperature 98.2, and oxygen saturation 99% on room air. Height 5 feet 11 inches, weighs 224 pounds, BMI 31. INTEGUMENT: Skin is warm and dry. No pallor, jaundice, or diaphoresis. HEENT: Anterior sclerae with moist mucous membranes. NECK: Supple. CARDIOVASCULAR: Regular rate and rhythm. LUNGS: No rales, rhonchi, or wheezes. ABDOMEN: Soft. The patient does have a tender fluctuant erythematous mass in the superior aspect of his previous exploratory surgical incision. The patient still has a drain in the right lumbar abdominal area that is draining purulent sanguinous fluid. EXTREMITIES: No edema or deformity. NEUROLOGIC: Intact. DIAGNOSES: 1. Sepsis secondary to abdominal wall abscess. 2. Colonic fistula. 3. Crohn disease. 4. Anemia secondary to chronic disease/iron deficiency. PLAN: 1. Tentative surgery today to address colonic fistula. 2. Intravenous antibiotics. 3. Follow hemoglobin and white blood cell count. 4. Pain control. I spent 30 minutes in the care of this patient. MD LIAM Lim/JOHN /[id number] [place]
--- NOTE | 2020-04-24 10:30 | NUR ---
down to sx left in stable condition
[2020-04-24] MEDS: SODIUM CHLORIDE 0.9% 250ML IRRIG IR SCH ×3 (14:30→22:30)
[2020-04-24] MEDS ORDERED: NALOXONE HCL INJ 0.4 MG/ML AMP IV PRN (14:30)
[2020-04-24] MEDS ORDERED: ACETAMINOPHEN 1000 MG/100 ML IV PRN (14:30)
[2020-04-24] MEDS ORDERED: HYDROMORPHONE 0.2MG/ML-SOD CHL 30ML PCA SYRINGE IV ONE (14:52)
[2020-04-24] MEDS: PANTOPRAZOLE 40 MG 10ML VIAL IV SCH (15:00)
[2020-04-24] MEDS ORDERED: ONDANSETRON HCL INJ 2MG/ML 2ML 2 MG/ML VIAL ONE ×2 (15:42→21:41)
[2020-04-24] MEDS ORDERED: METOCLOPRAMIDE HCL 10 MG/2ML VIAL ONE (15:43)
[2020-04-24] MEDS ORDERED: PANTOPRAZOLE 40 MG 10ML VIAL ONE (16:37)
--- NOTE | 2020-04-24 17:45 | NUR ---
received pacu 1745, patient aware alert and oriented, SPRAYER MACHINE Dilaudid, Midline surgical incision to abdomen, foam dressing in place with abdominal binder. Roca to gravity draining clear yellow tito. oriented to room instructed to call when needing assistance, belongings and call light within reach.
[2020-04-24] MEDS ORDERED: MIDAZOLAM HCL 2 MG/2 ML VIAL ONE (17:51)
[2020-04-24] MEDS ORDERED: FENTANYL CITRATE/PF 100MCG/2 ML INJ ONE (17:51)
--- NOTE | 2020-04-24 19:35 | NUR ---
Pt. resting quietly. Oxygen on 3L per nasal cannula. Respirations are even and unlabored. NG tube is patent , intact, connected to low suction draining green drainage. Abd. dressing is clean,dry, abd. binder intact. Roca catheter is patent and intact draining tito urine.
[2020-04-24] MEDS: SODIUM CHLORIDE 0.9% 1000ML 1,000 ML IV SCH (19:51)
[2020-04-24] MEDS: PIPER-TAZ 3.375 GM 50 ML IV SCH (19:51)
--- NOTE | 2020-04-24 20:30 | NUR ---
Instructed pt. to do incentive spirometry at least 7-10 repetions every two hours while awake.
[2020-04-24] MEDS ORDERED: ROCURONIUM BROMIDE 10 MG/ML 5ML VIAL IV ONE (21:41)
[2020-04-24] MEDS ORDERED: LIDOCAINE HCL 2% LOCAL INJ 5 ML SDV VIAL INJ ONE (21:41)
[2020-04-24] MEDS ORDERED: SEVOFLURANE INHAL SOLN 250 ML PEN BTL ONE (21:41)
[2020-04-24] MEDS ORDERED: NEOSTIGMINE 1 MG/ML 10ML VIAL ONE (21:41)
[2020-04-24] MEDS ORDERED: KETOROLAC TROMETHAMINE 30 MG/ML VIAL ONE (21:41)
[2020-04-24] MEDS ORDERED: DEXAMETHASONE SOD PHOS INJ 4 MG/ML VIAL ONE (21:41)
[2020-04-24] MEDS ORDERED: GLYCOPYRROLATE INJ 0.2 MG/ML VIAL ONE (21:41)
[2020-04-24] MEDS ORDERED: PROPOFOL IV EMULSION 10 MG/ML 20 ML VIAL ONE (21:41)
[2020-04-24] MEDS: ONDANSETRON HCL INJ 2MG/ML 2ML 2 MG/ML VIAL IV PRN (22:11)
[2020-04-24] MEDS: HYDROMORPHONE 0.2MG/ML-SOD CHL 30ML PCA SYRINGE IV PRN (23:20)
[2020-04-25] VITALS (7 sets, daily range): BP systolic 126–152; BP diastolic 65–94
[2020-04-25] MEDS: PIPER-TAZ 3.375 GM 50 ML IV SCH ×4 (00:59→18:15)
[2020-04-25] MEDS: SODIUM CHLORIDE 0.9% 250ML IRRIG IR SCH ×6 (02:39→22:42)
[2020-04-25] MEDS: ONDANSETRON HCL INJ 2MG/ML 2ML 2 MG/ML VIAL IV PRN ×3 (02:42→22:49)
[2020-04-25] MEDS: SODIUM CHLORIDE 0.9% 1000ML 1,000 ML IV SCH ×5 (04:15→22:42)
[2020-04-25 04:58] LABS: BASOPHILS % 0.1 % (0.0-1.0); HEMATOCRIT 37.2 % (38.2-49.6); HEMOGLOBIN 11.3 g/dL (14.0-18.0); LYMPHOCYTES # (AUTO) 1.3 (1.0-3.2); LYMPHOCYTES % 5.8 % (18.0-39.1); MEAN CORPUSCULAR HEMOGLOBIN 23.1 pg (28-32); MEAN CORPUSCULAR HGB CONC 30.4 g/dL (31-35); MEAN CORPUSCULAR VOLUME 76.1 fL (81-99); MONOCYTES # (AUTO) 1.1 (0.2-0.8); MONOCYTES % 4.7 % (4.4-11.3); NEUTROPHILS # (AUTO) 19.8 (2.1-6.9); NEUTROPHILS % 88.8 % (38.7-80.0); PLATELET COUNT 521 x10e3/uL (140-360); RED BLOOD COUNT 4.89 x10e6/uL (4.3-5.7); RED CELL DISTRIBUTION WIDTH 16.5 % (11.7-14.4)
[2020-04-25] MEDS: METRONIDAZOLE 500MG/NS 100ML 100 ML IV SCH ×3 (05:23→20:46)
[2020-04-25 06:30] LABS: ALANINE AMINOTRANSFERASE 15 IU/L (0-55); ALBUMIN 3.5 g/dL (3.5-5.0); ALBUMIN/GLOBULIN RATIO 0.9 (0.8-2.0); ALKALINE PHOSPHATASE 100 IU/L (40-150); ANION GAP 18.1 mmol/L (8-16); BLOOD UREA NITROGEN 8 mg/dL (7-26); BUN/CREATININE RATIO 9 (6-25); CALCIUM 9.1 mg/dL (8.4-10.2); CARBON DIOXIDE 24 mmol/L (22-29); CHLORIDE 101 mmol/L (98-107); CREATININE, SERUM 0.94 mg/dL (0.72-1.25); EST GLOMERULAR FILTRATION RATE > 60 ML/MIN (60-); GLUCOSE 118 mg/dL (74-118); POTASSIUM 5.1 mmol/L (3.5-5.1); SODIUM 138 mmol/L (136-145)
[2020-04-25] MEDS: HYDROMORPHONE 0.2MG/ML-SOD CHL 30ML PCA SYRINGE IV PRN ×3 (08:00→22:42)
--- NOTE | 2020-04-25 10:37 | Progress Note ---
DATE: 04/25/2020 CHIEF COMPLAINT/HISTORYOF PRESENT ILLNESS: A 34-year-old white man whose primary treating diagnosis was sepsis secondary to abdominal wall abscess. During this hospitalization, he was actually found to have enterocutaneous fistula likely complication from underlying Crohn disease. Yesterday, the patient was taken to the operating room and Dr. Gunner Arreaga performed exploratory laparotomy with ileocolectomy and lysis of adhesions. The patient tolerated surgery quite well. The patient states his pain is well controlled currently with intravenous WOOL GROWER pump. The patient voiced no complaints. The patient denies any belching or flatus. White blood cell count today is 22,300 with 88% segmented neutrophils. The patient's hemoglobin 11.3 g/dL. The patient's BUN and creatinine are 8 and 0.94 respectively. Potassium is 5.1. REVIEW OF SYSTEMS: As per HPI. PHYSICAL EXAMINATION: GENERAL: He is awake and alert. He is fully oriented. VITAL SIGNS: Height is 5 feet 11 inches, weight is 224 pounds, BMI 31. Blood pressure is 138/90, pulse 80, respiratory rate is 18, oxygen saturation 97% on 2 L oxygen, temperature is 97.9. SKIN: Warm and dry. Slight pallor. No jaundice or diaphoresis. HEENT: Anicteric sclerae. Moist mucous membranes. The patient has a nasogastric tube in place. NECK: Supple. CARDIOVASCULAR: Regular rate and rhythm. LUNGS: No rales. No rhonchi. No wheezes. ABDOMEN: Soft. His surgical incisions are currently dressed. No bowel sounds are auscultated. EXTREMITIES: No edema or deformity. He is currently wearing sequential compression devices in his lower legs. NEUROLOGIC: Intact. No deficits appreciated. DIAGNOSES: 1. Crohn disease with enterocutaneous fistula. 2. Sepsis secondary to enterocutaneous fistula, resolving. 3. Status post exploratory laparotomy with ileocolectomy and lysis of adhesions yesterday, April 24, 2020. 4. Anemia secondary to chronic disease/iron deficiency. 5. Hypertension. PLAN: 1. Continue intravenous antibiotics. 2. Follow electrolytes. 3. Intravenous fluids. 4. Nothing by mouth. 5. Follow white blood cell count. 6. Pain control. 7. I would recommend the patient utilize incentive spirometer to prevent atelectasis. 8. Continue sequential compression devices on his lower legs to prevent deep venous thrombosis and pulmonary embolism. I spent 30 minutes in the care of the patient. MD GURU Lim /[id number] MTDAlana
[2020-04-25] MEDS: PANTOPRAZOLE 40 MG 10ML VIAL IV SCH (15:22)
--- NOTE | 2020-04-25 15:45 | NUR ---
Nutrition Screen Note RD Recommendation for Physician: -Recommend advancing to GI soft diet when medically appropriate Plan of Care: RD following, monitoring for tolerance and adequacy Nutrition reason for involvement: length of stay Primary Diagnose(s): RUQ abscess PMH: Crohn's disease, Anemia secondary to chronic disease/iron deficiency. Ht:71 in Wt: 224.02 lb BMI: 31.2 kg/m2 IBW:[address] Assessment: (04/25/20) Chart reviewed. Labs and meds reviewed. Pt is a 34 year old male admitted with RUQ abscess. Pt was found to have an enterocutaneous fistula and has a h/o Crohns disease per chart. Pt had a bowel resection on 04/24. Pt is currently NPO and has a NGT, but was previously on a regular diet with 50-100% meal intake recorded. Pt reports he usually eats >50% of his meals. Pt stated he weighed 325 lbs in August and had unintentionally lost 100 lbs due to Crohns disease, but mentioned his weight has been stable since October. Pt currently has a weight of 224 lbs in chart; therefore, this would be a significant weight loss in the past 9 months. Pt reports some nausea. No chewing/swallowing issues. Will continue to monitor. Current Diet: NPO Malnutrition Evaluation (04/25/20) The patient does not meet criteria for a specified degree of malnutrition at this time. Will re-evaluate at follow-up as appropriate. Diet Education Needs Assessment: Diet education not indicated. Pt is currently NPO Nutrition Care Level: low Signed: Krysta Kendall, RD, LD
--- NOTE | 2020-04-25 17:22 | NUR ---
RECEIVED REPORT FROM BUBBA HENDRICKS. PATIENT ARRIVED TO THE UNIT @ 1722 VIA BED. PATIENT IN STABLE CONDITION, NO S/S OF DISTRESS NOTED. PATIENT ON A CONTRACT PROJECT MANAGER PUMP. NG TUBE NOTED TO THE LEFT NARE. RESPIRATIONS EVEN AND NON-LABORED. TELEMETRY APPLIED. IV SITE ASYMPTOMATIC, AND PATENT, TRANSPARENT DRESSING C/D/I. BED IN LOWEST POSITION AND LOCKED. CALL LIGHT WITHIN REACH.
--- NOTE | 2020-04-25 19:20 | NUR ---
COMPLETED BEDSIDE SHIFT REPORT AND ROUNDING WITH ONCOMING NIGHT NURSE. PATIENT IN STABLE CONDITION, NO S/S OF DISTRESS NOTED. PATIENT ON A FAMILY PRACTITIONER PUMP. NG TUBE NOTED TO THE LEFT NARE ON LOW INTERMITTED WALL SUCTION. RESPIRATIONS EVEN AND NON-LABORED. TELEMETRY APPLIED. ABDOMINAL BINDER APPLIED WITH FOAM DRESSING UNDER C/D/I. IV FLUIDS INFUSING, SITE ASYMPTOMATIC, AND PATENT, TRANSPARENT DRESSING C/D/I. BED IN LOWEST POSITION AND LOCKED. CALL LIGHT WITHIN REACH.
[2020-04-26] VITALS (8 sets, daily range): BP systolic 127–142; BP diastolic 70–99
[2020-04-26] MEDS: PIPER-TAZ 3.375 GM 50 ML IV SCH ×4 (00:19→16:42)
[2020-04-26] MEDS: SODIUM CHLORIDE 0.9% 250ML IRRIG IR SCH ×6 (02:42→21:08)
[2020-04-26] MEDS: METRONIDAZOLE 500MG/NS 100ML 100 ML IV SCH ×2 (05:09→13:20)
[2020-04-26] MEDS: SODIUM CHLORIDE 0.9% 1000ML 1,000 ML IV SCH ×4 (05:09→20:42)
[2020-04-26 05:53] LABS: BASOPHILS % 0.3 % (0.0-1.0); EOSINOPHILS # (AUTO) 0.2 (0.0-0.4); EOSINOPHILS % 1.5 % (0.0-6.0); HEMATOCRIT 31.3 % (38.2-49.6); HEMOGLOBIN 9.4 g/dL (14.0-18.0); LYMPHOCYTES # (AUTO) 1.7 (1.0-3.2); LYMPHOCYTES % 12.9 % (18.0-39.1); MEAN CORPUSCULAR HEMOGLOBIN 23.7 pg (28-32); MONOCYTES # (AUTO) 0.9 (0.2-0.8); MONOCYTES % 6.6 % (4.4-11.3); NEUTROPHILS # (AUTO) 10.2 (2.1-6.9); NEUTROPHILS % 78.2 % (38.7-80.0); PLATELET COUNT 425 x10e3/uL (140-360); RED BLOOD COUNT 3.96 x10e6/uL (4.3-5.7); RED CELL DISTRIBUTION WIDTH 16.6 % (11.7-14.4)
[2020-04-26 06:17] LABS: ALANINE AMINOTRANSFERASE 12 IU/L (0-55); ALBUMIN 3.2 g/dL (3.5-5.0); ALBUMIN/GLOBULIN RATIO 0.9 (0.8-2.0); ALKALINE PHOSPHATASE 78 IU/L (40-150); ANION GAP 16.1 mmol/L (8-16); BLOOD UREA NITROGEN 9 mg/dL (7-26); BUN/CREATININE RATIO 11 (6-25); CALCIUM 8.5 mg/dL (8.4-10.2); CARBON DIOXIDE 27 mmol/L (22-29); CHLORIDE 101 mmol/L (98-107); CREATININE, SERUM 0.83 mg/dL (0.72-1.25); EST GLOMERULAR FILTRATION RATE > 60 ML/MIN (60-); GLUCOSE 90 mg/dL (74-118); POTASSIUM 4.1 mmol/L (3.5-5.1); SODIUM 140 mmol/L (136-145)
[2020-04-26] MEDS: HYDROMORPHONE 0.2MG/ML-SOD CHL 30ML PCA SYRINGE IV PRN (08:00)
--- NOTE | 2020-04-26 08:00 | NUR ---
Roca catheter discontinued as ordered. Tolerated well. Due to void
--- NOTE | 2020-04-26 08:47 | Progress Note ---
DATE: 04/26/2020 CHIEF COMPLAINT/HISTORY OF PRESENT ILLNESS: This is a 34-year-old white man, who was initially admitted with sepsis secondary to abdominal wall abscess. During this hospitalization, he was actually found to have an enterocutaneous fistula, likely complication from his underlying Crohn's disease. Two days ago, the patient underwent successful exploratory laparotomy with ileocolectomy and lysis of adhesions. The patient states his pain is well controlled with the current BEEF BREAKER pump. The patient denies any flatus or belching. He voices no other complaints. Blood work today revealed white blood cell count of 13,000 with 78% segmented neutrophils. The patient's hemoglobin is 9.4 g/dL. The patient's BUN and creatinine are 9 and 0.83 respectively. The patient's potassium is 4.1. REVIEW OF SYSTEMS: As per HPI. PHYSICAL EXAMINATION: GENERAL: He is awake. He is alert. He is fully oriented. He seems to have a flat affect today. VITAL SIGNS: Height is 5 feet 11 inches, weight is 228 pounds, BMI is 31. Blood pressure is 134/78, pulse 88, respiratory rate is 16, temperature is 98.7, oxygen saturation 95% on room air. INTEGUMENT: Skin is warm and dry. Slight pallor. No jaundice or diaphoresis is appreciated. HEENT: Anicteric sclerae. Moist mucous membranes. The patient has a nasogastric tube in place. NECK: Supple. CARDIOVASCULAR: Tachycardic rate with regular rhythm. LUNGS: No rales. No rhonchi. No wheezes. ABDOMEN: Soft. He has abdominal binder in place and his exploratory laparotomy incision is dressed. No edema of the legs. NEUROLOGIC: Intact. DIAGNOSES: 1. Sepsis secondary to enterocutaneous fistula, resolved. 2. Enterocutaneous fistula secondary to Crohn's disease complication. 3. Status post exploratory laparotomy with ileocolectomy. 4. Anemia secondary to chronic disease and iron deficiency. 5. Crohn's disease. PLAN: 1. Continue intravenous antibiotics. 2. Intravenous fluids. 3. Keep nasogastric tube in place. 4. Pain control. 5. Mobilize the patient. 6. Recommended the patient to use incentive spirometer to prevent atelectasis. I spent 25 minutes in the care of the patient. Bassem E Orahood, MD MEO/JOHN /[id number] MTDAlana
[2020-04-26] MEDS: ONDANSETRON HCL INJ 2MG/ML 2ML 2 MG/ML VIAL IV PRN (11:40)
[2020-04-26] MEDS ORDERED: PROMETHAZINE 12.5MG/ NACL 0.9% 12.5 MG/50 ML BAG IV PRN (14:15)
[2020-04-26] MEDS ORDERED: HYDROMORPHONE 0.2MG/ML-SOD CHL 30ML PCA SYRINGE IV PRN (16:30)
[2020-04-26] MEDS: PANTOPRAZOLE 40 MG 10ML VIAL IV SCH (16:42)
--- NOTE | 2020-04-26 17:03 | NUR ---
Patient voided without discomfort
--- NOTE | 2020-04-26 19:08 | NUR ---
Report given to oncoming nurse of patient's status. No s/s of acute distress noted. Side rails upx2, call light within reach.
[2020-04-26] MEDS: BISACODYL 10 MG SUPP PR SCH (20:37)
[2020-04-26] MEDS: CLINDAMYCIN 600MG / 50ML 50 ML IV SCH (20:42)
[2020-04-27] VITALS (9 sets, daily range): BP systolic 138–153; BP diastolic 80–92
[2020-04-27] MEDS: PIPER-TAZ 3.375 GM 50 ML IV SCH ×4 (00:46→18:09)
[2020-04-27] MEDS: SODIUM CHLORIDE 0.9% 250ML IRRIG IR SCH ×3 (02:42→10:49)
[2020-04-27] MEDS: CLINDAMYCIN 600MG / 50ML 50 ML IV SCH ×4 (02:42→20:00)
[2020-04-27] MEDS: SODIUM CHLORIDE 0.9% 1000ML 1,000 ML IV SCH ×3 (02:42→15:46)
--- NOTE | 2020-04-27 07:00 | NUR ---
BEDSIDE SHIFT REPORT RECEIVED FROM HISTOPATHOLOGIST RN. PT DENIES NEEDS AT THIS TIME.
--- NOTE | 2020-04-27 07:00 | NUR ---
BEDSIDE SHIFT REPORT RECEIVED FROM MANAGER OF PMO RN. PT DENIES NEEDS AT THIS TIME.
[2020-04-27 08:48] LABS: ALANINE AMINOTRANSFERASE 13 IU/L (0-55); ALBUMIN 3.3 g/dL (3.5-5.0); ALBUMIN/GLOBULIN RATIO 0.9 (0.8-2.0); ALKALINE PHOSPHATASE 79 IU/L (40-150); ANION GAP 17.7 mmol/L (8-16); BLOOD UREA NITROGEN 6 mg/dL (7-26); BUN/CREATININE RATIO 8 (6-25); CALCIUM 8.8 mg/dL (8.4-10.2); CARBON DIOXIDE 25 mmol/L (22-29); CHLORIDE 102 mmol/L (98-107); CREATININE, SERUM 0.76 mg/dL (0.72-1.25); EST GLOMERULAR FILTRATION RATE > 60 ML/MIN (60-); GLUCOSE 95 mg/dL (74-118); POTASSIUM 3.7 mmol/L (3.5-5.1); SODIUM 141 mmol/L (136-145)
[2020-04-27] MEDS: BISACODYL 10 MG SUPP PR SCH (08:52)
[2020-04-27] MEDS: PANTOPRAZOLE 40 MG 10ML VIAL IV SCH (15:40)
--- NOTE | 2020-04-27 19:46 | NUR ---
RECEIVED PT IN BED AOX3 .PT HAS ABD BINDER WITH DRESSING ,PT IS ON SENIOR SUPPLIER QUALITY ENGINEER DILAUDID ,DENIES PAIN .CALL LIGHT WITH IN REACH ,CONTINUE TO MONITOR
[2020-04-27] MEDS ORDERED: TEMAZEPAM 7.5 MG CAP PO PRN (22:30)
[2020-04-28] VITALS (7 sets, daily range): BP systolic 125–175; BP diastolic 66–87
[2020-04-28] MEDS: CLINDAMYCIN 600MG / 50ML 50 ML IV SCH ×4 (02:00→20:14)
[2020-04-28] MEDS: SODIUM CHLORIDE 0.9% 1000ML 1,000 ML IV SCH ×2 (02:45→10:34)
--- NOTE | 2020-04-28 05:06 | NUR ---
PT C/O INSOMNIA ,CALLED DR STANLEY ,GIVEN THE ORDER FOR RESTORIL .PT RESTING ,DENIES PAIN ,CALL LIGHT WITHIN REACH ,CONTINUE TO MONITOR
[2020-04-28 06:03] LABS: BASOPHILS % 0.3 % (0.0-1.0); EOSINOPHILS # (AUTO) 0.3 (0.0-0.4); EOSINOPHILS % 2.6 % (0.0-6.0); HEMATOCRIT 28.8 % (38.2-49.6); HEMOGLOBIN 8.7 g/dL (14.0-18.0); LYMPHOCYTES # (AUTO) 1.4 (1.0-3.2); LYMPHOCYTES % 12.7 % (18.0-39.1); MEAN CORPUSCULAR HEMOGLOBIN 23.8 pg (28-32); MEAN CORPUSCULAR HGB CONC 30.2 g/dL (31-35); MEAN CORPUSCULAR VOLUME 78.9 fL (81-99); MONOCYTES # (AUTO) 0.6 (0.2-0.8); MONOCYTES % 5.3 % (4.4-11.3); NEUTROPHILS # (AUTO) 8.6 (2.1-6.9); NEUTROPHILS % 78.5 % (38.7-80.0); PLATELET COUNT 412 x10e3/uL (140-360); RED BLOOD COUNT 3.65 x10e6/uL (4.3-5.7); RED CELL DISTRIBUTION WIDTH 16.1 % (11.7-14.4)
[2020-04-28 06:12] LABS: ALANINE AMINOTRANSFERASE 12 IU/L (0-55); ALBUMIN 3.2 g/dL (3.5-5.0); ALKALINE PHOSPHATASE 79 IU/L (40-150); ANION GAP 14.6 mmol/L (8-16); BLOOD UREA NITROGEN 6 mg/dL (7-26); BUN/CREATININE RATIO 8 (6-25); CALCIUM 8.4 mg/dL (8.4-10.2); CARBON DIOXIDE 24 mmol/L (22-29); CHLORIDE 107 mmol/L (98-107); CREATININE, SERUM 0.76 mg/dL (0.72-1.25); EST GLOMERULAR FILTRATION RATE > 60 ML/MIN (60-); GLUCOSE 81 mg/dL (74-118); POTASSIUM 3.6 mmol/L (3.5-5.1); SODIUM 142 mmol/L (136-145)
[2020-04-28] MEDS: PIPER-TAZ 3.375 GM 50 ML IV SCH ×4 (06:26→18:20)
--- NOTE | 2020-04-28 07:00 | NUR ---
BEDSIDE SHIFT REPORT RECEIVED FROM PAVING AND SURFACING LABOURER RN. PT DENIES NEEDS AT THIS TIME.
--- NOTE | 2020-04-28 07:00 | NUR ---
BEDSIDE SHIFT REPORT RECEIVED FROM DEPLOYMENT SPECIALIST RN. PT DENIES NEEDS AT THIS TIME.
--- NOTE | 2020-04-28 07:13 | NUR ---
BEDSIDE REPORT GIVEN TO THE ONCOMING NURSE
[2020-04-28] MEDS: HYDROMORPHONE 1MG/1ML INJ IV PRN ×5 (08:24→23:14)
[2020-04-28] MEDS ORDERED: HYDROCODONE/APAP 5MG-325MG TAB PO PRN (10:45)
[2020-04-28] MEDS: PANTOPRAZOLE 40 MG 10ML VIAL IV SCH (15:53)
--- NOTE | 2020-04-28 19:22 | NUR ---
RECEIVED PT IN BED AOX3 .PT HAS ABD BINDER WITH DRESSING , ,DENIES PAIN AT THIS T FERNAN[place] .CALL LIGHT WITH IN REACH ,CONTINUE TO MONITOR
[2020-04-29] VITALS (8 sets, daily range): BP systolic 126–152; BP diastolic 78–97
[2020-04-29] MEDS: SODIUM CHLORIDE 0.9% 1000ML 1,000 ML IV SCH (01:16)
[2020-04-29] MEDS: PIPER-TAZ 3.375 GM 50 ML IV SCH ×4 (01:16→17:42)
[2020-04-29] MEDS: CLINDAMYCIN 600MG / 50ML 50 ML IV SCH ×4 (02:11→21:09)
[2020-04-29] MEDS: HYDROMORPHONE 1MG/1ML INJ IV PRN ×7 (02:21→22:05)
--- NOTE | 2020-04-29 04:58 | NUR ---
PTC/OPAIN AND GIVEN ORDERED PAIN MEDICATION Q3HRS PT RESTING CALL LIGHT WIITH IN REACH ,CONTINUE TO MONITOR
[2020-04-29 05:55] LABS: BASOPHILS % 0.4 % (0.0-1.0); EOSINOPHILS # (AUTO) 0.3 (0.0-0.4); EOSINOPHILS % 3.5 % (0.0-6.0); HEMATOCRIT 28.8 % (38.2-49.6); HEMOGLOBIN 8.9 g/dL (14.0-18.0); LYMPHOCYTES # (AUTO) 1.7 (1.0-3.2); LYMPHOCYTES % 18.5 % (18.0-39.1); MEAN CORPUSCULAR HEMOGLOBIN 24.6 pg (28-32); MEAN CORPUSCULAR HGB CONC 30.9 g/dL (31-35); MEAN CORPUSCULAR VOLUME 79.6 fL (81-99); MONOCYTES # (AUTO) 0.6 (0.2-0.8); MONOCYTES % 6.9 % (4.4-11.3); NEUTROPHILS # (AUTO) 6.3 (2.1-6.9); NEUTROPHILS % 70.1 % (38.7-80.0); PLATELET COUNT 383 x10e3/uL (140-360); RED BLOOD COUNT 3.62 x10e6/uL (4.3-5.7); RED CELL DISTRIBUTION WIDTH 17.5 % (11.7-14.4)
[2020-04-29 06:05] LABS: ANION GAP 15.4 mmol/L (8-16); BLOOD UREA NITROGEN 5 mg/dL (7-26); BUN/CREATININE RATIO 6 (6-25); CALCIUM 8.2 mg/dL (8.4-10.2); CARBON DIOXIDE 23 mmol/L (22-29); CHLORIDE 104 mmol/L (98-107); CREATININE, SERUM 0.85 mg/dL (0.72-1.25); EST GLOMERULAR FILTRATION RATE > 60 ML/MIN (60-); GLUCOSE 93 mg/dL (74-118); POTASSIUM 3.4 mmol/L (3.5-5.1); SODIUM 139 mmol/L (136-145)
--- NOTE | 2020-04-29 07:15 | NUR ---
BEDSIDE REPORT GIVEN TO THE ONCOMING NURSE
[2020-04-29] MEDS ORDERED: POTASSIUM CHLORIDE 10MEQ EA PO ONE ×5 (08:15→12:45)
[2020-04-29] MEDS: ONDANSETRON HCL INJ 2MG/ML 2ML 2 MG/ML VIAL IV PRN (12:30)
--- NOTE | 2020-04-29 13:00 | Progress Note ---
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 Last week, the patient underwent successful exploratory laparotomy with ileocolectomy. It was felt this fistula was secondary to Crohn disease complication. The patient is doing quite well. The patient is tolerating a full liquid diet. The patient states he has flatus and he has moved his bowels. The patient denies any fever or chills. Blood work today revealed a potassium 3.4. The patient's BUN creatinine is 5 and 0.85 respectively. The patient's hemoglobin today is 98.9 g/dL. The patient's white blood cell count today is 9000 with 70% segmented neutrophils. REVIEW OF SYSTEMS: As per HPI. PHYSICAL EXAMINATION: GENERAL: He is awake, he is alert, he is fully oriented. He is very pleasant and cooperative on exam. He does not appear to be in any obvious distress. VITAL SIGNS: Height 5 feet 11 inches, weight is 220 pounds, BMI 31. Blood pressure is 136/98, pulse 78, respiratory rate 18, temperature 97.8, and oxygen saturation 100% on room air. INTEGUMENT: Skin is warm dry. No pallor, jaundice, diaphoresis. HEENT: Anterior sclerae. Moist mucous membranes. NECK: Supple. CARDIOVASCULAR: Regular rate and rhythm. LUNGS: No rales. No rhonchi. No wheezes. ABDOMEN: Soft. He does have bowel sounds. EXTREMITIES: No edema or deformity. NEUROLOGIC: Intact. DIAGNOSES: 1. Sepsis secondary to enterocutaneous fistula, resolved. 2. 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 3. Status post exploratory laparotomy with ileocolectomy. 4. Anemia secondary to chronic disease and iron deficiency. 5. Crohn disease. 6. Hypertension, likely. PLAN: 1. We will stop intravenous fluids since the patient is tolerating a full liquid diet and his blood pressure has been elevated. 2. Follow electrolytes. 3. Replete potassium. 4. Pain control. 5. Encourage incentive spirometer usage to prevent atelectasis. 6. May consider starting the patient on blood pressure lowering medication in the near future. 7. Discharge planning for tomorrow, Thursday April 30, 2020. I spent 30 minutes in the care of this patient. MD LIAM Lim/JOHN /[id number] [place]
[2020-04-29] MEDS: PANTOPRAZOLE 40 MG 10ML VIAL IV SCH (15:24)
[2020-04-30] MEDS: PIPER-TAZ 3.375 GM 50 ML IV SCH ×3 (00:54→13:14)
[2020-04-30] MEDS: HYDROMORPHONE 1MG/1ML INJ IV PRN ×5 (01:05→13:15)
[2020-04-30 01:29] VITALS: BP 136/69
[2020-04-30] MEDS: CLINDAMYCIN 600MG / 50ML 50 ML IV SCH ×3 (02:59→14:00)
[2020-04-30 05:22] LABS: BASOPHILS % 0.3 % (0.0-1.0); EOSINOPHILS # (AUTO) 0.3 (0.0-0.4); EOSINOPHILS % 3.2 % (0.0-6.0); HEMATOCRIT 29.3 % (38.2-49.6); HEMOGLOBIN 8.8 g/dL (14.0-18.0); LYMPHOCYTES # (AUTO) 1.6 (1.0-3.2); LYMPHOCYTES % 16.4 % (18.0-39.1); MEAN CORPUSCULAR HEMOGLOBIN 23.3 pg (28-32); MEAN CORPUSCULAR VOLUME 77.5 fL (81-99); MONOCYTES # (AUTO) 0.6 (0.2-0.8); MONOCYTES % 6.5 % (4.4-11.3); NEUTROPHILS % 73.2 % (38.7-80.0); PLATELET COUNT 399 x10e3/uL (140-360); RED BLOOD COUNT 3.78 x10e6/uL (4.3-5.7); RED CELL DISTRIBUTION WIDTH 17.1 % (11.7-14.4)
[2020-04-30 05:39] LABS: ANION GAP 15.8 mmol/L (8-16); BLOOD UREA NITROGEN < 5 mg/dL (7-26); CALCIUM 8.2 mg/dL (8.4-10.2); CARBON DIOXIDE 22 mmol/L (22-29); CHLORIDE 104 mmol/L (98-107); CREATININE, SERUM 0.85 mg/dL (0.72-1.25); EST GLOMERULAR FILTRATION RATE > 60 ML/MIN (60-); GLUCOSE 90 mg/dL (74-118); POTASSIUM 3.8 mmol/L (3.5-5.1); SODIUM 138 mmol/L (136-145)
[2020-04-30 05:44] VITALS: BP 135/76
[2020-04-30 05:44] LABS: BUN/CREATININE RATIO 6 (6-25)
[2020-04-30 07:51] VITALS: BP 133/87
[2020-04-30 08:09] VITALS: BP 133/87
--- NOTE | 2020-04-30 08:52 | NUR ---
Called Dr. Gunner Arreaga answering service and left a message with Asya at [phone] regarding abdominal drain disposition for discharge. Awaiting call back.
--- NOTE | 2020-04-30 09:28 | Discharge Summary ---
ADMISSION DIAGNOSES: 1. Right upper quadrant intraabdominal abscess. 2. Status post CT-guided drainage of right upper quadrant intraabdominal abscess. 3. Crohn disease. 4. Anemia secondary to chronic disease/iron deficiency. DISCHARGE DIAGNOSES: 1. Sepsis secondary to enterocutaneous fistula. 2. Status post CT-guided drainage of right upper quadrant intraabdominal abscess. 3. Status post exploratory laparotomy with ileocolectomy and lysis of adhesions. 4. Enterocutaneous fistula secondary to Crohn disease with enterocutaneous fistula as a complication. 5. Anemia secondary to chronic disease/iron deficiency. HOSPITAL COURSE: This is a 34-year-old white man, who was initially admitted to [facility], diagnosed with sepsis secondary to right upper quadrant intraabdominal abscess. On the day of admission, he underwent CT- guided drainage of the right upper quadrant intraabdominal abscess. However, during this hospital stay, the patient did not improve clinically after this CT-guided drainage of the right upper quadrant intraabdominal abscess. The patient subsequently underwent a fistulogram, which confirmed an enterocutaneous fistula that most likely secondary to complication from his underlying Crohn disease. Specifically, this fistulogram demonstrated findings consistent with a fistula to the right upper quadrant colonic and anastomotic site with contrast identified within the colon. Thus, the patient was taken to operating room by Dr. Gunner Arreaga and exploratory laparotomy with ileocolectomy and lysis of adhesions was performed. The patient tolerated the surgery well. The patient did receive intravenous antibiotics during this hospitalization, namely metronidazole and Zosyn. His hospitalization was unremarkable. On discharge, he is tolerating a regular diet. On the day of discharge, the patient's white blood cell count was 9500 with 73% segmented neutrophils. On the day of discharge, hemoglobin was 8.8 g/dL. On the day of discharge, BUN and creatinine were 5 and 0.85 respectively with potassium 3.8. CONDITION ON DISCHARGE: Stable. DISCHARGE MEDICATIONS: 1. Levofloxacin 500 mg daily for 7 days. 2. Flagyl 500 mg t.i.d. for 7 days. 3. Tylenol No. 3 one t.i.d. p.r.n. pain, 30 prescribed, no refills. 4. 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 I informed the patient that he may need to forego Entyvio infusions for a few weeks since he recently underwent a major abdominal surgery. FOLLOWUP INSTRUCTIONS: The patient instructed to follow up with the surgeon namely Dr. Arreaga in 1 week and with his attending namely Dr. Bassem Frankel within 2 weeks. MD LIAM Lim/JOHN /[id number] cc: MD Gunner Durant MD MTDAlana
--- NOTE | 2020-04-30 09:55 | NUR ---
Dr. Ella Arreaga called back for Dr. Gunner Arreaga. Regarding drain and discharge, Dr. Aram Arreaga will need to see the patient first. Will be in later today.
[2020-04-30 11:30] VITALS: BP 123/72
--- NOTE | 2020-04-30 15:00 | NUR ---
Dr. Gunner Arreaga cleared patient for discharged. Discontinued abdominal drain and applied new dressing. Clean, dry, intact. Patient to follow up within a week for further wound care.
[2020-04-30] MEDS: PANTOPRAZOLE 40 MG 10ML VIAL IV SCH (15:10)
[2020-04-30 15:29] VITALS: BP 132/84
--- NOTE | 2020-06-19 10:06 | Consultation ---
DATE OF CONSULTATION: 04/19/2020 Surgical Consultation REASON FOR CONSULTATION: Abdominal wall abscess. HISTORY OF PRESENT ILLNESS: This 34-year-old male is well known to us from previous admissions. He has a longstanding history of Crohn disease for which he had undergone a previous bowel resection. He was admitted at this time with some right-sided abdominal pain and a palpable mass in the right mid abdomen. The patient had undergone drainage of an abdominal wall abscess percutaneously and he seems to be tolerating food well and has been having normal bowel movements recently. PAST MEDICAL HISTORY: Remarkable for the previously described Crohn disease. ALLERGIES: NONE. MEDICATIONS: Please refer to MAR. REVIEW OF SYSTEMS: Otherwise unremarkable. PHYSICAL EXAMINATION: GENERAL: Revealed a male lying in bed, in no acute distress. VITAL SIGNS: He was afebrile. His vital signs were stable. HEAD, EYES, EARS, NOSE, AND THROAT: Showed no acute inflammation. NECK: No nodes, masses, or bruits. LUNGS: Clear to auscultation. HEART: Regular rate and rhythm. ABDOMEN: Showed an area of thickening on the right mid abdomen. There was percutaneously drained abscess in this area draining what appeared to be some sanguineous material. The abdomen was otherwise soft. He was nontender. Bowel sounds were normal. EXTREMITIES: Good pulses bilaterally. ASSESSMENT: Abdominal wall abscess that had been drained percutaneously in a patient with Crohn disease, need to rule out enterocutaneous fistula. PLAN: Will be IV hydration and antibiotics. There is no need for fistulogram at this time. We should let the fistula tract mature a little bit and perhaps this can be done later. Thank you very much for asking me to see this patient. MD ONEL Hammonds/JOHN /[id number]
--- NOTE | 2020-06-19 10:51 | Operative Report ---
DATE OF PROCEDURE: 04/24/2020 SURGEON: Gunner Arreaga MD PREOPERATIVE DIAGNOSIS: Crohn disease with enterocutaneous fistula. POSTOPERATIVE DIAGNOSIS: Crohn disease with enterocutaneous fistula plus adhesions. OPERATIONS PERFORMED: Exploratory laparotomy, ileocolectomy, and lysis of adhesions. TEST DRIVER: Nadir Arreaga MD ANESTHESIA: General. COMPLICATIONS: None. ESTIMATED BLOOD LOSS: 150 mL. DESCRIPTION OF PROCEDURE: With the patient lying in bed in the supine position under good general endotracheal anesthesia, the abdomen was prepped with Betadine solution and draped in the usual manner. A midline incision was made, it was carried down through the subcutaneous tissue through the midline fascia. The peritoneum was opened and the abdomen was entered. Upon entering the abdominal cavity, extensive adhesions were encountered in the upper abdomen to the anterior abdominal wall, particularly in the area on the right side where the fistula tract led to the skin. All of the adhesions were slowly and carefully taken down. The small bowel was then slowly and carefully dissected. The proximal small bowel appeared to be normal. However, the fistula tract seem to the area of the terminal ileum at the level of the old ileocolic anastomosis. All of this was slowly and carefully mobilized and the fistula was clearly coming from here. We decided to go ahead and resect that section of the terminal ileum with a small section of the transverse colon to include all of the inflamed bowel. The small bowel was then divided proximally with an application of CLARY-75 stapler. Similarly, the colon was divided with CLARY-75 stapler and the mesentery was divided with the EnSeal device and the segment of bowel was sent for pathological examination. All of the adhesions to the small bowel were then slowly and carefully taken down throughout. There was no significant inflammatory bowel disease that could be identified in the bowel that was left behind. All of the adhesions were taken down and the abscess of the abdominal wall was widely drained. After this was done, the anastomosis was then performed with an application of CLARY-75 stapler. The remaining opening was closed with a TA-60 stapler and the anastomosis was then reinforced with interrupted sutures of 3-0 silk. After this was done, the abdomen was then again copiously irrigated. Perfect hemostasis was ascertained and the abdomen was then closed in layers. The peritoneum was closed with a running suture of #1 Vicryl. The midline fascia was closed with a running suture of #1 PDS. Subcutaneous tissue was drained with a quarter-inch Mackay drain and the skin was closed with clips. A dressing was applied. The sponge, lap, and needle counts were correct. The patient tolerated the procedure well and returned to the recovery room in stable condition. MD ONEL Hammonds/JOHN /[id number]
== END 2020-04-30 15:45 | disposition home or self-care (01) | DRG 854 ==
LOC: US 11:55 → MED/SURG 14:18 → IMCU 04-24 16:23 → MED/SURG 04-25 16:53
PROVIDERS: ADMIT Internal Medicine; ATTEND Internal Medicine
PROC: 0DTN0ZZ Resection of Sigmoid Colon, Open Approach (ICD-10-PCS; principal; 2020-04-19)
PROC: 0W9J30Z Drainage of Pelvic Cavity with Drainage Device, Percutaneous Approach (ICD-10-PCS; 2020-04-19)
DX: A41.9 Sepsis, unspecified organism (principal); L02.211 Cutaneous abscess of abdominal wall; K50.913 Crohn's disease, unspecified, with fistula; D50.9 Iron deficiency anemia, unspecified; E87.6 Hypokalemia; D63.8 Anemia in other chronic diseases classified elsewhere; Z11.59 Encounter for screening for other viral diseases
CPT/HCPCS: 36415; 49406; 74176; 74470; 76080; 80048; 80053; 83735; 84132; 85025; 87071; 87075; 87186; 87205; 88112; 88305; 88307; 96360; C1729; C1769; J0696; J1100; J1170; J1885; J2001; J2250; J2405; J2543; J2550; J2710; J2765; J3010; J3370; J7030; J7050; Q9967

== ENCOUNTER 2021-05-11 18:06 | Emergency (ER) | payer SELFPAY ==
[~2021-05-11] VITALS: Ht 180.3 cm; Wt 127.0 kg
[2021-05-11] MEDS ORDERED: CASIRIVIMAB/IMDEVIMAB 10 ML in SODIUM CHLORIDE 0.9% 100 ML IV ONE (18:30)
== END 2021-05-11 22:22 | disposition home or self-care (01) ==
LOC: ER 18:12
DX: U07.1 COVID-19 (principal); K21.9 Gastro-esophageal reflux disease without esophagitis; Z87.19 Personal history of other diseases of the digestive system
CPT/HCPCS: 99283; J7050

== ENCOUNTER 2021-09-06 21:16 | Emergency (ER) | payer MEDICARE, OTHER ==
[~2021-09-06] VITALS: Ht 180.3 cm; Wt 127.0 kg
[2021-09-06] MEDS ORDERED: SODIUM CHLORIDE 0.9% 1000ML 1,000 ML IV STA (21:27)
[2021-09-06] MEDS ORDERED: ONDANSETRON HCL INJ 2MG/ML 2ML 2 MG/ML VIAL IV PRN (21:30)
[2021-09-06 21:40] LABS: BASOPHILS % 0.3 % (0.0-1.0); EOSINOPHILS # (AUTO) 0.1 (0.0-0.4); EOSINOPHILS % 0.4 % (0.0-6.0); HEMATOCRIT 44.1 % (38.2-49.6); HEMOGLOBIN 13.3 g/dL (14.0-18.0); LYMPHOCYTES # (AUTO) 1.9 (1.0-3.2); LYMPHOCYTES % 15.3 % (18.0-39.1); MEAN CORPUSCULAR HEMOGLOBIN 24.6 pg (28-32); MEAN CORPUSCULAR HGB CONC 30.2 g/dL (31-35); MEAN CORPUSCULAR VOLUME 81.7 fL (81-99); MONOCYTES # (AUTO) 0.4 (0.2-0.8); MONOCYTES % 3.2 % (4.4-11.3); NEUTROPHILS # (AUTO) 9.9 (2.1-6.9); NEUTROPHILS % 80.3 % (38.7-80.0); PLATELET COUNT 332 x10e3/uL (140-360); RED CELL DISTRIBUTION WIDTH 14.2 % (11.7-14.4)
[2021-09-06] MEDS ORDERED: FENTANYL CITRATE/PF 100MCG/2 ML INJ IV PRN (21:45)
[2021-09-06 21:53] LABS: CLARITY,URINE HAZY (CLEAR); COLOR,URINE YELLOW (YELLOW); LEUKOCYTE ESTERASE ,URINE NEGATIVE (NEGATIVE)
[2021-09-06 21:54] LABS: BACTERIA,URINE FEW /HPF; CALCIUM OXALATE CRYSTALS,UR FEW (FEW); EPITHELIAL CELLS,URINE FEW /LPF; KETONES,URINE NEGATIVE (NEGATIVE); NITRITE,URINE NEGATIVE (NEGATIVE); PROTEIN,URINE DIPSTICK 2+ (NEGATIVE); URINE UROBILINOGEN 0.2 mg/dL (0.2 - 1)
[2021-09-06 22:00] LABS: CALCIUM 9.3 mg/dL (8.4-10.2); CREATININE, SERUM 1.1 mg/dL (0.72-1.25)
[2021-09-06 22:01] LABS: ALBUMIN 3.9 g/dL (3.5-5.0); ALBUMIN/GLOBULIN RATIO 0.9 (0.8-2.0)
[2021-09-06] MEDS ORDERED: ONDANSETRON HCL INJ 2MG/ML 2ML 2 MG/ML VIAL ONE (22:06)
[2021-09-06] MEDS ORDERED: FENTANYL CITRATE/PF 100MCG/2 ML INJ ONE (22:06)
== END 2021-09-06 23:26 | disposition home or self-care (01) ==
LOC: ER 21:27
DX: R10.30 Lower abdominal pain, unspecified (principal); K52.9 Noninfective gastroenteritis and colitis, unspecified; K21.9 Gastro-esophageal reflux disease without esophagitis; Z98.0 Intestinal bypass and anastomosis status
CPT/HCPCS: 36415; 74177; 80053; 81001; 83690; 85025; 99284; J2405; J3010; J7030

== ENCOUNTER 2021-12-21 12:12 | Emergency (ER) | payer OTHER ==
[~2021-12-21] VITALS: Ht 180.3 cm; Wt 132.1 kg
[2021-12-21] MEDS ORDERED: ENTYVIO300 MG (12:44)
[2021-12-21] MEDS ORDERED: ONDANSETRON ODT4 MG PO (12:55)
[2021-12-21] MEDS ORDERED: ACETAMINOPHEN-1 EAC4 PO (12:55)
[2021-12-21] MEDS ORDERED: HYDROCODONE/APAP 5MG-325MG TAB PO ONE (13:00)
[2021-12-21] MEDS ORDERED: ONDANSETRON HCL 4 MG ORAL DISINTEGRATING TAB PO ONE (13:00)
[2021-12-21] MEDS ORDERED: HYDROCODONE/APAP 5MG-325MG TAB ONE (13:19)
== END 2021-12-21 15:09 | disposition home or self-care (01) ==
LOC: FSED 12:20
DX: M25.562 Pain in left knee (principal); M25.561 Pain in right knee; M71.22 Synovial cyst of popliteal space [Baker], left knee; M71.21 Synovial cyst of popliteal space [Baker], right knee; K21.9 Gastro-esophageal reflux disease without esophagitis; Z98.0 Intestinal bypass and anastomosis status; Z87.19 Personal history of other diseases of the digestive system
CPT/HCPCS: 93971; 99283; Q0162

== ENCOUNTER 2022-03-16 10:36 | Emergency (ER) | payer OTHER ==
[~2022-03-16] VITALS: Ht 180.3 cm; Wt 132.0 kg
[~2022-03-16 10:36] MED LIST changes: +ACETAMINOPHEN-1 EAC4 PO; +ENTYVIO300 MG; +ONDANSETRON ODT4 MG PO
[2022-03-16] MEDS ORDERED: ACETAMINOPHEN-1 EAC4 PO (11:14)
[2022-03-16] MEDS ORDERED: KETOROLAC TROMETHAMINE 60 MG/2 ML VIAL IM ONE (11:15)
[2022-03-16] MEDS ORDERED: KETOROLAC TROMETHAMINE 60 MG/2 ML VIAL ONE (11:24)
== END 2022-03-16 11:30 | disposition home or self-care (01) ==
LOC: FSED 10:50
DX: M25.572 Pain in left ankle and joints of left foot (principal); K50.90 Crohn's disease, unspecified, without complications; K21.9 Gastro-esophageal reflux disease without esophagitis; Z98.0 Intestinal bypass and anastomosis status
CPT/HCPCS: 99283; J1885

== ENCOUNTER 2022-06-29 08:33 | Emergency (ER) | payer OTHER ==
[~2022-06-29] VITALS: Ht 154.9 cm; Wt 136.1 kg
[2022-06-29] MEDS ORDERED: TRAMADOL HCL 50 MG TAB PO ONE (09:15)
[2022-06-29] MEDS ORDERED: DEXAMETHASONE SOD PHOS INJ 4 MG/ML SDV IV ONE (09:15)
[2022-06-29] MEDS ORDERED: ACETAMINOPHEN-1 EAC3 PO (09:33)
[2022-06-29] MEDS ORDERED: PREDNISONE20 MG PO (09:33)
[2022-06-29] MEDS ORDERED: DEXAMETHASONE SOD PHOS INJ 4 MG/ML SDV ONE (09:36)
[2022-06-29] MEDS ORDERED: TRAMADOL HCL 50 MG TAB ONE (09:37)
== END 2022-06-29 09:49 | disposition home or self-care (01) ==
LOC: FSED 09:13
DX: M25.572 Pain in left ankle and joints of left foot (principal); K21.9 Gastro-esophageal reflux disease without esophagitis; Z98.0 Intestinal bypass and anastomosis status; Z87.19 Personal history of other diseases of the digestive system
CPT/HCPCS: 36415; 84550; 99283; J1100

== ENCOUNTER 2024-09-01 09:23 | Inpatient (IN) | payer BC, OTHER ==
[~2024-09-01] VITALS: Ht 180.3 cm; Wt 116.2 kg
[~2024-09-01 09:23] MED LIST changes: +ACETAMINOPHEN-1 EAC3 PO
[2024-09-01 09:44] VITALS: PULSE 99; RESP 20; TEMP 98
[2024-09-01] MEDS ORDERED: IOPAMIDOL 370 MG/ML 100 ML INFUS..BTL INJ ONE (10:04)
[2024-09-01] MEDS: FAMOTIDINE 20 MG/2 ML VIAL IV STA (10:58)
[2024-09-01] MEDS: ONDANSETRON HCL INJ 2MG/ML 2ML 2 MG/ML VIAL IV STA (10:59)
[2024-09-01] MEDS: SODIUM CHLORIDE 0.9% 1000ML 1,000 ML IV ONE (10:59)
[2024-09-01] MEDS ORDERED: ONDANSETRON HCL INJ 2MG/ML 2ML 2 MG/ML VIAL IV PRN (11:45)
[2024-09-01] MEDS: Morphine 4mg INJECTION 4 MG/ML INJ IV ONE (11:59)
[2024-09-01] MEDS ORDERED: ALBUTEROL/IPRATROPIUM 3 ML NEB NEB PRN (13:00)
[2024-09-01] MEDS ORDERED: BENZONATATE 100 MG CAP PO PRN (13:00)
[2024-09-01] MEDS ORDERED: DOCUSATE SODIUM 100 MG CAP PO PRN (13:00)
[2024-09-01] MEDS ORDERED: POTASSIUM CHLORIDE 20 MEQ TAB CR PO PRN (13:00)
[2024-09-01] MEDS ORDERED: DEXTROSE 50% SYRINGE 50 ML IV PRN (13:00)
[2024-09-01] MEDS ORDERED: DIPHENHYDRAMINE HCL 25 MG CAP PO PRN (13:00)
[2024-09-01] MEDS ORDERED: ACETAMINOPHEN 325 MG TAB PO PRN (13:00)
[2024-09-01] MEDS ORDERED: LIDOCAINE 4% PATCH TP PRN (13:00)
[2024-09-01] MEDS ORDERED: Morphine 2mg Syringe 2 MG/ML SYR IV PRN (13:00)
[2024-09-01] MEDS ORDERED: SIMETHICONE 80 MG CHEW PO PRN (13:00)
[2024-09-01] MEDS ORDERED: MELATONIN 5 MG TABLET PO PRN (13:00)
[2024-09-01] MEDS ORDERED: HYDRALAZINE HCL 20 MG/ML VIAL IV PRN (13:00)
[2024-09-01] MEDS: SODIUM CHLORIDE 0.9% IV SCH (13:18)
[2024-09-01 13:51] VITALS: PULSE 96; RESP 18; O2SAT 96
[2024-09-01] MEDS ORDERED: OLMESARTAN MEDO40 MG PO (14:19)
[2024-09-01] MEDS ORDERED: RABEPRAZOLE SOD20 MG PO (14:19)
[2024-09-01] MEDS ORDERED: FEROSUL325 MG PO (14:19)
[2024-09-01] MEDS ORDERED: VITAMIN D250 MCG PO (14:19)
[2024-09-01 14:27] VITALS: BP 138/89; PULSE 96; RESP 18; O2SAT 96
[2024-09-01 14:30] VITALS: BP 136/85; PULSE 74; RESP 17; TEMP 98.2; O2SAT 98
[2024-09-01] MEDS: SODIUM CHLORIDE 0.9% 1000ML 1,000 ML IV SCH (16:30)
[2024-09-01] MEDS: ENOXAPARIN SOD INJ 40 MG/0.4 ML SYR SC SCH (16:31)
[2024-09-01] MEDS: ONDANSETRON HCL INJ 2MG/ML 2ML 2 MG/ML VIAL IV PRN (16:40)
[2024-09-01] MEDS: Morphine 4mg INJECTION 4 MG/ML INJ IV PRN (16:41)
[2024-09-01] MEDS: HYDROMORPHONE 1MG/1ML INJ IV PRN (19:02)
[2024-09-01 19:30] VITALS: PULSE 88; RESP 18; O2SAT 96
[2024-09-01 20:00] VITALS: BP 136/85; PULSE 88; RESP 18; TEMP 98.2; O2SAT 96
[2024-09-02 00:40] VITALS: BP 124/85; PULSE 70; RESP 18; TEMP 97.6; O2SAT 98
[2024-09-02] MEDS: HYDROMORPHONE 1MG/1ML INJ IV PRN (02:33)
[2024-09-02 04:26] VITALS: BP 124/87; PULSE 62; RESP 18; TEMP 97.3; O2SAT 97
[2024-09-02] MEDS ORDERED: PANTOPRAZOLE SOD 40 MG TABEC PO SCH (07:30)
[2024-09-02 07:39] VITALS: BP 141/84; PULSE 65; RESP 19; TEMP 97.5; O2SAT 99
[2024-09-02 08:33] VITALS: BP 141/84; PULSE 65; RESP 19; TEMP 97.5; O2SAT 99
[2024-09-02 08:47] VITALS: PULSE 75; RESP 18; O2SAT 96
[2024-09-02 08:47] LABS: BASOPHILS % 0.2 % (0.0-1.0); EOSINOPHILS # (AUTO) 0.2 (0.0-0.4); EOSINOPHILS % 1.4 % (0.0-6.0); HEMATOCRIT 45.2 % (38.2-49.6); HEMOGLOBIN 12.7 g/dL (14.0-18.0); LYMPHOCYTES # (AUTO) 2.7 (1.0-3.2); LYMPHOCYTES % 22.2 % (18.0-39.1); MEAN CORPUSCULAR HEMOGLOBIN 22.4 pg (28-32); MEAN CORPUSCULAR HGB CONC 28.1 g/dL (31-35); MEAN CORPUSCULAR VOLUME 79.7 fL (81-99); MONOCYTES # (AUTO) 0.8 (0.2-0.8); MONOCYTES % 6.3 % (4.4-11.3); NEUTROPHILS # (AUTO) 8.5 (2.1-6.9); NEUTROPHILS % 69.6 % (38.7-80.0); PLATELET COUNT 280 x10e3/uL (140-360); RED BLOOD COUNT 5.67 x10e6/uL (4.3-5.7); RED CELL DISTRIBUTION WIDTH 17.2 % (11.7-14.4); WHITE BLOOD COUNT 12.14 x10e3/uL (4.8-10.8)
[2024-09-02 09:00] LABS: ALBUMIN 2.9 g/dL (3.5-5.0); ANION GAP 12.7 mmol/L (8-16); BILIRUBIN,TOTAL 1.7 mg/dL (0.2-1.2); CALCIUM 8.2 mg/dL (8.4-10.2); CREATININE, SERUM 1.21 mg/dL (0.72-1.25); POTASSIUM 3.7 mmol/L (3.5-5.1); TOTAL PROTEIN 5.8 g/dL (6.5-8.1)
[2024-09-02 11:35] VITALS: BP 122/71; PULSE 78; RESP 19; TEMP 98.2; O2SAT 100
== END 2024-09-02 15:00 | disposition home or self-care (01) | DRG 392 ==
LOC: FSED 09:44 → ERHOLD 11:40 → MED/SURG2 13:49
PROVIDERS: ADMIT Internal Medicine; ATTEND Internal Medicine
DX: A08.4 Viral intestinal infection, unspecified (principal); K51.90 Ulcerative colitis, unspecified, without complications; M46.1 Sacroiliitis, not elsewhere classified; N20.0 Calculus of kidney; K21.9 Gastro-esophageal reflux disease without esophagitis; I10 Essential (primary) hypertension; E11.9 Type 2 diabetes mellitus without complications; E66.9 Obesity, unspecified; Z68.35 Body mass index [BMI] 35.0-35.9, adult; Z90.49 Acquired absence of other specified parts of digestive tract; Z98.0 Intestinal bypass and anastomosis status; Z79.899 Other long term (current) drug therapy; Z79.52 Long term (current) use of systemic steroids
CPT/HCPCS: 36415; 74177; 80053; 81003; 83605; 85025; 86140; 87040; 94799; 99283; J1171; J1650; J2270; J2405; J2470; J2543; J7030; Q9967

== ENCOUNTER 2025-01-17 23:22 | Inpatient (IN) | payer SELFPAY ==
[~2025-01-17] VITALS: Ht 180.3 cm; Wt 115.7 kg
[~2025-01-17 23:22] MED LIST changes: +ENTYVIO300 MG IV; +FEROSUL325 MG PO; +OLMESARTAN MEDO40 MG PO; +OZEMPIC2 MG/0.75 SC; +RABEPRAZOLE SOD20 MG PO; +VITAMIN D250 MCG PO
[2025-01-17 23:30] VITALS: PULSE 64; RESP 18; TEMP 97.8
[2025-01-18] VITALS (7 sets, daily range): BP systolic 127–187; BP diastolic 71–95; PULSE 56–64; RESP 16–21; TEMP 97.8–98.2; O2SAT 94–99
[2025-01-18 00:20] LABS: BASOPHILS % 0.1 % (0.0-1.0); EOSINOPHILS % 0.1 % (0.0-6.0); HEMATOCRIT 42.7 % (38.2-49.6); LYMPHOCYTES # (AUTO) 1.2 (1.0-3.2); LYMPHOCYTES % 6.7 % (18.0-39.1); MEAN CORPUSCULAR HEMOGLOBIN 25.2 pg (28-32); MEAN CORPUSCULAR HGB CONC 32.8 g/dL (31-35); MEAN CORPUSCULAR VOLUME 76.9 fL (81-99); MONOCYTES # (AUTO) 0.4 (0.2-0.8); MONOCYTES % 2.3 % (4.4-11.3); NEUTROPHILS # (AUTO) 15.8 (2.1-6.9); NEUTROPHILS % 90.3 % (38.7-80.0); PLATELET COUNT 303 x10e3/uL (140-360); RED BLOOD COUNT 5.55 x10e6/uL (4.3-5.7); RED CELL DISTRIBUTION WIDTH 16.1 % (11.7-14.4); WHITE BLOOD COUNT 17.53 x10e3/uL (4.8-10.8)
[2025-01-18] MEDS: Morphine 4mg INJECTION 4 MG/ML INJ IV ONE (00:28)
[2025-01-18] MEDS: MAGNESIUM/ALUMINUM/SIMETHICONE 30 ML UDC PO ONE (00:28)
[2025-01-18] MEDS: ONDANSETRON HCL INJ 2MG/ML 2ML 2 MG/ML VIAL IV STA (00:28)
[2025-01-18] MEDS: BELLADONNA ALK/PHENOBARBITAL 5 ML UDC PO ONE (00:29)
[2025-01-18] MEDS: LIDOCAINE VISC 2% SOLN 15 ML UDC PO ONE (00:29)
[2025-01-18 00:35] LABS: ALBUMIN 3.8 g/dL (3.5-5.0); ALBUMIN/GLOBULIN RATIO 1.1 (0.8-2.0); ANION GAP 14.9 mmol/L (8-16); BILIRUBIN,TOTAL 2.8 mg/dL (0.2-1.2); CALCIUM 8.8 mg/dL (8.4-10.2); CREATININE, SERUM 1.26 mg/dL (0.72-1.25); POTASSIUM 3.9 mmol/L (3.5-5.1); TOTAL PROTEIN 7.4 g/dL (6.5-8.1)
[2025-01-18] MEDS ORDERED: IOPAMIDOL 370 MG/ML 100 ML INFUS..BTL INJ ONE (00:48)
[2025-01-18] MEDS ORDERED: ACETAMINOPHEN 1000 MG/100 ML IV PRN (02:30)
[2025-01-18] MEDS: HYDROMORPHONE 1MG/1ML INJ IV STA (02:43)
[2025-01-18] MEDS: SODIUM CHLORIDE 0.9% 1000ML 1,000 ML IV SCH ×2 (02:43→14:32)
[2025-01-18 03:29] LABS: CLARITY,URINE SL CLOUDY (CLEAR); COLOR,URINE YELLOW (YELLOW); PH,URINE 6 (5 - 7)
[2025-01-18 03:30] LABS: BILIRUBIN,URINE NEGATIVE (NEGATIVE); GLUCOSE, URINE NEGATIVE (NEGATIVE); KETONES,URINE NEGATIVE (NEGATIVE); LEUKOCYTE ESTERASE ,URINE NEGATIVE (NEGATIVE); NITRITE,URINE NEGATIVE (NEGATIVE); PROTEIN,URINE DIPSTICK 1+ (NEGATIVE); URINE UROBILINOGEN 0.2 mg/dL (0.2 - 1)
[2025-01-18 03:36] LABS: WBC,URINE (MAN) 21-50 /HPF (0-5)
[2025-01-18 03:37] LABS: BACTERIA,URINE MODERATE /HPF; EPITHELIAL CELLS,URINE FEW /LPF; MUCUS,URINE MODERATE; RBC,URINE >50 /HPF (0-5)
[2025-01-18] MEDS: HYDROMORPHONE 1MG/1ML INJ IV PRN (06:48)
[2025-01-18] MEDS ORDERED: MIDAZOLAM HCL 2 MG/2 ML VIAL ONE (10:20)
[2025-01-18] MEDS ORDERED: SEVOFLURANE INHAL SOLN 250 ML PEN BTL ONE (10:20)
[2025-01-18] MEDS ORDERED: PROPOFOL IV EMULSION 10 MG/ML 20 ML VIAL ONE ×2 (10:20→11:19)
[2025-01-18] MEDS ORDERED: LIDOCAINE HCL 2% LOCAL INJ 5 ML SDV VIAL INJ ONE (10:20)
[2025-01-18] MEDS ORDERED: FENTANYL CITRATE/PF 100MCG/2 ML INJ ONE ×2 (10:20→11:44)
[2025-01-18] MEDS ORDERED: ROCURONIUM BROMIDE 1 ML IV ONE ×2 (10:20→12:01)
[2025-01-18] MEDS ORDERED: FAMOTIDINE 20 MG/2 ML VIAL IV ONE (11:15)
[2025-01-18] MEDS ORDERED: SUCCINYLCHOLINE CHLORIDE 20 MG/ML 10ML VIAL ONE (11:15)
[2025-01-18] MEDS ORDERED: ONDANSETRON HCL INJ 2MG/ML 2ML 2 MG/ML VIAL ONE (11:27)
[2025-01-18] MEDS ORDERED: DEXAMETHASONE SOD PHOS INJ 4 MG/ML SDV ONE (11:27)
[2025-01-18] MEDS ORDERED: ACETAMINOPHEN 1000 MG/100 ML 100 ML IV ONE (11:32)
[2025-01-18] MEDS ORDERED: DEXMEDETOMIDINE HCL 2 ML ONE (11:45)
[2025-01-18] MEDS ORDERED: SODIUM CHLORIDE 0.9% 100 ML ONE (11:51)
[2025-01-18] MEDS ORDERED: KETOROLAC TROMETHAMINE 30 MG/ML VIAL ONE (13:19)
[2025-01-18] MEDS ORDERED: SUGAMMADEX SODIUM 200 MG/2 ML VIAL IV ONE (13:23)
[2025-01-18] MEDS ORDERED: NALOXONE HCL INJ 0.4 MG/ML AMP IV PRN (13:45)
[2025-01-18] MEDS: HYDROMORPHONE 0.2MG/ML-SOD CHL 30ML PCA SYRINGE IV ONE (14:32)
[2025-01-18] MEDS: SODIUM CHLORIDE 0.9% 100 ML ONE (15:24)
[2025-01-18] MEDS: PIPERACILLIN/TAZOBACTAM 3.375 GM VIAL ONE (15:24)
[2025-01-18] MEDS: ROPIVACAINE/EPI/CLONIDINE/KET 50 ML SYRINGE INJ ONE (16:13)
[2025-01-18] MEDS: SODIUM CHLORIDE 0.9% 250ML IRRIG IR SCH (16:13)
[2025-01-18] MEDS: D5NS/KCL 20MEQ 1,000 ML IV SCH (18:30)
[2025-01-18] MEDS: ONDANSETRON HCL INJ 2MG/ML 2ML 2 MG/ML VIAL IV PRN (23:14)
[2025-01-19] VITALS (9 sets, daily range): BP systolic 100–153; BP diastolic 51–85; PULSE 50–73; RESP 16–20; TEMP 97.5–97.9; O2SAT 96–100
[2025-01-19] MEDS: HYDROMORPHONE 0.2MG/ML-SOD CHL 30ML PCA SYRINGE IV PRN (00:49)
[2025-01-19 05:13] LABS: BASOPHILS % 0.2 % (0.0-1.0); HEMATOCRIT 38.7 % (38.2-49.6); HEMOGLOBIN 12.3 g/dL (14.0-18.0); LYMPHOCYTES # (AUTO) 1.7 (1.0-3.2); LYMPHOCYTES % 8.9 % (18.0-39.1); MEAN CORPUSCULAR HEMOGLOBIN 25.5 pg (28-32); MEAN CORPUSCULAR HGB CONC 31.8 g/dL (31-35); MEAN CORPUSCULAR VOLUME 80.3 fL (81-99); MONOCYTES # (AUTO) 1.1 (0.2-0.8); MONOCYTES % 5.6 % (4.4-11.3); NEUTROPHILS # (AUTO) 16.1 (2.1-6.9); NEUTROPHILS % 84.9 % (38.7-80.0); PLATELET COUNT 298 x10e3/uL (140-360); RED BLOOD COUNT 4.82 x10e6/uL (4.3-5.7)
[2025-01-19 05:58] LABS: ALBUMIN 3.3 g/dL (3.5-5.0); ALBUMIN/GLOBULIN RATIO 1.1 (0.8-2.0); ANION GAP 13.2 mmol/L (8-16); BILIRUBIN,TOTAL 6.3 mg/dL (0.2-1.2); CALCIUM 8.4 mg/dL (8.4-10.2); CREATININE, SERUM 1.17 mg/dL (0.72-1.25); POTASSIUM 4.2 mmol/L (3.5-5.1); TOTAL PROTEIN 6.4 g/dL (6.5-8.1)
[2025-01-19] MEDS: ENOXAPARIN SOD INJ 40 MG/0.4 ML SYR SC SCH (17:20)
[2025-01-20] VITALS (7 sets, daily range): BP systolic 147–167; BP diastolic 56–94; PULSE 68–86; RESP 16–20; TEMP 98.1–98.5; O2SAT 92–100
[2025-01-20 06:33] LABS: BASOPHILS % 0.4 % (0.0-1.0); EOSINOPHILS # (AUTO) 0.1 (0.0-0.4); EOSINOPHILS % 1.5 % (0.0-6.0); HEMATOCRIT 34.8 % (38.2-49.6); HEMOGLOBIN 11.1 g/dL (14.0-18.0); LYMPHOCYTES # (AUTO) 1.6 (1.0-3.2); LYMPHOCYTES % 20.2 % (18.0-39.1); MEAN CORPUSCULAR HEMOGLOBIN 25.6 pg (28-32); MEAN CORPUSCULAR HGB CONC 31.9 g/dL (31-35); MEAN CORPUSCULAR VOLUME 80.2 fL (81-99); MONOCYTES # (AUTO) 0.9 (0.2-0.8); MONOCYTES % 11.1 % (4.4-11.3); NEUTROPHILS # (AUTO) 5.2 (2.1-6.9); NEUTROPHILS % 66.4 % (38.7-80.0); PLATELET COUNT 232 x10e3/uL (140-360); RED BLOOD COUNT 4.34 x10e6/uL (4.3-5.7); RED CELL DISTRIBUTION WIDTH 16.8 % (11.7-14.4); WHITE BLOOD COUNT 7.82 x10e3/uL (4.8-10.8)
[2025-01-20 07:17] LABS: ANION GAP 13.7 mmol/L (8-16); BILIRUBIN,TOTAL 7.4 mg/dL (0.2-1.2); CALCIUM 7.8 mg/dL (8.4-10.2); CREATININE, SERUM 1.02 mg/dL (0.72-1.25); POTASSIUM 3.7 mmol/L (3.5-5.1); TOTAL PROTEIN 5.8 g/dL (6.5-8.1)
[2025-01-20 08:40] LABS: ALBUMIN 2.8 g/dL (3.5-5.0); ALBUMIN/GLOBULIN RATIO 0.9 (0.8-2.0)
[2025-01-20] MEDS: HYDROMORPHONE 1MG/1ML INJ IV PRN (16:38)
[2025-01-20] MEDS: ONDANSETRON HCL INJ 2MG/ML 2ML 2 MG/ML VIAL IV PRN (16:47)
[2025-01-21] VITALS (9 sets, daily range): BP systolic 149–186; BP diastolic 77–94; PULSE 63–79; RESP 18–20; TEMP 98.2–99.3; O2SAT 93–100
[2025-01-21 07:40] LABS: BASOPHILS % 0.1 % (0.0-1.0); EOSINOPHILS # (AUTO) 0.1 (0.0-0.4); EOSINOPHILS % 1.6 % (0.0-6.0); HEMATOCRIT 34.3 % (38.2-49.6); HEMOGLOBIN 11.2 g/dL (14.0-18.0); LYMPHOCYTES # (AUTO) 1.4 (1.0-3.2); LYMPHOCYTES % 15.5 % (18.0-39.1); MEAN CORPUSCULAR HEMOGLOBIN 25.7 pg (28-32); MEAN CORPUSCULAR HGB CONC 32.7 g/dL (31-35); MEAN CORPUSCULAR VOLUME 78.7 fL (81-99); MONOCYTES # (AUTO) 0.6 (0.2-0.8); MONOCYTES % 6.6 % (4.4-11.3); NEUTROPHILS # (AUTO) 6.7 (2.1-6.9); NEUTROPHILS % 75.6 % (38.7-80.0); PLATELET COUNT 236 x10e3/uL (140-360); RED BLOOD COUNT 4.36 x10e6/uL (4.3-5.7); RED CELL DISTRIBUTION WIDTH 16.8 % (11.7-14.4); WHITE BLOOD COUNT 8.83 x10e3/uL (4.8-10.8)
[2025-01-21 07:52] LABS: ALBUMIN 2.8 g/dL (3.5-5.0); ALBUMIN/GLOBULIN RATIO 0.9 (0.8-2.0); ANION GAP 9.5 mmol/L (8-16); BILIRUBIN,TOTAL 7.1 mg/dL (0.2-1.2); CALCIUM 8.3 mg/dL (8.4-10.2); CREATININE, SERUM 0.89 mg/dL (0.72-1.25); POTASSIUM 3.5 mmol/L (3.5-5.1); TOTAL PROTEIN 5.8 g/dL (6.5-8.1)
[2025-01-21] MEDS: OLMESARTAN 20 MG TAB PO SCH (22:08)
[2025-01-22] VITALS (11 sets, daily range): BP systolic 156–173; BP diastolic 78–91; PULSE 58–68; RESP 15–21; TEMP 97.6–98.6; O2SAT 96–100
[2025-01-22 05:11] LABS: BASOPHILS % 0.3 % (0.0-1.0); EOSINOPHILS # (AUTO) 0.2 (0.0-0.4); EOSINOPHILS % 3.2 % (0.0-6.0); HEMATOCRIT 35.6 % (38.2-49.6); HEMOGLOBIN 11.2 g/dL (14.0-18.0); LYMPHOCYTES # (AUTO) 1.2 (1.0-3.2); LYMPHOCYTES % 18.8 % (18.0-39.1); MEAN CORPUSCULAR HGB CONC 31.5 g/dL (31-35); MEAN CORPUSCULAR VOLUME 79.5 fL (81-99); MONOCYTES # (AUTO) 0.5 (0.2-0.8); MONOCYTES % 7.8 % (4.4-11.3); NEUTROPHILS # (AUTO) 4.3 (2.1-6.9); NEUTROPHILS % 69.3 % (38.7-80.0); PLATELET COUNT 231 x10e3/uL (140-360); RED BLOOD COUNT 4.48 x10e6/uL (4.3-5.7); RED CELL DISTRIBUTION WIDTH 16.8 % (11.7-14.4); WHITE BLOOD COUNT 6.17 x10e3/uL (4.8-10.8)
[2025-01-22 05:44] LABS: ALBUMIN 2.7 g/dL (3.5-5.0); ALBUMIN/GLOBULIN RATIO 0.9 (0.8-2.0); ANION GAP 12.3 mmol/L (8-16); BILIRUBIN,TOTAL 6.7 mg/dL (0.2-1.2); CALCIUM 8.4 mg/dL (8.4-10.2); CREATININE, SERUM 0.9 mg/dL (0.72-1.25); TOTAL PROTEIN 5.8 g/dL (6.5-8.1)
[2025-01-22 05:45] LABS: POTASSIUM 3.3 mmol/L (3.5-5.1)
[2025-01-22] MEDS ORDERED: NIFEDIPINE CR 30 MG TAB PO SCH (09:30)
[2025-01-22] MEDS: POTASSIUM CHLORIDE 20 MEQ TAB CR PO ONE (09:36)
[2025-01-22] MEDS ORDERED: BENZONATATE 100 MG CAP PO PRN (12:30)
[2025-01-22] MEDS ORDERED: DEXTROSE 50% SYRINGE 50 ML IV PRN (12:30)
[2025-01-22] MEDS ORDERED: HYDRALAZINE HCL 20 MG/ML VIAL IV PRN (12:30)
[2025-01-22] MEDS ORDERED: POTASSIUM CHLORIDE 20 MEQ TAB CR PO PRN (12:30)
[2025-01-22] MEDS ORDERED: ALBUTEROL/IPRATROPIUM 3 ML NEB NEB PRN (12:30)
[2025-01-22] MEDS ORDERED: LIDOCAINE 4% PATCH TP PRN (12:30)
[2025-01-22] MEDS ORDERED: DOCUSATE SODIUM 100 MG CAP PO PRN (12:30)
[2025-01-22] MEDS ORDERED: MELATONIN 5 MG TABLET PO PRN (12:30)
[2025-01-22] MEDS ORDERED: ACETAMINOPHEN 325 MG TAB PO PRN (12:30)
[2025-01-22] MEDS ORDERED: SIMETHICONE 80 MG CHEW PO PRN (12:30)
[2025-01-22] MEDS: AMLODIPINE BESYLATE 10 MG TAB PO SCH (14:04)
[2025-01-23] VITALS (9 sets, daily range): BP systolic 152–170; BP diastolic 81–95; PULSE 58–78; RESP 18–21; TEMP 97.8–98.6; O2SAT 97–100
[2025-01-23] MEDS: HYDROCODONE/APAP 7.5MG-325MG 1 EA TAB PO PRN (05:06)
[2025-01-23 05:12] LABS: BASOPHILS % 0.3 % (0.0-1.0); EOSINOPHILS # (AUTO) 0.2 (0.0-0.4); EOSINOPHILS % 3.2 % (0.0-6.0); HEMATOCRIT 39.1 % (38.2-49.6); HEMOGLOBIN 12.1 g/dL (14.0-18.0); LYMPHOCYTES # (AUTO) 1.2 (1.0-3.2); MEAN CORPUSCULAR HEMOGLOBIN 25.4 pg (28-32); MEAN CORPUSCULAR HGB CONC 30.9 g/dL (31-35); MONOCYTES # (AUTO) 0.5 (0.2-0.8); MONOCYTES % 7.1 % (4.4-11.3); NEUTROPHILS % 71.5 % (38.7-80.0); PLATELET COUNT 254 x10e3/uL (140-360); RED BLOOD COUNT 4.77 x10e6/uL (4.3-5.7); WHITE BLOOD COUNT 6.95 x10e3/uL (4.8-10.8)
[2025-01-23 05:46] LABS: ALBUMIN 2.8 g/dL (3.5-5.0); ALBUMIN/GLOBULIN RATIO 0.9 (0.8-2.0); ANION GAP 15.8 mmol/L (8-16); BILIRUBIN,TOTAL 6.8 mg/dL (0.2-1.2); CALCIUM 8.7 mg/dL (8.4-10.2); CREATININE, SERUM 0.89 mg/dL (0.72-1.25); POTASSIUM 3.8 mmol/L (3.5-5.1)
[2025-01-23] MEDS: PANTOPRAZOLE SOD 40 MG TABEC PO SCH (09:45)
[2025-01-23] MEDS ORDERED: NORVASC10 MG PO (12:47)
[2025-01-23] MEDS ORDERED: AMLODIPINE BESYLATE 10 MG TAB PO SCH (16:15)
[2025-01-23] MEDS: AMLODIPINE BESYLATE 10 MG TAB PO SCH (17:52)
[2025-01-24] VITALS (8 sets, daily range): BP systolic 132–166; BP diastolic 75–87; PULSE 18–84; RESP 15–20; TEMP 97.4–98.3; O2SAT 96–99
[2025-01-24] MEDS ORDERED: GADOBENATE DIMEGLUMINE 1 ML IV ONE (09:38)
[2025-01-24 16:16] LABS: BASOPHILS % 0.2 % (0.0-1.0); EOSINOPHILS # (AUTO) 0.2 (0.0-0.4); EOSINOPHILS % 2.6 % (0.0-6.0); HEMATOCRIT 38.3 % (38.2-49.6); HEMOGLOBIN 12.3 g/dL (14.0-18.0); LYMPHOCYTES # (AUTO) 1.4 (1.0-3.2); LYMPHOCYTES % 14.8 % (18.0-39.1); MEAN CORPUSCULAR HEMOGLOBIN 25.7 pg (28-32); MEAN CORPUSCULAR HGB CONC 32.1 g/dL (31-35); MONOCYTES # (AUTO) 0.7 (0.2-0.8); MONOCYTES % 7.3 % (4.4-11.3); NEUTROPHILS % 74.6 % (38.7-80.0); PLATELET COUNT 268 x10e3/uL (140-360); RED BLOOD COUNT 4.79 x10e6/uL (4.3-5.7); RED CELL DISTRIBUTION WIDTH 17.2 % (11.7-14.4); WHITE BLOOD COUNT 9.33 x10e3/uL (4.8-10.8)
[2025-01-24 16:39] LABS: ALBUMIN 2.8 g/dL (3.5-5.0); ALBUMIN/GLOBULIN RATIO 0.7 (0.8-2.0); ANION GAP 14.7 mmol/L (8-16); BILIRUBIN,TOTAL 6.5 mg/dL (0.2-1.2); CALCIUM 8.4 mg/dL (8.4-10.2); CREATININE, SERUM 1.12 mg/dL (0.72-1.25); POTASSIUM 3.7 mmol/L (3.5-5.1); TOTAL PROTEIN 6.7 g/dL (6.5-8.1)
[2025-01-25] VITALS (9 sets, daily range): BP systolic 136–168; BP diastolic 85–93; PULSE 58–88; RESP 16–20; TEMP 97.3–98.3; O2SAT 96–100
[2025-01-25] MEDS: LACTATED RINGER'S 1,000 ML IV ONE (10:22)
[2025-01-25 10:39] LABS: ALANINE AMINOTRANSFERASE 145 IU/L (0-55); ALBUMIN 3.1 g/dL (3.5-5.0); ALBUMIN/GLOBULIN RATIO 0.8 (0.8-2.0); ALKALINE PHOSPHATASE 214 IU/L (40-150); ANION GAP 16.1 mmol/L (8-16); BILIRUBIN,TOTAL 4.3 mg/dL (0.2-1.2); BLOOD UREA NITROGEN < 5 mg/dL (7-26); BUN/CREATININE RATIO 5 (6-25); CARBON DIOXIDE 24 mmol/L (22-29); CHLORIDE 102 mmol/L (98-107); CREATININE, SERUM 0.94 mg/dL (0.72-1.25); EST GLOMERULAR FILTRATION RATE 106 ML/MIN (>=60); GLUCOSE 98 mg/dL (74-118); POTASSIUM 4.1 mmol/L (3.5-5.1); SODIUM 138 mmol/L (136-145)
[2025-01-25] MEDS ORDERED: ROCURONIUM BROMIDE 1 ML IV ONE (10:57)
[2025-01-25] MEDS ORDERED: FENTANYL CITRATE/PF 100MCG/2 ML INJ ONE (10:57)
[2025-01-25] MEDS ORDERED: PROPOFOL IV EMULSION 10 MG/ML 20 ML VIAL ONE (10:57)
[2025-01-25] MEDS ORDERED: LIDOCAINE HCL 2% LOCAL INJ 5 ML SDV VIAL INJ ONE (10:57)
[2025-01-25] MEDS ORDERED: SEVOFLURANE INHAL SOLN 250 ML PEN BTL ONE (10:57)
[2025-01-25] MEDS ORDERED: DEXAMETHASONE SOD PHOS INJ 4 MG/ML SDV ONE (12:10)
[2025-01-25] MEDS ORDERED: ONDANSETRON HCL INJ 2MG/ML 2ML 2 MG/ML VIAL ONE (12:10)
[2025-01-25] MEDS ORDERED: GLUCAGON FOR INJ 1 MG VIAL ONE (12:15)
[2025-01-25] MEDS ORDERED: SUGAMMADEX SODIUM 200 MG/2 ML VIAL IV ONE (12:22)
[2025-01-25] MEDS: DIPHENHYDRAMINE HCL 25 MG CAP PO PRN (14:05)
[2025-01-25] MEDS: DIPHENHYDRAMINE HCL 30 GM TUBE TOP PRN (15:18)
[2025-01-26 05:24] LABS: HEMATOCRIT 39.9 % (38.2-49.6); HEMOGLOBIN 12.5 g/dL (14.0-18.0)
[2025-01-26 05:50] LABS: ALBUMIN/GLOBULIN RATIO 0.7 (0.8-2.0); ANION GAP 14.3 mmol/L (8-16); BILIRUBIN,TOTAL 3.4 mg/dL (0.2-1.2); CALCIUM 8.7 mg/dL (8.4-10.2); CREATININE, SERUM 1.02 mg/dL (0.72-1.25); POTASSIUM 4.3 mmol/L (3.5-5.1); TOTAL PROTEIN 7.1 g/dL (6.5-8.1)
[2025-01-26 07:49] VITALS: PULSE 84; RESP 16; O2SAT 97
[2025-01-26 08:00] VITALS: BP 143/86; PULSE 60; RESP 18; TEMP 97.8; O2SAT 98
[2025-01-26 09:43] VITALS: BP 138/90; PULSE 60; RESP 18; TEMP 97.8; O2SAT 98
[2025-01-26 11:05] VITALS: BP 157/87; PULSE 68; RESP 18; TEMP 97.7; O2SAT 100
[2025-01-26 13:48] VITALS: PULSE 79; RESP 16; O2SAT 98
[2025-01-26 15:27] VITALS: BP 145/91; PULSE 83; RESP 18; TEMP 98.1; O2SAT 99
[2025-01-26] MEDS ORDERED: LEVOFLOXACIN250 MG PO (17:53)
== END 2025-01-26 18:10 | disposition home or self-care (01) | DRG 415 ==
LOC: ER 23:59 → ERHOLD 01-18 02:33 → MED/SURG 01-18 03:25
PROVIDERS: ADMIT Internal Medicine; ATTEND Internal Medicine
PROC: 0DNU0ZZ Release Omentum, Open Approach (ICD-10-PCS; 2025-01-18)
PROC: 0WJG4ZZ Inspection of Peritoneal Cavity, Percutaneous Endoscopic Approach (ICD-10-PCS; 2025-01-18)
PROC: 0T9B70Z Drainage of Bladder with Drainage Device, Via Natural or Artificial Opening (ICD-10-PCS; 2025-01-18)
PROC: 0FT40ZZ Resection of Gallbladder, Open Approach (ICD-10-PCS; principal; 2025-01-18 11:14)
PROC: 0FC98ZZ Extirpation of Matter from Common Bile Duct, Via Natural or Artificial Opening Endoscopic (ICD-10-PCS; 2025-01-25)
DX: K80.62 Calculus of gallbladder and bile duct with acute cholecystitis without obstruction (principal); K50.90 Crohn's disease, unspecified, without complications; N13.6 Pyonephrosis; R11.2 Nausea with vomiting, unspecified; I10 Essential (primary) hypertension; E66.01 Morbid (severe) obesity due to excess calories; Z68.35 Body mass index [BMI] 35.0-35.9, adult; R79.89 Other specified abnormal findings of blood chemistry; R74.8 Abnormal levels of other serum enzymes; Z79.85 Long-term (current) use of injectable non-insulin antidiabetic drugs; Z53.31 Laparoscopic surgical procedure converted to open procedure; Z90.49 Acquired absence of other specified parts of digestive tract
CPT/HCPCS: 36415; 43260; 74177; 74183; 74328; 76705; 80053; 81001; 83690; 84484; 85014; 85018; 85025; 87086; 88304; 93005; 94799; 99284; C1766; J0330; J1100; J1171; J1308; J1610; J1650; J1885; J2003; J2250; J2270; J2405; J2470; J2543; J7030; J7050; Q9967